=== PATIENT | male | born 1980 | race Caucasian/White ===

== ENCOUNTER 2016-08-18 12:13 | Day surgery (SDC) | payer OTHER, BC ==
[2016-08-16 13:48] VITALS: BMI 45.0
--- NOTE | 2016-08-16 14:27 | PAT Medication Instructions ---
Service Date Aug 16, 2016. Current Home Medication List Calcium Acetate (Phoslo 667 Mg), 1 CAP PO TIDM Calcium Carbonate (Antacid) (Tums E-X 750), 3 TAB PO TID Cinecalcet (Sensipar), 90 MG PO QPM Ergocalciferol (Vitamin D 93130 Unit), 1 TAB PO MONTHLY Sevelamer Carbonate (Renvela), 3,200 MG PO TIDM Sevelamer Carbonate (Renvela), 3 TAB PO SNACKS Vitamin B Cmplx/Vitc/Folic Ac (Nephrocaps), 1 CAP PO QAM [Hectoral], 1 DOSE IV M,W,F PRN for PER DIALYSIS Medication Instructions For Your Scheduled Surgery Hectoral 1 DOSE IV M,W,F PRN for PER DIALYSIS (continue as usual) - Hold the following medications the morning of surgery: Vitamin B Cmplx/Vitc/Folic Ac (Nephrocaps), 1 CAP PO QAM Calcium Acetate (Phoslo 667 Mg), 1 CAP PO TIDM Calcium Carbonate (Antacid) (Tums E-X 750), 3 TAB PO TID Ergocalciferol (Vitamin D 71788 Unit), 1 TAB PO MONTHLY Sevelamer Carbonate (Renvela), 3,200 MG PO TID - Take the following medications as scheduled the night before surgery: Calcium Acetate (Phoslo 667 Mg), 1 CAP PO TIDM Calcium Carbonate (Antacid) (Tums E-X 750), 3 TAB PO TID Cinecalcet (Sensipar), 90 MG PO QPM Sevelamer Carbonate (Renvela), 3,200 MG PO TID If you have any questions please call us at [phone] or [phone] ( [place]) or [phone]
--- NOTE | 2016-08-16 14:55 | DIAGNOSTIC IMAGING REPORT ---
CHEST PREADMISSION(PA/LAT) CLINICAL HISTORY: PAT preoperative evaluation COMPARISON STUDY: 08/21/2012 FINDINGS: The bones soft tissues and hemidiaphragms are normal. The cardiomediastinal silhouette is normal. The lungs are clear. The pulmonary vasculature is normal. IMPRESSION: Negative chest. Electronically signed by: Forest Cabrales M.D. 08/16/2016 2:54 PM Dictated Date/Time: 08/16/2016 2:53 PM
[2016-08-16 15:08] LABS: BASO % 0.4 %; BASO ABS # 0.03 K/uL (0-0.2); COMPLETE YES; EOS % 1.9 %; HEMATOCRIT 41.1 % (42-52); IG% 0.1 %; LYMPH % 29.6 %; LYMPH ABS # 2.38 K/uL (1.2-3.4); MEAN CELL VOLUME 100.2 fL (80-100); MEAN CORPUSCULAR HEMOGLOBIN 33.2 pg (25-34); MEAN CORPUSCULAR HGB CONC 33.1 g/dl (32-36); MEAN PLATELET VOLUME 9.4 fL (7.4-10.4); MONO % 6.5 %; NEUT % 61.5 %; PLATELET COUNT 303 K/uL (130-400); WHITE BLOOD COUNT 8.04 K/uL (4.8-10.8)
[2016-08-16 15:31] LABS: PROTHROMBIN TIME (PATIENT) 10.3 SECONDS (9.0-12.0)
[2016-08-16 15:46] LABS: BUN/CREATININE RATIO 5.7 (10-20); CALCIUM 8.8 mg/dl (8.5-10.1); POTASSIUM 4.8 mmol/L (3.5-5.1)
[2016-08-16 15:48] LABS: CREATININE 8.3 mg/dl (0.60-1.40)
[~2016-08-18] VITALS: Ht 180.3 cm; Wt 146.9 kg
--- NOTE | 2016-08-18 11:12 | History and Physical ---
History & Physical Chief Complaint: Malfunctoning av fistula History of Present Illness The patient is a 34 year old male with a right wrist av fistula. He has a malfunctioning fistula and a blood bleb over a puncture site. He is admitted for revision of his fistula. Allergies Coded Allergies: No Known Allergies (Unverified , 02/10/15) Surgical / Medical History Hx Cardiac Surgery: No Hx Abdominal Surgery: No Hx Cancer Surgery: No Hx Thoracic Surgery: No Hx Orthopedic: Yes (rt lower leg ,left knee surgery,fistula rt arm) Hx Urinary Tract Surgery: No HX Other Surgery: No Past Medical/Surgical History: Kidney Disease Family History Patient reports no known family medical history. Social History Smoking Status: Current Every Day Smoker Hx Tobacco Use In Past Year?: Yes Hx Alcohol Use - Type & Amnt: No Hx Substance Use -Type & Amnt: No Review of Systems Constitutional: No chills, No diaphoresis, No fatigue, No fever, No malaise, No problem reported, No sweats, No weakness, No weight gain, No weight loss Respiratory: No ROMERO, No PND, No cough, No cyanosis, No dyspnea, No hemoptysis, No orthopnea, No problem reported, No short of breath, No sputum production, No stridor, No wheezing Cardiovascular: No chest pain, No chest pressure, No chest tightness, No cyanosis, No diaphoresis, No edema, No intermittent claudication, No lightheadedness, No mumur, No orthopnea, No palpitations, No paroxysmal nocturnal dyspnea, No problem reported, No syncope Gastrointestinal: No abdominal pain, No anorexia, No appetite changes, No belching, No constipation, No diarrhea, No dysphagia, No flatulence, No food intolerance, No heartburn, No hematemesis, No hematochezia, No hemorrhoids, No indigestion, No nausea, No problem reported, No rectal bleeding, No stool changes, No vomiting Musculoskeletal: No back pain, No gout, No joint pain, No joint swelling, No muscle pain, No muscle stiffness, No muscle weakness, No neck pain, No problem reported Neurologic: No LOC, No dizziness, No headache, No lethargy, No memory loss, No numbness, No paresthesia, No pre-existing deficit, No problem reported, No seizures, No tics, No tingling, No tremors, No vertigo, No weakness Psychiatric: No alcohol abuse, No anxiety, No auditory hallucinations, No depression, No drug abuse, No homicidal ideation, No mood changes, No problem reported, No suicidal ideation, No visual hallucinations Physical Exam: Constitutional: General Apperance: heathly-appearing, well-nourished, well-developed Level of Distress: NAD Ambulation: ambulating normally Psychiatric: Mental Status: active & alert, normal mood, normal affect Orientation: oriented except where noted, to time, to place, to person Memory: recent memory normal, remote memory normal Head: normocephalic Lungs: Auscultation: breath sounds normal Cardiovascular: Heart Auscultation: RRR Peripheral Pulses: Pulses: full and equal Abdomen: Inspection & Palpation: soft Musculoskeletal: normal Extremities: Upper Right: no cyanosis, no edema, no varicosities, no palpable cord, no clubbing, no ulcers, no mottling Upper Left: pertinent finding thrill present, small blood bleb present over upper part of fistula Lower Right: no cyanosis, no edema, no varicosities, no palpable cord, no clubbing, no ulcers, no mottling Lower Left: no cyanosis, no edema, no varicosities, no palpable cord, no clubbing, no ulcers, no mottling Neurologic: Cranial Nerves: grossly intact Sensation: grossly intact Imp: Malfunctioning av fistula Plan: Patient will need a right arm fistula revision. I have discussed the risks options and benefits of the procedure with the patient. The patient understands the risks options and benefits and agrees to the procedure.
[~2016-08-18 12:13] MED LIST: B-COCAP2 PO; CEFAZOLIN 3000 MG/65 ML D5W IV SCH; CINA90TA PO; ERGO1CAP41 PO; SODIUM CHLORIDE 0.9% 1000ML 1,000 ML IV SCH
[2016-08-18 12:42] VITALS: BP 87/61; PULSE 112; TEMP 36.8; O2SAT 96; Ht 180.3 cm; Wt 146.9 kg
[2016-08-18 13:23] LABS: BUN/CREATININE RATIO 4.8 (10-20); CALCIUM 9.6 mg/dl (8.5-10.1); CREATININE 8.3 mg/dl (0.60-1.40); POTASSIUM 5.8 mmol/L (3.5-5.1)
[2016-08-18] MEDS ORDERED: FENTANYL CITRATE INJ 50 MCG/1 ML 2 ML VIAL IV PRN (13:45)
[2016-08-18] MEDS ORDERED: ATROPINE SULFATE 0.1 MG/ML 5ML SYR IV PRN (13:45)
[2016-08-18] MEDS ORDERED: ONDANSETRON INJ 2 MG/ML 2 ML VIAL IV PRN (13:45)
[2016-08-18] MEDS ORDERED: EpHEDrine SULFATE INJ 50 MG/ML AMP IV PRN (13:45)
[2016-08-18] MEDS ORDERED: MIDAZOLAM HCL 1 MG/ML 2ML VIAL ONE (13:57)
[2016-08-18] MEDS ORDERED: KETAMINE HCL INJ 50 MG/ML 10 ML VIAL ONE (13:57)
[2016-08-18] MEDS ORDERED: FENTANYL CITRATE INJ 50 MCG/1 ML 2 ML VIAL ONE (13:57)
[2016-08-18] MEDS ORDERED: PROPOFOL IV EMULSION 10 MG/ML 20 ML VIAL IV ONE ×2 (14:59→15:47)
[2016-08-18] MEDS ORDERED: LIDOCAINE HCL 2% 2 ML VIAL (20MG/ML) ONE (14:59)
[2016-08-18] MEDS ORDERED: SURGICEL ABSORB HEMOSTAT 2IN X 14IN TOP ONE (15:27)
[2016-08-18] MEDS ORDERED: HEPARIN SOD (PORCINE) 1000 UNIT/ML 10 ML VIAL ONE (15:47)
--- NOTE | 2016-08-18 15:51 | [facility] Post Operative Brief Note ---
Immediate Operative Summary Operative Date Aug 18, 2016. Pre-Operative Diagnosis Malfunctioning arteriovenous fistula, right forearm Post-Operative Diagnosis Same as preoperative diagnosis Procedure(s) Performed Right Forearm Revision of Arteriovenous Fistula with interposition graft Surgeon Dr. Antwan Jefferson Tool Crib Lead Surgeon(s) Lidya Raya PA-C Estimated Blood Loss 100 mL Findings severe hypoplasia of venous aneurysm Specimens No pathology specimens per surgeon Anesthesia MAC Complication(s) None Disposition Recovery Room / PACU
[2016-08-18] MEDS ORDERED: SODIUM CHLORIDE 0.9% INJ 10 ML VIAL ONE (15:52)
[2016-08-18] MEDS ORDERED: HEPARIN SOD (PORCINE) 1000 UNIT/ML 10 ML VIAL FLUSH ONE (15:53)
[2016-08-18] MEDS ORDERED: MIX: 0.5% BUPIVACAINE W/EPI 1:200,000+1%LIDO 50:50 INJ ONE (15:53)
[2016-08-18] MEDS ORDERED: OXYC-57 PO (15:55)
--- NOTE | 2016-08-18 15:56 | Discharge Instructions ---
Discharge Instructions Visit Reason for Visit: End Stage Renal Disease Discharge Discharge Diagnosis / Problem: Malfunctioning right arm fistula Discharge Goals Goal(s): Therapeutic intervention Activity Recommendations Activity Limitations: per Instructions/Follow-up section Anesthesia . Post Anesthesia Instructions: If you have had General Anesthesia or IV Sedation: * Do not drive today. * Resume driving when surgeon permits. * Do not make important decisions or sign legal documents today. * Call surgeon for: 1. Temperature elevations greater than 101 degrees F. 2. Uncontrollable pain. 3. Excessive bleeding. 4. Persistent nausea and vomiting. 5. Medication intolerance (nausea, vomiting or rash). * For nausea and vomiting use only clear liquids such as: tea, soda, bouillon until nausea subsides, then gradually increase diet as tolerated. * If you have any concerns or questions, call your surgeon's office. If physician is unavailable and it is an emergency, call 911 or go to the nearest emergency room. . Instructions / Follow-Up Instructions / Follow-Up Call [phone] to schedule a follow up appointment if one not already scheduled. ACTIVITY RECOMMENDATIONS: See Above SPECIAL CARE INSTRUCTIONS: Call your doctor if: * Temperature above 101 degrees * Pain not relieved by pain medicine ordered * There is increased drainage or redness from any incision * You have any unanswered questions or concerns. Diet Recommendations Recommended Home Diet: resume previous diet Procedures Procedures Performed: Right Forearm Revision of Arteriovenous Fistula with interposition graft Pending Studies Studies pending at discharge: no Medical Emergencies . Who to Call and When: Medical Emergencies: If at any time you feel your situation is an emergency, please call 911 immediately. . Non-Emergent Contact Non-Emergency issues call your: Surgeon . . "Provider Documentation" section prepared by Antwan Jefferson.
--- NOTE | 2016-08-18 16:24 | Anesthesiology Progress Note ---
Anesthesia Post Op Note Date & Time Aug 18, 2016 at 16:24 Vital Signs Pain Intensity: 0 Vital Signs Past 12 Hours Date Time Temp Pulse Resp B/P Pulse Ox O2 Delivery O2 Flow Rate FiO2 08/18/16 16:05 36.2 107 27 81/45 96 Mask 10 08/18/16 12:42 36.8 112 20 87/61 96 Room Air Notes Mental Status: alert / awake / arousable, participated in evaluation Pt Amnestic to Procedure: Yes Nausea / Vomiting: adequately controlled Pain: adequately controlled Airway Patency, RR, SpO2: stable & adequate BP & HR: stable & adequate Hydration State: stable & adequate Anesthetic Complications: no major complications apparent
[2016-08-18 17:00] VITALS: BP 89/52; PULSE 103; TEMP 36.6; O2SAT 97
[2016-08-18 17:30] VITALS: BP 104/59; PULSE 101; O2SAT 97
[2016-08-18 17:40] VITALS: BP 101/60; PULSE 101; TEMP 36.6; O2SAT 100
--- NOTE | 2016-08-18 18:22 | OPERATIVE REPORT ---
DATE OF OPERATION: 08/18/2016 PREOPERATIVE DIAGNOSIS: Malfunctioning right forearm AV fistula. POSTOPERATIVE DIAGNOSIS: Same. PROCEDURE: Revision of right forearm fistula with 10 mm French Settlement-Siva interposition graft. SURGEON: Dr. Jefferson. VENTURE CAPITAL ANALYST: Lidya Raya PA-C. ANESTHETIC: MAC. PROCEDURE INDICATIONS: The patient is a 35-year-old gentleman with a right arm fistula. There was an area which was very superficial and had scabbed over and had blood in the past. This is over a venous aneurysm which has had multiple punctures. Revision was recommended. He understood the risks, options and benefits and agreed to have this procedure. PROCEDURE IN DETAIL: The patient was taken to the operating room and placed in supine position. After the right arm was prepped and draped in a sterile manner, local anesthetic was administered. An elliptical incision was made around the top of the venous aneurysm, in the area where the skin was adherent to the anterior wall of the venous aneurysm. Venous aneurysm was then isolated. There was a short neck between this and another venous aneurysm. Distally, the vein was extremely large. It was decided to try to do venorrhaphy to take it down to near the proximal venous aneurysm. The patient was heparinized. Proximal and distally, the control was obtained. The venous aneurysm was opened. Unfortunately, there was a severe amount of hyperplasia with transverse ridges. A venorrhaphy would not work well in this area. It was decided to replace this short segment with a 10 mm French Settlement-Siva graft. The venous aneurysm was then resected. A 10 mm French Settlement-Siva graft was brought to the operative field. We used approximately 3 cm of the graft. This was sewn in an end-to-end fashion to both the proximal and distal portions of the fistula. Prior to completing the anastomosis, backbleeding and forward bleeding was allowed to occur and the final few sutures were then securely tied. After this was completed, the adequate hemostasis was seen in both proximal and distal suture lines. The wound also showed adequate hemostasis. There was excellent flow going through the fistula at that time. At that point, the wounds were then freed up on both sides to allow the graft to be covered. We did suture the subcutaneous tissue below the graft to make it more superficial. The wound was then closed in the usual fashion with a running 3-0 Vicryl suture for the subcutaneous layer and zak for the skin. Sterile dressings were applied to the wound. The patient left the operating room in satisfactory condition and tolerated the procedure well. Lidya Raya assisted due to lack of resident availability. I attest to the content of the Intraoperative Record and any orders documented therein. Any exceptio ns are noted below.
--- NOTE | 2016-08-19 14:16 | Progress Note ---
Progress Note I assisted Dr Jefferson with Edouard Morrison's Right Forearm Revision of Arteriovenous Fistula with interposition graft on 08/18/16, d/t lack of resident availability.
[2016-09-30] MEDS ORDERED: OXYC-57 PO (10:07)
[2016-12-19] MEDS ORDERED: SEVE800T7 PO ×2 (07:48→19:14)
[2016-12-19] MEDS ORDERED: CALC667C4 PO (13:48)
[2016-12-19] MEDS ORDERED: HECTORAL IV (13:48)
[2016-12-19] MEDS ORDERED: CALC1CHW43 PO (13:48)
[2016-12-29] MEDS ORDERED: ERGO1CAP41 PO (15:47)
[2017-01-03] MEDS ORDERED: OXYC-57 PO (13:48)
== END 2016-08-18 17:40 | disposition home or self-care (01) ==
LOC: C.ACU 12:13
PROVIDERS: ATTEND Surgery Vascular Surgery
DX: T82.898A Other specified complication of vascular prosthetic devices, implants and grafts, initial encounter (principal); N18.6 End stage renal disease; Y84.8 Other medical procedures as the cause of abnormal reaction of the patient, or of later complication, without mention of misadventure at the time of the procedure

== ENCOUNTER → 2016-09-30 | Day surgery (SDC) | payer OTHER, BC ==
[2016-09-27 13:05] VITALS: BMI 45.0
[~2016-09-30] VITALS: Ht 180.3 cm; Wt 146.9 kg
[~2016-09-30] MED LIST changes: +ATROPINE SULFATE 0.1 MG/ML 5ML SYR IV PRN; +B-COCAP28 PO; +BUPIVACAINE/EPINEPHRINE 0.5% MPF 1:200,000 30 ML VIAL ONE; +CALC1CHW43 PO; +CALC667C PO; +CALC667C4 PO; +CINA0.42 PO; +EpHEDrine SULFATE INJ 50 MG/ML AMP IV PRN; +FENTANYL CITRATE INJ 50 MCG/1 ML 2 ML VIAL IV PRN; +FENTANYL CITRATE INJ 50 MCG/1 ML 2 ML VIAL ONE; +GELATIN SPONGE 12-7MM ONE; +HECTORAL IV; +HEPARIN SOD (PORCINE) 1000 UNIT/ML 10 ML VIAL ONE; +LIDOCAINE HCL 1% 20 ML VIAL ONE; +MIDAZOLAM HCL 1 MG/ML 2ML VIAL ONE; +OXYC-57 PO; +PATI1POW3 PO; +PROPOFOL IV EMULSION 10 MG/ML 20 ML VIAL IV ONE; +SEVE800T7 PO; +THROMBIN FOR SOLN 20000 UNIT KIT ONE; +TRAM-10 PO; +[UNRECOGNIZED DRUG - CODE]
--- NOTE | 2016-09-30 08:04 | History and Physical ---
History & Physical Date of Service Sep 30, 2016. History & Physical Chief Complaint: Malfunctoning av fistula History of Present Illness The patient is a 34 year old male with a right wrist av fistula. He has a malfunctioning fistula and a blood bleb over a puncture site. He is admitted for revision of his fistula. Allergies Coded Allergies: No Known Allergies (Unverified , 02/10/15) Surgical / Medical History Hx Cardiac Surgery: No Hx Abdominal Surgery: No Hx Cancer Surgery: No Hx Thoracic Surgery: No Hx Orthopedic: Yes (rt lower leg ,left knee surgery,fistula rt arm) Hx Urinary Tract Surgery: No HX Other Surgery: No Past Medical/Surgical History: Kidney Disease Family History Patient reports no known family medical history. Social History Smoking Status: Current Every Day Smoker Hx Tobacco Use In Past Year?: Yes Hx Alcohol Use - Type & Amnt: No Hx Substance Use -Type & Amnt: No Review of Systems Constitutional: No chills, No diaphoresis, No fatigue, No fever, No malaise, No problem reported, No sweats, No weakness, No weight gain, No weight loss Respiratory: No ROMERO, No PND, No cough, No cyanosis, No dyspnea, No hemoptysis, No orthopnea, No problem reported, No short of breath, No sputum production, No stridor, No wheezing Cardiovascular: No chest pain, No chest pressure, No chest tightness, No cyanosis, No diaphoresis, No edema, No intermittent claudication, No lightheadedness, No mumur, No orthopnea, No palpitations, No paroxysmal nocturnal dyspnea, No problem reported, No syncope Gastrointestinal: No abdominal pain, No anorexia, No appetite changes, No belching, No constipation, No diarrhea, No dysphagia, No flatulence, No food intolerance, No heartburn, No hematemesis, No hematochezia, No hemorrhoids, No indigestion, No nausea, No problem reported, No rectal bleeding, No stool changes, No vomiting Musculoskeletal: No back pain, No gout, No joint pain, No joint swelling, No muscle pain, No muscle stiffness, No muscle weakness, No neck pain, No problem reported Neurologic: No LOC, No dizziness, No headache, No lethargy, No memory loss, No numbness, No paresthesia, No pre-existing deficit, No problem reported, No seizures, No tics, No tingling, No tremors, No vertigo, No weakness Psychiatric: No alcohol abuse, No anxiety, No auditory hallucinations, No depression, No drug abuse, No homicidal ideation, No mood changes, No problem reported, No suicidal ideation, No visual hallucinations Physical Exam: Constitutional: General Apperance: heathly-appearing, well-nourished, well-developed Level of Distress: NAD Ambulation: ambulating normally Psychiatric: Mental Status: active & alert, normal mood, normal affect Orientation: oriented except where noted, to time, to place, to person Memory: recent memory normal, remote memory normal Head: normocephalic Lungs: Auscultation: breath sounds normal Cardiovascular: Heart Auscultation: RRR Peripheral Pulses: Pulses: full and equal Abdomen: Inspection & Palpation: soft Musculoskeletal: normal Extremities: Upper Right: no cyanosis, no edema, no varicosities, no palpable cord, no clubbing, no ulcers, no mottling Upper Left: pertinent finding thrill present, small blood bleb present over upper part of fistula Lower Right: no cyanosis, no edema, no varicosities, no palpable cord, no clubbing, no ulcers, no mottling Lower Left: no cyanosis, no edema, no varicosities, no palpable cord, no clubbing, no ulcers, no mottling Neurologic: Cranial Nerves: grossly intact Sensation: grossly intact Imp: Malfunctioning av fistula Plan: Patient will need a right arm fistula revision. I have discussed the risks options and benefits of the procedure with the patient. The patient understands the risks options and benefits and agrees to the procedure.
[2016-09-30 08:15] VITALS: BP 90/59; PULSE 92; TEMP 36.4; O2SAT 97; Ht 180.3 cm; Wt 146.9 kg
[2016-09-30 08:57] LABS: BUN/CREATININE RATIO 6.9 (10-20); CALCIUM 8.9 mg/dl (8.5-10.1); POTASSIUM 5.8 mmol/L (3.5-5.1)
--- NOTE | 2016-09-30 10:06 | [facility] Post Operative Brief Note ---
Immediate Operative Summary Operative Date Sep 30, 2016. Pre-Operative Diagnosis Malfunctioning arteriovenous fistula Post-Operative Diagnosis Same as preoperative diagnosis Procedure(s) Performed Revision Right Arm Arteriovenous Fistula with Venorrhaphy Surgeon Dr Jefferson Roll Icer Machine Surgeon(s) Lidya Galaviz PA-C Estimated Blood Loss 20ml Findings good thrill post procedure Specimens None per surgeon Anesthesia MAC Complication(s) None Disposition Recovery Room / PACU
--- NOTE | 2016-09-30 10:08 | Discharge Instructions ---
Discharge Instructions Date of Service Sep 30, 2016. Visit Reason for Visit: Venous Aneurysm Right Arm Arteriovenous Fistula Discharge Discharge Diagnosis / Problem: Venous aneurysm right forearm fistula Discharge Goals Goal(s): Therapeutic intervention Activity Recommendations Activity Limitations: per Instructions/Follow-up section Anesthesia . Post Anesthesia Instructions: If you have had General Anesthesia or IV Sedation: * Do not drive today. * Resume driving when surgeon permits. * Do not make important decisions or sign legal documents today. * Call surgeon for: 1. Temperature elevations greater than 101 degrees F. 2. Uncontrollable pain. 3. Excessive bleeding. 4. Persistent nausea and vomiting. 5. Medication intolerance (nausea, vomiting or rash). * For nausea and vomiting use only clear liquids such as: tea, soda, bouillon until nausea subsides, then gradually increase diet as tolerated. * If you have any concerns or questions, call your surgeon's office. If physician is unavailable and it is an emergency, call 911 or go to the nearest emergency room. . Instructions / Follow-Up Instructions / Follow-Up Call [phone] to schedule a follow up appointment if one not already scheduled. ACTIVITY RECOMMENDATIONS: See Above SPECIAL CARE INSTRUCTIONS: Call your doctor if: * Temperature above 101 degrees * Pain not relieved by pain medicine ordered * There is increased drainage or redness from any incision * You have any unanswered questions or concerns. Diet Recommendations Recommended Home Diet: resume previous diet Procedures Procedures Performed: Revision Right Arm Arteriovenous Fistula with Venorrhaphy Pending Studies Studies pending at discharge: no Medical Emergencies . Who to Call and When: Medical Emergencies: If at any time you feel your situation is an emergency, please call 911 immediately. . Non-Emergent Contact Non-Emergency issues call your: Surgeon . . "Provider Documentation" section prepared by Antwan Jefferson.
--- NOTE | 2016-09-30 10:54 | OPERATIVE REPORT ---
DATE OF OPERATION: 09/30/2016 PREOPERATIVE DIAGNOSIS: Venous aneurysm, malfunctioning right forearm fistula. POSTOPERATIVE DIAGNOSIS: Same. PROCEDURE: Revision of right forearm AV fistula with venorrhaphy. SURGEON: Dr. Jefferson. BRANCH ASSOCIATE TELLER: Lidya Raya PA-C. ANESTHETIC: MAC. PROCEDURE INDICATIONS: The patient is a 36-year-old gentleman with a large venous aneurysm of his right forearm. There is decreased flow going through the fistula. The revision was recommended. He understood the risks, options and benefits and agreed to have this procedure. OPERATION AND FINDINGS: The patient was taken to the operating room and placed in supine position. The right arm was prepped and draped in a sterile manner. Elliptical incision was made around the top of the aneurysm back to the border of good skin tissue. This was carried down and the venous aneurysm was encircled. It was approximately 30 cm in size. Proximally and distally there was a neck seen. Distal end was in an old another venorrhaphy which was done prior to this. The fistula was then clamped after adequate heparinization was accomplished. The fistula was then opened. The excess redundant vein was excised and the venotomy was then closed with a running 5-0 Prolene suture. The vein now was approximately 8 mm in size through its entire course of the incision. Adequate hemostasis was then noted once the fistula was clamped. The wound was inspected. Adequate hemostasis was seen. The wound was then closed with running 3-0 Vicryl suture for the subcutaneous layer and zak for the skin. Sterile dressings were applied to the wound. The patient left the operating room in satisfactory condition and tolerated the procedure well. Lidya Raya Pac assisted due to lack of resident availability and was necessary for prepping, draping, retraction, wound closure defects, subQ and skin and was necessary for the case. I attest to the content of the Intraoperative Record and any orders documented therein. Any exceptions are noted below. DAYSID
[2016-09-30 10:55] VITALS: BP 99/52; PULSE 89; TEMP 36.8; O2SAT 95
--- NOTE | 2016-09-30 10:58 | Anesthesiology Progress Note ---
Anesthesia Post Op Note Date & Time Sep 30, 2016 at 10:58 Vital Signs Pain Intensity: 0 Vital Signs Past 12 Hours Date Time Temp Pulse Resp B/P Pulse Ox O2 Delivery O2 Flow Rate FiO2 09/30/16 10:40 36.9 89 21 105/74 94 Room Air 09/30/16 10:30 85 17 109/73 100 Mask 10 09/30/16 10:23 36.7 81 24 119/76 100 Mask 10 09/30/16 08:15 36.4 92 20 90/59 97 Room Air Notes Mental Status: alert / awake / arousable, participated in evaluation Pt Amnestic to Procedure: Yes Nausea / Vomiting: adequately controlled Pain: adequately controlled Airway Patency, RR, SpO2: stable & adequate BP & HR: stable & adequate Hydration State: stable & adequate Anesthetic Complications: no major complications apparent
[2016-09-30 11:27] VITALS: BP 115/53; PULSE 87; TEMP 36.8; O2SAT 94
[2016-09-30 11:55] VITALS: BP 83/52; PULSE 88; TEMP 36.6; O2SAT 93
== END | disposition home or self-care (01) ==
LOC: C.ACU 07:48
PROVIDERS: ATTEND Surgery Vascular Surgery
DX: T82.590A Other mechanical complication of surgically created arteriovenous fistula, initial encounter (principal); I86.8 Varicose veins of other specified sites; Y83.2 Surgical operation with anastomosis, bypass or graft as the cause of abnormal reaction of the patient, or of later complication, without mention of misadventure at the time of the procedure; N28.9 Disorder of kidney and ureter, unspecified; F17.200 Nicotine dependence, unspecified, uncomplicated

== ENCOUNTER 2016-12-19 20:11 | Inpatient (IN) | payer OTHER, BC ==
[~2016-12-19] VITALS: Ht 180.3 cm; Wt 151.6 kg
[~2016-12-19 20:11] MED LIST changes: -ATROPINE SULFATE 0.1 MG/ML 5ML SYR IV PRN; -B-COCAP28 PO; -BUPIVACAINE/EPINEPHRINE 0.5% MPF 1:200,000 30 ML VIAL ONE; -CALC667C PO; -CEFAZOLIN 3000 MG/65 ML D5W IV SCH; -CINA0.42 PO; -ERGO1CAP41 PO; +ERGO500011 PO; -EpHEDrine SULFATE INJ 50 MG/ML AMP IV PRN; -FENTANYL CITRATE INJ 50 MCG/1 ML 2 ML VIAL IV PRN; -FENTANYL CITRATE INJ 50 MCG/1 ML 2 ML VIAL ONE; -GELATIN SPONGE 12-7MM ONE; -HEPARIN SOD (PORCINE) 1000 UNIT/ML 10 ML VIAL ONE; -LIDOCAINE HCL 1% 20 ML VIAL ONE; -MIDAZOLAM HCL 1 MG/ML 2ML VIAL ONE; -PATI1POW3 PO; -PROPOFOL IV EMULSION 10 MG/ML 20 ML VIAL IV ONE; -SODIUM CHLORIDE 0.9% 1000ML 1,000 ML IV SCH; -THROMBIN FOR SOLN 20000 UNIT KIT ONE; -TRAM-10 PO; -[UNRECOGNIZED DRUG - CODE]
[2016-12-19] MEDS ORDERED: CINA0.42 PO (21:27)
[2016-12-19] MEDS ORDERED: CALC667C PO (21:27)
[2016-12-19] MEDS ORDERED: B-COCAP28 PO (21:27)
[2016-12-19 21:57] LABS: BASO % 0.4 %; BASO ABS # 0.04 K/uL (0-0.2); COMPLETE YES; EOS % 2.4 %; HEMATOCRIT 35.2 % (42-52); IG% 0.4 %; LYMPH % 35.6 %; LYMPH ABS # 3.53 K/uL (1.2-3.4); MEAN CORPUSCULAR HEMOGLOBIN 32.7 pg (25-34); MEAN CORPUSCULAR HGB CONC 32.7 g/dl (32-36); MEAN PLATELET VOLUME 9.3 fL (7.4-10.4); MONO % 4.9 %; NEUT % 56.3 %; PLATELET COUNT 303 K/uL (130-400); RED BLOOD COUNT 3.52 M/uL (4.7-6.1); WHITE BLOOD COUNT 9.91 K/uL (4.8-10.8)
[2016-12-19 22:28] LABS: ALKALINE PHOSPHATASE 77 U/L (45-117); ALT/SGPT 18 U/L (12-78); AST/SGOT 13 U/L (15-37); BLOOD UREA NITROGEN 106 mg/dl (7-18); BUN/CREATININE RATIO 7.1 (10-20); CARBON DIOXIDE 20 mmol/L (21-32); CHLORIDE 102 mmol/L (98-107); GLUCOSE 94 mg/dl (70-99); MAGNESIUM 3.2 mg/dl (1.8-2.4); POTASSIUM 5.2 mmol/L (3.5-5.1); SODIUM 140 mmol/L (136-145)
[2016-12-19] MEDS ORDERED: SODIUM BICARB 8.4% INJ 50 MEQ/50 ML SYR IV STA (22:33)
[2016-12-19] MEDS ORDERED: INSULIN HUMAN REGULAR PER UNIT 5 UNITS in SYRINGE 0 ML IV STA (22:34)
[2016-12-19] MEDS ORDERED: NovoLIN-R INSULIN PER UNIT CHARGE IV STA (22:37)
[2016-12-19] MEDS ORDERED: DEXTROSE 50% 50 ML SYR IV STA (22:38)
[2016-12-19] MEDS ORDERED: CALCIUM ACETATE 667MG GELCAP PO PRN (22:45)
[2016-12-19] MEDS ORDERED: TRAMADOL HCL 50 MG TAB PO PRN (22:45)
[2016-12-19] MEDS ORDERED: LORAZEPAM 2 MG/ML 1 ML VIAL IV PRN (22:45)
[2016-12-19] MEDS ORDERED: HYDROmorphone INJ 1 MG/ML SYR IV PRN (22:45)
[2016-12-19] MEDS ORDERED: ONDANSETRON INJ 2 MG/ML 2 ML VIAL IV PRN (22:45)
[2016-12-19] MEDS ORDERED: SEVELAMER HYDROCH 800 MG TAB PO PRN (22:45)
[2016-12-19] MEDS ORDERED: ACETAMINOPHEN 325 MG TAB PO PRN (22:45)
[2016-12-19 23:57] VITALS: BP 114/69; PULSE 95; TEMP 36.9; O2SAT 95; Ht 180.3 cm; Wt 151.6 kg
[2016-12-19 23:59] VITALS: O2SAT 95
[2016-12-20] VITALS (20 sets, daily range): BP systolic 109–144; BP diastolic 62–83; PULSE 59–93; TEMP 36.3–36.5; O2SAT 94–97
[2016-12-20 00:32] LABS: PROTHROMBIN TIME (PATIENT) 10.5 SECONDS (9.0-12.0)
--- NOTE | 2016-12-20 01:08 | EMERGENCY ROOM VISIT NOTE ---
History Report prepared by Ben: Ravinder Lock Under the Supervision of: Dr. aD King M.D. First contact with patient: 20:46 Chief Complaint: REFERRED BY DOCTOR Stated Complaint: ON DIALYSIS,CATHETER IS CRACKED,SENT BY History of Present Illness The patient is a 36 year old male who presents to the Emergency Room with complaints of a broken dialysis catheter beginning today. He is a dialysis patient and receives dialysis three times weekly. He states that he was told that his dialysis catheter had a crack in the venous lumen while at dialysis today. The patient states that he had the catheter placed two weeks ago due to his fistula not working. He was unable to complete dialysis today. He has not had dialysis for two days. The patient notes that he still makes a small amount of urine. Pt denies LOC, headache, fevers, chills, diaphoresis, visual changes, neck pain, chest pain, breathing difficulties, nausea, vomiting, abdominal pain , back pain, melena, hematochezia, urinary symptoms, numbness, weakness, lymphadenopathy, rash, or other complaints. Source of History: patient Onset: Today Quality: other (broken catheter) Associated Symptoms: No fevers, No chest pain, No SOB, No nausea, No vomiting Review of Systems See HPI for pertinent positives and negatives. A total of ten systems were reviewed and were otherwise negative. Past Medical & Surgical Medical Problems: (1) Dialysis catheter clot or failure (2) ESRD (end stage renal disease) on dialysis (3) Hyperkalemia Surgical Problems: (1) History of knee surgery Family History Patient reports no known family medical history. Social History Smoking Status: Current Every Day Smoker Drug Use: none Marital Status: single Occupation Status: employed Current/Historical Medications Scheduled B-Complex W/ C & Folic Acid (Triphrocaps), 1 CAP PO DAILY Calcium Acetate (Phoslo 667 Mg), 667 MG PO WITH SNACKS Calcium Acetate (Phosphate Bin (Phoslo 667 Mg), 2,001 MG PO TIDM Calcium Carbonate (Antacid) (Tums E-X 750), 2,625 MG PO TIDM Cinacalcet Hydrochloride (Sensipar), 30 MG PO QPM Sevelamer Carbonate (Renvela), 3,200 MG PO TIDM Sevelamer Carbonate (Renvela), 2,400 MG PO WITH SNACKS Scheduled PRN [Hectoral], 1 DOSE IV 3XWK PRN for PER DIALYSIS Allergies Coded Allergies: No Known Allergies (Unverified , 09/30/16) Physical Exam Vital Signs Date Time Temp Pulse Resp B/P (MAP) Pulse Ox O2 Delivery O2 Flow Rate FiO2 12/19/16 22:30 99 18 125/46 93 Room Air 12/19/16 21:55 93 12/19/16 20:12 36.7 99 18 117/66 95 Room Air Physical Exam GENERAL: Awake, alert, well-appearing, in no distress HENT: Normocephalic, atraumatic. Oropharynx unremarkable. EYES: Normal conjunctiva. Sclera non-icteric. NECK: Supple. No nuchal rigidity. FROM. No JVD. RESPIRATORY: Clear to auscultation. CARDIAC: Regular rate, normal rhythm. Extremities warm and well perfused. Pulses equal. ABDOMEN: Soft, non-distended. No tenderness to palpation. No rebound or guarding. No masses. RECTAL: Deferred. MUSCULOSKELETAL: Chest examination reveals no tenderness. Cracked venous lumen to the dialysis catheter in the right chest wall. The back is symmetrical on inspection without obvious abnormality. There is no CVA tenderness to palpation. No joint edema. LOWER EXTREMITIES: Calves are equal size bilaterally and non-tender. 1+ edema. Chronic discoloration. NEURO: Normal sensorium. No sensory or motor deficits noted. SKIN: No rash or jaundice noted. Medical Decision & Procedures Laboratory Results 12/19/16 21:43 Red Blood Count 3.52, Mean Corpuscular Volume 100.0, Mean Corpuscular Hemoglobin 32.7, Mean Corpuscular Hemoglobin Concent 32.7, Mean Platelet Volume 9.3, Neutrophils (%) (Auto) 56.3, Lymphocytes (%) (Auto) 35.6, Monocytes (%) ( Auto) 4.9, Eosinophils (%) (Auto) 2.4, Basophils (%) (Auto) 0.4, Neutrophils # ( Auto) 5.57, Lymphocytes # (Auto) 3.53, Monocytes # (Auto) 0.49, Eosinophils # ( Auto) 0.24, Basophils # (Auto) 0.04 12/19/16 21:43 Test 12/19/16 21:43 White Blood Count 9.91 K/uL (4.8-10.8) Red Blood Count 3.52 M/uL (4.7-6.1) Hemoglobin 11.5 g/dL (14.0-18.0) Hematocrit 35.2 % (42-52) Mean Corpuscular Volume 100.0 fL (80-100) Mean Corpuscular Hemoglobin 32.7 pg (25-34) Mean Corpuscular Hemoglobin Concent 32.7 g/dl (32-36) Platelet Count 303 K/uL (130-400) Mean Platelet Volume 9.3 fL (7.4-10.4) Neutrophils (%) (Auto) 56.3 % Lymphocytes (%) (Auto) 35.6 % Monocytes (%) (Auto) 4.9 % Eosinophils (%) (Auto) 2.4 % Basophils (%) (Auto) 0.4 % Neutrophils # (Auto) 5.57 K/uL (1.4-6.5) Lymphocytes # (Auto) 3.53 K/uL (1.2-3.4) Monocytes # (Auto) 0.49 K/uL (0.11-0.59) Eosinophils # (Auto) 0.24 K/uL (0-0.5) Basophils # (Auto) 0.04 K/uL (0-0.2) RDW Standard Deviation 56.9 fL (36.4-46.3) RDW Coefficient of Variation 15.7 % (11.5-14.5) Immature Granulocyte % (Auto) 0.4 % Immature Granulocyte # (Auto) 0.04 K/uL (0.00-0.02) Prothrombin Time 10.5 SECONDS (9.0-12.0) Prothromb Time International Ratio 1.0 (0.9-1.1) Anion Gap 18.0 mmol/L (3-11) Est Creatinine Clear Calc Drug Dose 10.2 ml/min Estimated GFR () 4.2 Estimated GFR (Non- 3.6 BUN/Creatinine Ratio 7.1 (10-20) Calcium Level 8.0 mg/dl (8.5-10.1) Magnesium Level 3.2 mg/dl (1.8-2.4) Total Bilirubin 0.3 mg/dl (0.2-1) Direct Bilirubin < 0.1 mg/dl (0-0.2) Aspartate Amino Transf (AST/SGOT) 13 U/L (15-37) Alanine Aminotransferase (ALT/SGPT) 18 U/L (12-78) Alkaline Phosphatase 77 U/L (45-117) Total Protein 7.4 gm/dl (6.4-8.2) Albumin 3.3 gm/dl (3.4-5.0) Lipase 462 U/L (73-393) Laboratory results reviewed by me ED Course 2105: The patient was evaluated in room B11B. A complete history and physical exam was performed. 2115: Upon reexamination, the patient was resting comfortably. I discussed the test results and treatment plan with him. The patient will be evaluated for further management. Medical Decision Medication Reconciliation: I attest that I have personally reviewed the patient' s current medication list Blood pressure screening: Patient was found to have normal blood pressure on screening and does not require follow-up. Triage Nursing notes reviewed. The patient's presentation and history were concerning for a malfunctioning dialysis catheter. Etiologies such as metabolic, infection, electrolyte abnormalities, fluid overload, as well as others were entertained. The patient was evaluated. The dialysis team noted that he had a cracked venous lumen. There is no active bleeding. There were no clear signs of infection. The patient had blood work obtained. Consultation was made with internal medicine as the patient will need to be brought into the hospital and prepped for vascular intervention. Electrolytes were unremarkable. Creatinine elevated consistent with his renal failure Consults Time Called: 2113 Consulting Physician: Dr. Hoa Bonilla Returned Call: 2115 Discussed the patient's case. The patient will be evaluated for further treatment and disposition. Impression Primary Impression: Complications, dialysis, catheter, mechanical Additional Impression: Vascular dialysis catheter in place Scribe Attestation The scribe's documentation has been prepared under my direction and personally reviewed by me in its entirety. I confirm that the note above accurately reflects all work, treatment, procedures, and medical decision making performed by me. Departure Information Dispostion Being Evaluated By Hospitalist Referrals Patricia Stodadrd MD (PCP) Patient Instructions My [facility] Problem Qualifiers
--- NOTE | 2016-12-20 02:24 | HISTORY & PHYSICAL EXAMINATION ---
DATE OF ADMISSION: 12/19/2016 PATIENT'S PRIMARY CARE DOCTOR: Ignacia Contreras PA-C, from [facility]. CHIEF COMPLAINT: Cracked dialysis catheter. HISTORY OF PRESENT ILLNESS: HX obtained from px and records. Medical history significant for end-stage renal disease on hemodialysis 2 to traumatic kidney injury, chronic anemia (baseline hemoglobin 12), renal hyperparathyroidism sp parathyroid surgery, ongoing tobacco abuse. Recent confinement, last June 2015 for hyperkalemia secondary to missed dialysis, secondary to malfunctioning AV fistula. Patient undergoes hemodialysis at [place] on Monday, Monday, Monday. Last week, the patient noted to have a clotted right radiocephalic fistula (December 13). Declotting was unsuccessful. A tunneled right IJ hemodialysis catheter was placed and subsequently utilized for dialysis. Today, there was a crack noted on the dialysis catheter. Dialysis deferred. Patient sent to [facility]. Patient denies chest pain, shortness of breath, unusual swelling. MEDICAL HISTORY: As above. SURGERIES: Parathyroidectomy, vascular procedures, thymus gland removal. HOME MEDICATIONS: Include calcium acetate, vitamin D, sevelamer, cholecalciferol. ALLERGIES: No known drug allergies. FAMILY HISTORY: Family history of dementia. PERSONAL AND SOCIAL HISTORY: Half pack a day. No chronic intake of alcoholic beverages. 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 REVIEW OF SYSTEMS: As per HPI. all other ROS negative PHYSICAL EXAMINATION: VITAL SIGNS: Blood pressure was noted to be 120/80, pulse 89, RR 18, temperature 36.6, sats 98 on room air. GENERAL: Noted to be comfortable, obese. Looks older for stated age. SKIN: Sallow. HEENT Pale palpebral conjunctivae, dry mucosa. NECK: Short neck. LUNGS: Decreased effort. HEART: Regular rate and rhythm. ABDOMEN: Some distention, nontender. EXTREMITIES: Venous stasis/ hyperpigmentation, healed scars of lower extremities. NEUROLOGIC: No gross focality. LABS: Hemoglobin was noted to be 11.5, white cells 9.9, platelets of 303. Sodium 140, potassium 5.2, chloride 102, CO2 20, anion gap was noted to be 18, BUN 106, creatinine 15. ASSESSMENT: 1. Hyperkalemia 2 to missed dialysis 2 to cracked dialysis catheter. clogged dialysis fistula ESRD 2 to childhood kidney trauma 2. Chronic anemia, secondary to chronic kidney disease, Hemoglobin at baseline. 3. Ongoing tobacco abuse. 4. History of renal hyperparathyroidism sp surgery PLAN: PCU. monitoring baseline EKG. NaBicarb one dose now Vascular surgery consult RE dialysis access (px known to Dr. Jefferson) Nephrology consult, dialysis management nicotine patch DVT prophylaxis, Heparin subQ. Full code. MTDD
[2016-12-20] MEDS: SENSIPAR~ORDER AWAITING ACTION SCH ×3 (02:56→17:37)
[2016-12-20] MEDS: HEPARIN SOD 5000 UNIT/0.5 ML CARP SQ SCH ×2 (06:26→14:00)
[2016-12-20] MEDS: CALCIUM CARBONATE 500 MG CHEWABLE PO SCH ×3 (07:30→14:56)
[2016-12-20] MEDS: SEVELAMER HYDROCH 800 MG TAB PO SCH ×3 (07:30→14:57)
[2016-12-20 08:55] LABS: BASO % 0.3 %; BASO ABS # 0.03 K/uL (0-0.2); COMPLETE YES; EOS % 2.4 %; HEMATOCRIT 36.3 % (42-52); IG% 0.3 %; LYMPH % 29.3 %; LYMPH ABS # 2.86 K/uL (1.2-3.4); MEAN CELL VOLUME 98.9 fL (80-100); MEAN CORPUSCULAR HEMOGLOBIN 31.6 pg (25-34); MEAN PLATELET VOLUME 9.1 fL (7.4-10.4); MONO % 6.2 %; NEUT % 61.5 %; PLATELET COUNT 272 K/uL (130-400); RED BLOOD COUNT 3.67 M/uL (4.7-6.1); WHITE BLOOD COUNT 9.77 K/uL (4.8-10.8)
[2016-12-20] MEDS ORDERED: NEPHROCAPS PO SCH (09:00)
[2016-12-20] MEDS ORDERED: NICOTINE 14 MG/24 HR TDSY TD SCH (09:00)
--- NOTE | 2016-12-20 09:20 | Surgery Consultation ---
Consultation Date of Service Dec 20, 2016. (Lidya Raya, ETIENNE) Chief Complaint cracked venous end of permcath (Lidya Raya PA-C) History of Present Illness The patient is a 36 year old male with hx of DMII and ESRD on HD, known to Dr Jefferson for HD access, seen in consultation today d/t cracked venous end of permcath noted at HD yesterday. Pt had previously been undergoing HD through a R forearm AVF which occluded 10 days prior. He was sent to [facility] for thrombectomy which was unsuccessful, so permcath was placed. Pt states he went 5-6 days without HD last week, then had 2 good HD treatments through permcath before the HD unit noted it was cracked yesterday. Pt denies BREEN, fever, chills , chest pain, SOB, abd pain, N/V, rest pain, claudication, other complaints. (Lidya Raya, ETIENNE) Vitals Vital Signs Past 12 Hours Date Time Temp Pulse Resp B/P (MAP) Pulse Ox O2 Delivery O2 Flow Rate FiO2 12/20/16 08:00 Room Air 12/20/16 07:27 36.4 93 16 126/77 (93) 94 Room Air 12/20/16 04:57 36.4 91 18 111/62 (78) 94 Room Air 12/20/16 04:00 95 Room Air 12/19/16 23:59 95 Room Air 12/19/16 23:57 36.9 95 18 114/69 95 Room Air 12/19/16 23:00 96 24 116/88 94 Room Air 12/19/16 22:30 99 18 125/46 93 Room Air 12/19/16 21:55 93 (Lidya Raya, ETIENNE) Allergies Coded Allergies: No Known Allergies (Unverified , 09/30/16) Home Medications Scheduled B-Complex W/ C & Folic Acid (Triphrocaps), 1 CAP PO DAILY Calcium Acetate (Phoslo 667 Mg), 667 MG PO WITH SNACKS Calcium Acetate (Phosphate Bin (Phoslo 667 Mg), 2,001 MG PO TIDM Calcium Carbonate (Antacid) (Tums E-X 750), 2,625 MG PO TIDM Cinacalcet Hydrochloride (Sensipar), 30 MG PO QPM Sevelamer Carbonate (Renvela), 3,200 MG PO TIDM Sevelamer Carbonate (Renvela), 2,400 MG PO WITH SNACKS Scheduled PRN [Hectoral], 1 DOSE IV 3XWK PRN for PER DIALYSIS Problem List Medical Problems: (1) Dialysis catheter clot or failure (2) ESRD (end stage renal disease) on dialysis (3) Hyperkalemia Surgical Problems: (1) History of knee surgery (Lidya Raya PA-C) Surgical / Medical History Hx Cardiac Surgery: No Hx Abdominal Surgery: No Hx Cancer Surgery: No Hx Thoracic Surgery: No Hx Orthopedic: Yes (Left knee, right lower leg) Hx Urinary Tract Surgery: No HX Other Surgery: No Past Medical/Surgical History: Diabetes, Kidney Disease (Lidya Raya PA-C) Family History Patient reports no known family medical history. (Lidya Raya PA-C) Patient reports no known family medical history. (Antwan Jefferson M.D.) Social History Smoking Status: Current Every Day Smoker Hx Tobacco Use In Past Year?: Yes Hx Alcohol Use - Type & Amnt: No Hx Substance Use -Type & Amnt: No (Lidya Raya PA-C) Review of Systems Constitutional: No chills, No fever, No malaise Skin: No change in color Eyes: No visual changes ENMT: No sore throat Respiratory: No cough, No ROMERO, No short of breath Cardiovascular: No chest pain, No palpitations, No syncope, No edema, No intermittent claudication Gastrointestinal: No abdominal pain, No nausea, No vomiting Neurologic: No dizziness, No headache, No numbness, No tingling (Lidya Raya, MARIA DEL CARMENC) Physical Exam Constitutional: General Apperance: well-nourished, well-developed, obese Level of Distress: NAD Psychiatric: Mental Status: active & alert, normal mood, normal affect Orientation: oriented except where noted, to time, to place, to person Memory: recent memory normal, remote memory normal Head: normocephalic, atraumatic Eyes: EOM: EOMI ENMT: normal ENT inspection, hearing grossly normal Neck: supple, trachea midline Lungs: Respiratory effort: no dyspnea Auscultation: breath sounds normal, no wheezing, no rales/crackles, no rhonchi Cardiovascular: Apical Impulse: not displaced Heart Auscultation: RRR, no murmurs, no rubs, no gallops Peripheral Pulses: Pulses: full and equal, in all extremities except if noted Bruits: none appreciated Carotid Pulse: normal on the left, normal on the right Brachial Pulses: normal on the left, normal on the right Radial Pulse: normal on the left, normal on the right Femoral Pulse: normal on the left, normal on the right Posterior Tibialis Pulse: decreased on the left, decreased on the right Dorsalis Pedis Pulse: decreased on the left, decreased on the right Abdomen: Bowel Sounds: normal Inspection & Palpation: soft, non-distended, no tenderness, guarding & rebound Musculoskeletal: normal strength (5/5 throughout), normal tone Extremities: Upper Right: no cyanosis, no edema, no varicosities, pertinent finding (old R forearm AVF without thrill/bruit) Upper Left: no cyanosis, no edema, no varicosities Lower Right: no cyanosis, no edema, no varicosities Lower Left: no cyanosis, no edema, no varicosities Neurologic: Cranial Nerves: grossly intact Sensation: grossly intact (Lidya Raya, MARIA DEL CARMENC) Assessment and Plan ASSESSMENT and PLAN: ESRD on HD Cracked permcath Pt scheduled for repair of permcath, possible exchange later today. Procedure, risks, benefits, and alternatives discussed with pt, he expresses understanding and agreement. (Lidya Raya, PADiC) Patient was seen, examined, and chart reviewed. Agree with exam and treatment plan of the Vascular PA. I have discussed the risks options and benefits of the procedure with the patient. The patient understands the risks options and benefits and agrees to the procedure. (Antwan Jefferson M.D.)
[2016-12-20 09:28] LABS: CALCIUM 7.7 mg/dl (8.5-10.1)
[2016-12-20 09:33] LABS: BUN/CREATININE RATIO 7.1 (10-20); POTASSIUM 5.9 mmol/L (3.5-5.1)
[2016-12-20] MEDS: CALCIUM ACETATE 667MG GELCAP PO SCH ×3 (09:42→14:56)
[2016-12-20] MEDS ORDERED: HEPARIN SOD (PORCINE) 5000 UNIT/ML 1 ML VIAL ONE (09:47)
[2016-12-20] MEDS ORDERED: CALCIUM GLUCONATE 10% 1,000 MG in SODIUM CHLORIDE 0.9% 50ML 50 ML IV STA (09:57)
[2016-12-20] MEDS ORDERED: EPOETIN ALFA 10,000 UNITS/ML VIAL IV. ONE (10:00)
[2016-12-20] MEDS ORDERED: HEPARIN SOD (PORCINE) 5000 UNIT/ML 1 ML VIAL IV ONE (10:27)
--- NOTE | 2016-12-20 10:31 | [facility] Post Operative Brief Note ---
Immediate Operative Summary Operative Date Dec 20, 2016. Pre-Operative Diagnosis Malfunctioning Perm Catheter Post-Operative Diagnosis Same Procedure(s) Performed Repair of Perm Catheter Surgeon Dr. Jefferson Regional Economist Surgeon(s) Dr. Renee Bruce Estimated Blood Loss 0 Findings CRACKED HUB REPAIRED. FLUSHED EASILY Specimens None Anesthesia NONE Complication(s) None Disposition
--- NOTE | 2016-12-20 12:08 | NEPHROLOGY CONSULTATION ---
DATE OF CONSULTATION: 12/20/2016 REASON FOR CONSULTATION: End-stage renal disease. ATTENDING OF RECORD: Dr. Camara. HISTORY OF PRESENT ILLNESS: This is a 36-year-old male who does dialysis at the [facility] on Mondays, Wednesdays, and Fridays. Last dialysis treatment was Monday. The patient had a recent clotted right radiocephalic fistula on December 13 and was unsuccessfully declotted, underwent a tunneled right IJ catheter and had 2 dialysis treatments through the catheter; however, on Monday, noticed that there was a crack in the dialysis catheter and dialysis was postponed. The patient is for a tunneled dialysis catheter exchange today and relatively asymptomatic. No significant volume overload or shortness of breath issues; however, potassium level is trending up. PAST MEDICAL HISTORY: End-stage renal disease, anemia of end-stage renal disease, secondary hyperparathyroidism, active tobacco abuse, and hypertension. PAST SURGICAL HISTORY: Parathyroidectomy, fistula placement, and tunnel dialysis catheter placement. FAMILY HISTORY: No renal disease in the family. SOCIAL HISTORY: Positive tobacco, half pack a day. No alcohol and no drugs. REVIEW OF SYSTEMS: No fevers or chills. No headaches, no blurry vision, no chest pain, and no shortness of breath. No nausea or vomiting. No diarrhea or constipation. No rash or itching. All other review of systems otherwise negative. CURRENT MEDICATIONS: Nicoderm patch, Nephrocaps daily, PhosLo 3 p.o. t.i.d. with meals, calcium carbonate 2500 mg p.o. t.i.d. with meals, Renvela 3200 mg p.o. t.i.d. with meals, and heparin 5000 units subQ q. 8 hours. PHYSICAL EXAMINATION: VITAL SIGNS: Temperature 36.4, pulse 93, respiratory rate 16, blood pressure 126/77, and satting 94% on room air. GENERAL: Awake, alert, and oriented x3. EYES: No scleral icterus. ENT: Moist mucous membranes. NECK: Supple. PULMONARY: Clear to auscultation. CARDIAC: Regular rate and rhythm. ABDOMEN: Bowel sounds positive. Soft and nontender. EXTREMITIES: No significant clubbing, cyanosis or edema. NEUROLOGICALLY: Nonfocal. DERMATOLOGIC: No rash or ulcers noted. Access has a clotted fistula with no bruit or thrill as well as the tunneled dialysis catheter with a crack in it. LABORATORIES: White count 9.7, H&H 11 and 36, and platelet count is 272. Sodium level is 140, potassium is 5.9, chloride is 103, bicarbonate 16, BUN is 114, creatinine 16, glucose 86, and calcium 7.7. INR is 1. ASSESSMENT AND PLAN: 1. End-stage renal disease- tunneled dialysis catheter exchange and then we will proceed with dialysis afterwards to help lower the potassium and remove volume as well as clearance of toxins. 2. Anemia of renal failure. Hemoglobin levels are in the 11, so we will hold Procrit. 3. Renal osteodystrophy. The patient is on multiple phosphate binders and we will continue them and follow phosphorus levels intermittently while here in the hospital. 4. Vascular access. He does have dialysis catheter and I greatly appreciate Dr. Jefferson's help in exchanging a tunneled line. Question if able to declot his fistula or not-defer to Dr. Jefferson. may need new fistula placed. Appreciate consultation. LAMONTE
[2016-12-20 13:57] LABS: HEPATITIS B AB POS
--- NOTE | 2016-12-20 16:27 | Discharge Instructions ---
Discharge Instructions Date of Service Dec 20, 2016. Admission Reason for Admission: Dialysis Catheter Clot Or Failure, Hyperkalemia Discharge Discharge Diagnosis / Problem: Dialysis Catheter Clot Or Failure, Hyperkalemia Discharge Goals Goal(s): Decrease discomfort Activity Recommendations Activity Limitations: resume your previous activity . Instructions / Follow-Up Instructions / Follow-Up FOLLOWUP WITH FAMILY DOCTOR DR.DAVID SANCHEZ ON December AT 9:45AM FOLLOWUP WITH VASCULAR SURGERY FOR VEIN MAPPING FOLLOWUP WITH NEPHROLOGY SCHEDULED DIALYSIS TOMORROW AND FURTHER DIALYSIS PER NEPHROLOGY Current Hospital Diet Patient's current hospital diet: Renal Diet Discharge Diet Recommended Diet: Renal Diet Procedures Procedures Performed: Repair of Perm Catheter Pending Studies Studies pending at discharge: no Work Instructions Return To Work: 1 day (can go to work december 21 2016.) Lifting Limitations: none Additional Instructions: No restrictions Medical Emergencies . Who to Call and When: Medical Emergencies: If at any time you feel your situation is an emergency, please call 911 immediately. . Non-Emergent Contact Non-Emergency issues call your: Primary Care Provider . . "Provider Documentation" section prepared by Reid Thurman. . VTE Core Measure Inpt VTE Proph given/why not?: Unfractionated heparin SQ
--- NOTE | 2016-12-20 18:58 | Progress Note ---
Internal Med Progress Note Date of Service: Dec 20, 2016. Provider Documentation: SUBJECTIVE: s/p repair of repair of permcath had dialysis want o go home hemodynamics stable OBJECTIVE: Vital Signs-as noted below Exam: General-alert and awake and oriented ENT-normal hearing Neck-no neck masses Lungs-cta b/l no added sounds Heart-s1 and s2 heard regular rate and rhythm no murmurs Abdomen-soft bowel sounds present non tender Extremities-no erythema Neuro-alert and awake moves extremities Lab data as noted below. ASSESSMENT & PLAN: 1. Hyperkalemia 2 to missed dialysis 2 to cracked dialysis catheter. clogged dialysis fistula s/p repair of tunnel cath and had dialysis today plan for outpatient dialyses in am. 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 Chronic anemia, secondary to chronic kidney disease, Hemoglobin at baseline. discharged home Vital Signs: Date Time Temp Pulse Resp B/P (MAP) Pulse Ox O2 Delivery O2 Flow Rate FiO2 12/20/16 17:25 36.5 90 16 97 Room Air 12/20/16 16:00 Room Air 12/20/16 15:24 36.5 90 16 118/78 (91) 97 Room Air 12/20/16 14:30 Room Air 12/20/16 14:08 36.3 76 128/81 (97) 12/20/16 13:45 75 109/68 12/20/16 13:30 80 116/75 12/20/16 13:15 82 118/77 12/20/16 13:00 76 128/80 12/20/16 12:45 80 124/75 12/20/16 12:30 83 118/80 12/20/16 12:15 76 134/75 12/20/16 12:00 81 128/82 12/20/16 11:45 70 134/79 12/20/16 11:30 79 135/80 12/20/16 11:15 81 144/74 12/20/16 11:00 86 128/79 12/20/16 10:45 81 131/83 12/20/16 10:40 36.4 59 134/65 (88) 12/20/16 10:31 74 81 121/79 94 Room Air 12/20/16 08:00 Room Air 12/20/16 07:27 36.4 93 16 126/77 (93) 94 Room Air 12/20/16 04:57 36.4 91 18 111/62 (78) 94 Room Air 12/20/16 04:00 95 Room Air 12/19/16 23:59 95 Room Air 12/19/16 23:57 36.9 95 18 114/69 95 Room Air 12/19/16 23:00 96 24 116/88 94 Room Air 12/19/16 22:30 99 18 125/46 93 Room Air 12/19/16 21:55 93 12/19/16 20:12 36.7 99 18 117/66 95 Room Air Lab Results: Results Past 24 Hours Test 12/19/16 21:43 12/20/16 08:45 12/20/16 10:40 Range/Units White Blood Count 9.91 9.77 4.8-10.8 K/uL Red Blood Count 3.52 3.67 4.7-6.1 M/uL Hemoglobin 11.5 11.6 14.0-18.0 g/dL Hematocrit 35.2 36.3 42-52 % Mean Corpuscular Volume 100.0 98.9 80-100 fL Mean Corpuscular Hemoglobin 32.7 31.6 25-34 pg Mean Corpuscular Hemoglobin Concent 32.7 32.0 32-36 g/dl Platelet Count 303 272 130-400 K/uL Mean Platelet Volume 9.3 9.1 7.4-10.4 fL Neutrophils (%) (Auto) 56.3 61.5 % Lymphocytes (%) (Auto) 35.6 29.3 % Monocytes (%) (Auto) 4.9 6.2 % Eosinophils (%) (Auto) 2.4 2.4 % Basophils (%) (Auto) 0.4 0.3 % Neutrophils # (Auto) 5.57 6.01 1.4-6.5 K/uL Lymphocytes # (Auto) 3.53 2.86 1.2-3.4 K/uL Monocytes # (Auto) 0.49 0.61 0.11-0.59 K/uL Eosinophils # (Auto) 0.24 0.23 0-0.5 K/uL Basophils # (Auto) 0.04 0.03 0-0.2 K/uL RDW Standard Deviation 56.9 55.8 36.4-46.3 fL RDW Coefficient of Variation 15.7 15.5 11.5-14.5 % Immature Granulocyte % (Auto) 0.4 0.3 % Immature Granulocyte # (Auto) 0.04 0.03 0.00-0.02 K/uL Prothrombin Time 10.5 9.0-12.0 SECONDS Prothromb Time International Ratio 1.0 0.9-1.1 Sodium Level 140 140 136-145 mmol/L Potassium Level 5.2 5.9 3.5-5.1 mmol/L Chloride Level 102 103 98-107 mmol/L Carbon Dioxide Level 20 16 21-32 mmol/L Anion Gap 18.0 21.0 3-11 mmol/L Blood Urea Nitrogen 106 114 7-18 mg/dl Creatinine 15.00 16.00 0.60-1.40 mg/dl Est Creatinine Clear Calc Drug Dose 10.2 9.6 ml/min Estimated GFR () 4.2 3.9 Estimated GFR (Non- 3.6 3.4 BUN/Creatinine Ratio 7.1 7.1 10-20 Random Glucose 94 86 70-99 mg/dl Calcium Level 8.0 7.7 8.5-10.1 mg/dl Magnesium Level 3.2 1.8-2.4 mg/dl Total Bilirubin 0.3 0.2-1 mg/dl Direct Bilirubin < 0.1 0-0.2 mg/dl Aspartate Amino Transf (AST/SGOT) 13 15-37 U/L Alanine Aminotransferase (ALT/SGPT) 18 12-78 U/L Alkaline Phosphatase 77 45-117 U/L Total Protein 7.4 6.4-8.2 gm/dl Albumin 3.3 3.4-5.0 gm/dl Lipase 462 73-393 U/L Hepatitis B Surface Antigen NEG NEG Hepatitis B Surface Antibody POS
--- NOTE | 2016-12-20 19:55 | Discharge Summary ---
Discharge Summary Date of Service Dec 20, 2016. Discharge Summary Admission Date: Dec 19, 2016 at 22:32 Discharge Date: Dec 20, 2016 Discharge Disposition: Home Principal Diagnosis: Dialysis Catheter Clot Or Failure, Hyperkalemia Secondary Diagnoses/Problems: end-stage renal disease on hemodialysis 2 to traumatic kidney injury, chronic anemia (baseline hemoglobin 12), renal hyperparathyroidism sp parathyroid surgery, ongoing tobacco abuse. Procedures: S/P PER CATH REPAIR Consultations: VASCULAR SURGERY NEPHROLOGY Medication Reconciliation Continued Medications: B-Complex W/ C & Folic Acid (Triphrocaps) 1 Cap Cap 1 CAP PO DAILY Calcium Acetate (Phoslo 667 Mg) 667 Mg Cap 667 MG PO WITH SNACKS, CAP Calcium Acetate (Phosphate Bin (Phoslo 667 Mg) 667 Mg Cap 2001 MG PO TIDM TAKE 3 CAPS THREE TIMES A DAY WITH MEALS Calcium Carbonate (Antacid) (Tums E-X 750) 750 Mg Chw 2625 MG PO TIDM TAKE 3.5 TABS THREE TIMES A DAY WITH MEALS Cinacalcet Hydrochloride (Sensipar) 30 Mg Tab 30 MG PO QPM TAKE THIS MEDICATION WITH EVENING MEAL Sevelamer Carbonate (Renvela) 800 Mg Tab 3200 MG PO TIDM Sevelamer Carbonate (Renvela) 800 Mg Tab 2400 MG PO WITH SNACKS, TAB [Hectoral] () 1 DOSE IV 3XWK PRN for PER DIALYSIS WHEN NEEDED EVERY MONDAY,MONDAY AND MONDAY Admission Information HPI (per Admitting provider): HX obtained from px and records. Medical history significant for end-stage renal disease on hemodialysis 2 to traumatic kidney injury, chronic anemia (baseline hemoglobin 12), renal hyperparathyroidism sp parathyroid surgery, ongoing tobacco abuse. Recent confinement, last June 2015 for hyperkalemia secondary to missed dialysis, secondary to malfunctioning AV fistula. Patient undergoes hemodialysis at [facility] on Monday, Monday, Monday. Last week, the patient noted to have a clotted right radiocephalic fistula (December 13). Declotting was unsuccessful. A tunneled right IJ hemodialysis catheter was placed and subsequently utilized for dialysis. Today, there was a crack noted on the dialysis catheter. Dialysis deferred. Patient sent to [facility]. Patient denies chest pain, shortness of breath, unusual swelling. Physical Exam (per Admitting): VITAL SIGNS: Blood pressure was noted to be 120/80, pulse 89, RR 18, temperature 36.6, sats 98 on room air. GENERAL: Noted to be comfortable, obese. Looks older for stated age. SKIN: Sallow. HEENT Pale palpebral conjunctivae, dry mucosa. NECK: Short neck. LUNGS: Decreased effort. HEART: Regular rate and rhythm. ABDOMEN: Some distention, nontender. EXTREMITIES: Venous stasis/ hyperpigmentation, healed scars of lower extremities. NEUROLOGIC: No gross focality. Hospital Course 1. Hyperkalemia 2 to missed dialysis 2 to cracked dialysis catheter. clogged dialysis fistula s/p repair of tunnel cath and had dialysis today plan for outpatient dialyses in am. 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 Chronic anemia, secondary to chronic kidney disease, Hemoglobin at baseline. discharged home Total time spent on discharge = 35MINUTES This includes examination of the patient, discharge planning, medication reconciliation, and communication with other providers. Discharge Instructions Please take this sheet to every appointment for the next month Discharge Instructions Date of Service Dec 20, 2016. Admission Reason for Admission: Dialysis Catheter Clot Or Failure, Hyperkalemia Discharge Discharge Diagnosis / Problem: Dialysis Catheter Clot Or Failure, Hyperkalemia Discharge Goals Goal(s): Decrease discomfort Activity Recommendations Activity Limitations: resume your previous activity . Instructions / Follow-Up Instructions / Follow-Up FOLLOWUP WITH FAMILY DOCTOR DR.DAVID SANCHEZ ON December AT 9:45AM FOLLOWUP WITH VASCULAR SURGERY FOR VEIN MAPPING FOLLOWUP WITH NEPHROLOGY SCHEDULED DIALYSIS TOMORROW AND FURTHER DIALYSIS PER NEPHROLOGY Current Hospital Diet Patient's current hospital diet: Renal Diet Discharge Diet Recommended Diet: Renal Diet Procedures Procedures Performed: Repair of Perm Catheter Pending Studies Studies pending at discharge: no Work Instructions Return To Work: 1 day (can go to work december 21 2016.) Lifting Limitations: none Additional Instructions: No restrictions Medical Emergencies . Who to Call and When: Medical Emergencies: If at any time you feel your situation is an emergency, please call 911 immediately. . Non-Emergent Contact Non-Emergency issues call your: Primary Care Provider . . "Provider Documentation" section prepared by Reid Thurman. . VTE Core Measure Inpt VTE Proph given/why not?: Unfractionated heparin SQ
--- NOTE | 2016-12-20 21:45 | DIAGNOSTIC IMAGING REPORT ---
ULTRASOUND BILATERAL UPPER EXTREMITY VENOUS MAPPING CLINICAL HISTORY: End-stage renal disease. COMPARISON STUDY: No priors. TECHNIQUE: Real-time, faustin-scale, and color Doppler sonography of the bilateral cephalic and basilic veins is performed as per a venous mapping study. FINDINGS: The cephalic vein and the basilic vein are patent in the upper extremities. The right cephalic vein measures between 5 and 6 mm in the right upper extremity above the elbow, and between 2 and 3 mm below the elbow. The right basilic vein measures between 5 and 7 mm above the elbow, and measures between 2 and 6 mm below the elbow. The left cephalic vein measures between 5 and 6 mm above the elbow and between 2 and 3 mm below the elbow. The left basilic vein measures between 4 and 6 mm above the elbow and between 2 and 4 mm below the elbow. IMPRESSION: Upper extremity venous mapping as above. Dictated: 12/20/2016 9:15 PM Transcribed: 12/20/2016 9:44 PM [email or web address] Electronically signed by: Edouard Ritchie M.D. 12/20/2016 9:45 PM Dictated Date/Time: 12/20/2016 9:15 PM
[2016-12-29] MEDS ORDERED: ERGO500011 PO (15:47)
[2017-01-03] MEDS ORDERED: OXYC-57 PO (13:48)
--- NOTE | 2017-01-10 11:47 | [facility] Operative Report ---
Operative Report Operative Date Jan 10, 2017. Pre-Operative Diagnosis Malfunctioning Perm Catheter Post-Operative Diagnosis Same Procedure(s) Performed Repair of permcath Surgeon Dr. Jefferson Technical Solution Architect Surgeon(s) Dr. Renee Bruce Estimated Blood Loss 0 Findings cracked hub of permcath Specimens None Anesthesia NONE Complication(s) None Disposition Indications Cracked permcath hub Description of Procedure Patient was taken to the angio suite for repair of a cracked hub. the catheter was prepped and draped in the usual sterile manner. the blue port was clamped and the distal end transected. the new extension was placed into the old permcath catheter tubing and the locking mechanism tightened to fasten the remaining catheter onto the extension with the new hub. the catheter flushed easily. patient then left the angio suite in good condition and tolerated the procedure well. I attest to the content of the Intraoperative Record and any orders documented therein. Any exceptions are noted below.
[2017-02-17] MEDS ORDERED: TRAM-10 PO (15:26)
[2017-05-16] MEDS ORDERED: PATI1POW PO (11:01)
[2017-06-07] MEDS ORDERED: CINA60TA PO (08:09)
[2017-06-07] MEDS ORDERED: [UNRECOGNIZED DRUG - CODE] PO (08:09)
[2017-06-07] MEDS ORDERED: ACET-749 PO (12:10)
== END 2016-12-20 20:00 | disposition home or self-care (01) | DRG 314 ==
LOC: C.EDB 20:12 → C.2T 22:32 → ENRESERV 22:48
PROVIDERS: ADMIT Internal Medicine; ATTEND Internal Medicine
PROC: 0JWTXXZ Revision of Tunneled Vascular Access Device in Trunk Subcutaneous Tissue and Fascia, External Approach (ICD-10-PCS; principal; 2016-12-20 13:15)
DX: T82.49XA Other complication of vascular dialysis catheter, initial encounter (principal); N18.6 End stage renal disease; S37.009A Unspecified injury of unspecified kidney, initial encounter; D63.1 Anemia in chronic kidney disease; E11.22 Type 2 diabetes mellitus with diabetic chronic kidney disease; E21.3 Hyperparathyroidism, unspecified; N25.0 Renal osteodystrophy; X58.XXXA Exposure to other specified factors, initial encounter; Z99.2 Dependence on renal dialysis; Z79.899 Other long term (current) drug therapy; F17.200 Nicotine dependence, unspecified, uncomplicated; Y84.1 Kidney dialysis as the cause of abnormal reaction of the patient, or of later complication, without mention of misadventure at the time of the procedure

== ENCOUNTER → 2017-01-03 | Day surgery (SDC) | payer OTHER, BC ==
[2016-12-29 15:56] VITALS: BMI 45.0
[~2017-01-03] VITALS: Ht 180.3 cm; Wt 146.8 kg
[~2017-01-03] MED LIST changes: +ACET-749 PO; +ATROPINE SULFATE 0.1 MG/ML 5ML SYR IV PRN; -B-COCAP2 PO; +B-COCAP28 PO; +BUPIVACAINE/EPINEPHRINE 0.5% MPF 1:200,000 30 ML VIAL ONE; +CALC667C PO; +CEFAZOLIN 3000 MG/65 ML D5W IV SCH; +CINA0.42 PO; +CINA60TA PO; -CINA90TA PO; +EpHEDrine SULFATE INJ 50 MG/ML AMP IV PRN; +FENTANYL CITRATE INJ 50 MCG/1 ML 2 ML VIAL IV PRN; +FENTANYL CITRATE INJ 50 MCG/1 ML 2 ML VIAL ONE; +GELATIN SPONGE 12-7MM ONE; +HEPARIN SOD (PORCINE) 1000 UNIT/ML 10 ML VIAL ONE; +KETAMINE HCL INJ 50 MG/ML 10 ML VIAL ONE; +LIDOCAINE HCL 1% 20 ML VIAL ONE; +LIDOCAINE HCL 2% 2 ML VIAL (20MG/ML) ONE; +MIDAZOLAM HCL 1 MG/ML 2ML VIAL ONE; +ONDANSETRON INJ 2 MG/ML 2 ML VIAL IV PRN; +PATI1POW PO; +PATI1POW3 PO; +PROPOFOL IV EMULSION 10 MG/ML 20 ML VIAL IV ONE; +SODIUM CHLORIDE 0.9% 1000ML 1,000 ML IV SCH; +THROMBIN FOR SOLN 20000 UNIT KIT ONE; +TRAM-10 PO; +[UNRECOGNIZED DRUG - CODE]; +[UNRECOGNIZED DRUG - CODE] PO
--- NOTE | 2017-01-03 06:01 | History and Physical ---
History & Physical Date of Service Jan 03, 2017. History & Physical Chief Complaint End stage renal disease History of Present Illness The patient is a 36 year old male with hx of DMII and ESRD on HD, admitted today for creation of a right antecubital cephalic vein fistula. Pt had previously been undergoing HD through a R forearm AVF which occluded. He was sent to [facility] for thrombectomy which was unsuccessful, so permcath was placed. Pt denies BREEN, fever, chills, chest pain, SOB, abd pain, N/V, rest pain , claudication, other complaints. Allergies Coded Allergies: No Known Allergies (Unverified , 09/30/16) Home Medications Scheduled B-Complex W/ C & Folic Acid (Triphrocaps), 1 CAP PO DAILY Calcium Acetate (Phoslo 667 Mg), 667 MG PO WITH SNACKS Calcium Acetate (Phosphate Bin (Phoslo 667 Mg), 2,001 MG PO TIDM Calcium Carbonate (Antacid) (Tums E-X 750), 2,625 MG PO TIDM Cinacalcet Hydrochloride (Sensipar), 30 MG PO QPM Sevelamer Carbonate (Renvela), 3,200 MG PO TIDM Sevelamer Carbonate (Renvela), 2,400 MG PO WITH SNACKS Scheduled PRN [Hectoral], 1 DOSE IV 3XWK PRN for PER DIALYSIS Problem List Medical Problems: (1) Dialysis catheter clot or failure (2) ESRD (end stage renal disease) on dialysis (3) Hyperkalemia Surgical Problems: (1) History of knee surgery Surgical / Medical History Hx Cardiac Surgery: No Hx Abdominal Surgery: No Hx Cancer Surgery: No Hx Thoracic Surgery: No Hx Orthopedic: Yes (Left knee, right lower leg) Hx Urinary Tract Surgery: No HX Other Surgery: No Past Medical/Surgical History: Diabetes, Kidney Disease Family History Patient reports no known family medical history. Social History Smoking Status: Current Every Day Smoker Hx Tobacco Use In Past Year?: Yes Hx Alcohol Use - Type & Amnt: No Hx Substance Use -Type & Amnt: No Review of Systems Constitutional: No chills, No fever, No malaise Skin: No change in color Eyes: No visual changes ENMT: No sore throat Respiratory: No cough, No ROMERO, No short of breath Cardiovascular: No chest pain, No palpitations, No syncope, No edema, No intermittent claudication Gastrointestinal: No abdominal pain, No nausea, No vomiting Neurologic: No dizziness, No headache, No numbness, No tingling Physical Exam Constitutional: General Apperance: well-nourished, well-developed, obese Level of Distress: NAD Psychiatric: Mental Status: active & alert, normal mood, normal affect Orientation: oriented except where noted, to time, to place, to person Memory: recent memory normal, remote memory normal Head: normocephalic, atraumatic Eyes: EOM: EOMI ENMT: normal ENT inspection, hearing grossly normal Neck: supple, trachea midline Lungs: Respiratory effort: no dyspnea Auscultation: breath sounds normal, no wheezing, no rales/crackles, no rhonchi Cardiovascular: Apical Impulse: not displaced Heart Auscultation: RRR, no murmurs, no rubs, no gallops Peripheral Pulses: Pulses: full and equal, in all extremities except if noted Bruits: none appreciated Carotid Pulse: normal on the left, normal on the right Brachial Pulses: normal on the left, normal on the right Radial Pulse: normal on the left, normal on the right Femoral Pulse: normal on the left, normal on the right Posterior Tibialis Pulse: decreased on the left, decreased on the right Dorsalis Pedis Pulse: decreased on the left, decreased on the right Abdomen: Bowel Sounds: normal Inspection & Palpation: soft, non-distended, no tenderness, guarding & rebound Musculoskeletal: normal strength (5/5 throughout), normal tone Extremities: Upper Right: no cyanosis, no edema, no varicosities, pertinent finding (old R forearm AVF without thrill/bruit) Upper Left: no cyanosis, no edema, no varicosities Lower Right: no cyanosis, no edema, no varicosities Lower Left: no cyanosis, no edema, no varicosities Neurologic: Cranial Nerves: grossly intact Sensation: grossly intact Assessment and Plan Imp: ESRD on HD Plan: Patient admitted for right antecubital cephalic vein fistula creation. I have discussed the risks options and benefits of the procedure with the patient. The patient understands the risks options and benefits and agrees to the procedure.
[2017-01-03 08:55] VITALS: BP 100/54; PULSE 110; TEMP 36.9; O2SAT 95; Ht 180.3 cm; Wt 146.8 kg
[2017-01-03 09:18] LABS: INR 0.9 (0.9-1.1); PROTHROMBIN TIME (PATIENT) 10.1 SECONDS (9.0-12.0)
[2017-01-03 10:02] LABS: BUN/CREATININE RATIO 5.8 (10-20); CALCIUM 8.1 mg/dl (8.5-10.1); CREATININE 8.8 mg/dl (0.60-1.40)
[2017-01-03 10:16] LABS: POTASSIUM 4.8 mmol/L (3.5-5.1)
--- NOTE | 2017-01-03 10:28 | History & Physical Bridge Note ---
H&P Re-Evaluation Bridge Note: I have examined the patient, reviewed the History & Physical and in the interval since the performance of the History & Physical I have noted the following changes of clinical significance: No changes noted
[2017-01-03] MEDS: BUPIVACAINE/EPINEPHRINE 0.5% MPF 1:200,000 30 ML VIAL INJ ONE ×2 (13:30→13:57)
--- NOTE | 2017-01-03 13:47 | [facility] Post Operative Brief Note ---
Immediate Operative Summary Operative Date Jan 03, 2017. Pre-Operative Diagnosis End-Stage Renal Disease on Dialysis Post-Operative Diagnosis Same as preoperative Procedure(s) Performed Right Upper Arm Prosthetic Arteriovenous Fistula Creation Surgeon Dr. Antwan Jefferson Scrap Drop Operator Surgeon(s) Toshia Bruce, Fellow Estimated Blood Loss 25ml Findings good thrill, cephalic vein not useable Specimens None per surgeon Anesthesia MAC Complication(s) None Disposition
--- NOTE | 2017-01-03 13:49 | Discharge Instructions ---
Discharge Instructions Date of Service Jan 03, 2017. Visit Reason for Visit: End Stage Renal Disease -On Hemodialysis Discharge Discharge Diagnosis / Problem: End stage renal disease Discharge Goals Goal(s): Therapeutic intervention Activity Recommendations Activity Limitations: per Instructions/Follow-up section Anesthesia . Post Anesthesia Instructions: If you have had General Anesthesia or IV Sedation: * Do not drive today. * Resume driving when surgeon permits. * Do not make important decisions or sign legal documents today. * Call surgeon for: 1. Temperature elevations greater than 101 degrees F. 2. Uncontrollable pain. 3. Excessive bleeding. 4. Persistent nausea and vomiting. 5. Medication intolerance (nausea, vomiting or rash). * For nausea and vomiting use only clear liquids such as: tea, soda, bouillon until nausea subsides, then gradually increase diet as tolerated. * If you have any concerns or questions, call your surgeon's office. If physician is unavailable and it is an emergency, call 911 or go to the nearest emergency room. . Instructions / Follow-Up Instructions / Follow-Up Call [phone] to schedule a follow up appointment if one not already scheduled. ACTIVITY RECOMMENDATIONS: See Above SPECIAL CARE INSTRUCTIONS: Call your doctor if: * Temperature above 101 degrees * Pain not relieved by pain medicine ordered * There is increased drainage or redness from any incision * You have any unanswered questions or concerns. Diet Recommendations Recommended Home Diet: resume previous diet Procedures Procedures Performed: Right Upper Arm Prosthetic Arteriovenous Fistula Creation Pending Studies Studies pending at discharge: no Medical Emergencies . Who to Call and When: Medical Emergencies: If at any time you feel your situation is an emergency, please call 911 immediately. . Non-Emergent Contact Non-Emergency issues call your: Surgeon . . "Provider Documentation" section prepared by Antwan Jefferson. .
--- NOTE | 2017-01-03 14:39 | Anesthesiology Progress Note ---
Anesthesia Post Op Note Date & Time Jan 03, 2017 at 14:39 Vital Signs Pain Intensity: 0 Vital Signs Past 12 Hours Date Time Temp Pulse Resp B/P (MAP) Pulse Ox O2 Delivery O2 Flow Rate FiO2 01/03/17 14:30 92 16 90/48 92 Nasal Cannula 3 01/03/17 14:20 101 14 96/45 92 Nasal Cannula 3 01/03/17 14:11 36.3 104 14 85/44 95 Nasal Cannula 3 01/03/17 08:55 36.9 110 20 100/54 (69) 95 Room Air Notes Mental Status: alert / awake / arousable, participated in evaluation Pt Amnestic to Procedure: Yes Nausea / Vomiting: adequately controlled Pain: adequately controlled Airway Patency, RR, SpO2: stable & adequate BP & HR: stable & adequate Hydration State: stable & adequate Anesthetic Complications: no major complications apparent
[2017-01-03 14:46] VITALS: BP 101/29; PULSE 94; TEMP 36.9; O2SAT 98
[2017-01-03 15:15] VITALS: BP 90/45; PULSE 96; TEMP 36.9; O2SAT 99
--- NOTE | 2017-01-03 15:53 | OPERATIVE REPORT ---
DATE OF OPERATION: 01/03/2017 PREOPERATIVE DIAGNOSIS: End-stage renal disease, on hemodialysis. POSTOPERATIVE DIAGNOSIS: End-stage renal disease, on hemodialysis. PROCEDURE: Right arm brachial to axillary vein AV graft. SURGEON: Dr. Antwan Jefferson. MINIATURE SET BUILDER: Dr. Renee Bruce. ANESTHESIA: Monitored anesthesia care plus local. ESTIMATED BLOOD LOSS: 25 mL. CONDITION: Stable. COMPLICATIONS: None. INDICATIONS: Mr. Morrison is a 36-year-old gentleman with history of type 2 diabetes and end-stage renal disease, on hemodialysis. He previously underwent creation of a right forearm AV fistula which has since occluded. He had an unsuccessful attempt at thrombectomy. For this reason, he was recommended to undergo creation of new hemodialysis access. The risks, benefits and alternatives were discussed with the patient and he consented to the procedure. DESCRIPTION OF PROCEDURE: The patient was taken to the operating room and placed in the supine position. His right arm was prepped and draped in the usual sterile fashion. Sedation was administered by our anesthesia colleagues. Local anesthesia was used to anesthetize the skin overlying the right arm just proximal to the crease of the elbow. Horizontal incision was made over the right arm just above the crease of the elbow. Dissection was extended through subcutaneous tissues using Bovie electrocautery. The median antecubital vein was identified and appeared to be small in caliber. We extended our dissection more distally down the arm and the vein appeared to be thrombosed approximately 2 cm more distally. We then turned our attention to the brachial artery. This was dissected free from surrounding tissue. We transected the antecubital vein and confirmed that there was thrombus within it. We attempted to remove the thrombus; however, the vein appeared to be occluded. For this reason, we decided to go forward with placing an upper arm graft. Both ends of the occluded vein were tied with 2-0 silk. We then turned our attention to the right axilla. A longitudinal incision was made over the axillary vein after injecting local anesthesia. Subcutaneous tissues were divided with electrocautery. The biceps was identified and retracted laterally. After extensive dissection, we were able to identify the axillary vein. This was dissected free circumferentially. We then injected local anesthetic in the skin overlying the upper arm which would be the tract of our tunnel. A Tunneler was used to connect the axillary and brachial incisions. A PTFE graft was tunneled subcutaneously. We then began our venous anastomosis. Luly Hany vascular clamps were used to clamp the axillary vein proximally and distally. An 11 blade was used to create a venotomy and this was extended with Mccoy scissors. The graft was bevelled. We completed our anastomosis with [place]-Siva CV6 suture in a running continuous fashion. Following completion of the venous anastomosis, the anastomosis appeared hemostatic. We then turned our attention to our arterial anastomosis. Angled DeBakey vascular clamps were used to control the brachial artery. The graft was cut to size. CV6 suture was again used to complete the arterial anastomosis in a running continuous fashion. Prior to completion of the anastomosis, the arteries were back bled and the graft was flushed. Upon completion of the arterial anastomosis, the anastomosis appeared to be hemostatic. Both wounds were irrigated with normal saline. Subcutaneous tissues were reapproximated with 3-0 Vicryl in a running fashion. Skin was reapproximated with 4-0 Vicryl in a running subcuticular fashion. Dermabond skin glue was applied to both skin incisions. The patient had a Dopplerable signal over the graft, radial artery, and palmar arch at the close of the case. He was awakened from anesthesia and transferred to the PACU in stable condition. There were no immediate complications. Dr. Antwan Jefferson was present and scrubbed for the entire procedure. I, Dr. Jefferson was present and scrubed for the entire procedure. I attest to the content of the Intraoperative Record and any orders documented therein. Any exceptions are noted below. [facility]
== END | disposition home or self-care (01) ==
LOC: C.ACU 08:32
PROVIDERS: ATTEND Surgery Vascular Surgery
DX: E11.22 Type 2 diabetes mellitus with diabetic chronic kidney disease (principal); N18.6 End stage renal disease; Z99.2 Dependence on renal dialysis; Z79.899 Other long term (current) drug therapy

== ENCOUNTER 2017-01-23 19:18 | Emergency (ER) | payer OTHER, BC ==
[~2017-01-23] VITALS: Ht 180.3 cm; Wt 150.5 kg
[~2017-01-23 19:18] MED LIST changes: -ACET-749 PO; -ATROPINE SULFATE 0.1 MG/ML 5ML SYR IV PRN; -BUPIVACAINE/EPINEPHRINE 0.5% MPF 1:200,000 30 ML VIAL ONE; -CEFAZOLIN 3000 MG/65 ML D5W IV SCH; -CINA60TA PO; +ERGO1CAP41 PO; -ERGO500011 PO; -EpHEDrine SULFATE INJ 50 MG/ML AMP IV PRN; -FENTANYL CITRATE INJ 50 MCG/1 ML 2 ML VIAL IV PRN; -FENTANYL CITRATE INJ 50 MCG/1 ML 2 ML VIAL ONE; -GELATIN SPONGE 12-7MM ONE; -HEPARIN SOD (PORCINE) 1000 UNIT/ML 10 ML VIAL ONE; -KETAMINE HCL INJ 50 MG/ML 10 ML VIAL ONE; -LIDOCAINE HCL 1% 20 ML VIAL ONE; -LIDOCAINE HCL 2% 2 ML VIAL (20MG/ML) ONE; -MIDAZOLAM HCL 1 MG/ML 2ML VIAL ONE; -ONDANSETRON INJ 2 MG/ML 2 ML VIAL IV PRN; -PATI1POW PO; -PATI1POW3 PO; -PROPOFOL IV EMULSION 10 MG/ML 20 ML VIAL IV ONE; -SODIUM CHLORIDE 0.9% 1000ML 1,000 ML IV SCH; -THROMBIN FOR SOLN 20000 UNIT KIT ONE; -TRAM-10 PO; -[UNRECOGNIZED DRUG - CODE]; -[UNRECOGNIZED DRUG - CODE] PO
[2017-01-23 19:22] VITALS: TEMP 37.4; Ht 180.3 cm; Wt 150.5 kg
--- NOTE | 2017-01-23 19:53 | EMERGENCY ROOM VISIT NOTE ---
History Report prepared by Ben: Emilee Madison Under the Supervision of: Elliot ChaudharyO. First contact with patient: 19:24 Chief Complaint: OTHER COMPLAINT Stated Complaint: GRAFT IN R ARM WILL NOT WORK History of Present Illness The patient is a 36 year old male who presents to the Emergency Room with complaints of constant fistula failure in the right upper arm beginning today. The patient states that he has end stage renal disease and has been on dialysis for 5 years. He notes that he has a right upper arm fistula after his right lower arm fistula failed. He reports that he used a tunnel catheter in between the time that his fistula failed. The patient states that he gets dialysis 3 days a week and last had dialysis 3 days ago. He notes that they were abele to access the fistula 3 days ago but today when he went for dialysis they were not able to. He complains of upper arm swelling, upper arm bruising, and weight gain. The patient denies any chest pain, fever, chills, lethargy, weakness, heart palpitations, nausea, and vomiting. He reports that he lost 1 kidney in a sledding accident and the second to his blood pressure medication. Source of History: patient Onset: today Position: arm (right) Quality: other (swelling) Timing: constant Associated Symptoms: No fevers, No chills, No chest pain, No nausea, No vomiting, No weakness Note: He complains of upper arm swelling, upper arm bruising, and weight gain. The patient denies any lethargy and heart palpitations. Review of Systems See HPI for pertinent positives & negatives. A total of 10 systems reviewed and were otherwise negative. Past Medical & Surgical Medical Problems: (1) Dialysis catheter clot or failure (2) ESRD (end stage renal disease) on dialysis (3) Hyperkalemia Surgical Problems: (1) History of knee surgery Family History Patient reports no known family medical history. Social History Smoking Status: Current Every Day Smoker Alcohol Use: none Drug Use: none Marital Status: single Occupation Status: employed Current/Historical Medications Scheduled B-Complex W/ C & Folic Acid (Triphrocaps), 1 CAP PO DAILY Calcium Acetate (Phoslo 667 Mg), 667 MG PO WITH SNACKS Calcium Acetate (Phosphate Bin (Phoslo 667 Mg), 2,001 MG PO TIDM Calcium Carbonate (Antacid) (Tums E-X 750), 2,625 MG PO TIDM Cinacalcet Hydrochloride (Sensipar), 60 MG PO QPM Ergocalciferol (Vitamin D 99608 Unit), 1 TAB PO MONTHLY Sevelamer Carbonate (Renvela), 3,200 MG PO TIDM Sevelamer Carbonate (Renvela), 2,400 MG PO WITH SNACKS Scheduled PRN [Hectoral], 1 DOSE IV 3XWK PRN for PER DIALYSIS Allergies Coded Allergies: No Known Allergies (Unverified , 01/03/17) Physical Exam Vital Signs Date Time Temp Pulse Resp B/P (MAP) Pulse Ox O2 Delivery O2 Flow Rate FiO2 01/23/17 21:25 98 16 99/70 95 01/23/17 20:58 98 16 99/70 95 Room Air 01/23/17 20:22 104 01/23/17 19:22 37.4 98 20 153/82 96 Room Air Physical Exam GENERAL: Patient is awake, alert, and in no acute distress. Patient is resting comfortably and showing no signs of anxiety EYES: The conjunctivae are clear. The pupils are round and reactive. EARS, NOSE, MOUTH AND THROAT: The nose is without any evidence of any deformity. Mucous membranes are moist tongue is midline NECK: The neck is nontender and supple. RESPIRATORY: Lung sounds are diminished throughout, no tachypnea or conversational dyspnea. CARDIOVASCULAR: Regular rate and rhythm noted there no murmurs rubs or gallops normal S1 normal S2 GASTROINTESTINAL: The abdomen is soft. Bowel sounds are present in all quadrants. Abdomen is nontender MUSCULOSKELETAL/EXTREMITIES: There is no evidence of gross deformity full range of motion is noted in the hips and shoulders SKIN: There is no obvious evidence of any rash. There are no petechiae, pallor or cyanosis noted. Pedal edema bilaterally, ecchymosis in RUE, there was a fistula noted in the right arm but no palpable thrill or bruit was noted to auscultation. NEUROLOGIC: Patient is awake alert and oriented x3 Medical Decision & Procedures ER Provider Diagnostic Interpretation: X-ray results as stated below per interpretation by me and the radiologist. CHEST ONE VIEW PORTABLE FINDINGS: The heart is normal in size. There is no overt failure. There is no focal pulmonary consolidation. There is a linear subsegmental atelectasis the left lung base. There are no pleural effusions.[ There is no free intraperitoneal air. IMPRESSION: No active disease in the chest. Electronically signed by: Aakash Chiu M.D. 01/23/2017 8:06 PM Dictated Date/Time: 01/23/2017 8:05 PM Laboratory Results 01/23/17 19:51 Red Blood Count 3.13, Mean Corpuscular Volume 98.4, Mean Corpuscular Hemoglobin 32.6, Mean Corpuscular Hemoglobin Concent 33.1, Mean Platelet Volume 9.0, Neutrophils (%) (Auto) 65.8, Lymphocytes (%) (Auto) 27.0, Monocytes (%) (Auto) 4.8, Eosinophils (%) (Auto) 1.9, Basophils (%) (Auto) 0.2, Neutrophils # (Auto) 7.89, Lymphocytes # (Auto) 3.25, Monocytes # (Auto) 0.58, Eosinophils # (Auto) 0.23, Basophils # (Auto) 0.03 01/23/17 19:51 Test 01/23/17 19:51 White Blood Count 12.02 K/uL (4.8-10.8) Red Blood Count 3.13 M/uL (4.7-6.1) Hemoglobin 10.2 g/dL (14.0-18.0) Hematocrit 30.8 % (42-52) Mean Corpuscular Volume 98.4 fL (80-100) Mean Corpuscular Hemoglobin 32.6 pg (25-34) Mean Corpuscular Hemoglobin Concent 33.1 g/dl (32-36) Platelet Count 228 K/uL (130-400) Mean Platelet Volume 9.0 fL (7.4-10.4) Neutrophils (%) (Auto) 65.8 % Lymphocytes (%) (Auto) 27.0 % Monocytes (%) (Auto) 4.8 % Eosinophils (%) (Auto) 1.9 % Basophils (%) (Auto) 0.2 % Neutrophils # (Auto) 7.89 K/uL (1.4-6.5) Lymphocytes # (Auto) 3.25 K/uL (1.2-3.4) Monocytes # (Auto) 0.58 K/uL (0.11-0.59) Eosinophils # (Auto) 0.23 K/uL (0-0.5) Basophils # (Auto) 0.03 K/uL (0-0.2) RDW Standard Deviation 56.5 fL (36.4-46.3) RDW Coefficient of Variation 16.0 % (11.5-14.5) Immature Granulocyte % (Auto) 0.3 % Immature Granulocyte # (Auto) 0.04 K/uL (0.00-0.02) Prothrombin Time 10.6 SECONDS (9.0-12.0) Prothromb Time International Ratio 1.0 (0.9-1.1) Activated Partial Thromboplast Time 25.8 SECONDS (21.0-31.0) Partial Thromboplastin Ratio 1.0 Anion Gap 18.0 mmol/L (3-11) Est Creatinine Clear Calc Drug Dose 10.9 ml/min Estimated GFR () 4.6 Estimated GFR (Non- 4.0 BUN/Creatinine Ratio 6.0 (10-20) Calcium Level 8.3 mg/dl (8.5-10.1) Phosphorus Level 8.7 mg/dl (2.5-4.9) Magnesium Level 2.6 mg/dl (1.8-2.4) Total Bilirubin 0.4 mg/dl (0.2-1) Direct Bilirubin 0.1 mg/dl (0-0.2) Aspartate Amino Transf (AST/SGOT) 15 U/L (15-37) Alanine Aminotransferase (ALT/SGPT) 25 U/L (12-78) Alkaline Phosphatase 71 U/L (45-117) Troponin I < 0.015 ng/ml (0-0.045) Pro-B-Type Natriuretic Peptide 574 pg/ml (0-450) Total Protein 7.1 gm/dl (6.4-8.2) Albumin 3.3 gm/dl (3.4-5.0) Lipase 370 U/L (73-393) Laboratory results per my review. ECG Rate (beats per minute): 97 Rhythm: normal sinus Findings: no ectopy, other (No acute ST segment abnormalities) Comparison ECG Date: 09/09/16 Change: no significant change ED Course 1946: The patient was evaluated in room A9. A complete history and physical examination were performed. 2039: I spoke to Dr. Jefferson about the patient's case. He can see him in the afternoon tomorrow. 2112: I spoke to Dr. Barcenas about the patient's case. He agrees with the plan for the patient to return if he has worsening symptoms. 2124: Upon reevaluation, the patient is doing well. I discussed the results and treatment plan with the patient. He verbalized agreement of the treatment plan. The patient was discharged home. Medical Decision Differential diagnosis: Etiologies such as metabolic, infection, hypo/hyperglycemia, electrolyte abnormalities, cardiac sources, intracerebral event, toxicologic, neurologic, as well as others were entertained. Medication Reconciliation: I attest that I have personally reviewed the patient' s current medications list. Patient was found to have a slightly elevated blood pressure likely due to lack of dialysis. I do not believe that the patient requires hypertension monitoring. The patient is a 36-year-old male who has a history of dialysis and end-stage renal disease. The patient was at dialysis today but only had 20 minutes of dialysis because his dialysis graft in his right upper extremity stop working. It appears to be nonfunctional at this time and his tunneled catheter has fallen out recently. The patient call his primary tractor mechanic helper and was sent to our emergency department for workup. I was called by his primary tractor mechanic helper was very concerned because the patient has not had dialysis since last week. The patient did not appear to be in pulmonary edema and laboratory studies did not reveal significant hyperkalemia. I discussed his laboratory findings with his primary tractor mechanic helper. I also discussed his case with his vascular surgeon and he is agreed to see the patient in the office tomorrow to fix his vascular access. The patient was encouraged to avoid any strenuous activity and presented to the vascular surgeon in the morning. He was also encouraged to be nothing by mouth after midnight and return to the emergency department immediately if symptoms change worsen or the need arises. Consults Time Called: 2034 Consulting Physician: Dr. Jefferson Returned Call: [address] Jefferson about the patient's case. He can see him in the afternoon tomorrow. Additional Consults: Time Called: 2109 Consulted Physician: Dr. Barcenas Returned Call: [phone] Additional Comments: I spoke to Dr. Barcenas about the patient's case. He agrees with the plan for the patient to return if he has worsening symptoms. Impression Primary Impression: End stage renal failure on dialysis Additional Impression: Clotted renal dialysis AV graft Scribe Attestation The scribe's documentation has been prepared under my direction and personally reviewed by me in its entirety. I confirm that the note above accurately reflects all work, treatment, procedures, and medical decision making performed by me. Departure Information Dispostion Home / Self-Care Forms HOME CARE DOCUMENTATION FORM, IMPORTANT VISIT INFORMATION, WORK / SCHOOL INSTRUCTIONS Patient Instructions Hemodialysis, My [facility] Additional Instructions Call Dr. Jefferson in the morning. You need to schedule an appointment for the afternoon to have your dialysis access reopened. Rest and avoid any strenuous activity. Limit your fluids. Have nothing to eat or drink after midnight tonight. Return to the emergency apartment immediately if symptoms change worsen or the need arises. Problem Qualifiers Additional Impression: Clotted renal dialysis AV graft Encounter type: initial encounter Qualified Codes: T82.868A - Thrombosis due to vascular prosthetic devices, implants and grafts, initial encounter
--- NOTE | 2017-01-23 20:07 | DIAGNOSTIC IMAGING REPORT ---
CHEST ONE VIEW PORTABLE CLINICAL HISTORY: ABDOMINAL PAIN/GI COMPARISON STUDY: 08/16/2016 FINDINGS: The heart is normal in size. There is no overt failure. There is no focal pulmonary consolidation. There is a linear subsegmental atelectasis the left lung base. There are no pleural effusions.[ There is no free intraperitoneal air. IMPRESSION: No active disease in the chest. Electronically signed by: Aakash Chiu M.D. 01/23/2017 8:06 PM Dictated Date/Time: 01/23/2017 8:05 PM
[2017-01-23 20:11] LABS: BASO % 0.2 %; BASO ABS # 0.03 K/uL (0-0.2); COMPLETE YES; EOS % 1.9 %; HEMATOCRIT 30.8 % (42-52); IG% 0.3 %; LYMPH ABS # 3.25 K/uL (1.2-3.4); MEAN CELL VOLUME 98.4 fL (80-100); MEAN CORPUSCULAR HEMOGLOBIN 32.6 pg (25-34); MEAN CORPUSCULAR HGB CONC 33.1 g/dl (32-36); MONO % 4.8 %; NEUT % 65.8 %; PLATELET COUNT 228 K/uL (130-400); RED BLOOD COUNT 3.13 M/uL (4.7-6.1); WHITE BLOOD COUNT 12.02 K/uL (4.8-10.8)
[2017-01-23 20:25] LABS: PROTHROMBIN TIME (PATIENT) 10.6 SECONDS (9.0-12.0)
[2017-01-23 20:46] LABS: ALKALINE PHOSPHATASE 71 U/L (45-117); ALT/SGPT 25 U/L (12-78); AST/SGOT 15 U/L (15-37); BLOOD UREA NITROGEN 85 mg/dl (7-18); CALCIUM 8.3 mg/dl (8.5-10.1); CARBON DIOXIDE 24 mmol/L (21-32); CHLORIDE 94 mmol/L (98-107); GLUCOSE 121 mg/dl (70-99); MAGNESIUM 2.6 mg/dl (1.8-2.4); PHOSPHORUS 8.7 mg/dl (2.5-4.9); POTASSIUM 3.9 mmol/L (3.5-5.1); SODIUM 136 mmol/L (136-145)
[2017-01-23 21:25] VITALS: BP 99/70; PULSE 98; O2SAT 95
[2017-02-17] MEDS ORDERED: TRAM-10 PO (15:26)
== END 2017-01-23 21:30 | disposition home or self-care (01) ==
LOC: C.EDB 19:19 → C.EDA 21:30
DX: T82.868A Thrombosis due to vascular prosthetic devices, implants and grafts, initial encounter (principal); Y83.2 Surgical operation with anastomosis, bypass or graft as the cause of abnormal reaction of the patient, or of later complication, without mention of misadventure at the time of the procedure; N18.6 End stage renal disease; Z99.2 Dependence on renal dialysis; F17.210 Nicotine dependence, cigarettes, uncomplicated; Z79.899 Other long term (current) drug therapy

== ENCOUNTER 2017-01-24 11:04 | Day surgery (SDC) | payer OTHER, BC ==
[2017-01-24] VITALS (7 sets, daily range): BP systolic 101–119; BP diastolic 51–68; PULSE 91–98; TEMP 36.6–37; O2SAT 93–98; Ht 180.3 cm; Wt 150.0 kg
[~2017-01-24] VITALS: Ht 180.3 cm; Wt 150.0 kg
[~2017-01-24 11:04] MED LIST changes: -OXYC-57 PO
--- NOTE | 2017-01-24 11:44 | History and Physical ---
History & Physical Date of Service Jan 24, 2017. History & Physical History & Physical Chief Complaint End stage renal disease History of Present Illness The patient is a 36 year old male with hx of DMII and ESRD on HD, admitted today for insertion of permcath Pt recently had RUE AV graft insertion and began use of graft , although infiltrated at HD and has large hematoma. Previous permcath fell out a few days ago. Pt denies BREEN, fever, chills, chest pain, SOB, abd pain, N/V, rest pain, claudication, other complaints. Allergies Coded Allergies: No Known Allergies (Unverified , 09/30/16) Home Medications Scheduled B-Complex W/ C & Folic Acid (Triphrocaps), 1 CAP PO DAILY Calcium Acetate (Phoslo 667 Mg), 667 MG PO WITH SNACKS Calcium Acetate (Phosphate Bin (Phoslo 667 Mg), 2,001 MG PO TIDM Calcium Carbonate (Antacid) (Tums E-X 750), 2,625 MG PO TIDM Cinacalcet Hydrochloride (Sensipar), 30 MG PO QPM Sevelamer Carbonate (Renvela), 3,200 MG PO TIDM Sevelamer Carbonate (Renvela), 2,400 MG PO WITH SNACKS Scheduled PRN [Hectoral], 1 DOSE IV 3XWK PRN for PER DIALYSIS Problem List Medical Problems: (1) Dialysis catheter clot or failure (2) ESRD (end stage renal disease) on dialysis (3) Hyperkalemia Surgical Problems: (1) History of knee surgery Surgical / Medical History Hx Cardiac Surgery: No Hx Abdominal Surgery: No Hx Cancer Surgery: No Hx Thoracic Surgery: No Hx Orthopedic: Yes (Left knee, right lower leg) Hx Urinary Tract Surgery: No HX Other Surgery: No Past Medical/Surgical History: Diabetes, Kidney Disease Family History Patient reports no known family medical history. Social History Smoking Status: Current Every Day Smoker Hx Tobacco Use In Past Year?: Yes Hx Alcohol Use - Type & Amnt: No Hx Substance Use -Type & Amnt: No Review of Systems Constitutional: No chills, No fever, No malaise Skin: No change in color Eyes: No visual changes ENMT: No sore throat Respiratory: No cough, No ROMERO, No short of breath Cardiovascular: No chest pain, No palpitations, No syncope, No edema, No intermittent claudication Gastrointestinal: No abdominal pain, No nausea, No vomiting Neurologic: No dizziness, No headache, No numbness, No tingling Physical Exam Constitutional: General Apperance: well-nourished, well-developed, obese Level of Distress: NAD Psychiatric: Mental Status: active & alert, normal mood, normal affect Orientation: oriented except where noted, to time, to place, to person Memory: recent memory normal, remote memory normal Head: normocephalic, atraumatic Eyes: EOM: EOMI ENMT: normal ENT inspection, hearing grossly normal Neck: supple, trachea midline Lungs: Respiratory effort: no dyspnea Auscultation: breath sounds normal, no wheezing, no rales/crackles, no rhonchi Cardiovascular: Apical Impulse: not displaced Heart Auscultation: RRR, no murmurs, no rubs, no gallops Peripheral Pulses: Pulses: full and equal, in all extremities except if noted Bruits: none appreciated Carotid Pulse: normal on the left, normal on the right Brachial Pulses: normal on the left, normal on the right Radial Pulse: normal on the left, normal on the right Femoral Pulse: normal on the left, normal on the right Posterior Tibialis Pulse: decreased on the left, decreased on the right Dorsalis Pedis Pulse: decreased on the left, decreased on the right Abdomen: Bowel Sounds: normal Inspection & Palpation: soft, non-distended, no tenderness, guarding & rebound Musculoskeletal: normal strength (5/5 throughout), normal tone Extremities: Upper Right: no cyanosis, no edema, no varicosities, RUE large hematoma/ ecchymosis. + bruit/doppler over RUE AV graft Upper Left: no cyanosis, no edema, no varicosities Lower Right: no cyanosis, no edema, no varicosities Lower Left: no cyanosis, no edema, no varicosities Neurologic: Cranial Nerves: grossly intact Sensation: grossly intact Assessment and Plan Imp: ESRD on HD Plan: Pt admitted for permcath insertion today for HD, so that AV graft can rest d/ t large hematoma. I have discussed the risks options and benefits of the procedure with the patient. The patient understands the risks options and benefits and agrees to the procedure. Patient was seen, examined, and chart reviewed. Agree with exam and treatment plan of the Vascular PA. Patient for a permcath insertion to rest his fistula. I have discussed the risks options and benefits of the procedure with the patient. The patient understands the risks options and benefits and agrees to the procedure.
[2017-01-24] MEDS ORDERED: D5W AND 1/4NSS 1,000 ML IV SCH (11:45)
[2017-01-24] MEDS ORDERED: CEFAZOLIN IV 2,000 MG in DEXTROSE 5% 50ML 50 ML IV ONE (11:45)
--- NOTE | 2017-01-24 12:20 | Procedure Note ---
Pre-Mod Sedation Assessment General Date of Moderate Sedation: Jan 24, 2017. Vital Signs: Vital Signs Past 12 Hours Date Time Temp Pulse Resp B/P (MAP) Pulse Ox O2 Delivery O2 Flow Rate FiO2 01/24/17 11:52 36.8 91 18 101/51 (68) 98 Room Air Pre-Sedation Airway Assessment Oral Cavity: WNL Short Thick Neck: Yes Hx of Sleep Apnea: No Smoking Status: Current Every Day Smoker Mallampati Classification: Class I ASA Classification: Class III Notes The planned sedation has been discussed with the patient and consent obtained. I have identified the patient, determined the appropriateness of sedation and have assessed the patient immediately prior to the procedure. All medicine(s) and interventions are by my order.
[2017-01-24] MEDS ORDERED: CALCIUM GLUCONATE 10% 2,000 MG in SODIUM CHLORIDE 0.9% 50ML 50 ML IV ONE (12:45)
[2017-01-24] MEDS ORDERED: CEFAZOLIN 3000 MG/65 ML D5W IV SCH (13:00)
[2017-01-24] MEDS ORDERED: MIDAZOLAM HCL 1 MG/ML 2ML VIAL ONE (15:16)
[2017-01-24] MEDS ORDERED: FENTANYL CITRATE INJ 50 MCG/1 ML 2 ML VIAL ONE (15:16)
[2017-01-24] MEDS ORDERED: HEPARIN SOD (PORCINE) 5000 UNIT/ML 1 ML VIAL ONE (15:17)
[2017-01-24] MEDS ORDERED: LIDOCAINE HCL 1% 20 ML VIAL INJ ONE ×2 (15:40→15:48)
[2017-01-24] MEDS ORDERED: FENTANYL CITRATE INJ 50 MCG/1 ML 2 ML VIAL IV ONE (15:41)
[2017-01-24] MEDS ORDERED: MIDAZOLAM HCL 1 MG/ML 2ML VIAL IV ONE (15:41)
[2017-01-24] MEDS ORDERED: HEPARIN SOD (PORCINE) 5000 UNIT/ML 1 ML VIAL IV ONE (15:54)
--- NOTE | 2017-01-24 15:55 | Procedure Note ---
Post-Moderate Sedation Plan General Date of Moderate Sedation Jan 24, 2017. Vital Signs: Vital Signs Past 12 Hours Date Time Temp Pulse Resp B/P (MAP) Pulse Ox O2 Delivery O2 Flow Rate FiO2 01/24/17 14:33 36.8 91 18 101/51 98 Room Air 01/24/17 14:30 36.8 91 18 101/51 98 Room Air 01/24/17 11:52 36.8 91 18 101/51 (68) 98 Room Air Review - Discharge Plan Post Moderate Sedation Plan: On clinical assessment, the patient appears to have tolerated the conscious sedation without complications. Patient is recovering as anticipated. Patient will continue to be monitored by nursing and may be discharged when conscious sedation discharge criteria are met.
--- NOTE | 2017-01-24 15:57 | [facility] Operative Report ---
Operative Report Operative Date Jan 24, 2017. Pre-Operative Diagnosis end stage renal disease Post-Operative Diagnosis same Procedure(s) Performed Insertion Of Perm Catheter, Right Internal Jugular Approach, Ultrasound Localization Of Right Internal Jugular Vein, Fluoroscoy For Positioning, Moderate Concious Sedation [address] Jefferson Pick Pulling Machine Tender Surgeon(s) none Estimated Blood Loss 15 ml Findings tip in distal SVC Specimens none Anesthesia Local with sedation Complication(s) None Disposition Indications This patient's a 36-year-old white male with a right arm fistula which is infiltrated. It's not able to be used at this point due to the edema. We recommended insertion of a PermCath to rest the fistula. He understood the risks options benefits of this procedure and agrees to the procedure. Description of Procedure Patient was takent to the angio suite and placed in the supine position. The right side of the neck and chest wall were prepped and draped in a sterile manner. Local anesthesia was then administered to the appropriate areas of the neck and chest wall. Ultrasound was then used to locate the right internal jugular vein. The vein compressed easily, had no filing defects, and was patent. The vein was then punctured under direct ultrasound imaging. A guidewire was then passed centrally under fluoroscopic imaging. A stab wound was then made in the anterior chest wall and a 19 cm permcath was passed from the stab wound on the chest wall to the puncture site on the neck. The puncture site was then dilated till the 14Fr peel away sheath was inserted. The permcath was then inserted through the sheath to a central position in the distal superior vena cava. The peel away sheath was then removed. The catheter was then sutured in place using nylon sutures. The puncture was then closed using a 4-0 Vicryl subcuticular suture. Dermabond was used for a dressing on the puncture site. Both ports aspirated and flushed easily and were then packed with heparin. A sterile dressing was applied to the catheter. The patient left the angio suite in good condition and tolerated the procedure well. I attest to the content of the Intraoperative Record and any orders documented therein. Any exceptions are noted below.
--- NOTE | 2017-01-24 15:59 | Discharge Instructions ---
Discharge Instructions Date of Service Jan 24, 2017. Visit Reason for Visit: End Stage Renal Disease, Malfunctioning Fistula Discharge Discharge Diagnosis / Problem: End stage renal disease Discharge Goals Goal(s): Therapeutic intervention Activity Recommendations Activity Limitations: resume your previous activity Lifting Limitations: none Exercise/Sports Limitations: none Driving or Machine Use: no limitations None Anesthesia . Post Anesthesia Instructions: If you have had General Anesthesia or IV Sedation: * Do not drive today. * Resume driving when surgeon permits. * Do not make important decisions or sign legal documents today. * Call surgeon for: 1. Temperature elevations greater than 101 degrees F. 2. Uncontrollable pain. 3. Excessive bleeding. 4. Persistent nausea and vomiting. 5. Medication intolerance (nausea, vomiting or rash). * For nausea and vomiting use only clear liquids such as: tea, soda, bouillon until nausea subsides, then gradually increase diet as tolerated. * If you have any concerns or questions, call your surgeon's office. If physician is unavailable and it is an emergency, call 911 or go to the nearest emergency room. . Instructions / Follow-Up Instructions / Follow-Up Call [phone] to schedule a follow up appointment if one not already scheduled. Take this form to diaysis and give it to the staff. MAY USE PERMCATH FOR DIALYSIS SPECIAL CARE INSTRUCTIONS: Medications: * Continue to take your medications as directed. If you have been given a prescription for Plavix, please fill it immediately and take as directed. Incision Care: * Your puncture site may have some bruising and minor swelling for about one week. * You will have a small dressing covering your puncture site. You may remove the dressing after 24 hours and shower. You may let the warm soapy water run over it, but be sure to dry the puncture site well and keep it dry. * DO NOT IMMERSE THE INCISION IN A TUB/POOL/etc. UNTIL HEALED. * Puncture sites should be kept covered with a band-aid until it begins to heal. Restrictions: * Depending on whether you leg or arm was punctured to access the arteries, you will be required to lay flat, hold your arm still, or both, for about 4 hours after the procedure to prevent bleeding. * Limit your activity for the first 48 hours. You may walk and go up and down steps. Avoid excessive bending or movement at the puncture site. Possible Complications: * Excessive Swelling - after blood flow is improved you may notice increased swelling in the lower legs. This is a normal response. This usually depends on the amount of blockages in the leg, how long they have been there prior to your procedure and how much blood flow was restored. Elevating your legs will help to improve this. Please notify our office ([phone] ) if the swelling does not go away after lying in bed overnight. * Infection/Drainage/Bleeding - Drainage or bleeding from the puncture site should be minimal. If you have excessive bleeding or drainage, call our office ([phone]) right away. * Pain - You may experience some mild pain or soreness at your puncture site. If your pain does not improve, please contact our office ([phone]). Call your doctor and seek emergent treatment if you develop: * Temperature above 101 degrees * Any fever or chills * Any redness or purulent drainage from the puncture site * Any new dusky/blue colored toes or feet with coolness or sharp or aching pain. SKIN IRRITATION: * You may experience some redness and/or swelling in the area where radiation was administered. If any skin irritation occurs, please contact your family physician. FOLLOW UP VISIT: Keep any scheduled doctor appointments. Diet Recommendations Recommended Home Diet: resume previous diet Procedures Procedures Performed: Insertion Of Perm Catheter, Right Internal Jugular Approach, Ultrasound Localization Of Right Internal Jugular Vein, Fluoroscoy For Positioning, Moderate Concious Sedation 1541 to Pending Studies Studies pending at discharge: no Work Instructions Lifting Limitations: none Additional Instructions: may return to work without restrictions Medical Emergencies . Who to Call and When: Medical Emergencies: If at any time you feel your situation is an emergency, please call 911 immediately. . Non-Emergent Contact Non-Emergency issues call your: Surgeon . . "Provider Documentation" section prepared by Antwan Jefferson. .
== END 2017-01-24 17:05 | disposition home or self-care (01) ==
LOC: C.ACU 11:04
PROVIDERS: ATTEND Surgery Vascular Surgery
DX: N18.6 End stage renal disease (principal); E11.22 Type 2 diabetes mellitus with diabetic chronic kidney disease; F17.200 Nicotine dependence, unspecified, uncomplicated; Z99.2 Dependence on renal dialysis; Z79.899 Other long term (current) drug therapy

== ENCOUNTER 2017-02-03 08:02 | Day surgery (SDC) | payer OTHER, BC ==
[~2017-02-03] VITALS: Ht 180.3 cm; Wt 147.5 kg
--- NOTE | 2017-02-03 06:21 | History and Physical ---
History & Physical Date of Service Feb 03, 2017. History & Physical Chief Complaint End stage renal disease, malfunctioning permcath History of Present Illness The patient is a 36 year old male with hx of DMII and ESRD on HD, who had a recent insertion of permcath Pt recently had RUE AV graft insertion and began use of graft , although infiltrated at HD and has large hematoma. The permcath is not running well. Pt denies BREEN, fever, chills, chest pain, SOB, abd pain, N/ V, rest pain, claudication, other complaints. Allergies Coded Allergies: No Known Allergies (Unverified , 09/30/16) Home Medications Scheduled B-Complex W/ C & Folic Acid (Triphrocaps), 1 CAP PO DAILY Calcium Acetate (Phoslo 667 Mg), 667 MG PO WITH SNACKS Calcium Acetate (Phosphate Bin (Phoslo 667 Mg), 2,001 MG PO TIDM Calcium Carbonate (Antacid) (Tums E-X 750), 2,625 MG PO TIDM Cinacalcet Hydrochloride (Sensipar), 30 MG PO QPM Sevelamer Carbonate (Renvela), 3,200 MG PO TIDM Sevelamer Carbonate (Renvela), 2,400 MG PO WITH SNACKS Scheduled PRN [Hectoral], 1 DOSE IV 3XWK PRN for PER DIALYSIS Problem List Medical Problems: (1) Dialysis catheter clot or failure (2) ESRD (end stage renal disease) on dialysis (3) Hyperkalemia Surgical Problems: (1) History of knee surgery Surgical / Medical History Hx Cardiac Surgery: No Hx Abdominal Surgery: No Hx Cancer Surgery: No Hx Thoracic Surgery: No Hx Orthopedic: Yes (Left knee, right lower leg) Hx Urinary Tract Surgery: No HX Other Surgery: No Past Medical/Surgical History: Diabetes, Kidney Disease Family History Patient reports no known family medical history. Social History Smoking Status: Current Every Day Smoker Hx Tobacco Use In Past Year?: Yes Hx Alcohol Use - Type & Amnt: No Hx Substance Use -Type & Amnt: No Review of Systems Constitutional: No chills, No fever, No malaise Skin: No change in color Eyes: No visual changes ENMT: No sore throat Respiratory: No cough, No ROMERO, No short of breath Cardiovascular: No chest pain, No palpitations, No syncope, No edema, No intermittent claudication Gastrointestinal: No abdominal pain, No nausea, No vomiting Neurologic: No dizziness, No headache, No numbness, No tingling Physical Exam Constitutional: General Apperance: well-nourished, well-developed, obese Level of Distress: NAD Psychiatric: Mental Status: active & alert, normal mood, normal affect Orientation: oriented except where noted, to time, to place, to person Memory: recent memory normal, remote memory normal Head: normocephalic, atraumatic Eyes: EOM: EOMI ENMT: normal ENT inspection, hearing grossly normal Neck: supple, trachea midline Lungs: Respiratory effort: no dyspnea Auscultation: breath sounds normal, no wheezing, no rales/crackles, no rhonchi Cardiovascular: Apical Impulse: not displaced Heart Auscultation: RRR, no murmurs, no rubs, no gallops Peripheral Pulses: Pulses: full and equal, in all extremities except if noted Bruits: none appreciated Carotid Pulse: normal on the left, normal on the right Brachial Pulses: normal on the left, normal on the right Radial Pulse: normal on the left, normal on the right Femoral Pulse: normal on the left, normal on the right Posterior Tibialis Pulse: decreased on the left, decreased on the right Dorsalis Pedis Pulse: decreased on the left, decreased on the right Abdomen: Bowel Sounds: normal Inspection & Palpation: soft, non-distended, no tenderness, guarding & rebound Musculoskeletal: normal strength (5/5 throughout), normal tone Extremities: Upper Right: no cyanosis, no edema, no varicosities, RUE large hematoma/ ecchymosis. + bruit/doppler over RUE AV graft Upper Left: no cyanosis, no edema, no varicosities Lower Right: no cyanosis, no edema, no varicosities Lower Left: no cyanosis, no edema, no varicosities Neurologic: Cranial Nerves: grossly intact Sensation: grossly intact Assessment and Plan Imp: ESRD on HD Malfunctioning permcath Plan: Pt admitted for permcath exchange today. I have discussed the risks options and benefits of the procedure with the patient. The patient understands the risks options and benefits and agrees to the procedure. Patient was seen, examined, and chart reviewed. Agree with exam and treatment plan of the Vascular PA. Patient for a permcath insertion to rest his fistula. I have discussed the risks options and benefits of the procedure with the patient. The patient understands the risks options and benefits and agrees to the procedure.
[~2017-02-03 08:02] MED LIST changes: +CEFAZOLIN 1000MG/55 ML D5W IV SCH; +CEFAZOLIN 3000 MG/65 ML D5W 65 ML IV SCH; +D5W AND 1/4NSS 1000 ML IV SCH
[2017-02-03 08:20] VITALS: BP 114/64; PULSE 94; TEMP 36.6; O2SAT 98; Ht 180.3 cm; Wt 147.5 kg
[2017-02-03] MEDS ORDERED: MIDAZOLAM HCL 1 MG/ML 2ML VIAL ONE (11:00)
[2017-02-03] MEDS ORDERED: FENTANYL CITRATE INJ 50 MCG/1 ML 2 ML VIAL ONE (11:00)
[2017-02-03] MEDS ORDERED: HEPARIN SOD (PORCINE) 5000 UNIT/ML 1 ML VIAL ONE (11:00)
[2017-02-03] MEDS ORDERED: HEPARIN SOD (PORCINE) 5000 UNIT/ML 1 ML VIAL IV ONE (12:19)
[2017-02-03] MEDS ORDERED: LIDOCAINE HCL 1% 20 ML VIAL SQ ONE (12:19)
--- NOTE | 2017-02-03 12:24 | [facility] Operative Report ---
Operative Report Operative Date Feb 03, 2017. Pre-Operative Diagnosis Malfunctioning Perm Catheter Post-Operative Diagnosis Same Procedure(s) Performed Exchange of Perm Catheter Surgeon Dr. Jefferson Reverse Unit Operator Surgeon(s) None Estimated Blood Loss 0 Findings tip in distal SVC Specimens Explant Perm Catheter Anesthesia Local Complication(s) None This is a 36-year-old male with a right internal jugular vein PermCath in place which is malfunctioning. Exchange of the PermCath was recommended He understood the risks options and benefits and agreed with this procedure. Disposition Description of Procedure Patient was takent to the angio suite and placed in the supine position. The right side of the neck, catheter and chest wall were prepped and draped in a sterile manner. Local anesthesia was then administered to the appropriate areas. A guidewire was then passed centrally under fluoroscopic imaging through the old permcath. The old permcath was removed after freeing up the dacron cuff of the permcath using blunt and sharp dissection. A new 19cm permcath was inserted without difficulty. The catheter was sutured in placed. Both ports aspirated and flushed easily and were then packed with heparin. A sterile dressing was applied to the catheter. The patient left the angio suite in good condition and tolerated the procedure well. I attest to the content of the Intraoperative Record and any orders documented therein. Any exceptions are noted below.
--- NOTE | 2017-02-03 12:28 | Discharge Instructions ---
Discharge Instructions Date of Service Feb 03, 2017. Visit Reason for Visit: End Stage Renal Disease, Malfunctioning Fistula Discharge Discharge Diagnosis / Problem: Malfunctioning permcath Discharge Goals Goal(s): Therapeutic intervention Activity Recommendations Activity Limitations: resume your previous activity Anesthesia . Post Anesthesia Instructions: If you have had General Anesthesia or IV Sedation: * Do not drive today. * Resume driving when surgeon permits. * Do not make important decisions or sign legal documents today. * Call surgeon for: 1. Temperature elevations greater than 101 degrees F. 2. Uncontrollable pain. 3. Excessive bleeding. 4. Persistent nausea and vomiting. 5. Medication intolerance (nausea, vomiting or rash). * For nausea and vomiting use only clear liquids such as: tea, soda, bouillon until nausea subsides, then gradually increase diet as tolerated. * If you have any concerns or questions, call your surgeon's office. If physician is unavailable and it is an emergency, call 911 or go to the nearest emergency room. . Instructions / Follow-Up Instructions / Follow-Up Take this to dialysis with you and give to nurses. May use permcath for dialysis SPECIAL CARE INSTRUCTIONS: Medications: * Continue to take your medications as directed. If you have been given a prescription for Plavix, please fill it immediately and take as directed. Incision Care: * Your puncture site may have some bruising and minor swelling for about one week. * You will have a small dressing covering your puncture site. You may remove the dressing after 24 hours and shower. You may let the warm soapy water run over it, but be sure to dry the puncture site well and keep it dry. * DO NOT IMMERSE THE INCISION IN A TUB/POOL/etc. UNTIL HEALED. * Puncture sites should be kept covered with a band-aid until it begins to heal. Restrictions: * Depending on whether you leg or arm was punctured to access the arteries, you will be required to lay flat, hold your arm still, or both, for about 4 hours after the procedure to prevent bleeding. * Limit your activity for the first 48 hours. You may walk and go up and down steps. Avoid excessive bending or movement at the puncture site. Possible Complications: * Excessive Swelling - after blood flow is improved you may notice increased swelling in the lower legs. This is a normal response. This usually depends on the amount of blockages in the leg, how long they have been there prior to your procedure and how much blood flow was restored. Elevating your legs will help to improve this. Please notify our office ([phone] ) if the swelling does not go away after lying in bed overnight. * Infection/Drainage/Bleeding - Drainage or bleeding from the puncture site should be minimal. If you have excessive bleeding or drainage, call our office ([phone]) right away. * Pain - You may experience some mild pain or soreness at your puncture site. If your pain does not improve, please contact our office ([phone]). Call your doctor and seek emergent treatment if you develop: * Temperature above 101 degrees * Any fever or chills * Any redness or purulent drainage from the puncture site * Any new dusky/blue colored toes or feet with coolness or sharp or aching pain. SKIN IRRITATION: * You may experience some redness and/or swelling in the area where radiation was administered. If any skin irritation occurs, please contact your family physician. FOLLOW UP VISIT: Keep any scheduled doctor appointments. Diet Recommendations Recommended Home Diet: resume previous diet Procedures Procedures Performed: Exchange of Perm Catheter Pending Studies Studies pending at discharge: no Work Instructions Lifting Limitations: none Additional Instructions: May return to work today without restrictions. Medical Emergencies . Who to Call and When: Medical Emergencies: If at any time you feel your situation is an emergency, please call 911 immediately. . Non-Emergent Contact Non-Emergency issues call your: Surgeon . . "Provider Documentation" section prepared by Antwan Jefferson. .
[2017-02-03 12:30] VITALS: BP 103/75; PULSE 76; TEMP 36.8; O2SAT 98
[2017-02-03 13:00] VITALS: BP 110/52; PULSE 70; O2SAT 96
[2017-02-03 13:30] VITALS: BP 113/54; PULSE 93; TEMP 36.6; O2SAT 95
== END 2017-02-03 13:35 | disposition home or self-care (01) ==
LOC: C.ACU 08:02
PROVIDERS: ATTEND Surgery Vascular Surgery
DX: T82.898A Other specified complication of vascular prosthetic devices, implants and grafts, initial encounter (principal); N18.6 End stage renal disease; E11.9 Type 2 diabetes mellitus without complications; Z99.2 Dependence on renal dialysis; Z87.891 Personal history of nicotine dependence; Y82.8 Other medical devices associated with adverse incidents

== ENCOUNTER 2017-02-17 11:00 | Day surgery (SDC) | payer OTHER, BC ==
[~2017-02-17] VITALS: Ht 180.3 cm; Wt 146.0 kg
--- NOTE | 2017-02-17 07:10 | History and Physical ---
History & Physical Date of Service Feb 17, 2017. History & Physical Chief Complaint End stage renal disease, thrombosed fistula right arm History of Present Illness The patient is a 36 year old male with hx of DMII and ESRD on HD, who had a recent insertion of permcath Pt recently had RUE AV graft insertion and began use of graft , although infiltrated at HD and has large hematoma. The graft has subsequently thrombosed. Pt denies BREEN, fever, chills, chest pain, SOB, abd pain, N/V, rest pain, claudication, other complaints. Allergies Coded Allergies: No Known Allergies (Unverified , 09/30/16) Home Medications Scheduled B-Complex W/ C & Folic Acid (Triphrocaps), 1 CAP PO DAILY Calcium Acetate (Phoslo 667 Mg), 667 MG PO WITH SNACKS Calcium Acetate (Phosphate Bin (Phoslo 667 Mg), 2,001 MG PO TIDM Calcium Carbonate (Antacid) (Tums E-X 750), 2,625 MG PO TIDM Cinacalcet Hydrochloride (Sensipar), 30 MG PO QPM Sevelamer Carbonate (Renvela), 3,200 MG PO TIDM Sevelamer Carbonate (Renvela), 2,400 MG PO WITH SNACKS Scheduled PRN [Hectoral], 1 DOSE IV 3XWK PRN for PER DIALYSIS Problem List Medical Problems: (1) Dialysis catheter clot or failure (2) ESRD (end stage renal disease) on dialysis (3) Hyperkalemia Surgical Problems: (1) History of knee surgery Surgical / Medical History Hx Cardiac Surgery: No Hx Abdominal Surgery: No Hx Cancer Surgery: No Hx Thoracic Surgery: No Hx Orthopedic: Yes (Left knee, right lower leg) Hx Urinary Tract Surgery: No HX Other Surgery: No Past Medical/Surgical History: Diabetes, Kidney Disease Family History Patient reports no known family medical history. Social History Smoking Status: Current Every Day Smoker Hx Tobacco Use In Past Year?: Yes Hx Alcohol Use - Type & Amnt: No Hx Substance Use -Type & Amnt: No Review of Systems Constitutional: No chills, No fever, No malaise Skin: No change in color Eyes: No visual changes ENMT: No sore throat Respiratory: No cough, No ROMERO, No short of breath Cardiovascular: No chest pain, No palpitations, No syncope, No edema, No intermittent claudication Gastrointestinal: No abdominal pain, No nausea, No vomiting Neurologic: No dizziness, No headache, No numbness, No tingling Physical Exam Constitutional: General Apperance: well-nourished, well-developed, obese Level of Distress: NAD Psychiatric: Mental Status: active & alert, normal mood, normal affect Orientation: oriented except where noted, to time, to place, to person Memory: recent memory normal, remote memory normal Head: normocephalic, atraumatic Eyes: EOM: EOMI ENMT: normal ENT inspection, hearing grossly normal Neck: supple, trachea midline Lungs: Respiratory effort: no dyspnea Auscultation: breath sounds normal, no wheezing, no rales/crackles, no rhonchi Cardiovascular: Apical Impulse: not displaced Heart Auscultation: RRR, no murmurs, no rubs, no gallops Peripheral Pulses: Pulses: full and equal, in all extremities except if noted Bruits: none appreciated Carotid Pulse: normal on the left, normal on the right Brachial Pulses: normal on the left, normal on the right Radial Pulse: normal on the left, normal on the right Femoral Pulse: normal on the left, normal on the right Posterior Tibialis Pulse: decreased on the left, decreased on the right Dorsalis Pedis Pulse: decreased on the left, decreased on the right Abdomen: Bowel Sounds: normal Inspection & Palpation: soft, non-distended, no tenderness, guarding & rebound Musculoskeletal: normal strength (5/5 throughout), normal tone Extremities: Upper Right: no cyanosis, no edema, no varicosities, RUE with no thrill or bruit Upper Left: no cyanosis, no edema, no varicosities Lower Right: no cyanosis, no edema, no varicosities Lower Left: no cyanosis, no edema, no varicosities Neurologic: Cranial Nerves: grossly intact Sensation: grossly intact Assessment and Plan Imp: ESRD on HD Thrombosed right arm fistula Plan: Pt admitted for thrombectomy of his fistula with possible revision, fistulogram, and/or intervention. I have discussed the risks options and benefits of the procedure with the patient. The patient understands the risks options and benefits and agrees to the procedure.
[~2017-02-17 11:00] MED LIST changes: -CEFAZOLIN 3000 MG/65 ML D5W 65 ML IV SCH; -CINA0.42 PO; -D5W AND 1/4NSS 1000 ML IV SCH; +SODIUM CHLORIDE 0.9% 1000ML 1,000 ML IV SCH
[2017-02-17 12:00] VITALS: BP 72/53; PULSE 105; TEMP 36.3; O2SAT 96; Ht 180.3 cm; Wt 146.0 kg
[2017-02-17] MEDS ORDERED: NURSING VERBAL MED ORDER ONE (12:45)
[2017-02-17 12:52] LABS: BUN/CREATININE RATIO 4.8 (10-20); CALCIUM 10.4 mg/dl (8.5-10.1); CREATININE 5.3 mg/dl (0.60-1.40); POTASSIUM 4.6 mmol/L (3.5-5.1)
[2017-02-17] MEDS ORDERED: SODIUM CHLORIDE 0.9% 500ML 500 ML IV ONE (13:00)
[2017-02-17] MEDS ORDERED: GELATIN SPONGE 12-7MM ONE ×2 (13:48→13:50)
[2017-02-17] MEDS ORDERED: THROMBIN FOR SOLN 20000 UNIT KIT ONE (13:48)
[2017-02-17] MEDS ORDERED: LIDOCAINE HCL 1% 20 ML VIAL ONE ×2 (13:49→14:09)
[2017-02-17] MEDS ORDERED: HEPARIN SOD (PORCINE) 1000 UNIT/ML 10 ML VIAL ONE ×2 (13:49→15:09)
[2017-02-17] MEDS ORDERED: BUPIVACAINE/EPINEPHRINE 0.5% MPF 1:200,000 10 ML VIAL ONE ×2 (13:49→14:08)
[2017-02-17] MEDS ORDERED: KETAMINE HCL INJ 50 MG/ML 10 ML VIAL ONE (13:52)
[2017-02-17] MEDS ORDERED: FENTANYL CITRATE INJ 50 MCG/1 ML 2 ML VIAL ONE (13:52)
[2017-02-17] MEDS ORDERED: MIDAZOLAM HCL 1 MG/ML 2ML VIAL ONE (13:52)
[2017-02-17] MEDS ORDERED: EpHEDrine SULFATE INJ 50 MG/ML AMP IV PRN (14:15)
[2017-02-17] MEDS ORDERED: ATROPINE SULFATE 0.1 MG/ML 5ML SYR IV PRN (14:15)
[2017-02-17] MEDS ORDERED: FENTANYL CITRATE INJ 50 MCG/1 ML 2 ML VIAL IV PRN (14:15)
[2017-02-17] MEDS ORDERED: ONDANSETRON INJ 2 MG/ML 2 ML VIAL IV PRN (14:15)
[2017-02-17] MEDS ORDERED: LIDOCAINE HCL 2% 2 ML VIAL (20MG/ML) ONE (15:23)
[2017-02-17] MEDS ORDERED: PROPOFOL IV EMULSION 10 MG/ML 20 ML VIAL IV ONE (15:23)
[2017-02-17] MEDS ORDERED: SODIUM CHLORIDE 0.9% INJ 10 ML VIAL ONE (15:24)
[2017-02-17] MEDS ORDERED: TRAM-10 PO (15:26)
--- NOTE | 2017-02-17 15:26 | [facility] Post Operative Brief Note ---
Immediate Operative Summary Operative Date Feb 17, 2017. 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
--- NOTE | 2017-02-17 15:30 | Discharge Instructions ---
Discharge Instructions Date of Service Feb 17, 2017. Visit Reason for Visit: Thrombosed Dialysis Access Right Arm Discharge Discharge Diagnosis / Problem: Thrombosed right upper arm fistula Discharge Goals Goal(s): Therapeutic intervention Activity Recommendations Activity Limitations: per Instructions/Follow-up section Anesthesia . Post Anesthesia Instructions: If you have had General Anesthesia or IV Sedation: * Do not drive today. * Resume driving when surgeon permits. * Do not make important decisions or sign legal documents today. * Call surgeon for: 1. Temperature elevations greater than 101 degrees F. 2. Uncontrollable pain. 3. Excessive bleeding. 4. Persistent nausea and vomiting. 5. Medication intolerance (nausea, vomiting or rash). * For nausea and vomiting use only clear liquids such as: tea, soda, bouillon until nausea subsides, then gradually increase diet as tolerated. * If you have any concerns or questions, call your surgeon's office. If physician is unavailable and it is an emergency, call 911 or go to the nearest emergency room. . Instructions / Follow-Up Instructions / Follow-Up Call [phone] to schedule a follow up appointment if one not already scheduled. ACTIVITY RECOMMENDATIONS: See Above SPECIAL CARE INSTRUCTIONS: Call your doctor if: * Temperature above 101 degrees * Pain not relieved by pain medicine ordered * There is increased drainage or redness from any incision * You have any unanswered questions or concerns. Diet Recommendations Recommended Home Diet: resume previous diet Procedures Procedures Performed: Open thrombectomy right upper arm fistula Fistulogram TRANSIT OPERATIONS SUPERVISOR peripheral venous TRANSIT OPERATIONS SUPERVISOR brachial artery Pending Studies Studies pending at discharge: no Work Instructions Lifting Limitations: none Additional Instructions: May return to work on monday, Feb 20, 2017 without restrictions Medical Emergencies . Who to Call and When: Medical Emergencies: If at any time you feel your situation is an emergency, please call 911 immediately. . Non-Emergent Contact Non-Emergency issues call your: Surgeon . . "Provider Documentation" section prepared by Antwan Jefferson. .
[2017-02-17 16:15] VITALS: BP 98/57; PULSE 94; TEMP 36.9; O2SAT 95
--- NOTE | 2017-02-17 16:21 | Anesthesiology Progress Note ---
Anesthesia Post Op Note Date & Time Feb 17, 2017 at 16:21 Vital Signs Pain Intensity: 0 Vital Signs Past 12 Hours Date Time Temp Pulse Resp B/P (MAP) Pulse Ox O2 Delivery O2 Flow Rate FiO2 02/17/17 16:02 97 19 02/17/17 16:02 99 19 93 02/17/17 16:00 99/77 02/17/17 16:00 36.3 99 18 99/77 94 Room Air 02/17/17 15:57 96 10 94 02/17/17 15:57 95 10 02/17/17 15:56 89/63 02/17/17 15:53 99 24 02/17/17 15:53 98 24 95 02/17/17 15:51 98/61 02/17/17 15:48 102 24 94 02/17/17 15:48 101 24 02/17/17 15:46 89/61 02/17/17 15:43 97 24 95 02/17/17 15:43 98 24 02/17/17 15:41 94/55 02/17/17 15:38 98 23 02/17/17 15:38 96 23 95 02/17/17 15:35 89/61 02/17/17 15:33 95 12 02/17/17 15:33 95 12 94/70 99 02/17/17 15:33 36.3 97 19 94/70 97 Room Air 02/17/17 13:56 98 18 95/59 (71) 100 Room Air 02/17/17 13:30 88 98/60 (73) 97 Room Air 02/17/17 13:27 92 18 101/62 (75) 97 Room Air 02/17/17 13:19 92 78/50 (59) 96 Room Air 02/17/17 13:11 89 110/53 (72) 97 Room Air 02/17/17 13:05 89 99/64 (76) 97 Room Air 02/17/17 13:00 90 98/72 (81) 96 Room Air 02/17/17 12:54 94 82/52 (62) 97 Room Air 02/17/17 12:35 97 79/54 (62) 02/17/17 12:21 107 77/49 (58) 02/17/17 12:00 36.3 105 20 72/53 (59) 96 Room Air Notes Mental Status: alert / awake / arousable, participated in evaluation Pt Amnestic to Procedure: Yes Nausea / Vomiting: adequately controlled Pain: adequately controlled Airway Patency, RR, SpO2: stable & adequate BP & HR: stable & adequate Hydration State: stable & adequate Anesthetic Complications: no major complications apparent
[2017-02-17 16:45] VITALS: BP 100/54; PULSE 98; TEMP 37.1; O2SAT 96
[2017-02-17 17:20] VITALS: BP 103/61; PULSE 98; TEMP 36.9; O2SAT 97
--- NOTE | 2017-03-21 11:04 | DIAGNOSTIC IMAGING REPORT ---
DATE OF PROCEDURE: 02/17/2017 PREOPERATIVE DIAGNOSIS: Thrombosed right upper arm fistula. POSTOPERATIVE DIAGNOSIS: Same. PROCEDURE: 1. Open thrombectomy, right upper arm fistula. 2. Fistulogram. 3. CLINICAL TEAM MANAGER of venous. 4. CLINICAL TEAM MANAGER brachial artery. SURGEON: Dr. Jefferson. ANESTHETIC: MAC. PROCEDURE INDICATIONS: The patient is a 36-year-old male with a right upper arm access which is thrombosed. Open thrombectomy and fistulogram with possible intervention is recommended. He understood the risks, options and benefits and agreed to have this procedure. PROCEDURE: The patient was taken to the operating room and placed in supine position. After right arm was prepped and draped in a sterile manner, local anesthetic was administered. A transverse incision was made in the mid portion of the fistula. A transverse graftotomy was performed. Using #4 Conner catheter both the venous and arterial segments were thrombectomized. Once this was done, we did a fistulogram of both the arterial and the venous side. On the venous side there was a severe stenosis of the outflow vein. This was greater than 90%. There was also a 70% narrowing of brachial artery inflow prior to the anastomotic site. We decided to balloon both these areas. Wire was then passed through the sheath through the venous stenosis. Using a 6 mm balloon this area was angioplastied without difficulty. Good flow was seen. No residual stenosis was noted. Fistulogram did show that the clot was removed from both sides with the Conner catheter and no residual clot was noted. We then reversed the catheter. We did pass the wire up through the anastomosis into the proximal brachial artery. Using a 5 mm balloon the brachial artery was dilated. This was done without difficulty. There was less than 10% residual stenosis. We did do a completion fistulogram which showed both the arterial inflow and the venous outflow now to be widely patent. After that was completed, the graftotomy was closed using interrupted CV6 Worthington-Siva suture. The clamps were then removed, adequate hemostasis was noted. The wound was then closed with a running 3-0 Vicryl suture for subcutaneous layer and zak for the skin. Sterile dressings were applied and patient left the operating room in good condition and tolerated the procedure well.
== END 2017-02-17 17:30 | disposition home or self-care (01) ==
LOC: C.OR 11:00
PROVIDERS: ATTEND Surgery Vascular Surgery
DX: T82.49XA Other complication of vascular dialysis catheter, initial encounter (principal); N18.6 End stage renal disease; E11.9 Type 2 diabetes mellitus without complications; F17.200 Nicotine dependence, unspecified, uncomplicated; Y82.8 Other medical devices associated with adverse incidents; I12.0 Hypertensive chronic kidney disease with stage 5 chronic kidney disease or end stage renal disease; M19.90 Unspecified osteoarthritis, unspecified site; E66.01 Morbid (severe) obesity due to excess calories; E20.9 Hypoparathyroidism, unspecified

== ENCOUNTER 2017-03-28 10:46 | Day surgery (SDC) | payer OTHER, BC ==
[~2017-03-28] VITALS: Ht 180.3 cm; Wt 150.0 kg
--- NOTE | 2017-03-28 09:28 | History and Physical ---
History & Physical Date of Service Mar 28, 2017. History & Physical Chief Complaint End stage renal disease, malfunctioning permcath History of Present Illness The patient is a 36 year old male with hx of DMII and ESRD on HD, who had a recent insertion of permcath Pt recently had RUE AV graft insertion and began use of graft , although infiltrated at HD and has large hematoma. The permcath is not running well. Pt denies BREEN, fever, chills, chest pain, SOB, abd pain, N/ V, rest pain, claudication, other complaints. Allergies Coded Allergies: No Known Allergies (Unverified , 09/30/16) Home Medications Scheduled B-Complex W/ C & Folic Acid (Triphrocaps), 1 CAP PO DAILY Calcium Acetate (Phoslo 667 Mg), 667 MG PO WITH SNACKS Calcium Acetate (Phosphate Bin (Phoslo 667 Mg), 2,001 MG PO TIDM Calcium Carbonate (Antacid) (Tums E-X 750), 2,625 MG PO TIDM Cinacalcet Hydrochloride (Sensipar), 30 MG PO QPM Sevelamer Carbonate (Renvela), 3,200 MG PO TIDM Sevelamer Carbonate (Renvela), 2,400 MG PO WITH SNACKS Scheduled PRN [Hectoral], 1 DOSE IV 3XWK PRN for PER DIALYSIS Problem List Medical Problems: (1) Dialysis catheter clot or failure (2) ESRD (end stage renal disease) on dialysis (3) Hyperkalemia Surgical Problems: (1) History of knee surgery Surgical / Medical History Hx Cardiac Surgery: No Hx Abdominal Surgery: No Hx Cancer Surgery: No Hx Thoracic Surgery: No Hx Orthopedic: Yes (Left knee, right lower leg) Hx Urinary Tract Surgery: No HX Other Surgery: No Past Medical/Surgical History: Diabetes, Kidney Disease Family History Patient reports no known family medical history. Social History Smoking Status: Current Every Day Smoker Hx Tobacco Use In Past Year?: Yes Hx Alcohol Use - Type & Amnt: No Hx Substance Use -Type & Amnt: No Review of Systems Constitutional: No chills, No fever, No malaise Skin: No change in color Eyes: No visual changes ENMT: No sore throat Respiratory: No cough, No ROMERO, No short of breath Cardiovascular: No chest pain, No palpitations, No syncope, No edema, No intermittent claudication Gastrointestinal: No abdominal pain, No nausea, No vomiting Neurologic: No dizziness, No headache, No numbness, No tingling Physical Exam Constitutional: General Apperance: well-nourished, well-developed, obese Level of Distress: NAD Psychiatric: Mental Status: active & alert, normal mood, normal affect Orientation: oriented except where noted, to time, to place, to person Memory: recent memory normal, remote memory normal Head: normocephalic, atraumatic Eyes: EOM: EOMI ENMT: normal ENT inspection, hearing grossly normal Neck: supple, trachea midline Lungs: Respiratory effort: no dyspnea Auscultation: breath sounds normal, no wheezing, no rales/crackles, no rhonchi Cardiovascular: Apical Impulse: not displaced Heart Auscultation: RRR, no murmurs, no rubs, no gallops Peripheral Pulses: Pulses: full and equal, in all extremities except if noted Bruits: none appreciated Carotid Pulse: normal on the left, normal on the right Brachial Pulses: normal on the left, normal on the right Radial Pulse: normal on the left, normal on the right Femoral Pulse: normal on the left, normal on the right Posterior Tibialis Pulse: decreased on the left, decreased on the right Dorsalis Pedis Pulse: decreased on the left, decreased on the right Abdomen: Bowel Sounds: normal Inspection & Palpation: soft, non-distended, no tenderness, guarding & rebound Musculoskeletal: normal strength (5/5 throughout), normal tone Extremities: Upper Right: no cyanosis, no edema, no varicosities, RUE large hematoma/ ecchymosis. + bruit/doppler over RUE AV graft Upper Left: no cyanosis, no edema, no varicosities Lower Right: no cyanosis, no edema, no varicosities Lower Left: no cyanosis, no edema, no varicosities Neurologic: Cranial Nerves: grossly intact Sensation: grossly intact Assessment and Plan Imp: ESRD on HD Malfunctioning permcath Plan: Pt admitted for permcath exchange today. I have discussed the risks options and benefits of the procedure with the patient. The patient understands the risks options and benefits and agrees to the procedure.
--- NOTE | 2017-03-28 09:29 | Procedure Note ---
Pre-Mod Sedation Assessment General Date of Moderate Sedation: Mar 28, 2017. Pre-Sedation Airway Assessment Smoking Status: Current Every Day Smoker Mallampati Classification: Class I ASA Classification: Class III Notes The planned sedation has been discussed with the patient and consent obtained. I have identified the patient, determined the appropriateness of sedation and have assessed the patient immediately prior to the procedure. All medicine(s) and interventions are by my order.
[~2017-03-28 10:46] MED LIST changes: -CEFAZOLIN 1000MG/55 ML D5W IV SCH; +CEFAZOLIN 3000 MG/65 ML D5W IV SCH; +CEFAZOLIN IV 1,000 MG in DEXTROSE 5% 50ML 50 ML IV ONE; +D5W AND 1/4NSS 1,000 ML IV SCH; -SODIUM CHLORIDE 0.9% 1000ML 1,000 ML IV SCH; +TRAM-10 PO
[2017-03-28 11:10] VITALS: BP 114/49; PULSE 94; TEMP 36.9; O2SAT 96; Ht 180.3 cm; Wt 150.0 kg
[2017-03-28 14:45] VITALS: BP 114/49; PULSE 94; TEMP 36.9; O2SAT 96
[2017-03-28] MEDS ORDERED: FENTANYL CITRATE INJ 50 MCG/1 ML 2 ML VIAL ONE (15:13)
[2017-03-28] MEDS ORDERED: MIDAZOLAM HCL 1 MG/ML 2ML VIAL ONE (15:13)
[2017-03-28] MEDS ORDERED: HEPARIN SOD (PORCINE) 5000 UNIT/ML 1 ML VIAL ONE (15:13)
[2017-03-28] MEDS ORDERED: HEPARIN SOD (PORCINE) 5000 UNIT/ML 1 ML VIAL IV ONE (15:49)
[2017-03-28] MEDS ORDERED: LIDOCAINE HCL 1% 20 ML VIAL INFIL ONE (15:49)
--- NOTE | 2017-03-28 15:56 | Discharge Instructions ---
Discharge Instructions Date of Service Mar 28, 2017. Visit Reason for Visit: End Stage Renal Disease -Malfunctioning Perm Cath Discharge Discharge Diagnosis / Problem: Malfunctioning permcath Discharge Goals Goal(s): Therapeutic intervention Activity Recommendations Activity Limitations: resume your previous activity Anesthesia . Post Anesthesia Instructions: If you have had General Anesthesia or IV Sedation: * Do not drive today. * Resume driving when surgeon permits. * Do not make important decisions or sign legal documents today. * Call surgeon for: 1. Temperature elevations greater than 101 degrees F. 2. Uncontrollable pain. 3. Excessive bleeding. 4. Persistent nausea and vomiting. 5. Medication intolerance (nausea, vomiting or rash). * For nausea and vomiting use only clear liquids such as: tea, soda, bouillon until nausea subsides, then gradually increase diet as tolerated. * If you have any concerns or questions, call your surgeon's office. If physician is unavailable and it is an emergency, call 911 or go to the nearest emergency room. . Instructions / Follow-Up Instructions / Follow-Up Call [phone] with any questions or concerns. May use permcath for dialysis. Bring this with you to dialysis and give to the nurses SPECIAL CARE INSTRUCTIONS: Medications: * Continue to take your medications as directed. If you have been given a prescription for Plavix, please fill it immediately and take as directed. Incision Care: * Your puncture site may have some bruising and minor swelling for about one week. * You will have a small dressing covering your puncture site. You may remove the dressing after 24 hours and shower. You may let the warm soapy water run over it, but be sure to dry the puncture site well and keep it dry. * DO NOT IMMERSE THE INCISION IN A TUB/POOL/etc. UNTIL HEALED. * Puncture sites should be kept covered with a band-aid until it begins to heal. Restrictions: * Depending on whether you leg or arm was punctured to access the arteries, you will be required to lay flat, hold your arm still, or both, for about 4 hours after the procedure to prevent bleeding. * Limit your activity for the first 48 hours. You may walk and go up and down steps. Avoid excessive bending or movement at the puncture site. Possible Complications: * Excessive Swelling - after blood flow is improved you may notice increased swelling in the lower legs. This is a normal response. This usually depends on the amount of blockages in the leg, how long they have been there prior to your procedure and how much blood flow was restored. Elevating your legs will help to improve this. Please notify our office ([phone] ) if the swelling does not go away after lying in bed overnight. * Infection/Drainage/Bleeding - Drainage or bleeding from the puncture site should be minimal. If you have excessive bleeding or drainage, call our office ([phone]) right away. * Pain - You may experience some mild pain or soreness at your puncture site. If your pain does not improve, please contact our office ([phone]). Call your doctor and seek emergent treatment if you develop: * Temperature above 101 degrees * Any fever or chills * Any redness or purulent drainage from the puncture site * Any new dusky/blue colored toes or feet with coolness or sharp or aching pain. SKIN IRRITATION: * You may experience some redness and/or swelling in the area where radiation was administered. If any skin irritation occurs, please contact your family physician. FOLLOW UP VISIT: Keep any scheduled doctor appointments. Diet Recommendations Recommended Home Diet: no limitations Procedures Procedures Performed: Perm Cath Exchange Pending Studies Studies pending at discharge: no Work Instructions Lifting Limitations: none Additional Instructions: May return to work with no restrictions starting 03/28/17 Medical Emergencies . Who to Call and When: Medical Emergencies: If at any time you feel your situation is an emergency, please call 911 immediately. . Non-Emergent Contact Non-Emergency issues call your: Surgeon . . "Provider Documentation" section prepared by Antwan Jefferson. .
--- NOTE | 2017-03-28 16:01 | [facility] Operative Report ---
Operative Report Operative Date Mar 28, 2017. Pre-Operative Diagnosis Malfunctioning Perm Cath Post-Operative Diagnosis Same Procedure(s) Performed Perm Cath Exchange Surgeon Ronny Resource Conservationist Surgeon(s) None Estimated Blood Loss 0 Findings Tip in distal SVC. Aspirates and flushes easily Specimens a; Perm Cath Anesthesia Local Complication(s) None Disposition Indications This is a 36-year-old male with a right internal jugular vein PermCath. It is malfunctioning. Exchange was recommended. The patient understood the risks options and benefits and agreed to go ahead with this procedure. Description of Procedure Patient was takent to the angio suite and placed in the supine position. The right side of the neck, catheter and chest wall were prepped and draped in a sterile manner. Local anesthesia was then administered to the appropriate areas. A guidewire was then passed centrally under fluoroscopic imaging through the old permcath. The old permcath was removed after freeing up the dacron cuff of the permcath using blunt dissection. A new 19cm permcath was inserted without difficulty. The catheter was sutured in placed. Both ports aspirated and flushed easily and were then packed with heparin. A sterile dressing was applied to the catheter. The patient left the angio suite in good condition and tolerated the procedure well. I attest to the content of the Intraoperative Record and any orders documented therein. Any exceptions are noted below.
[2017-03-28 16:06] VITALS: BP 134/74; PULSE 100; TEMP 36.9; O2SAT 95
== END 2017-03-28 16:45 | disposition home or self-care (01) ==
LOC: C.ACU 10:46
PROVIDERS: ATTEND Surgery Vascular Surgery
DX: T82.898A Other specified complication of vascular prosthetic devices, implants and grafts, initial encounter (principal); N18.6 End stage renal disease; E11.22 Type 2 diabetes mellitus with diabetic chronic kidney disease; Z99.2 Dependence on renal dialysis; F17.200 Nicotine dependence, unspecified, uncomplicated; Y82.8 Other medical devices associated with adverse incidents

== ENCOUNTER 2017-04-04 11:24 | Inpatient (IN) | payer OTHER, BC ==
[2017-03-28 16:24] VITALS: BMI 46.0
[~2017-04-04] VITALS: Ht 180.3 cm; Wt 145.8 kg
[2017-04-04] VITALS (17 sets, daily range): BP systolic 108–129; BP diastolic 58–78; PULSE 86–108; TEMP 36.6–36.9; O2SAT 94–95; Ht 180.3 cm; Wt 145.8 kg
--- NOTE | 2017-04-04 05:57 | History and Physical ---
History & Physical Date of Service Apr 04, 2017. History & Physical Chief Complaint End stage renal disease History of Present Illness The patient is a 36 year old male with hx of DMII and ESRD on HD, who had a recent insertion of permcath Pt recently had RUE AV graft insertion and began use of graft , although infiltrated at HD and has large hematoma. The patient now has a non functioning fistula and is admitted for creation of a new right upper extremity basilic vein fistula.. Pt denies BREEN, fever, chills, chest pain , SOB, abd pain, N/V, rest pain, claudication, other complaints. Allergies Coded Allergies: No Known Allergies (Unverified , 09/30/16) Home Medications Scheduled B-Complex W/ C & Folic Acid (Triphrocaps), 1 CAP PO DAILY Calcium Acetate (Phoslo 667 Mg), 667 MG PO WITH SNACKS Calcium Acetate (Phosphate Bin (Phoslo 667 Mg), 2,001 MG PO TIDM Calcium Carbonate (Antacid) (Tums E-X 750), 2,625 MG PO TIDM Cinacalcet Hydrochloride (Sensipar), 30 MG PO QPM Sevelamer Carbonate (Renvela), 3,200 MG PO TIDM Sevelamer Carbonate (Renvela), 2,400 MG PO WITH SNACKS Scheduled PRN [Hectoral], 1 DOSE IV 3XWK PRN for PER DIALYSIS Problem List Medical Problems: (1) Dialysis catheter clot or failure (2) ESRD (end stage renal disease) on dialysis (3) Hyperkalemia Surgical Problems: (1) History of knee surgery Surgical / Medical History Hx Cardiac Surgery: No Hx Abdominal Surgery: No Hx Cancer Surgery: No Hx Thoracic Surgery: No Hx Orthopedic: Yes (Left knee, right lower leg) Hx Urinary Tract Surgery: No HX Other Surgery: No Past Medical/Surgical History: Diabetes, Kidney Disease Family History Patient reports no known family medical history. Social History Smoking Status: Current Every Day Smoker Hx Tobacco Use In Past Year?: Yes Hx Alcohol Use - Type & Amnt: No Hx Substance Use -Type & Amnt: No Review of Systems Constitutional: No chills, No fever, No malaise Skin: No change in color Eyes: No visual changes ENMT: No sore throat Respiratory: No cough, No ROMERO, No short of breath Cardiovascular: No chest pain, No palpitations, No syncope, No edema, No intermittent claudication Gastrointestinal: No abdominal pain, No nausea, No vomiting Neurologic: No dizziness, No headache, No numbness, No tingling Physical Exam Constitutional: General Apperance: well-nourished, well-developed, obese Level of Distress: NAD Psychiatric: Mental Status: active & alert, normal mood, normal affect Orientation: oriented except where noted, to time, to place, to person Memory: recent memory normal, remote memory normal Head: normocephalic, atraumatic Eyes: EOM: EOMI ENMT: normal ENT inspection, hearing grossly normal Neck: supple, trachea midline Lungs: Respiratory effort: no dyspnea Auscultation: breath sounds normal, no wheezing, no rales/crackles, no rhonchi Cardiovascular: Apical Impulse: not displaced Heart Auscultation: RRR, no murmurs, no rubs, no gallops Peripheral Pulses: Pulses: full and equal, in all extremities except if noted Bruits: none appreciated Carotid Pulse: normal on the left, normal on the right Brachial Pulses: normal on the left, normal on the right Radial Pulse: normal on the left, normal on the right Femoral Pulse: normal on the left, normal on the right Posterior Tibialis Pulse: decreased on the left, decreased on the right Dorsalis Pedis Pulse: decreased on the left, decreased on the right Abdomen: Bowel Sounds: normal Inspection & Palpation: soft, non-distended, no tenderness, guarding & rebound Musculoskeletal: normal strength (5/5 throughout), normal tone Extremities: Upper Right: no cyanosis, no edema, no varicosities, no bruit/doppler over RUE AV graft Upper Left: no cyanosis, no edema, no varicosities Lower Right: no cyanosis, no edema, no varicosities Lower Left: no cyanosis, no edema, no varicosities Neurologic: Cranial Nerves: grossly intact Sensation: grossly intact Assessment and Plan Imp: ESRD on HD Plan: Pt admitted for creation of a right upper extremity basilic vein fistula. I have discussed the risks options and benefits of the procedure with the patient. The patient understands the risks options and benefits and agrees to the procedure.
[~2017-04-04 11:24] MED LIST changes: +ATROPINE SULFATE 0.1 MG/ML 5ML SYR IV PRN; +CEFAZOLIN 3000 MG/65 ML D5W 65 ML IV SCH; -CEFAZOLIN 3000 MG/65 ML D5W IV SCH; -CEFAZOLIN IV 1,000 MG in DEXTROSE 5% 50ML 50 ML IV ONE; -D5W AND 1/4NSS 1,000 ML IV SCH; +EpHEDrine SULFATE INJ 50 MG/ML AMP IV PRN; +FENTANYL CITRATE INJ 50 MCG/1 ML 2 ML VIAL IV PRN; +FENTANYL CITRATE INJ 50 MCG/1 ML 2 ML VIAL ONE; +MIDAZOLAM HCL 1 MG/ML 2ML VIAL ONE; +ONDANSETRON INJ 2 MG/ML 2 ML VIAL IV PRN; +PATIENT'S ALLERGY INFO NEEDS ENTERED SCH; +SODIUM CHLORIDE 0.9% 1000ML 1,000 ML IV SCH; -TRAM-10 PO
[2017-04-04 12:26] LABS: PARTIAL THROMBOPLASTIN RATIO 1.1; PROTHROMBIN TIME (PATIENT) 10.3 SECONDS (9.0-12.0)
[2017-04-04 12:49] LABS: CALCIUM 9.7 mg/dl (8.5-10.1); CREATININE 8.1 mg/dl (0.60-1.40)
[2017-04-04 12:51] LABS: BUN/CREATININE RATIO 5.6 (10-20)
[2017-04-04] MEDS ORDERED: HEPARIN SOD (PORCINE) 1000 UNIT/ML 10 ML VIAL ONE (13:14)
[2017-04-04] MEDS ORDERED: LIDOCAINE HCL 1% 20 ML VIAL ONE (13:14)
[2017-04-04] MEDS ORDERED: BUPIVACAINE/EPINEPHRINE 0.5% MPF 1:200,000 30 ML VIAL ONE (13:14)
[2017-04-04] MEDS ORDERED: THROMBIN FOR SOLN 20000 UNIT KIT ONE (13:15)
[2017-04-04] MEDS ORDERED: GELATIN SPONGE 12-7MM ONE (13:15)
--- NOTE | 2017-04-04 13:54 | Progress Note ---
Progress Note Date of Service Apr 04, 2017. Progress Note Pt with hyperkalemia, procedure cx for today. Can potentially reschedule for or monday if K improves. Discussed with pt's hog cooler, Dr Patricia Alex, recommends admission for hemodialysis, as his outpt unit is unable to accommodate today. She will discuss with Dr Moses Barcenas, in-house hog cooler. Will consult hospitalist for admission.
[2017-04-04] MEDS ORDERED: ACETAMINOPHEN 325 MG TAB PO PRN (14:15)
[2017-04-04] MEDS ORDERED: ONDANSETRON INJ 2 MG/ML 2 ML VIAL IV PRN (14:15)
[2017-04-04] MEDS ORDERED: INSULIN HUMAN REGULAR PER UNIT 10 UNITS in SYRINGE 0 ML IV STA (15:03)
[2017-04-04] MEDS ORDERED: SODIUM POLYST. SULF SUSP 15G/60ML PO STA (15:03)
[2017-04-04] MEDS ORDERED: DEXTROSE 50% 50 ML SYR IV ONE (15:15)
[2017-04-04] MEDS ORDERED: [UNRECOGNIZED DRUG - CODE] (15:29)
[2017-04-04] MEDS ORDERED: CALCIUM ACETATE 667MG GELCAP PO PRN (15:30)
[2017-04-04] MEDS ORDERED: INSULIN HUMAN REGULAR PER UNIT 10 UNITS in SYRINGE 9.9 ML IV SCH (16:30)
[2017-04-04] MEDS ORDERED: CALCIUM GLUCONATE 10% 1,000 MG in SODIUM CHLORIDE 0.9% 50ML 50 ML IV ONE (16:30)
[2017-04-04] MEDS ORDERED: SEVELAMER HYDROCH 800 MG TAB PO PRN (16:30)
[2017-04-04] MEDS ORDERED: DEXTROSE 50% 50 ML SYR IV SCH (16:30)
--- NOTE | 2017-04-04 17:18 | History and Physical ---
History & Physical Date & Time of Service: Apr 04, 2017 ~ 14:45 Chief Complaint: Nonfunctioning Dialysis Catheter Primary Care Physician: Ignacia ContrerasP.A. History of Present Illness 36 year old male who presented to the outpatient surgery center today for creation of a new right upper extremity basilic vein fistula. Unfortunately preoperative labs demonstrated a K+ of 6.0. Nephrology suggests admission for dialysis and management of hyperkalemia. Patient recently had RUE AV graft insertion and began use of graft however it had infiltrated at HD and has large hematoma. The patient now has a non functioning fistula. He did under go right chest PermCath placement last week that has been being used for his HD treatments. Last treatment was yesterday. Per Dr. Barcenas, PermCath has not been functioning well either. Patient reports he has been feeling well. No chest pain , palpitations, or shortness of breath. He denies lightheadedness, dizziness, diaphoresis, or syncopal events. No abdominal pain, nausea, vomiting, or diarrhea. He continues to make a small amount of urine. He denies any urinary symptoms. No fever or chills. At the time of my exam, patient is sitting on the edge of the bed in no acute distress. Past Medical/Surgical History Medical Problems: (1) ESRD (end stage renal disease) on dialysis Permanent Comment: s/p traumatic injury to kidneys as a child Status: Chronic Surgical Problems: (1) H/O parathyroidectomy Status: Chronic (2) History of knee surgery Permanent Comment: L knee Status: Chronic Family History FH: Alzheimers disease GRANDMOTHER Social History Smoking Status: Current Every Day Smoker Alcohol Use: none Occupational Status: employed Immunizations History of Influenza Vaccine: Yes Influenza Vaccine Date: Mar 28, 2016 History of Tetanus Vaccine?: Yes Tetanus Immunization Date: Mar 08, 2012 History of Pneumococcal: Yes Pneumococcal Date: Mar 02, 2012 Allergies Coded Allergies: Oxycodone (Verified Adverse Reaction, Intermediate, GI SYMPTOMS, 04/04/17) Home Medications Scheduled B-Complex W/ C & Folic Acid (Triphrocaps), 1 CAP PO DAILY Calcium Acetate (Phoslo 667 Mg), 2 TABS PO WITH SNACKS Calcium Acetate (Phosphate Bin (Phoslo 667 Mg), 3 TABS PO TIDM Calcium Carbonate (Antacid) (Tums E-X 750), 3.5 TABS PO QID Doxercalciferol (Hectorol), 1 ML 3XWK Ergocalciferol (Vitamin D 29949 Unit), 1 TAB PO WK Patiromer Sorbitex Calcium (Veltassa), 16.8 GM PO DAILY Sevelamer Carbonate (Renvela), 4 TABS PO TIDM Sevelamer Carbonate (Renvela), 3 TABS PO WITH SNACKS Review of Systems ROS per HPI, all other systems reviewed and negative Physical Exam Vital Signs Date Time Temp Pulse Resp B/P (MAP) Pulse Ox O2 Delivery O2 Flow Rate FiO2 04/04/17 11:57 36.9 99 18 118/72 (87) 95 Room Air General Appearance: no apparent distress Head: normocephalic Eyes: normal inspection, sclerae normal ENT: hearing grossly normal Neck: supple, no JVD Respiratory/Chest: lungs clear, normal breath sounds, no respiratory distress, + pertinent finding (PermCath in place to right chest wall, no drainage or surrounding erythema ) Cardiovascular: regular rate, rhythm, no edema, normal peripheral pulses Abdomen/GI: normal bowel sounds, non tender, soft Extremities/Musculoskelatal: + pertinent finding (fistulas in place to right forearm and right upper arm, no thrill present ) Neurologic/Psych: no motor/sensory deficits, alert, normal mood/affect, oriented x 3 Skin: normal color, warm/dry Diagnostics Laboratory Results Results Past 24 Hours Test 04/04/17 12:07 04/04/17 15:03 Range/Units Prothrombin Time 10.3 9.0-12.0 SECONDS Prothromb Time International Ratio 1.0 0.9-1.1 Activated Partial Thromboplast Time 27.9 21.0-31.0 SECONDS Partial Thromboplastin Ratio 1.1 Sodium Level 136 136-145 mmol/L Potassium Level 6.0 3.5-5.1 mmol/L Chloride Level 102 98-107 mmol/L Carbon Dioxide Level 28 21-32 mmol/L Anion Gap 6.0 3-11 mmol/L Blood Urea Nitrogen 45 7-18 mg/dl Creatinine 8.10 0.60-1.40 mg/dl Est Creatinine Clear Calc Drug Dose 18.8 ml/min Estimated GFR () 8.9 Estimated GFR (Non- 7.7 BUN/Creatinine Ratio 5.6 10-20 Random Glucose 85 70-99 mg/dl Calcium Level 9.7 8.5-10.1 mg/dl Impression Assessment and Plan HYPERKALEMIA, ESRD ON HD NONFUNCTIONING DIALYSIS CATHETER - admit to tele - patient presented to outpatient surgery center today for placement of a new RUE fistula however preop labs showed K+ 6.0 ; currently has PermCath in place however has not been functioning well per [facility] - EKG without acute ST changes - will give insulin, D50, and calcium gluconate; if patient is unable to have dialysis due to nonfunctioning PermCath, will give Kayexalate - Veltassa dose also increased by nephro - Dr. Jefferson consulted for HD access management - continue routine renal meds TOBACCO ABUSE - patient counseled regarding tobacco cessation Obesity DVT PROPHYLAXIS - SQ Heparin DISPO - In my clinical judgment this beneficiary meets acute admission criteria, established by [facility], that includes being hospitalized through two midnights. ADDENDUM: I have seen and examined the patient and agree with the assessment and plan as stated. Scheduled to receive HD tonight in his room. Should be able to go home in am and return as outpatient for procedure, however, Dr. Jefferson may elect to perform this as inpatient. Last HD was yesterday per patient who denies eating any high potassium foods including OJ, grape juice, bananas since that time. Cal, DO Level of Care Telemetry Resuscitation Status FULL RESUSCITATION VTE Prophylaxis VTE Risk Assessment Done? Y/N: Yes Risk Level: Moderate Given or contraindicated: Unfractionated heparin SQ
[2017-04-04] MEDS ORDERED: PATI1POW3 PO (17:39)
[2017-04-04] MEDS ORDERED: PATIROMER SORBITEX CALCIUM PO ONE (18:00)
[2017-04-04] MEDS: CALCIUM ACETATE 667MG GELCAP PO SCH (18:10)
[2017-04-04] MEDS: SEVELAMER HYDROCH 800 MG TAB PO SCH (18:10)
[2017-04-04] MEDS: CALCIUM CARBONATE 500 MG CHEWABLE PO SCH ×2 (18:11→22:05)
[2017-04-04] MEDS ORDERED: HEPARIN SOD (PORCINE) 1000 UNIT/ML 10 ML VIAL IV SCH (19:15)
[2017-04-04] MEDS: HEPARIN SOD (PORCINE) 1000 UNIT/ML 10 ML VIAL IV SCH ×2 (19:33→20:15)
[2017-04-04 19:48] LABS: HEPATITIS B AB POS
[2017-04-04] MEDS: HEPARIN SOD 5000 UNIT/0.5 ML CARP SQ SCH (22:00)
[2017-04-05] VITALS (8 sets, daily range): BP systolic 96–123; BP diastolic 63–81; PULSE 84–98; TEMP 36.4–37.1; O2SAT 90–97
[2017-04-05 05:37] LABS: HEMATOCRIT 39.4 % (42-52); MEAN CELL VOLUME 99.7 fL (80-100); MEAN CORPUSCULAR HEMOGLOBIN 31.4 pg (25-34); MEAN CORPUSCULAR HGB CONC 31.5 g/dl (32-36); MEAN PLATELET VOLUME 9.4 fL (7.4-10.4); PLATELET COUNT 273 K/uL (130-400); RED BLOOD COUNT 3.95 M/uL (4.7-6.1); WHITE BLOOD COUNT 7.08 K/uL (4.8-10.8)
[2017-04-05] MEDS: HEPARIN SOD 5000 UNIT/0.5 ML CARP SQ SCH ×4 (06:00→23:33)
[2017-04-05 06:17] LABS: BUN/CREATININE RATIO 5.7 (10-20); CALCIUM 10.3 mg/dl (8.5-10.1); CREATININE 7.3 mg/dl (0.60-1.40); MAGNESIUM 2.4 mg/dl (1.8-2.4); PHOSPHORUS 6.3 mg/dl (2.5-4.9); POTASSIUM 5.2 mmol/L (3.5-5.1)
[2017-04-05] MEDS: SEVELAMER HYDROCH 800 MG TAB PO SCH ×3 (07:52→16:45)
[2017-04-05] MEDS: CALCIUM CARBONATE 500 MG CHEWABLE PO SCH ×4 (07:52→20:54)
[2017-04-05] MEDS: NEPHROCAPS PO SCH (07:53)
[2017-04-05] MEDS: CALCIUM ACETATE 667MG GELCAP PO SCH ×3 (07:53→16:44)
--- NOTE | 2017-04-05 08:29 | NEPHROLOGY CONSULTATION ---
DATE OF CONSULTATION: 04/05/2017 ATTENDING OF RECORD: Dr. Barreto. REASON FOR CONSULTATION: End-stage renal disease. HISTORY OF PRESENT ILLNESS: This is a 36-year-old male who dialyzes in the [facility] and suffers from chronically low calcium levels as well as high potassium levels, has had multiple dialysis accesses in the past. The patient was going to get a right upper extremity basilic vein fistula; however, the patient's potassium levels were elevated, so it was decided to bring him into the hospital for dialysis. The patient did have a right upper extremity AV graft insertion, which infiltrated and has a large hematoma and did get a PermCath exchange last week; however, the catheter is still quite positional and at times unable to aspirate from either port. The patient still urinates minimally. The patient lost one of his kidneys secondary to trauma as a child and does actively smoke. The patient ended up having dialysis last night and the catheter did work well last night fortunately. The patient is resting comfortably this morning with no complaints and feels good. PAST MEDICAL HISTORY: End-stage renal disease secondary to traumatic injury to kidney as a child. PAST SURGICAL HISTORY: Partial parathyroidectomy, left knee surgery, tunneled dialysis catheter placement several times, right upper extremity AV graft. FAMILY HISTORY: Significant for no diabetes, no renal disease. SOCIAL HISTORY: Active smoker, no alcohol, no drugs. HOME MEDICATIONS: Significant for PhosLo and Renvela. INPATIENT MEDICATIONS: Reviewed REVIEW OF SYSTEMS: No fevers, no chills. No headaches, no blurry vision, no dysphagia, no chest pain, no shortness of breath. No nausea or vomiting. No diarrhea or constipation. Still urinates minimally. No neuropathy. All other review of systems otherwise negative. The patient currently feeling well. PHYSICAL EXAMINATION: VITAL SIGNS: Temperature 36.7, pulse 88, respiratory rate is 21, blood pressure 120/79, satting 96% on room air. GENERAL: Awake, alert, oriented x3, obese. EYES: No scleral icterus. ENT: Moist mucous membranes. NECK: Supple. PULMONARY: Clear to auscultation. CARDIAC: Regular rate and rhythm. ABDOMEN: Bowel sounds positive. Soft, nontender, nondistended. EXTREMITIES: No clubbing, cyanosis or edema. NEUROLOGICALLY: Nonfocal. DERM: No rash or ulcers noted. LABORATORY DATA: White count 7, H&H 12 and 39, platelet count is 273. Labs from this morning are pending. Ionized calcium was 1.11 yesterday. INR of 1. IMPRESSION AND PLAN: 1. End-stage renal disease using catheter, although poorly functioning. Luckily, last night the catheter was working well and was able to get a 3-hour treatment last night. We will look at the labs today. Depending on potassium levels, may need another dialysis treatment today. 2. Anemia of renal failure. Hemoglobin levels are in the 12s. No role for Procrit at this time. 3. Renal osteodystrophy. The patient is on PhosLo 3 with meals as well as Renvela 3200 mg t.i.d. with meals. We will follow the patient's phosphorus levels intermittently and adjust the phosphate binders accordingly. 4. Hypocalcemia. The patient is on Tums 2500 mg 4 times a day. History of parathyroid surgery in the past and suffers from chronically low ionized calcium. We will intermittently give IV calcium gluconate while here in the hospital. Would consider adding calcitriol as well. Does get Hectorol on dialysis as an outpatient as well. 5. Hyperkalemia. The patient is on Veltassa daily to try to help control the potassium levels and we will continue the Veltassa while here in the hospital. Hopefully, with the catheter working better last night, potassium levels should be better today; however, we will look up the labs and decide whether to do dialysis based on the labs. Volume status seems appropriate and the patient is relatively comfortable at this time. Appreciate consultation. LAMONTE
[2017-04-05] MEDS ORDERED: ERGOCALCIFEROL 50,000 INTER.UNIT CAP PO SCH (09:00)
[2017-04-05] MEDS: PATIROMER SORBITEX CALCIUM PO SCH (11:02)
--- NOTE | 2017-04-05 14:15 | Progress Note ---
Progress Note Date of Service Apr 05, 2017. Progress Note Patient for a fistula creation of his right arm tomorrow I have discussed the risks options and benefits of the procedure with the patient. The patient understands the risks options and benefits and agrees to the procedure.
--- NOTE | 2017-04-05 18:24 | Progress Note ---
Internal Med Progress Note Date of Service: Apr 05, 2017. Provider Documentation: SUBJECTIVE: patient in no acute distress. denies chest pain or shortness of breath. OBJECTIVE: General Appearance: no apparent distress Head: normocephalic Eyes: normal inspection, sclerae normal ENT: hearing grossly normal Neck: supple, no JVD Respiratory/Chest: lungs clear, normal breath sounds, no respiratory distress, PermCath in place to right chest wall, no drainage or surrounding erythema Cardiovascular: regular rate, rhythm, no edema, normal peripheral pulses Abdomen/GI: normal bowel sounds, non tender, soft Extremities: fistulas in place to right forearm and right upper arm, no thrill present Neurologic/Psych: no motor/sensory deficits, alert, normal mood/affect, oriented x 3 Skin: normal color, warm/dry ASSESSMENT & PLAN: 36 year old M on dialysis M/W/F in [place] last dialysis in hospital on day of admission Monday04/04/17 via right permacath who is here for AV fistula creation and monitoring/treatment for hyperkalemia. Hyperkalemia has resolved. Vascular surgery planning for AV fistula creation on 04/05/17. Patient NPO after midnight for the procedure. Nephrology consult also involved in patient's care for phosphate binders, hypocalcemia, and hyperkalemia issues DVT PROPHYLAXIS heparin subc DISPOSITION discharge home when medically cleared Vital Signs: Date Time Temp Pulse Resp B/P (MAP) Pulse Ox O2 Delivery O2 Flow Rate FiO2 04/05/17 16:10 Room Air 04/05/17 15:42 36.8 90 18 119/78 (92) 97 Room Air 04/05/17 12:00 Room Air 04/05/17 11:29 36.6 84 21 119/81 (94) 96 04/05/17 11:10 95 Room Air 04/05/17 08:00 Room Air 04/05/17 07:37 36.5 90 21 123/78 (93) 96 Room Air 04/05/17 04:00 Room Air 04/05/17 03:55 36.7 88 21 120/79 (93) 96 Room Air 04/05/17 00:23 37.1 98 21 115/65 (82) 90 Room Air 04/05/17 00:01 Room Air 04/04/17 22:11 36.8 92 119/69 (86) 04/04/17 21:30 108 129/59 04/04/17 21:15 93 124/71 04/04/17 21:00 102 123/65 04/04/17 20:45 94 122/69 04/04/17 20:30 93 129/78 04/04/17 20:15 93 127/77 04/04/17 20:00 Room Air 04/04/17 20:00 99 108/71 04/04/17 19:45 93 122/66 04/04/17 19:30 86 115/58 04/04/17 19:15 95 114/67 04/04/17 19:00 93 125/61 04/04/17 18:45 90 118/60 04/04/17 18:37 90 108/60 Lab Results: Results Past 24 Hours Test 04/05/17 05:03 Range/Units White Blood Count 7.08 4.8-10.8 K/uL Red Blood Count 3.95 4.7-6.1 M/uL Hemoglobin 12.4 14.0-18.0 g/dL Hematocrit 39.4 42-52 % Mean Corpuscular Volume 99.7 80-100 fL Mean Corpuscular Hemoglobin 31.4 25-34 pg Mean Corpuscular Hemoglobin Concent 31.5 32-36 g/dl RDW Standard Deviation 54.4 36.4-46.3 fL RDW Coefficient of Variation 14.9 11.5-14.5 % Platelet Count 273 130-400 K/uL Mean Platelet Volume 9.4 7.4-10.4 fL Sodium Level 137 136-145 mmol/L Potassium Level 5.2 3.5-5.1 mmol/L Chloride Level 100 98-107 mmol/L Carbon Dioxide Level 26 21-32 mmol/L Anion Gap 11.0 3-11 mmol/L Blood Urea Nitrogen 42 7-18 mg/dl Creatinine 7.30 0.60-1.40 mg/dl Est Creatinine Clear Calc Drug Dose 20.8 ml/min Estimated GFR () 10.1 Estimated GFR (Non- 8.7 BUN/Creatinine Ratio 5.7 10-20 Random Glucose 89 70-99 mg/dl Calcium Level 10.3 8.5-10.1 mg/dl Ionized Calcium 1.18 1.12-1.32 mmol/l Phosphorus Level 6.3 2.5-4.9 mg/dl Magnesium Level 2.4 1.8-2.4 mg/dl
[2017-04-06] VITALS (20 sets, daily range): BP systolic 96–148; BP diastolic 57–90; PULSE 55–108; TEMP 36.4–37.1; O2SAT 93–98
[2017-04-06] MEDS ORDERED: CEFAZOLIN 3000 MG/65 ML D5W 65 ML IV SCH (06:00)
[2017-04-06 06:31] LABS: BASO % 0.4 %; BASO ABS # 0.03 K/uL (0-0.2); COMPLETE YES; EOS % 4.2 %; HEMATOCRIT 38.3 % (42-52); IG% 0.3 %; LYMPH % 31.7 %; LYMPH ABS # 2.39 K/uL (1.2-3.4); MEAN CELL VOLUME 99.7 fL (80-100); MEAN CORPUSCULAR HEMOGLOBIN 30.7 pg (25-34); MEAN CORPUSCULAR HGB CONC 30.8 g/dl (32-36); MEAN PLATELET VOLUME 9.5 fL (7.4-10.4); MONO % 6.9 %; NEUT % 56.5 %; PLATELET COUNT 294 K/uL (130-400); RED BLOOD COUNT 3.84 M/uL (4.7-6.1); WHITE BLOOD COUNT 7.53 K/uL (4.8-10.8)
--- NOTE | 2017-04-06 06:38 | Nephrology Progress Note ---
Nephrology Progress Note Date of Service: Apr 06, 2017. Subjective 36 yo male with catheter which at times does not work well. had dialysis madhavi in house and labs yesterday were acceptable. pt currently npo for procedure today. usually dialyzes m-w-f as an outpt. Objective Date Time Temp Pulse Resp B/P (MAP) Pulse Ox O2 Delivery O2 Flow Rate FiO2 04/06/17 04:00 36.5 91 19 125/80 (95) 93 Room Air 04/06/17 04:00 Room Air 04/06/17 02:53 36.4 90 16 96/63 95 Room Air 04/06/17 00:00 Room Air 04/05/17 23:29 36.4 90 16 96/63 (74) 95 Room Air 04/05/17 20:00 Room Air 04/05/17 18:42 36.8 97 17 123/78 (93) 93 Room Air 04/05/17 16:10 Room Air 04/05/17 15:42 36.8 90 18 119/78 (92) 97 Room Air 04/05/17 12:00 Room Air 04/05/17 11:29 36.6 84 21 119/81 (94) 96 04/05/17 11:10 95 Room Air 04/05/17 08:00 Room Air 04/05/17 07:37 36.5 90 21 123/78 (93) 96 Room Air Physical Exam: General-aaox3 Eyes-no scleral icterus ENT-mmm Neck-supple Lungs-cta Heart-rrr Abdomen-bs+ s/nt/nd Extremities-mild edema Neuro-nonfocal Current Inpatient Medications Medications (Trade) Dose Ordered Sig/Otilia Route Start Time Stop Time Status Last Admin Dose Admin Acetaminophen (Tylenol Tab) 650 mg Q4H PRN PO 04/04/17 14:15 05/04/17 14:14 04/05/17 15:37 650 MG Ondansetron HCl (Zofran Inj) 4 mg Q6H PRN IV 04/04/17 14:15 05/04/17 14:14 Heparin Sodium (Porcine) (Heparin Sq 5000 Unit/0.5ml) 5,000 unit Q8 SQ 04/04/17 22:00 05/04/17 21:59 04/05/17 20:58 5,000 UNIT Vitamin B Complex/ Vit C/Folic Acid (Nephrocaps) 1 cap DAILY PO 04/05/17 09:00 05/05/17 08:59 04/05/17 07:53 1 CAP Calcium Acetate (Phoslo Cap) 1,334 mg UD PRN PO 04/04/17 15:30 05/04/17 15:29 Calcium Acetate (Phoslo Cap) 2,001 mg TIDM PO 04/04/17 17:15 05/04/17 17:14 04/05/17 16:44 2,001 MG Ergocalciferol (Vitamin D Cap) 50 interunit We@0900 PO 04/05/17 09:00 05/05/17 08:59 04/05/17 07:53 50 INTERUNIT Calcium Carbonate (Tums Chew Tab) 2,500 mg QID PO 04/04/17 17:15 05/04/17 17:14 04/05/17 20:54 2,500 MG Sevelamer HCl (Renagel Tab) 2,400 mg UD PRN PO 04/04/17 16:30 05/04/17 16:29 Sevelamer HCl (Renagel Tab) 3,200 mg TIDM PO 04/04/17 17:15 05/04/17 17:14 04/05/17 16:45 3,200 MG Patiromer (Veltassa) 25.2 gm DAILY@1200 PO 04/05/17 12:00 05/05/17 11:59 Cefazolin Sodium 65 ml @ 100 mls/hr PREOP IV 04/06/17 06:00 04/06/17 18:00 Last 24 Hours Test 04/06/17 06:13 White Blood Count 7.53 K/uL Red Blood Count 3.84 M/uL Hemoglobin 11.8 g/dL Hematocrit 38.3 % Mean Corpuscular Volume 99.7 fL Mean Corpuscular Hemoglobin 30.7 pg Mean Corpuscular Hemoglobin Concent 30.8 g/dl Platelet Count 294 K/uL Mean Platelet Volume 9.5 fL Neutrophils (%) (Auto) 56.5 % Lymphocytes (%) (Auto) 31.7 % Monocytes (%) (Auto) 6.9 % Eosinophils (%) (Auto) 4.2 % Basophils (%) (Auto) 0.4 % Neutrophils # (Auto) 4.25 K/uL Lymphocytes # (Auto) 2.39 K/uL Monocytes # (Auto) 0.52 K/uL Eosinophils # (Auto) 0.32 K/uL Basophils # (Auto) 0.03 K/uL RDW Standard Deviation 53.3 fL RDW Coefficient of Variation 14.7 % Immature Granulocyte % (Auto) 0.3 % Immature Granulocyte # (Auto) 0.02 K/uL Assessment & Plan ESRD-for vascular access procedure today and would like to dialyze him again today while in house. Anemia-hg levels are good. no role for procrit. hypocalcemia-calcium levels were good yesterday. today's labs are pending. hyperkalemia-on veltassa as an outpt to help control potassium levels. tentatively for dialysis after procedure on a 2k bath and try to remove 3 liters as tolerated on a f-180.
[2017-04-06 06:48] LABS: PROTHROMBIN TIME (PATIENT) 10.3 SECONDS (9.0-12.0)
[2017-04-06] MEDS: CALCIUM ACETATE 667MG GELCAP PO SCH ×3 (07:30→16:53)
[2017-04-06] MEDS: SEVELAMER HYDROCH 800 MG TAB PO SCH ×3 (07:30→16:54)
[2017-04-06 07:34] LABS: ALB/GLOB RATIO 0.8 (0.9-2); BUN/CREATININE RATIO 7.5 (10-20); POTASSIUM 5.3 mmol/L (3.5-5.1)
[2017-04-06] MEDS: CALCIUM CARBONATE 500 MG CHEWABLE PO SCH ×4 (07:50→20:12)
[2017-04-06] MEDS: NEPHROCAPS PO SCH (07:51)
[2017-04-06] MEDS: PATIROMER SORBITEX CALCIUM PO SCH (12:00)
[2017-04-06] MEDS ORDERED: MIDAZOLAM HCL 1 MG/ML 2ML VIAL ONE (12:56)
[2017-04-06] MEDS ORDERED: FENTANYL CITRATE INJ 50 MCG/1 ML 2 ML VIAL ONE ×3 (12:56→15:11)
--- NOTE | 2017-04-06 13:07 | Progress Note ---
Progress Note Date of Service Apr 06, 2017. Progress Note Right upper extremity av fistula creation. I have discussed the risks options and benefits of the procedure with the patient. The patient understands the risks options and benefits and agrees to the procedure. I have examined the patient, reviewed the History & Physical and in the interval since the performance of the History & Physical I have noted the following changes of clinical significance: No changes noted
[2017-04-06] MEDS ORDERED: THROMBIN FOR SOLN 20000 UNIT KIT ONE (13:10)
[2017-04-06] MEDS ORDERED: GELATIN SPONGE 12-7MM ONE (13:10)
[2017-04-06] MEDS ORDERED: BUPIVACAINE/EPINEPHRINE 0.5% MPF 1:200,000 30 ML VIAL ONE ×2 (13:10→13:59)
[2017-04-06] MEDS ORDERED: LIDOCAINE HCL 1% 20 ML VIAL ONE ×2 (13:10→13:59)
[2017-04-06] MEDS ORDERED: HEPARIN SOD (PORCINE) 1000 UNIT/ML 10 ML VIAL ONE (13:11)
[2017-04-06] MEDS ORDERED: PROPOFOL IV EMULSION 10 MG/ML 20 ML VIAL IV ONE ×3 (14:27→15:16)
[2017-04-06] MEDS ORDERED: ONDANSETRON INJ 2 MG/ML 2 ML VIAL IV PRN (15:15)
[2017-04-06] MEDS ORDERED: MEPERIDINE HCL 25 MG/ML CARP IV PRN (15:15)
[2017-04-06] MEDS ORDERED: HYDROmorphone INJ 1 MG/ML SYR IV PRN (15:15)
[2017-04-06] MEDS ORDERED: FENTANYL CITRATE INJ 50 MCG/1 ML 2 ML VIAL IV PRN (15:15)
[2017-04-06] MEDS ORDERED: ATROPINE SULFATE 0.1 MG/ML 5ML SYR IV PRN (15:15)
[2017-04-06] MEDS ORDERED: LABETALOL HCL IV 5 MG/ML 20ML IV PRN (15:15)
[2017-04-06] MEDS ORDERED: EpHEDrine SULFATE INJ 50 MG/ML AMP IV PRN (15:15)
--- NOTE | 2017-04-06 15:28 | [facility] Post Operative Brief Note ---
Immediate Operative Summary Operative Date Apr 06, 2017. Pre-Operative Diagnosis End stage renal disease on hemodialysis Post-Operative Diagnosis End stage renal disease on hemodialysis Procedure(s) Performed Right Upper Extremity Basilic Vein Arteriovenous Fistula Creation with interposition prosthetic graft Surgeon Dr. Jefferson [employer] Tester Surgeon(s) Dr. Stevens Estimated Blood Loss 40ml Findings good thrill Specimens NONE per surgeons Anesthesia MAC Complication(s) None Disposition Recovery Room / PACU
[2017-04-06] MEDS ORDERED: TRAMADOL HCL 50 MG TAB PO PRN (15:30)
[2017-04-06] MEDS ORDERED: PHENYLEPHRINE 100MCG/ML 5ML SYR ONE (15:37)
--- NOTE | 2017-04-06 16:15 | Anesthesiology Progress Note ---
Anesthesia Post Op Note Date & Time Apr 06, 2017 at 16:15 Vital Signs Pain Intensity: 2 Vital Signs Past 12 Hours Date Time Temp Pulse Resp B/P (MAP) Pulse Ox O2 Delivery O2 Flow Rate FiO2 04/06/17 16:01 36.3 85 18 99/52 94 Room Air 04/06/17 15:40 36.7 91 18 101/57 94 Room Air 04/06/17 12:57 37.1 92 107/66 (80) 04/06/17 12:45 95 113/66 04/06/17 12:30 89 109/67 04/06/17 12:15 91 110/62 04/06/17 12:00 93 108/76 04/06/17 11:45 89 104/73 04/06/17 11:30 91 110/90 04/06/17 11:15 55 120/69 04/06/17 11:00 80 148/57 04/06/17 10:45 84 138/89 04/06/17 10:30 84 111/65 04/06/17 10:23 83 113/72 04/06/17 10:10 36.7 85 114/77 (89) 04/06/17 08:00 Room Air Notes Mental Status: alert / awake / arousable, participated in evaluation Pt Amnestic to Procedure: Yes Nausea / Vomiting: adequately controlled Pain: adequately controlled Airway Patency, RR, SpO2: stable & adequate BP & HR: stable & adequate Hydration State: stable & adequate Anesthetic Complications: no major complications apparent
[2017-04-06] MEDS: HEPARIN SOD 5000 UNIT/0.5 ML CARP SQ SCH ×2 (18:54→20:13)
--- NOTE | 2017-04-06 19:27 | Progress Note ---
Internal Med Progress Note Date of Service: Apr 06, 2017. Provider Documentation: SUBJECTIVE: patient seen after procedure of right upper extremity AV fistula creation OBJECTIVE: General Appearance: no apparent distress Head: normocephalic Eyes: normal inspection, sclerae normal ENT: hearing grossly normal Neck: supple, no JVD Respiratory/Chest: lungs clear, normal breath sounds, no respiratory distress, PermCath in place to right chest wall, no drainage or surrounding erythema Cardiovascular: regular rate, rhythm, no edema, normal peripheral pulses Abdomen/GI: normal bowel sounds, non tender, soft Extremities: right upper extremity with site of new AV fistula without bleeding Neurologic/Psych: no motor/sensory deficits, alert, normal mood/affect, oriented x 3 Skin: normal color, warm/dry ASSESSMENT & PLAN: 36 year old M on dialysis M/W/F in [place] last dialysis in hospital on day of admission Monday04/04/17 via right permacath who is here for AV fistula creation and monitoring/treatment for hyperkalemia. Hyperkalemia has resolved. consult also involved in patient's care for phosphate binders, hypocalcemia, and hyperkalemia issues. S/P vascular surgery planning for AV fistula creation of right upper extremity on 04/06/17. Nephrology with plans to dialyze patient 1 more time after the vascular procedure completed DVT PROPHYLAXIS SCDs DISPOSITION likely to be discharged home tomorrow if no acute issues post-op Vital Signs: Date Time Temp Pulse Resp B/P (MAP) Pulse Ox O2 Delivery O2 Flow Rate FiO2 04/06/17 18:00 99 120/76 (91) 04/06/17 17:19 108 133/71 (91) 04/06/17 16:21 36.6 88 20 111/66 (81) 98 Nasal Cannula 2.0 04/06/17 16:01 36.3 85 18 99/52 94 Room Air 04/06/17 16:00 98 Nasal Cannula 2.0 04/06/17 15:40 36.7 91 18 101/57 94 Room Air 04/06/17 12:57 37.1 92 107/66 (80) 04/06/17 12:45 95 113/66 04/06/17 12:30 89 109/67 04/06/17 12:15 91 110/62 04/06/17 12:00 93 108/76 04/06/17 11:45 89 104/73 04/06/17 11:30 91 110/90 04/06/17 11:15 55 120/69 04/06/17 11:00 80 148/57 04/06/17 10:45 84 138/89 04/06/17 10:30 84 111/65 04/06/17 10:23 83 113/72 04/06/17 10:10 36.7 85 114/77 (89) 04/06/17 08:00 Room Air 04/06/17 04:00 36.5 91 19 125/80 (95) 93 Room Air 04/06/17 04:00 Room Air 04/06/17 02:53 36.4 90 16 96/63 95 Room Air 04/06/17 00:00 Room Air 04/05/17 23:29 36.4 90 16 96/63 (74) 95 Room Air 04/05/17 20:00 Room Air Lab Results: Results Past 24 Hours Test 04/06/17 06:13 Range/Units White Blood Count 7.53 4.8-10.8 K/uL Red Blood Count 3.84 4.7-6.1 M/uL Hemoglobin 11.8 14.0-18.0 g/dL Hematocrit 38.3 42-52 % Mean Corpuscular Volume 99.7 80-100 fL Mean Corpuscular Hemoglobin 30.7 25-34 pg Mean Corpuscular Hemoglobin Concent 30.8 32-36 g/dl Platelet Count 294 130-400 K/uL Mean Platelet Volume 9.5 7.4-10.4 fL Neutrophils (%) (Auto) 56.5 % Lymphocytes (%) (Auto) 31.7 % Monocytes (%) (Auto) 6.9 % Eosinophils (%) (Auto) 4.2 % Basophils (%) (Auto) 0.4 % Neutrophils # (Auto) 4.25 1.4-6.5 K/uL Lymphocytes # (Auto) 2.39 1.2-3.4 K/uL Monocytes # (Auto) 0.52 0.11-0.59 K/uL Eosinophils # (Auto) 0.32 0-0.5 K/uL Basophils # (Auto) 0.03 0-0.2 K/uL RDW Standard Deviation 53.3 36.4-46.3 fL RDW Coefficient of Variation 14.7 11.5-14.5 % Immature Granulocyte % (Auto) 0.3 % Immature Granulocyte # (Auto) 0.02 0.00-0.02 K/uL Prothrombin Time 10.3 9.0-12.0 SECONDS Prothromb Time International Ratio 1.0 0.9-1.1 Sodium Level 139 136-145 mmol/L Potassium Level 5.3 3.5-5.1 mmol/L Chloride Level 103 98-107 mmol/L Carbon Dioxide Level 21 21-32 mmol/L Anion Gap 15.0 3-11 mmol/L Blood Urea Nitrogen 75 7-18 mg/dl Creatinine 11.00 0.60-1.40 mg/dl Est Creatinine Clear Calc Drug Dose 13.7 ml/min Estimated GFR () 6.2 Estimated GFR (Non- 5.3 BUN/Creatinine Ratio 7.5 10-20 Random Glucose 87 70-99 mg/dl Calcium Level 10.0 8.5-10.1 mg/dl Total Bilirubin 0.3 0.2-1 mg/dl Aspartate Amino Transf (AST/SGOT) 24 15-37 U/L Alanine Aminotransferase (ALT/SGPT) 32 12-78 U/L Alkaline Phosphatase 70 45-117 U/L Total Protein 7.5 6.4-8.2 gm/dl Albumin 3.3 3.4-5.0 gm/dl Globulin 4.2 2.5-4.0 gm/dl Albumin/Globulin Ratio 0.8 0.9-2
[2017-04-07 00:03] VITALS: BP 124/82; PULSE 94; TEMP 36.8; O2SAT 97
--- NOTE | 2017-04-07 00:47 | OPERATIVE REPORT ---
DATE OF OPERATION: 04/06/2017 PREOPERATIVE DIAGNOSIS: End-stage renal disease, on hemodialysis. POSTOPERATIVE DIAGNOSIS: Same. PROCEDURE: Right brachial artery to basilic vein interposition graft with 6 mm PTFE. SURGEON: Dr. Antwan Jefferson. ACETYLENE BURNER: Dr. Zuleyka Stevens. ANESTHESIA: Local plus conscious sedation. ESTIMATED BLOOD LOSS: 40 mL FLUIDS: 300 mL URINE OUTPUT: Not recorded. COMPLICATIONS: None apparent. CONDITION: Stable to PACU. INDICATIONS: Mr. 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 He now undergoes hemodialysis via a right tunneled line. He presents today for first-stage brachiobasilic fistula placement. He was briefed on the risks and benefits of the procedure and agreed to undergo the procedure. PROCEDURE IN DETAIL: The patient was brought into the operative suite. He was prepped and draped in the usual fashion. Timeout occurred. An incision was made above the antecubital fossa transversely over the brachial artery and basilic vein. The basilic vein was identified under ultrasound and was dissected out. This was found to be small with multiple branches. A 3-0 Conner catheter was passed up through the basilic vein, that would get hung up approximately 25 cm in. There was brisk back bleeding. At this time, the vein itself was not suitable for primary brachiobasilic fistula and it was thought we will use an interposition graft and evaluate the basilic vein for maturation. This will require a second surgery which the patient was advised preoperatively. The brachial artery was then identified and dissected out. This was soft without significant calcifications. A 6 mm thin-walled [place] PTFE graft was then sewn end-to-side onto the basilic vein with a CV6. Once this was sewn in, it was inspected for hemostasis. The graft was then flushed with hep saline and clamped near the anastomosis. Attention was turned to the brachial artery. The graft was cut to size. Small-angled DeBakey clamps were used to gain proximal and distal control. An arteriotomy was made with an 11 blade. This was extended using Mccoy scissors. 7-0 Prolene suture was used as tacking sutures to open up the arteriotomy and the graft was sewn in an end-to-side fashion using CV6. Upon completion, the graft was inspected for hemostasis. A repair stitch was placed. There was a good thrill in the graft after completion of the anastomosis. Hemostasis in the wound was obtained and the wound was closed using 3-0 and 4-0 Vicryl sutures and Dermabond. The patient tolerated the procedure well. He had a warm pinky and with brisk cap refill postoperatively. He was then transported to the PACU in stable condition. Dr. Antwan Jefferson was present and scrubbed for the entirety of this case. I attest to the content of the Intraoperative Record and any orders documented therein. Any exceptions are noted below. I, Dr. Jefferson was present and scrubbed for the entire procedure. LAMONTE
[2017-04-07 03:49] VITALS: BP 136/85; PULSE 104; TEMP 36.5; O2SAT 93
[2017-04-07] MEDS: HEPARIN SOD 5000 UNIT/0.5 ML CARP SQ SCH (06:13)
[2017-04-07 07:31] VITALS: BP 103/66; PULSE 102; TEMP 36.6; O2SAT 95
[2017-04-07] MEDS: NEPHROCAPS PO SCH (07:32)
[2017-04-07] MEDS: CALCIUM CARBONATE 500 MG CHEWABLE PO SCH (07:32)
[2017-04-07] MEDS: CALCIUM ACETATE 667MG GELCAP PO SCH ×2 (07:33→11:40)
[2017-04-07] MEDS: SEVELAMER HYDROCH 800 MG TAB PO SCH ×2 (07:33→11:40)
--- NOTE | 2017-04-07 07:37 | Nephrology Progress Note ---
Nephrology Progress Note Date of Service: Apr 07, 2017. Subjective 36 yo male with catheter which fortunately has been working well while an inpatient. pt underwent vascular access surgery. continue to use tunneled line. pt feels very good and interested in going home today. Objective Date Time Temp Pulse Resp B/P (MAP) Pulse Ox O2 Delivery O2 Flow Rate FiO2 04/07/17 07:31 36.6 102 16 103/66 (78) 95 Room Air 04/07/17 04:03 Room Air 04/07/17 03:49 36.5 104 19 136/85 (102) 93 Room Air 04/07/17 00:03 36.8 94 20 124/82 (96) 97 Room Air 04/07/17 00:01 Room Air 04/06/17 20:26 36.4 101 18 118/73 (88) 93 Room Air 04/06/17 20:00 Nasal Cannula 04/06/17 18:00 99 120/76 (91) 04/06/17 17:19 108 133/71 (91) 04/06/17 16:21 36.6 88 20 111/66 (81) 98 Nasal Cannula 2.0 04/06/17 16:01 36.3 85 18 99/52 94 Room Air 04/06/17 16:00 98 Nasal Cannula 2.0 04/06/17 15:40 36.7 91 18 101/57 94 Room Air 04/06/17 12:57 37.1 92 107/66 (80) 04/06/17 12:45 95 113/66 04/06/17 12:30 89 109/67 04/06/17 12:15 91 110/62 04/06/17 12:00 93 108/76 04/06/17 11:45 89 104/73 04/06/17 11:30 91 110/90 04/06/17 11:15 55 120/69 04/06/17 11:00 80 148/57 04/06/17 10:45 84 138/89 04/06/17 10:30 84 111/65 04/06/17 10:23 83 113/72 04/06/17 10:10 36.7 85 114/77 (89) 04/06/17 08:00 Room Air Physical Exam: General-aaox3 Eyes-no scleral icterus ENT-mmm Neck-supple Lungs-clear Heart-tachy Abdomen-bs+ s/nt/nd Extremities-no edema Neuro-nonfocal Access-good bruit and thrill in right arm Current Inpatient Medications Medications (Trade) Dose Ordered Sig/Otilia Route Start Time Stop Time Status Last Admin Dose Admin Acetaminophen (Tylenol Tab) 650 mg Q4H PRN PO 04/04/17 14:15 05/04/17 14:14 04/05/17 15:37 650 MG Ondansetron HCl (Zofran Inj) 4 mg Q6H PRN IV 04/04/17 14:15 05/04/17 14:14 Heparin Sodium (Porcine) (Heparin Sq 5000 Unit/0.5ml) 5,000 unit Q8 SQ 04/04/17 22:00 05/04/17 21:59 04/07/17 06:13 5,000 UNIT Vitamin B Complex/ Vit C/Folic Acid (Nephrocaps) 1 cap DAILY PO 04/05/17 09:00 05/05/17 08:59 04/05/17 07:53 1 CAP Calcium Acetate (Phoslo Cap) 1,334 mg UD PRN PO 04/04/17 15:30 05/04/17 15:29 Calcium Acetate (Phoslo Cap) 2,001 mg TIDM PO 04/04/17 17:15 05/04/17 17:14 04/06/17 16:53 2,001 MG Ergocalciferol (Vitamin D Cap) 50 interunit We@0900 PO 04/05/17 09:00 05/05/17 08:59 04/05/17 07:53 50 INTERUNIT Calcium Carbonate (Tums Chew Tab) 2,500 mg QID PO 04/04/17 17:15 05/04/17 17:14 04/06/17 20:12 2,500 MG Sevelamer HCl (Renagel Tab) 2,400 mg UD PRN PO 04/04/17 16:30 05/04/17 16:29 Sevelamer HCl (Renagel Tab) 3,200 mg TIDM PO 04/04/17 17:15 05/04/17 17:14 04/06/17 16:54 3,200 MG Patiromer (Veltassa) 25.2 gm DAILY@1200 PO 04/05/17 12:00 05/05/17 11:59 Tramadol HCl (Ultram Tab) 50 mg Q4H PRN PO 04/06/17 15:30 05/06/17 15:29 Assessment & Plan ESRD-had dialysis monday and . normally dialyzes m-w-f as an outpt. ok from renal perspective to be discharged today and to use tunneled line at outpt dialysis. has a 4:15 start time at [place]. if ok with hospitalist, would discharge patient and have him do his regular dialysis treatment as an outpt.
--- NOTE | 2017-04-07 08:23 | Anesthesiology Progress Note ---
Anesthesia Post Op Note Date & Time Apr 07, 2017 at 08:23 Vital Signs Pain Intensity: 0.0 Vital Signs Past 12 Hours Date Time Temp Pulse Resp B/P (MAP) Pulse Ox O2 Delivery O2 Flow Rate FiO2 04/07/17 07:31 36.6 102 16 103/66 (78) 95 Room Air 04/07/17 04:03 Room Air 04/07/17 03:49 36.5 104 19 136/85 (102) 93 Room Air 04/07/17 00:03 36.8 94 20 124/82 (96) 97 Room Air 04/07/17 00:01 Room Air 04/06/17 20:26 36.4 101 18 118/73 (88) 93 Room Air Notes Mental Status: alert / awake / arousable, participated in evaluation Pt Amnestic to Procedure: Yes Nausea / Vomiting: adequately controlled Pain: adequately controlled Airway Patency, RR, SpO2: stable & adequate BP & HR: stable & adequate Hydration State: stable & adequate Anesthetic Complications: no major complications apparent
[2017-04-07 11:33] VITALS: BP 122/72; PULSE 104; TEMP 37; O2SAT 95
--- NOTE | 2017-04-07 11:37 | Progress Note ---
Internal Med Progress Note Date of Service: Apr 07, 2017. Provider Documentation: SUBJECTIVE: POD day 1 after procedure of right upper extremity AV fistula creation. patient awaiting to leave the hospital to go to his dialysis center in [place]. No complaints of pain or or bleeding from surgical site. No shortness of breath OBJECTIVE: General Appearance: no apparent distress Head: normocephalic Eyes: normal inspection, sclerae normal ENT: hearing grossly normal Neck: supple, no JVD Respiratory/Chest: lungs clear, normal breath sounds, no respiratory distress, PermCath in place to right chest wall, no drainage or surrounding erythema Cardiovascular: regular rate, rhythm, no edema, normal peripheral pulses Abdomen/GI: normal bowel sounds, non tender, soft Extremities: right upper extremity with site of new AV fistula without bleeding Neurologic/Psych: no motor/sensory deficits, alert, normal mood/affect, oriented x 3 Skin: normal color, warm/dry ASSESSMENT & PLAN: 36 year old M 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 Initially this procedure was for outpatient but concern of hyperkalemia based on outpatient labs. Hyperkalemia has resolved. consult also involved in patient' s care for phosphate binders, hypocalcemia, and hyperkalemia issues. Nephrology had plan to dialyze patient 1 more time after the vascular procedure completed. However patient informed me today that his dialysis center in [place] will be available in the afternoon to give him dialysis and his transportation is due to pick him up from the hospital. DVT PROPHYLAXIS SCDs in the hospital DISPOSITION: discharge to home with self care. patient to get dialysis on discharge day at [place]. patient to follow up with his instrument technician helper Dr. Patricia Stoddard. PROCEDURE IN DETAIL: The patient was brought into the operative suite. He was prepped and draped in the usual fashion. Timeout occurred. An incision was made above the antecubital fossa transversely over the brachial artery and basilic vein. The basilic vein was identified under ultrasound and was dissected out. This was found to be small with multiple branches. A 3-0 Conner catheter was passed up through the basilic vein, that would get hung up approximately 25 cm in. There was brisk back bleeding. At this time, the vein itself was not suitable for primary brachiobasilic fistula and it was thought we will use an interposition graft and evaluate the basilic vein for maturation. This will require a second surgery which the patient was advised preoperatively. The brachial artery was then identified and dissected out. This was soft without significant calcifications. A 6 mm thin-walled [place] PTFE graft was then sewn end-to-side onto the basilic vein with a CV6. Once this was sewn in, it was inspected for hemostasis. The graft was then flushed with hep saline and clamped near the anastomosis. Attention was turned to the brachial artery. The graft was cut to size. Small-angled DeBakey clamps were used to gain proximal and distal control. An arteriotomy was made with an 11 blade. This was extended using Mccoy scissors. 7-0 Prolene suture was used as tacking sutures to open up the arteriotomy and the graft was sewn in an end-to-side fashion using CV6. Upon completion, the graft was inspected for hemostasis. A repair stitch was placed. There was a good thrill in the graft after completion of the anastomosis. Hemostasis in the wound was obtained and the wound was closed using 3-0 and 4-0 Vicryl sutures and Dermabond. Vital Signs: Date Time Temp Pulse Resp B/P (MAP) Pulse Ox O2 Delivery O2 Flow Rate FiO2 04/07/17 07:31 36.6 102 16 103/66 (78) 95 Room Air 04/07/17 07:30 Room Air 04/07/17 04:03 Room Air 04/07/17 03:49 36.5 104 19 136/85 (102) 93 Room Air 04/07/17 00:03 36.8 94 20 124/82 (96) 97 Room Air 04/07/17 00:01 Room Air 04/06/17 20:26 36.4 101 18 118/73 (88) 93 Room Air 04/06/17 20:00 Nasal Cannula 04/06/17 18:00 99 120/76 (91) 04/06/17 17:19 108 133/71 (91) 04/06/17 16:21 36.6 88 20 111/66 (81) 98 Nasal Cannula 2.0 04/06/17 16:01 36.3 85 18 99/52 94 Room Air 04/06/17 16:00 98 Nasal Cannula 2.0 04/06/17 15:40 36.7 91 18 101/57 94 Room Air 04/06/17 12:57 37.1 92 107/66 (80) 04/06/17 12:45 95 113/66 04/06/17 12:30 89 109/67 04/06/17 12:15 91 110/62 04/06/17 12:00 93 108/76 04/06/17 11:45 89 104/73 04/06/17 11:30 91 110/90
--- NOTE | 2017-04-07 11:43 | Discharge Instructions ---
Discharge Instructions Date of Service Apr 07, 2017. Admission Reason for Admission: Hyperkalemia Discharge Discharge Diagnosis / Problem: Right Upper Extremity Basilic Vein Arteriovenous Fistula Creation, dialysis Discharge Goals Goal(s): Improve function Activity Recommendations Activity Limitations: per Instructions/Follow-up section Lifting Limitations: until after follow-up appointment Exercise/Sports Limitations: until after follow-up appointment Shower/Bathe: no limitations . Instructions / Follow-Up Instructions / Follow-Up DISPOSITION: discharge to home with self care. patient to get dialysis on discharge day at [place]. patient to follow up with his research biostatistician Dr. Patricia Stoddard.Sr. Stoddard's office to call the patient for scheduling. Primary care f/u appointment on 04/11/17 at 2:[address] Marianela Contreras at [place] office please seek medical attention if bleeding from surgical site on right arm, arm pain, lightheadedness, shortness of breath or chest pain Current Hospital Diet Patient's current hospital diet: Renal Diet Discharge Diet Recommended Diet: Renal Diet Procedures Procedures Performed: Right Upper Extremity Basilic Vein Arteriovenous Fistula Creation with interposition prosthetic graft Pending Studies Studies pending at discharge: no Medical Emergencies . Who to Call and When: Medical Emergencies: If at any time you feel your situation is an emergency, please call 911 immediately. . Non-Emergent Contact Non-Emergency issues call your: Primary Care Provider, [facility] . . "Provider Documentation" section prepared by Mark Barreto. . VTE Core Measure Inpt VTE Proph given/why not?: Unfractionated heparin SQ, SCD's
--- NOTE | 2017-04-07 11:46 | Discharge Summary ---
Discharge Summary Date of Service Apr 07, 2017. Discharge Summary Admission Date: Apr 04, 2017 at 14:11 Discharge Date: Apr 07, 2017 Discharge Disposition: Home Principal Diagnosis: right upper extremity AV fistula creation, esrd, dialysis, hyperkalemia treated Procedures: right upper extremity AV fistula creation Consultations: nephrology, vascular surgery Medication Reconciliation Continued Medications: B-Complex W/ C & Folic Acid (Triphrocaps) 1 Cap Cap 1 CAP PO DAILY Calcium Acetate (Phoslo 667 Mg) 667 Mg Cap 2 TABS PO WITH SNACKS, CAP Calcium Acetate (Phosphate Bin (Phoslo 667 Mg) 667 Mg Cap 3 TABS PO TIDM Calcium Carbonate (Antacid) (Tums E-X 750) 750 Mg Chw 3.5 TABS PO QID Doxercalciferol (Hectorol) 4 Mcg/2 Ml Inj 1 ML 3XWK MWF, at dialysis Ergocalciferol (Vitamin D 08542 Unit) 50,000 Unit Cap 1 TAB PO WK, CAP Patiromer Sorbitex Calcium (Veltassa) 16.8 Gm Pow 16.8 GM PO DAILY Sevelamer Carbonate (Renvela) 800 Mg Tab 4 TABS PO TIDM Sevelamer Carbonate (Renvela) 800 Mg Tab 3 TABS PO WITH SNACKS, TAB Admission Information HPI (per Admitting provider): 36 year old male who presented to the outpatient surgery center today for creation of a new right upper extremity basilic vein fistula. Unfortunately preoperative labs demonstrated a K+ of 6.0. Nephrology suggests admission for dialysis and management of hyperkalemia. Patient recently had RUE AV graft insertion and began use of graft however it had infiltrated at HD and has large hematoma. The patient now has a non functioning fistula. He did under go right chest PermCath placement last week that has been being used for his HD treatments. Last treatment was yesterday. Per Dr. Barcenas, PermCath has not been functioning well either. Patient reports he has been feeling well. No chest pain , palpitations, or shortness of breath. He denies lightheadedness, dizziness, diaphoresis, or syncopal events. No abdominal pain, nausea, vomiting, or diarrhea. He continues to make a small amount of urine. He denies any urinary symptoms. No fever or chills. At the time of my exam, patient is sitting on the edge of the bed in no acute distress. Physical Exam (per Admitting): General Appearance: no apparent distress Head: normocephalic Eyes: normal inspection, sclerae normal ENT: hearing grossly normal Neck: supple, no JVD Respiratory/Chest: lungs clear, normal breath sounds, no respiratory distress, + pertinent finding (PermCath in place to right chest wall, no drainage or surrounding erythema ) Cardiovascular: regular rate, rhythm, no edema, normal peripheral pulses Abdomen/GI: normal bowel sounds, non tender, soft Extremities/Musculoskelatal: + pertinent finding (fistulas in place to right forearm and right upper arm, no thrill present ) Neurologic/Psych: no motor/sensory deficits, alert, normal mood/affect, oriented x 3 Skin: normal color, warm/dry Hospital Course 36 year old M 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 Initially this procedure was for outpatient but concern of hyperkalemia based on outpatient labs. Hyperkalemia has resolved. consult also involved in patient' s care for phosphate binders, hypocalcemia, and hyperkalemia issues. Nephrology had plan to dialyze patient 1 more time after the vascular procedure completed. However patient informed me today that his dialysis center in [place] will be available in the afternoon to give him dialysis and his transportation is due to pick him up from the hospital. DVT PROPHYLAXIS SCDs in the hospital DISPOSITION: discharge to home with self care. patient to get dialysis on discharge day at [place]. patient to follow up with his yield loss inspector Dr. Patricia Stoddard.Sr. Stoddard's office to call the patient for scheduling. Primary care f/u appointment on 04/11/17 at 2:[address] Marianela Contreras at [place] office PROCEDURE IN DETAIL: The patient was brought into the operative suite. He was prepped and draped in the usual fashion. Timeout occurred. An incision was made above the antecubital fossa transversely over the brachial artery and basilic vein. The basilic vein was identified under ultrasound and was dissected out. This was found to be small with multiple branches. A 3-0 Conner catheter was passed up through the basilic vein, that would get hung up approximately 25 cm in. There was brisk back bleeding. At this time, the vein itself was not suitable for primary brachiobasilic fistula and it was thought we will use an interposition graft and evaluate the basilic vein for maturation. This will require a second surgery which the patient was advised preoperatively. The brachial artery was then identified and dissected out. This was soft without significant calcifications. A 6 mm thin-walled [place] PTFE graft was then sewn end-to-side onto the basilic vein with a CV6. Once this was sewn in, it was inspected for hemostasis. The graft was then flushed with hep saline and clamped near the anastomosis. Attention was turned to the brachial artery. The graft was cut to size. Small-angled DeBakey clamps were used to gain proximal and distal control. An arteriotomy was made with an 11 blade. This was extended using Mccoy scissors. 7-0 Prolene suture was used as tacking sutures to open up the arteriotomy and the graft was sewn in an end-to-side fashion using CV6. Upon completion, the graft was inspected for hemostasis. A repair stitch was placed. There was a good thrill in the graft after completion of the anastomosis. Hemostasis in the wound was obtained and the wound was closed using 3-0 and 4-0 Vicryl sutures and Dermabond. Total time spent on discharge = This includes examination of the patient, discharge planning, medication reconciliation, and communication with other providers. Discharge Instructions DISPOSITION: discharge to home with self care. patient to get dialysis on discharge day at [place]. patient to follow up with his yield loss inspector Dr. Patricia Stoddard.Sr. Stoddard's office to call the patient for scheduling. Primary care f/u appointment on 04/11/17 at 2:[address] Marianela Contreras at [place] office please seek medical attention if bleeding from surgical site on right arm, arm pain, lightheadedness, shortness of breath or chest pain
[2017-04-07 12:42] VITALS: BP 122/72; PULSE 104; TEMP 37; O2SAT 95
== END 2017-04-07 13:00 | disposition home or self-care (01) | DRG 252 ==
LOC: C.ACU 11:24 → C.2T 14:11 → ENRESERV 15:24
PROVIDERS: ADMIT Hospitalist; ATTEND Hospitalist
PROC: 03U70JZ Supplement Right Brachial Artery with Synthetic Substitute, Open Approach (ICD-10-PCS; principal; 2017-04-06 13:30)
PROC: 03170JD Bypass Right Brachial Artery to Upper Arm Vein with Synthetic Substitute, Open Approach (ICD-10-PCS; principal; 2017-04-06 13:30)
PROC: 05U Upper Veins, Supplement (ICD-10-PCS; principal; 2017-04-06 13:30)
DX: T82.9XXA Unspecified complication of cardiac and vascular prosthetic device, implant and graft, initial encounter (principal); N18.6 End stage renal disease; E11.22 Type 2 diabetes mellitus with diabetic chronic kidney disease; E87.5 Hyperkalemia; E66.9 Obesity, unspecified; F17.200 Nicotine dependence, unspecified, uncomplicated; Z79.899 Other long term (current) drug therapy; Z99.2 Dependence on renal dialysis; Z87.828 Personal history of other (healed) physical injury and trauma; Y71.2 Prosthetic and other implants, materials and accessory cardiovascular devices associated with adverse incidents

== ENCOUNTER → 2017-06-07 | Day surgery (SDC) | payer OTHER, BC ==
--- NOTE | 2017-05-16 06:03 | History and Physical ---
History & Physical Date of Service May 16, 2017. History & Physical Chief Complaint End stage renal disease, malfunctioning permcath History of Present Illness The patient is a 36 year old male with hx of DMII and ESRD on HD, who has a permcath in place. The cuff of the permcath is now exposed. Pt denies BREEN, fever, chills, chest pain, SOB, abd pain, N/V, rest pain, claudication, other complaints. Allergies Coded Allergies: No Known Allergies (Unverified , 09/30/16) Home Medications Scheduled B-Complex W/ C & Folic Acid (Triphrocaps), 1 CAP PO DAILY Calcium Acetate (Phoslo 667 Mg), 667 MG PO WITH SNACKS Calcium Acetate (Phosphate Bin (Phoslo 667 Mg), 2,001 MG PO TIDM Calcium Carbonate (Antacid) (Tums E-X 750), 2,625 MG PO TIDM Cinacalcet Hydrochloride (Sensipar), 30 MG PO QPM Sevelamer Carbonate (Renvela), 3,200 MG PO TIDM Sevelamer Carbonate (Renvela), 2,400 MG PO WITH SNACKS Scheduled PRN [Hectoral], 1 DOSE IV 3XWK PRN for PER DIALYSIS Problem List Medical Problems: (1) Dialysis catheter clot or failure (2) ESRD (end stage renal disease) on dialysis (3) Hyperkalemia Surgical Problems: (1) History of knee surgery Surgical / Medical History Hx Cardiac Surgery: No Hx Abdominal Surgery: No Hx Cancer Surgery: No Hx Thoracic Surgery: No Hx Orthopedic: Yes (Left knee, right lower leg) Hx Urinary Tract Surgery: No HX Other Surgery: No Past Medical/Surgical History: Diabetes, Kidney Disease Family History Patient reports no known family medical history. Social History Smoking Status: Current Every Day Smoker Hx Tobacco Use In Past Year?: Yes Hx Alcohol Use - Type & Amnt: No Hx Substance Use -Type & Amnt: No Review of Systems Constitutional: No chills, No fever, No malaise Skin: No change in color Eyes: No visual changes ENMT: No sore throat Respiratory: No cough, No ROMERO, No short of breath Cardiovascular: No chest pain, No palpitations, No syncope, No edema, No intermittent claudication Gastrointestinal: No abdominal pain, No nausea, No vomiting Neurologic: No dizziness, No headache, No numbness, No tingling Physical Exam Constitutional: General Apperance: well-nourished, well-developed, obese Level of Distress: NAD Psychiatric: Mental Status: active & alert, normal mood, normal affect Orientation: oriented except where noted, to time, to place, to person Memory: recent memory normal, remote memory normal Head: normocephalic, atraumatic Eyes: EOM: EOMI ENMT: normal ENT inspection, hearing grossly normal Neck: supple, trachea midline Lungs: Respiratory effort: no dyspnea Auscultation: breath sounds normal, no wheezing, no rales/crackles, no rhonchi Cardiovascular: Apical Impulse: not displaced Heart Auscultation: RRR, no murmurs, no rubs, no gallops Peripheral Pulses: Pulses: full and equal, in all extremities except if noted Bruits: none appreciated Carotid Pulse: normal on the left, normal on the right Brachial Pulses: normal on the left, normal on the right Radial Pulse: normal on the left, normal on the right Femoral Pulse: normal on the left, normal on the right Posterior Tibialis Pulse: decreased on the left, decreased on the right Dorsalis Pedis Pulse: decreased on the left, decreased on the right Abdomen: Bowel Sounds: normal Inspection & Palpation: soft, non-distended, no tenderness, guarding & rebound Musculoskeletal: normal strength (5/5 throughout), normal tone Extremities: Upper Right: no cyanosis, no edema, no varicosities, RUE large hematoma/ ecchymosis. + bruit/doppler over RUE AV graft Upper Left: no cyanosis, no edema, no varicosities Lower Right: no cyanosis, no edema, no varicosities Lower Left: no cyanosis, no edema, no varicosities Neurologic: Cranial Nerves: grossly intact Sensation: grossly intact Assessment and Plan Imp: ESRD on HD Malfunctioning permcath Plan: Pt admitted for permcath exchange today. I have discussed the risks options and benefits of the procedure with the patient. The patient understands the risks options and benefits and agrees to the procedure.
[2017-05-23 14:45] VITALS: BMI 47.0
--- NOTE | 2017-05-23 15:26 | PAT Medication Instructions ---
Service Date May 23, 2017. Current Home Medication List B-Complex W/ C & Folic Acid (Triphrocaps), 1 CAP PO QAM Calcium Acetate (Phoslo 667 Mg), 2 TABS PO WITH SNACKS Calcium Acetate (Phosphate Bin (Phoslo 667 Mg), 3 TABS PO TIDM Calcium Carbonate (Antacid) (Tums E-X 750), 3.5 TABS PO QID Doxercalciferol (Hectorol), 1 ML 3XWK Ergocalciferol (Vitamin D 17763 Unit), 1 TAB PO WK Patiromer Sorbitex Calcium (Veltassa), 1 DOSE PO QPM Sevelamer Carbonate (Renvela), 4 TABS PO TIDM Sevelamer Carbonate (Renvela), 3 TABS PO WITH SNACKS Medication Instructions For Your Scheduled Surgery - Hold the following medications the morning of surgery: B-Complex W/ C & Folic Acid (Triphrocaps), 1 CAP PO QAM Calcium Acetate (Phoslo 667 Mg), 2 TABS PO WITH SNACKS Calcium Acetate (Phosphate Bin (Phoslo 667 Mg), 3 TABS PO TIDM Calcium Carbonate (Antacid) (Tums E-X 750), 3.5 TABS PO QID Sevelamer Carbonate (Renvela), 4 TABS PO TIDM Sevelamer Carbonate (Renvela), 3 TABS PO WITH SNACKS Doxercalciferol (Hectorol), 1 ML 3XWK Ergocalciferol (Vitamin D 50906 Unit), 1 TAB PO WK - Take the following medications the morning of surgery with a sip of water: NONE - Take the following medications as scheduled the night before surgery: Patiromer Sorbitex Calcium (Veltassa), 1 DOSE PO QPM Calcium Acetate (Phoslo 667 Mg), 2 TABS PO WITH SNACKS Calcium Acetate (Phosphate Bin (Phoslo 667 Mg), 3 TABS PO TIDM Calcium Carbonate (Antacid) (Tums E-X 750), 3.5 TABS PO QID Sevelamer Carbonate (Renvela), 4 TABS PO TIDM Sevelamer Carbonate (Renvela), 3 TABS PO WITH SNACKS If you have any questions please call us at [phone] or [phone] or [phone]
[2017-05-23 15:57] LABS: BASO % 0.3 %; BASO ABS # 0.03 K/uL (0-0.2); COMPLETE YES; EOS % 1.9 %; HEMATOCRIT 40.3 % (42-52); IG% 0.6 %; LYMPH % 28.7 %; LYMPH ABS # 2.54 K/uL (1.2-3.4); MEAN CELL VOLUME 99.8 fL (80-100); MEAN CORPUSCULAR HEMOGLOBIN 30.9 pg (25-34); MEAN PLATELET VOLUME 9.1 fL (7.4-10.4); MONO % 7.1 %; NEUT % 61.4 %; PLATELET COUNT 363 K/uL (130-400); RED BLOOD COUNT 4.04 M/uL (4.7-6.1); WHITE BLOOD COUNT 8.84 K/uL (4.8-10.8)
[2017-05-23 16:13] LABS: PROTHROMBIN TIME (PATIENT) 10.3 SECONDS (9.0-12.0)
[2017-05-23 17:02] LABS: BUN/CREATININE RATIO 5.6 (10-20); CALCIUM 11.1 mg/dl (8.5-10.1); CREATININE 7.88 mg/dl (0.60-1.40)
[~2017-06-07] VITALS: Ht 177.8 cm; Wt 147.4 kg
[~2017-06-07] MED LIST changes: +ACET-749 PO; +BUPIVACAINE/EPINEPHRINE 0.5% MPF 1:200,000 30 ML VIAL ONE; -CEFAZOLIN 3000 MG/65 ML D5W 65 ML IV SCH; +CEFAZOLIN 3000MG IV PUSH 15 ML IV SCH; +CINA60TA PO; -ERGO1CAP41 PO; +ERGO500011 PO; +GELATIN SPONGE 12-7MM ONE; -HECTORAL IV; +HEPARIN SOD (PORCINE) 1000 UNIT/ML 10 ML VIAL ONE; +KETAMINE HCL INJ 50 MG/ML 10 ML VIAL ONE; +LIDOCAINE HCL 1% 20 ML VIAL ONE; +LIDOCAINE HCL 2% 2 ML VIAL (20MG/ML) ONE; +PATI1POW PO; -PATIENT'S ALLERGY INFO NEEDS ENTERED SCH; +PROPOFOL IV EMULSION 10 MG/ML 20 ML VIAL IV ONE; -SODIUM CHLORIDE 0.9% 1000ML 1,000 ML IV SCH; +SODIUM CHLORIDE 0.9% 1000ML IV SCH; +THROMBIN FOR SOLN 20000 UNIT KIT ONE; +[UNRECOGNIZED DRUG - CODE]; +[UNRECOGNIZED DRUG - CODE] PO
--- NOTE | 2017-06-07 06:18 | History and Physical ---
History & Physical Date of Service Jun 07, 2017. History & Physical Chief Complaint End stage renal disease, thrombosed fistula right arm History of Present Illness The patient is a 36 year old male with hx of DMII and ESRD on HD, who had an insertion of a permcath Pt recently had RUE AV graft insertion and began use of the graft. The graft has subsequently thrombosed. It was declotted and again thrombosed and could not be salvaged. Pt denies BREEN, fever, chills, chest pain, SOB, abd pain, N/V, rest pain, claudication, other complaints. Allergies Coded Allergies: No Known Allergies (Unverified , 09/30/16) Home Medications Scheduled B-Complex W/ C & Folic Acid (Triphrocaps), 1 CAP PO DAILY Calcium Acetate (Phoslo 667 Mg), 667 MG PO WITH SNACKS Calcium Acetate (Phosphate Bin (Phoslo 667 Mg), 2,001 MG PO TIDM Calcium Carbonate (Antacid) (Tums E-X 750), 2,625 MG PO TIDM Cinacalcet Hydrochloride (Sensipar), 30 MG PO QPM Sevelamer Carbonate (Renvela), 3,200 MG PO TIDM Sevelamer Carbonate (Renvela), 2,400 MG PO WITH SNACKS Scheduled PRN [Hectoral], 1 DOSE IV 3XWK PRN for PER DIALYSIS Problem List Medical Problems: (1) Dialysis catheter clot or failure (2) ESRD (end stage renal disease) on dialysis (3) Hyperkalemia Surgical Problems: (1) History of knee surgery Surgical / Medical History Hx Cardiac Surgery: No Hx Abdominal Surgery: No Hx Cancer Surgery: No Hx Thoracic Surgery: No Hx Orthopedic: Yes (Left knee, right lower leg) Hx Urinary Tract Surgery: No HX Other Surgery: No Past Medical/Surgical History: Diabetes, Kidney Disease Family History Patient reports no known family medical history. Social History Smoking Status: Current Every Day Smoker Hx Tobacco Use In Past Year?: Yes Hx Alcohol Use - Type & Amnt: No Hx Substance Use -Type & Amnt: No Review of Systems Constitutional: No chills, No fever, No malaise Skin: No change in color Eyes: No visual changes ENMT: No sore throat Respiratory: No cough, No ROMERO, No short of breath Cardiovascular: No chest pain, No palpitations, No syncope, No edema, No intermittent claudication Gastrointestinal: No abdominal pain, No nausea, No vomiting Neurologic: No dizziness, No headache, No numbness, No tingling Physical Exam Constitutional: General Apperance: well-nourished, well-developed, obese Level of Distress: NAD Psychiatric: Mental Status: active & alert, normal mood, normal affect Orientation: oriented except where noted, to time, to place, to person Memory: recent memory normal, remote memory normal Head: normocephalic, atraumatic Eyes: EOM: EOMI ENMT: normal ENT inspection, hearing grossly normal Neck: supple, trachea midline Lungs: Respiratory effort: no dyspnea Auscultation: breath sounds normal, no wheezing, no rales/crackles, no rhonchi Cardiovascular: Apical Impulse: not displaced Heart Auscultation: RRR, no murmurs, no rubs, no gallops Peripheral Pulses: Pulses: full and equal, in all extremities except if noted Bruits: none appreciated Carotid Pulse: normal on the left, normal on the right Brachial Pulses: normal on the left, normal on the right Radial Pulse: normal on the left, normal on the right Femoral Pulse: normal on the left, normal on the right Posterior Tibialis Pulse: decreased on the left, decreased on the right Dorsalis Pedis Pulse: decreased on the left, decreased on the right Abdomen: Bowel Sounds: normal Inspection & Palpation: soft, non-distended, no tenderness, guarding & rebound Musculoskeletal: normal strength (5/5 throughout), normal tone Extremities: Upper Right: no cyanosis, no edema, no varicosities, RUE with no thrill or bruit Upper Left: no cyanosis, no edema, no varicosities Lower Right: no cyanosis, no edema, no varicosities Lower Left: no cyanosis, no edema, no varicosities Neurologic: Cranial Nerves: grossly intact Sensation: grossly intact Assessment and Plan Imp: ESRD on HD Thrombosed right arm fistula Plan: Pt admitted for insertion of a bovine fistula. I have discussed the risks options and benefits of the procedure with the patient. The patient understands the risks options and benefits and agrees to the procedure.
[2017-06-07 08:14] VITALS: BP 117/64; PULSE 104; TEMP 36.4; O2SAT 96; Ht 177.8 cm; Wt 147.4 kg
[2017-06-07 08:57] LABS: CALCIUM 10.6 mg/dl (8.5-10.1); CREATININE 5.54 mg/dl (0.60-1.40); POTASSIUM 3.7 mmol/L (3.5-5.1)
--- NOTE | 2017-06-07 12:12 | Discharge Instructions ---
Discharge Instructions Date of Service Jun 07, 2017. Visit Reason for Visit: End Stage Renal Disease Discharge Discharge Diagnosis / Problem: End stage renal disease Discharge Goals Goal(s): Therapeutic intervention Activity Recommendations Activity Limitations: per Instructions/Follow-up section Anesthesia . Post Anesthesia Instructions: If you have had General Anesthesia or IV Sedation: * Do not drive today. * Resume driving when surgeon permits. * Do not make important decisions or sign legal documents today. * Call surgeon for: 1. Temperature elevations greater than 101 degrees F. 2. Uncontrollable pain. 3. Excessive bleeding. 4. Persistent nausea and vomiting. 5. Medication intolerance (nausea, vomiting or rash). * For nausea and vomiting use only clear liquids such as: tea, soda, bouillon until nausea subsides, then gradually increase diet as tolerated. * If you have any concerns or questions, call your surgeon's office. If physician is unavailable and it is an emergency, call 911 or go to the nearest emergency room. . Instructions / Follow-Up Instructions / Follow-Up Call [phone] to schedule a follow up appointment if one not already scheduled. ACTIVITY RECOMMENDATIONS: See Above SPECIAL CARE INSTRUCTIONS: Call your doctor if: * Temperature above 101 degrees * Pain not relieved by pain medicine ordered * There is increased drainage or redness from any incision * You have any unanswered questions or concerns. Diet Recommendations Recommended Home Diet: resume previous diet Procedures Procedures Performed: Right Arm Arteriovenous Fistula Creation Using Bovine Graft Pending Studies Studies pending at discharge: no Work Instructions Return To Work: 1 week Additional Instructions: May return to work June 14 with no restrictions Medical Emergencies . Who to Call and When: Medical Emergencies: If at any time you feel your situation is an emergency, please call 911 immediately. . Non-Emergent Contact Non-Emergency issues call your: Surgeon . . "Provider Documentation" section prepared by Antwan Jefferson. .
--- NOTE | 2017-06-07 12:21 | [facility] Operative Report ---
Operative Report Operative Date Jun 07, 2017. Pre-Operative Diagnosis End Stage Renal Disease On Hemodialysis Post-Operative Diagnosis End Stage Renal Disease On Hemodialysis Procedure(s) Performed Right Arm Arteriovenous Fistula Creation Using Bovine Graft Surgeon Dr Jefferson Vocational Training Instructor Surgeon(s) Lidya Raya PA-C Estimated Blood Loss 50ml Findings A good thrill was felt at the end the procedure. Specimens None per surgeon Anesthesia MAC Complication(s) None Disposition Recovery Room / PACU Indications This is a 36-year-old male with multiple failed accesses of the upper extremity. He is in need of a new access creation. We recommended a bovine graft insertion. I have discussed the risks options and benefits of the procedure with the patient. The patient understands the risks options and benefits and agrees to the procedure. Description of Procedure The patient was taken to the operating room placed in the supine position. The right arm was then prepped and draped in a sterile manner. Local anesthetic was administered. Two longitudinal incisions were made. One was over the distal brachial artery just above the antecubital crease. The other was in the upper medial arm just distal to the anterior axillary line. The artery was identified it was of good caliber. It was soft and usable. We then looked for the vein in the upper incision. We found the basilic vein at its junction with the axillary vein to be of good caliber and patent. Counterincisions were then made and a 7 mm bovine graft was passed from the lower incision up to the upper incision using a tunneling device. The brachial artery was then clamped proximal distally. The bovine graft was trimmed the appropriate length and an end to side anastomosis was accomplished using a 6-0 Prolene suture in usual vascular fashion. Next a clamp was placed on the bovine graft. The boveine graft was irrigated free of blood. The basilic vein and axillary vein were then clamped proximally and distally. A longitudinal venotomy was performed of the distal basilic vein. The graft was then beveled and trimmed the appropriate length and an end-to-side anastomosis was accomplished using a 6-0 Prolene suture in the usual vascular fashion. Prior to completing the closure back bleeding and fore bleeding was allowed to occur. The final few sutures were then placed and securely tied. Clamps were removed. Excellent flow was seen through the bovine graft. There was a good palpable thrill present. Both incisions and the counterincision for passing the graft had adequate hemostasis at that time. The wounds were then closed in the usual fashion using a running 3-0 Vicryl suture for the subcutaneous layer and zak for the skin. Sterile dressings were applied to the wound. The patient left the operating room in satisfactory condition and tolerated the procedure well. All needle and sponge counts were correct at the end of the procedure Lidya Raya Pac assisted due to lack of resident availability and was necessary for prepping, draping, retraction, wound closure defects, subcutaneous tissue, and skin closure and was necessary for the case. I attest to the content of the Intraoperative Record and any orders documented therein. Any exceptions are noted below.
[2017-06-07 12:55] VITALS: BP 114/54; PULSE 99; TEMP 36.9; O2SAT 98
--- NOTE | 2017-06-07 13:10 | Anesthesiology Progress Note ---
Anesthesia Post Op Note Date & Time Jun 07, 2017 at 13:10 Vital Signs Pain Intensity: 0 Vital Signs Past 12 Hours Date Time Temp Pulse Resp B/P (MAP) Pulse Ox O2 Delivery O2 Flow Rate FiO2 06/07/17 12:50 36.3 96 16 96/44 95 Room Air 06/07/17 12:45 93 16 97/41 95 Room Air 06/07/17 12:35 94 16 112/64 92 Room Air 06/07/17 12:29 36.4 98 16 91/46 90 Room Air 06/07/17 08:14 36.4 104 20 117/64 (81) 96 Room Air Notes Mental Status: alert / awake / arousable, participated in evaluation Pt Amnestic to Procedure: Yes Nausea / Vomiting: adequately controlled Pain: adequately controlled Airway Patency, RR, SpO2: stable & adequate BP & HR: stable & adequate Hydration State: stable & adequate Anesthetic Complications: no major complications apparent
[2017-06-07 13:25] VITALS: BP 134/64; PULSE 97; TEMP 36.7; O2SAT 98
--- NOTE | 2017-06-07 13:36 | Progress Note ---
Progress Note Date of Service Jun 07, 2017. Progress Note I assisted Dr Jefferson with Edouard Morrison's Right Arm Arteriovenous Fistula Creation Using Bovine Graft on 06/07/17, d/t lack of resident availability.
[2017-06-07 13:55] VITALS: BP 110/53; PULSE 98; TEMP 37.3; O2SAT 100
== END | disposition home or self-care (01) ==
LOC: C.ACU 07:39
PROVIDERS: ATTEND Surgery Vascular Surgery
DX: N18.6 End stage renal disease (principal); Z99.2 Dependence on renal dialysis; E66.01 Morbid (severe) obesity due to excess calories; Z88.5 Allergy status to narcotic agent; E11.9 Type 2 diabetes mellitus without complications; Z98.890 Other specified postprocedural states

== ENCOUNTER → 2017-07-21 | Day surgery (SDC) | payer OTHER, BC ==
[2017-07-12 16:01] VITALS: BMI 47.0
[~2017-07-21] VITALS: Ht 177.8 cm; Wt 148.0 kg
[~2017-07-21] MED LIST changes: -ACET-749 PO; -ATROPINE SULFATE 0.1 MG/ML 5ML SYR IV PRN; -BUPIVACAINE/EPINEPHRINE 0.5% MPF 1:200,000 30 ML VIAL ONE; -CEFAZOLIN 3000MG IV PUSH 15 ML IV SCH; -EpHEDrine SULFATE INJ 50 MG/ML AMP IV PRN; -FENTANYL CITRATE INJ 50 MCG/1 ML 2 ML VIAL IV PRN; -FENTANYL CITRATE INJ 50 MCG/1 ML 2 ML VIAL ONE; -GELATIN SPONGE 12-7MM ONE; -HEPARIN SOD (PORCINE) 1000 UNIT/ML 10 ML VIAL ONE; -KETAMINE HCL INJ 50 MG/ML 10 ML VIAL ONE; +LACTATED RINGER'S 1000ML 1,000 ML IV SCH; -LIDOCAINE HCL 1% 20 ML VIAL ONE; -LIDOCAINE HCL 2% 2 ML VIAL (20MG/ML) ONE; -MIDAZOLAM HCL 1 MG/ML 2ML VIAL ONE; -ONDANSETRON INJ 2 MG/ML 2 ML VIAL IV PRN; -PROPOFOL IV EMULSION 10 MG/ML 20 ML VIAL IV ONE; -SODIUM CHLORIDE 0.9% 1000ML IV SCH; -THROMBIN FOR SOLN 20000 UNIT KIT ONE; +WARF5TAB90 PO
--- NOTE | 2017-07-21 05:52 | History and Physical ---
History & Physical Date of Service Jul 21, 2017. History & Physical Chief Complaint End stage renal disease, functioning fistula History of Present Illness The patient is a 36 year old male with hx of DMII and ESRD on HD, who had an insertion of a permcath Pt recently had RUE AV graft insertion and began use of the graft. The graft has subsequently thrombosed. It was declotted and again thrombosed and could not be salvaged. He had a new fistula placed which is working well. He is here for removal of his permcath. Pt denies BREEN, fever, chills, chest pain, SOB, abd pain, N/V, rest pain, claudication, other complaints. Allergies Coded Allergies: No Known Allergies (Unverified , 09/30/16) Home Medications Scheduled B-Complex W/ C & Folic Acid (Triphrocaps), 1 CAP PO DAILY Calcium Acetate (Phoslo 667 Mg), 667 MG PO WITH SNACKS Calcium Acetate (Phosphate Bin (Phoslo 667 Mg), 2,001 MG PO TIDM Calcium Carbonate (Antacid) (Tums E-X 750), 2,625 MG PO TIDM Cinacalcet Hydrochloride (Sensipar), 30 MG PO QPM Sevelamer Carbonate (Renvela), 3,200 MG PO TIDM Sevelamer Carbonate (Renvela), 2,400 MG PO WITH SNACKS Scheduled PRN [Hectoral], 1 DOSE IV 3XWK PRN for PER DIALYSIS Problem List Medical Problems: (1) Dialysis catheter clot or failure (2) ESRD (end stage renal disease) on dialysis (3) Hyperkalemia Surgical Problems: (1) History of knee surgery Surgical / Medical History Hx Cardiac Surgery: No Hx Abdominal Surgery: No Hx Cancer Surgery: No Hx Thoracic Surgery: No Hx Orthopedic: Yes (Left knee, right lower leg) Hx Urinary Tract Surgery: No HX Other Surgery: No Past Medical/Surgical History: Diabetes, Kidney Disease Family History Patient reports no known family medical history. Social History Smoking Status: Current Every Day Smoker Hx Tobacco Use In Past Year?: Yes Hx Alcohol Use - Type & Amnt: No Hx Substance Use -Type & Amnt: No Review of Systems Constitutional: No chills, No fever, No malaise Skin: No change in color Eyes: No visual changes ENMT: No sore throat Respiratory: No cough, No ROMERO, No short of breath Cardiovascular: No chest pain, No palpitations, No syncope, No edema, No intermittent claudication Gastrointestinal: No abdominal pain, No nausea, No vomiting Neurologic: No dizziness, No headache, No numbness, No tingling Physical Exam Constitutional: General Apperance: well-nourished, well-developed, obese Level of Distress: NAD Psychiatric: Mental Status: active & alert, normal mood, normal affect Orientation: oriented except where noted, to time, to place, to person Memory: recent memory normal, remote memory normal Head: normocephalic, atraumatic Eyes: EOM: EOMI ENMT: normal ENT inspection, hearing grossly normal Neck: supple, trachea midline Lungs: Respiratory effort: no dyspnea Auscultation: breath sounds normal, no wheezing, no rales/crackles, no rhonchi Cardiovascular: Apical Impulse: not displaced Heart Auscultation: RRR, no murmurs, no rubs, no gallops Peripheral Pulses: Pulses: full and equal, in all extremities except if noted Bruits: none appreciated Carotid Pulse: normal on the left, normal on the right Brachial Pulses: normal on the left, normal on the right Radial Pulse: normal on the left, normal on the right Femoral Pulse: normal on the left, normal on the right Posterior Tibialis Pulse: decreased on the left, decreased on the right Dorsalis Pedis Pulse: decreased on the left, decreased on the right Abdomen: Bowel Sounds: normal Inspection & Palpation: soft, non-distended, no tenderness, guarding & rebound Musculoskeletal: normal strength (5/5 throughout), normal tone Extremities: Upper Right: no cyanosis, no edema, no varicosities, good thrill in fistula Upper Left: no cyanosis, no edema, no varicosities Lower Right: no cyanosis, no edema, no varicosities Lower Left: no cyanosis, no edema, no varicosities Neurologic: Cranial Nerves: grossly intact Sensation: grossly intact Assessment and Plan Imp: ESRD on HD Functioning right arm fistula Plan: Pt admitted for removal of his permcath. I have discussed the risks options and benefits of the procedure with the patient. The patient understands the risks options and benefits and agrees to the procedure.
[2017-07-21 06:22] VITALS: BMI 47.0
[2017-07-21 06:29] VITALS: BP 139/76; PULSE 104; TEMP 36.7; O2SAT 96; Ht 177.8 cm; Wt 148.0 kg
[2017-07-21 07:37] LABS: INR 3.9 (0.9-1.1)
[2017-07-21 07:43] LABS: PTT PATIENT 52.4 SECONDS (21.0-31.0)
[2017-07-21 07:46] LABS: CALCIUM 8.3 mg/dl (8.5-10.1); CREATININE 11.3 mg/dl (0.60-1.40); POTASSIUM 4.8 mmol/L (3.5-5.1)
--- NOTE | 2017-07-21 07:56 | Progress Note ---
Progress Note Date of Service Jul 21, 2017. Progress Note INR 3.9 Will have to reschedule permcath removal
== END | disposition home or self-care (01) ==
LOC: C.ACU 06:09
PROVIDERS: ATTEND Surgery Vascular Surgery
DX: N18.6 End stage renal disease (principal); Z53.9 Procedure and treatment not carried out, unspecified reason

== ENCOUNTER 2017-07-28 06:07 | Day surgery (SDC) | payer OTHER, BC ==
[2017-07-27 10:16] VITALS: Ht 177.8 cm; Wt 148.0 kg
[~2017-07-28] VITALS: Ht 177.8 cm; Wt 148.0 kg
--- NOTE | 2017-07-28 05:51 | History and Physical ---
History & Physical Date of Service Jul 28, 2017. History & Physical Chief Complaint End stage renal disease, functioning fistula History of Present Illness The patient is a 36 year old male with hx of DMII and ESRD on HD, who had an insertion of a permcath Pt recently had RUE AV graft insertion and began use of the graft. The graft has subsequently thrombosed. It was declotted and again thrombosed and could not be salvaged. He had a new fistula placed which is working well. He is here for removal of his permcath. Pt denies BREEN, fever, chills, chest pain, SOB, abd pain, N/V, rest pain, claudication, other complaints. Allergies Coded Allergies: No Known Allergies (Unverified , 09/30/16) Home Medications Scheduled B-Complex W/ C & Folic Acid (Triphrocaps), 1 CAP PO DAILY Calcium Acetate (Phoslo 667 Mg), 667 MG PO WITH SNACKS Calcium Acetate (Phosphate Bin (Phoslo 667 Mg), 2,001 MG PO TIDM Calcium Carbonate (Antacid) (Tums E-X 750), 2,625 MG PO TIDM Cinacalcet Hydrochloride (Sensipar), 30 MG PO QPM Sevelamer Carbonate (Renvela), 3,200 MG PO TIDM Sevelamer Carbonate (Renvela), 2,400 MG PO WITH SNACKS Scheduled PRN [Hectoral], 1 DOSE IV 3XWK PRN for PER DIALYSIS Problem List Medical Problems: (1) Dialysis catheter clot or failure (2) ESRD (end stage renal disease) on dialysis (3) Hyperkalemia Surgical Problems: (1) History of knee surgery Surgical / Medical History Hx Cardiac Surgery: No Hx Abdominal Surgery: No Hx Cancer Surgery: No Hx Thoracic Surgery: No Hx Orthopedic: Yes (Left knee, right lower leg) Hx Urinary Tract Surgery: No HX Other Surgery: No Past Medical/Surgical History: Diabetes, Kidney Disease Family History Patient reports no known family medical history. Social History Smoking Status: Current Every Day Smoker Hx Tobacco Use In Past Year?: Yes Hx Alcohol Use - Type & Amnt: No Hx Substance Use -Type & Amnt: No Review of Systems Constitutional: No chills, No fever, No malaise Skin: No change in color Eyes: No visual changes ENMT: No sore throat Respiratory: No cough, No ROMERO, No short of breath Cardiovascular: No chest pain, No palpitations, No syncope, No edema, No intermittent claudication Gastrointestinal: No abdominal pain, No nausea, No vomiting Neurologic: No dizziness, No headache, No numbness, No tingling Physical Exam Constitutional: General Apperance: well-nourished, well-developed, obese Level of Distress: NAD Psychiatric: Mental Status: active & alert, normal mood, normal affect Orientation: oriented except where noted, to time, to place, to person Memory: recent memory normal, remote memory normal Head: normocephalic, atraumatic Eyes: EOM: EOMI ENMT: normal ENT inspection, hearing grossly normal Neck: supple, trachea midline Lungs: Respiratory effort: no dyspnea Auscultation: breath sounds normal, no wheezing, no rales/crackles, no rhonchi Cardiovascular: Apical Impulse: not displaced Heart Auscultation: RRR, no murmurs, no rubs, no gallops Peripheral Pulses: Pulses: full and equal, in all extremities except if noted Bruits: none appreciated Carotid Pulse: normal on the left, normal on the right Brachial Pulses: normal on the left, normal on the right Radial Pulse: normal on the left, normal on the right Femoral Pulse: normal on the left, normal on the right Posterior Tibialis Pulse: decreased on the left, decreased on the right Dorsalis Pedis Pulse: decreased on the left, decreased on the right Abdomen: Bowel Sounds: normal Inspection & Palpation: soft, non-distended, no tenderness, guarding & rebound Musculoskeletal: normal strength (5/5 throughout), normal tone Extremities: Upper Right: no cyanosis, no edema, no varicosities, good thrill in fistula Upper Left: no cyanosis, no edema, no varicosities Lower Right: no cyanosis, no edema, no varicosities Lower Left: no cyanosis, no edema, no varicosities Neurologic: Cranial Nerves: grossly intact Sensation: grossly intact Assessment and Plan Imp: ESRD on HD Functioning right arm fistula Plan: Pt admitted for removal of his permcath. I have discussed the risks options and benefits of the procedure with the patient. The patient understands the risks options and benefits and agrees to the procedure.
[~2017-07-28 06:07] MED LIST changes: -LACTATED RINGER'S 1000ML 1,000 ML IV SCH; +SODIUM CHLORIDE 0.9% 1000ML 1,000 ML IV SCH
[2017-07-28 06:50] VITALS: BP 82/53; PULSE 102; TEMP 36.8; O2SAT 97
[2017-07-28 07:03] LABS: INR 1.6 (0.9-1.1); PTT PATIENT 35.5 SECONDS (21.0-31.0)
[2017-07-28 07:24] LABS: CALCIUM 9.1 mg/dl (8.5-10.1); CREATININE 9.3 mg/dl (0.60-1.40); POTASSIUM 4.7 mmol/L (3.5-5.1)
[2017-07-28] MEDS ORDERED: LIDOCAINE HCL 1% 20 ML VIAL ONE (08:19)
[2017-07-28] MEDS ORDERED: LIDOCAINE HCL 1% 20 ML VIAL SQ ONE (08:30)
--- NOTE | 2017-07-28 08:34 | [facility] Operative Report ---
Operative Report Operative Date Jul 28, 2017. Pre-Operative Diagnosis Functioning Fistula Post-Operative Diagnosis Same Procedure(s) Performed Removal of Perm Catheter Surgeon Dr. Jefferson Pediatric Nurse Surgeon(s) None Estimated Blood Loss 0 Findings cuff and catheter removed Specimens A: Explant Perm Catheter Anesthesia Local Complication(s) None Disposition Indications Patient with functioning fistula. Here for permcath removal. I have discussed the risks options and benefits of the procedure with the patient. The patient understands the risks options and benefits and agrees to the procedure. Description of Procedure The patient was taken to the angio suite and placed in the supine position. The right side of the neck, chest wall and catheter were prepped and draped in a sterile manner. Local anesthesia was then accomplished. Using sharp and blunt dissection, the cuff of the permcath was freed up from the surrounding fibrous tissue. The permcath and cuff were completely removed. Pressure was then applied and adequate hemostasis was obtained. A sterile dressing was then applied. The patient left the angio suite in good condition and tolerated the procedure well. I attest to the content of the Intraoperative Record and any orders documented therein. Any exceptions are noted below.
--- NOTE | 2017-07-28 08:38 | Discharge Instructions ---
Discharge Instructions Date of Service Jul 28, 2017. Visit Reason for Visit: End Stage Renal Disease -Hemodialysis Functioning Discharge Discharge Diagnosis / Problem: Functioning fistula Discharge Goals Goal(s): Therapeutic intervention Activity Recommendations Activity Limitations: per Instructions/Follow-up section Anesthesia . Post Anesthesia Instructions: If you have had General Anesthesia or IV Sedation: * Do not drive today. * Resume driving when surgeon permits. * Do not make important decisions or sign legal documents today. * Call surgeon for: 1. Temperature elevations greater than 101 degrees F. 2. Uncontrollable pain. 3. Excessive bleeding. 4. Persistent nausea and vomiting. 5. Medication intolerance (nausea, vomiting or rash). * For nausea and vomiting use only clear liquids such as: tea, soda, bouillon until nausea subsides, then gradually increase diet as tolerated. * If you have any concerns or questions, call your surgeon's office. If physician is unavailable and it is an emergency, call 911 or go to the nearest emergency room. . Instructions / Follow-Up Instructions / Follow-Up Call [phone] to schedule a follow up appointment if one not already scheduled. SPECIAL CARE INSTRUCTIONS: Medications: * Continue to take your medications as directed. If you have been given a prescription for Plavix, please fill it immediately and take as directed. Incision Care: * Your puncture site may have some bruising and minor swelling for about one week. * You will have a small dressing covering your puncture site. You may remove the dressing after 24 hours and shower. You may let the warm soapy water run over it, but be sure to dry the puncture site well and keep it dry. * DO NOT IMMERSE THE INCISION IN A TUB/POOL/etc. UNTIL HEALED. * Puncture sites should be kept covered with a band-aid until it begins to heal. Restrictions: * Depending on whether you leg or arm was punctured to access the arteries, you will be required to lay flat, hold your arm still, or both, for about 4 hours after the procedure to prevent bleeding. * Limit your activity for the first 48 hours. You may walk and go up and down steps. Avoid excessive bending or movement at the puncture site. Possible Complications: * Excessive Swelling - after blood flow is improved you may notice increased swelling in the lower legs. This is a normal response. This usually depends on the amount of blockages in the leg, how long they have been there prior to your procedure and how much blood flow was restored. Elevating your legs will help to improve this. Please notify our office ([phone] ) if the swelling does not go away after lying in bed overnight. * Infection/Drainage/Bleeding - Drainage or bleeding from the puncture site should be minimal. If you have excessive bleeding or drainage, call our office ([phone]) right away. * Pain - You may experience some mild pain or soreness at your puncture site. If your pain does not improve, please contact our office ([phone]). Call your doctor and seek emergent treatment if you develop: * Temperature above 101 degrees * Any fever or chills * Any redness or purulent drainage from the puncture site * Any new dusky/blue colored toes or feet with coolness or sharp or aching pain. SKIN IRRITATION: * You may experience some redness and/or swelling in the area where radiation was administered. If any skin irritation occurs, please contact your family physician. FOLLOW UP VISIT: Keep any scheduled doctor appointments. Diet Recommendations Recommended Home Diet: resume previous diet Procedures Procedures Performed: Removal of Perm Catheter Pending Studies Studies pending at discharge: no Medical Emergencies . Who to Call and When: Medical Emergencies: If at any time you feel your situation is an emergency, please call 911 immediately. . Non-Emergent Contact Non-Emergency issues call your: Surgeon . . "Provider Documentation" section prepared by Antwan Jefferson. .
[2017-07-28 08:40] VITALS: BP 112/50; PULSE 95; TEMP 36.7; O2SAT 98
[2017-07-28 09:10] VITALS: BP 141/51; PULSE 95; TEMP 36.7; O2SAT 98
== END 2017-07-28 09:35 | disposition home or self-care (01) ==
LOC: C.ACU 06:07
PROVIDERS: ATTEND Surgery Vascular Surgery
DX: Z45.2 Encounter for adjustment and management of vascular access device (principal); N18.6 End stage renal disease; E11.22 Type 2 diabetes mellitus with diabetic chronic kidney disease; Z99.2 Dependence on renal dialysis; Z98.890 Other specified postprocedural states; F17.200 Nicotine dependence, unspecified, uncomplicated

== ENCOUNTER 2017-09-04 09:18 | Inpatient (IN) | payer OTHER, BC ==
[~2017-09-04] VITALS: Ht 177.8 cm; Wt 143.9 kg
[~2017-09-04 09:18] MED LIST changes: -B-COCAP28 PO; -CALC1CHW43 PO; -CALC667C PO; -CALC667C4 PO; -ERGO500011 PO; -PATI1POW PO; -SODIUM CHLORIDE 0.9% 1000ML 1,000 ML IV SCH; -[UNRECOGNIZED DRUG - CODE]
[2017-09-04] MEDS ORDERED: WARF5TAB7 PO (09:40)
[2017-09-04] MEDS ORDERED: HYDROmorphone INJ 1 MG/ML SYR IV STA (10:19)
[2017-09-04] MEDS ORDERED: ONDANSETRON INJ 2 MG/ML 2 ML VIAL IV STA (10:19)
[2017-09-04] MEDS ORDERED: CEFTRIAXONE SOD INJ 1 GM ADDVIAL IV STA (10:23)
[2017-09-04] MEDS ORDERED: VANCOMYCIN INJ 2,750 MG in SODIUM CHLORIDE 0.9% 500ML 500 ML IV STA (10:44)
[2017-09-04] MEDS ORDERED: VANCOMYCIN CONSULT ACTIVE PRN ×2 (10:45→14:45)
[2017-09-04 10:47] LABS: BASO % 0.2 %; BASO ABS # 0.03 K/uL (0-0.2); EOS ABS # 0.15 K/uL (0-0.5); HEMATOCRIT 36.1 % (42-52); HEMOGLOBIN 11.6 g/dL (14.0-18.0); IG# 0.05 K/uL (0.00-0.02); LYMPH % 13.8 %; LYMPH ABS # 2.12 K/uL (1.2-3.4); MEAN CELL VOLUME 96.5 fL (80-100); MEAN CORPUSCULAR HGB CONC 32.1 g/dl (32-36); MEAN PLATELET VOLUME 9.7 fL (7.4-10.4); MONO % 7.9 %; MONO ABS # 1.21 K/uL (0.11-0.59); NEUT % 76.8 %; NEUT ABS # 11.85 K/uL (1.4-6.5); PLATELET COUNT 268 K/uL (130-400); RED CELL DISTRIBUTION WIDTH CV 17.2 % (11.5-14.5); RED CELL DISTRIBUTION WIDTH SD 60.9 fL (36.4-46.3); WHITE BLOOD COUNT 15.41 K/uL (4.8-10.8)
[2017-09-04 10:55] LABS: INR 1.3 (0.9-1.1); PTT PATIENT 41.3 SECONDS (21.0-31.0)
[2017-09-04] MEDS ORDERED: PATI1POW PO (11:01)
[2017-09-04 11:14] LABS: CALCIUM 9.1 mg/dl (8.5-10.1); CREATININE 11.8 mg/dl (0.60-1.40); POTASSIUM 4.7 mmol/L (3.5-5.1); TOTAL PROTEIN 8.5 gm/dl (6.4-8.2)
--- NOTE | 2017-09-04 12:24 | DIAGNOSTIC IMAGING REPORT ---
HEMODIALYSIS ACCESS RIGHT UPPER EXTREMITY DUPLEX ULTRASOUND CLINICAL HISTORY: EVAL RUE PAIN/REDNESS/SWELLING COMPARISON STUDY: No previous studies for comparison. FINDINGS: There is an old occluded dialysis graft extending from the antecubital fossa to the proximal upper arm. Surrounding this occluded graft is fluid collection. The fluid collection measures 11.5 cm in craniocaudad distance and measures approximately 4.5 cm cross-sectionally. Adjacent to the occluded graft is a patent dialysis graft. The brachial and basilic veins appear patent. IMPRESSION: 1. Complex fluid collection surrounding an occluded right upper arm dialysis graft. The fluid collection extends over craniocaudad distance of 11.5 cm. 2. Lateral to the occluded graft is a second hemodialysis graft, which is patent. Electronically signed by: Aakash Chiu M.D. 09/04/2017 12:23 PM Dictated Date/Time: 09/04/2017 12:19 PM
[2017-09-04 13:13] VITALS: O2SAT 96; BMI 46.5
--- NOTE | 2017-09-04 13:15 | EMERGENCY ROOM VISIT NOTE ---
ED Visit Note First contact with patient: 09:31 Staff note: I have reviewed the Patients chart and have discussed this case with my PA. I generally agree with the ED note and findings.
[2017-09-04] MEDS ORDERED: CALC667C4 PO (13:48)
[2017-09-04] MEDS ORDERED: CALC1CHW43 PO (13:48)
--- NOTE | 2017-09-04 14:51 | History and Physical ---
History & Physical Date & Time of Service: Sep 04, 2017 at 14:50 Chief Complaint: Right Arm Pain Swollen Primary Care Physician: Ignacia ContrerasPHanhAHanh History of Present Illness Source: patient, family, clinic records, hospital records 37-year-old white male with past medical history significant for end-stage renal disease on hemodialysis on MWF, clot in the renal dialysis AV graft back in June on coumadin after he had parathyroidectomy surgery performed in [place], present to the ED with his father for pain and erythema of right upper arm. Pt said that on Monday night, he developed pain in the Right upper arm. He said that the next day the pain got worst associated with swelling. She said that she took tylenol and tramadol and applied a heating pad on the area yesterday. He said that today the pain and swelling got worst associated with erythema. He said that he went to work this morning and he was sent home because he was not able to work due to the pain. He went to his HD center and they contacted dr. Jefferson and was advised to go to the ER for eval. Pt did not have any dialysis today. Denies any chest pain, palpitation, dizziness, chills, fever, nausea and SOB. Past Medical/Surgical History Medical Problems: (1) Clotted renal dialysis AV graft Status: Resolved (2) Complications, dialysis, catheter, mechanical Status: Resolved (3) Diabetes Status: Chronic (4) End stage renal failure on dialysis Status: Resolved (5) ESRD (end stage renal disease) on dialysis Permanent Comment: s/p traumatic injury to kidneys as a child Status: Chronic (6) Hyperparathyroidism, Unspecified Status: Chronic (7) Hypertension Nos Status: Chronic (8) Malfunction of arteriovenous dialysis fistula Status: Resolved (9) Morbid Obesity Status: Chronic (10) Vascular dialysis catheter in place Status: Resolved Surgical Problems: (1) H/O parathyroidectomy Status: Resolved (2) History of knee surgery Permanent Comment: L knee Status: Resolved Family History FH: Alzheimers disease GRANDMOTHER Social History Smoking Status: Current Every Day Smoker Occupational Status: employed Immunizations History of Influenza Vaccine: Yes Influenza Vaccine Date: Mar 28, 2016 History of Tetanus Vaccine?: Yes Tetanus Immunization Date: Mar 08, 2012 History of Pneumococcal: Yes Pneumococcal Date: Mar 02, 2012 Allergies Coded Allergies: Oxycodone (Verified Adverse Reaction, Intermediate, GI SYMPTOMS, 2/19/18) Home Medications Scheduled B-Complex W/ C & Folic Acid (Triphrocaps), 1 CAP PO QAM Calcium Acetate (Phosphate Bin (Phoslo 667 Mg), 2 TABS PO TIDM Calcium Carbonate (Antacid) (Tums E-X 750), 3.5 TABS PO QID Doxercalciferol (Hectorol), 1 ML 3XWK Ergocalciferol (Vitamin D 09190 Unit), 1 TAB PO MONTHLY Patiromer Sorbitex Calcium (Veltassa), 1 DOSE PO QPM Sevelamer Carbonate (Renvela), 5 TABS PO TIDM Sevelamer Carbonate (Renvela), 3 TABS PO WITH SNACKS Sodium Polystyrene Sulfonate (Kayexalate Susp), 30 ML PO DAILY Warfarin Sod (Jantoven), 2.5 MG PO 4XWK Warfarin Sodium (Coumadin), 5 MG PO 3XWK Review of Systems Constitutional: No fever, No chills, No weakness Eyes: No worsening of vision, No eye pain ENT: No hearing loss, No nasal symptoms, No sore throat Respiratory: No cough, No sputum, No wheezing, No shortness of breath Cardiovascular: No chest pain, No orthopnea, No claudication, No palpitations Abdomen: No pain, No nausea, No vomiting Musculoskeletal: No calf pain Genitourinary - Male: No hematuria Neurologic: No memory loss, No numbness/tingling Psychiatric: No depression symptoms, No substance abuse Endocrine: No fatigue Hematologic / Lymphatic: No clotting problems, No night sweats Integumentary: No rash, No itch Physical Exam Vital Signs Date Time Temp Pulse Resp B/P (MAP) Pulse Ox O2 Delivery O2 Flow Rate FiO2 09/04/17 13:49 89 20 125/73 94 Room Air 09/04/17 13:13 96 Room Air 09/04/17 12:50 102 18 159/92 93 Room Air 09/04/17 11:55 107 83/53 96 Room Air 09/04/17 11:00 103 18 135/76 96 Room Air 09/04/17 09:29 36.8 101 18 125/81 96 Room Air General Appearance: WD/WN, no apparent distress Head: normocephalic, atraumatic Eyes: normal inspection, PERRL, EOMI ENT: normal ENT inspection, hearing grossly normal Neck: supple, no JVD Respiratory/Chest: lungs clear, normal breath sounds, no accessory muscle use Cardiovascular: regular rate, rhythm, no JVD Abdomen/GI: normal bowel sounds, non tender Back: normal inspection, no CVA tenderness Extremities/Musculoskelatal: no calf tenderness, + pertinent finding (RUE redness/tenderness/ warm and swelling) Neurologic/Psych: no motor/sensory deficits, alert, normal mood/affect, oriented x 3 Skin: normal color, warm/dry Diagnostics Laboratory Results Results Past 24 Hours Test 09/04/17 10:30 Range/Units White Blood Count 15.41 4.8-10.8 K/uL Red Blood Count 3.74 4.7-6.1 M/uL Hemoglobin 11.6 14.0-18.0 g/dL Hematocrit 36.1 42-52 % Mean Corpuscular Volume 96.5 80-100 fL Mean Corpuscular Hemoglobin 31.0 25-34 pg Mean Corpuscular Hemoglobin Concent 32.1 32-36 g/dl Platelet Count 268 130-400 K/uL Mean Platelet Volume 9.7 7.4-10.4 fL Neutrophils (%) (Auto) 76.8 % Lymphocytes (%) (Auto) 13.8 % Monocytes (%) (Auto) 7.9 % Eosinophils (%) (Auto) 1.0 % Basophils (%) (Auto) 0.2 % Neutrophils # (Auto) 11.85 1.4-6.5 K/uL Lymphocytes # (Auto) 2.12 1.2-3.4 K/uL Monocytes # (Auto) 1.21 0.11-0.59 K/uL Eosinophils # (Auto) 0.15 0-0.5 K/uL Basophils # (Auto) 0.03 0-0.2 K/uL RDW Standard Deviation 60.9 36.4-46.3 fL RDW Coefficient of Variation 17.2 11.5-14.5 % Immature Granulocyte % (Auto) 0.3 % Immature Granulocyte # (Auto) 0.05 0.00-0.02 K/uL Prothrombin Time 13.4 9.0-12.0 SECONDS Prothromb Time International Ratio 1.3 0.9-1.1 Activated Partial Thromboplast Time 41.3 21.0-31.0 SECONDS Partial Thromboplastin Ratio 1.6 Sodium Level 135 136-145 mmol/L Potassium Level 4.7 3.5-5.1 mmol/L Chloride Level 95 98-107 mmol/L Carbon Dioxide Level 21 21-32 mmol/L Anion Gap 19.0 3-11 mmol/L Blood Urea Nitrogen 86 7-18 mg/dl Creatinine 11.80 0.60-1.40 mg/dl Est Creatinine Clear Calc Drug Dose 12.4 ml/min Estimated GFR () 5.6 Estimated GFR (Non- 4.8 BUN/Creatinine Ratio 7.3 10-20 Random Glucose 70 70-99 mg/dl Calcium Level 9.1 8.5-10.1 mg/dl Total Bilirubin 0.3 0.2-1 mg/dl Aspartate Amino Transf (AST/SGOT) 19 15-37 U/L Alanine Aminotransferase (ALT/SGPT) 38 12-78 U/L Alkaline Phosphatase 82 45-117 U/L Total Protein 8.5 6.4-8.2 gm/dl Albumin 3.0 3.4-5.0 gm/dl Globulin 5.5 2.5-4.0 gm/dl Albumin/Globulin Ratio 0.5 0.9-2 Microbiology Results 09/04/17 Blood Culture, Received Pending 09/04/17 Blood Culture, Received Pending Diagnostic Radiology HEMODIALYSIS ACCESS RIGHT UPPER EXTREMITY DUPLEX ULTRASOUND CLINICAL HISTORY: EVAL RUE PAIN/REDNESS/SWELLING COMPARISON STUDY: No previous studies for comparison. FINDINGS: There is an old occluded dialysis graft extending from the antecubital fossa to the proximal upper arm. Surrounding this occluded graft is fluid collection. The fluid collection measures 11.5 cm in craniocaudad distance and measures approximately 4.5 cm cross-sectionally. Adjacent to the occluded graft is a patent dialysis graft. The brachial and basilic veins appear patent. IMPRESSION: 1. Complex fluid collection surrounding an occluded right upper arm dialysis graft. The fluid collection extends over craniocaudad distance of 11.5 cm. 2. Lateral to the occluded graft is a second hemodialysis graft, which is patent. Impression Assessment and Plan Right UE Cellulitis at the area of AV graft Present with Right upper arm erythema/tenderness/swelling Meet SIRS criteria with elevated WBC and Tachycardia Afebrile U/S showed complex fluid collection surrounding an occluded right upper arm dialysis graft. The fluid collection extends over craniocaudad distance of 11.5 cm.Lateral to the occluded graft is a second hemodialysis graft, which is patent. Received Rocephin and Vanco in the ER Will continue empirical abx Blood cx collected in the ER pending' Vascular consulted Case discussed with that will see pt in consult Will make NPO in am, in case if pt need any procedure Continue Monitor ESRD ON HD ON MWF No HD done today No signs of fluid overload Nephro on board Case discussed with Nephro Dr. Stoddard Will plan to dialyse after vascular eval in am Continue monitor Recent clot in the renal dialysis AV graft Occurs in Dec after undergoing parathyroidectomy surgery INR is 1.3 Since INR is not therapeutic, will dose for Coumadin today If plan for vascular surgery, will hold coumadin if INR therapeutic Tobacco abuse Counseling smoking cessation declined nicotine patch HTN BP stable DVT px on coumadin but INR subtherapeutic Will add heparin sub for now. CODE STATUS FULL CODE Level of Care Med/Surg Advanced Directives Existing Living Will: No Existing Power of Patent Examiner: No Resuscitation Status FULL RESUSCITATION VTE Prophylaxis VTE Risk Assessment Done? Y/N: Yes Risk Level: Moderate Given or contraindicated: Unfractionated heparin SQ, Warfarin (Coumadin)
[2017-09-04] MEDS ORDERED: SEVELAMER HYDROCH 800 MG TAB PO PRN (15:00)
[2017-09-04] MEDS ORDERED: ACETAMINOPHEN 500 MG TAB PO STA (15:05)
--- NOTE | 2017-09-04 15:09 | Pharmacy Progress Note ---
Pharmacy Abx Initial Consult Date of Service Sep 04, 2017. Pharmacy Dosing Scope Date of Consult: 09/04/17 Consultation requested by: Dr. Damon Pharmacy is consulted to initiate vancomycin IV dosing therapy, order appropriate labs and adjust drug dose/frequency. Subjective The patient is a 37 year old male admitted on 09/04/17. Objective Height (Feet): 5 Height (Inches): 10.00 Weight (Kilograms): 146.900 Vital Signs (Past 12Hrs) Vital Signs Past 12 Hours Date Time Temp Pulse Resp B/P (MAP) Pulse Ox O2 Delivery O2 Flow Rate FiO2 09/04/17 13:49 89 20 125/73 94 Room Air 09/04/17 13:13 96 Room Air 09/04/17 12:50 102 18 159/92 93 Room Air 09/04/17 11:55 107 83/53 96 Room Air 09/04/17 11:00 103 18 135/76 96 Room Air 09/04/17 09:29 36.8 101 18 125/81 96 Room Air Lab Results (24Hrs) Laboratory Tests (24 Hours) Test 09/04/17 10:30 White Blood Count 15.41 K/uL (4.8-10.8) H Red Blood Count 3.74 M/uL (4.7-6.1) L Hemoglobin 11.6 g/dL (14.0-18.0) L Hematocrit 36.1 % (42-52) L Mean Corpuscular Volume 96.5 fL (80-100) Mean Corpuscular Hemoglobin 31.0 pg (25-34) Mean Corpuscular Hemoglobin Concent 32.1 g/dl (32-36) Platelet Count 268 K/uL (130-400) Mean Platelet Volume 9.7 fL (7.4-10.4) Neutrophils (%) (Auto) 76.8 % Lymphocytes (%) (Auto) 13.8 % Monocytes (%) (Auto) 7.9 % Eosinophils (%) (Auto) 1.0 % Basophils (%) (Auto) 0.2 % Neutrophils # (Auto) 11.85 K/uL (1.4-6.5) H Lymphocytes # (Auto) 2.12 K/uL (1.2-3.4) Monocytes # (Auto) 1.21 K/uL (0.11-0.59) H Eosinophils # (Auto) 0.15 K/uL (0-0.5) Basophils # (Auto) 0.03 K/uL (0-0.2) Micro Results Date/Time Source Procedure Growth Status 09/04/17 10:30 Blood Blood Culture Pending Received 09/04/17 10:30 Blood Blood Culture Pending Received Risk Factors for Resistance * Chronic dialysis within the past 30 days Assessment & Plan Assessment 37 year old male with a PMH of dialysis on MWF (no dialysis today yet), DM, and recent upper extremity clot who presents with a possible AV fistula infection. No history of MRSA. Plan vancomycin for treatment of port infection Vancomycin IV * Loading dose: 2750 mg (18.7 mg/kg) * If dialysis is given, give additional vancomycin 1 gm IV x 1 tonight. if NO DIALYSIS then no additional doses necessary * Goal trough level for fistula infection : 15 to 20 mcg/mL * Random level ordered for 09/05/17 * A less than traditional dose and extended dosing interval have been selected due to likelihood of drug accumulation in obese patient and patient with h/o CKD. Pharmacy will continue to follow and will adjust dose/frequency as necessary. Thank you.
[2017-09-04] MEDS: ACETAMINOPHEN 325 MG TAB PO PRN (15:10)
[2017-09-04] MEDS ORDERED: [UNRECOGNIZED DRUG - CODE] (15:29)
[2017-09-04] MEDS ORDERED: ERGO500011 PO (15:47)
[2017-09-04] MEDS ORDERED: WARFARIN SOD 5 MG TAB PO SCH (16:00)
--- NOTE | 2017-09-04 16:54 | EMERGENCY ROOM VISIT NOTE ---
History First contact with patient: 09:31 Chief Complaint: ARM PAIN Stated Complaint: RIGHT ARM PAIN SWOLLEN History of Present Illness Patient is a left-hand dominant 37-year-old white male with past medical history significant for end-stage renal disease on hemodialysis every Monday and Monday, who presents to the emergency department accompanied by his father for evaluation of pain, redness and swelling in his right upper arm. The patient has an AV fistula with a bovine graft in the right biceps region. He has had multiple graft procedures on the right upper extremity, most recent to create the present fistula was 06/12/2017. Patient reports that he has been using the fistula for dialysis since, without any problems. His fistula was accessed for dialysis on Monday, 09/01, without any problems or complications. He states that Monday, 09/02, in the evening, he noted the sudden onset of right upper arm achiness. It was located in the biceps region, primarily anteriorly. He states that he had pain in the arm when he moves his elbow and shoulder. He noticed progressively worsening redness and swelling yesterday. He tried taking Tylenol, an unknown narcotic medication, and applying a heating pad to the area, all without relief. He states that the pain made it difficult for him to sleep. He notes stiffness in the arm. He reports that he went to work this morning, but was sent home because he was unable to work with his arm pain. He stopped at his dialysis site, and the evaluated the arm. They stated that they could still feel the thrill in the fistula, but contacted his vascular surgeon, Dr. Jefferson, who advised that he come to the emergency department for evaluation. The patient denies any fever or chills, no nausea, vomiting, fatigue or malaise. He denies any prior history of skin infections or abscesses, and denies a known history of MRSA. He does have a prior history of a DVT in the right upper extremity, this was apparently surrounding a recent parathyroidectomy performed in [place]. He has been on Coumadin since the end of June 2017. His last INR was 1.7 about 10 days ago. Review of Systems Review of systems as per HPI. All other systems reviewed were negative. 10 systems reviewed. Past Medical/Surgical History Medical Problems: (1) Cellulitis of right upper extremity (2) Clotted renal dialysis AV graft (3) Complications, dialysis, catheter, mechanical (4) Diabetes (5) End stage renal failure on dialysis (6) ESRD (end stage renal disease) on dialysis (7) Hyperparathyroidism, Unspecified (8) Hypertension Nos (9) Malfunction of arteriovenous dialysis fistula (10) Morbid Obesity (11) Vascular dialysis catheter in place Surgical Problems: (1) H/O parathyroidectomy (2) History of knee surgery Electronic medical records are reviewed and summarized as above/below. See Problem List. Family History FH: Alzheimers disease GRANDMOTHER Social History Smoking Status: Current Every Day Smoker Alcohol Use: none Occupation Status: employed Current/Historical Medications Scheduled B-Complex W/ C & Folic Acid (Triphrocaps), 1 CAP PO QAM Calcium Acetate (Phosphate Bin (Phoslo 667 Mg), 2 TABS PO TIDM Calcium Carbonate (Antacid) (Tums E-X 750), 3.5 TABS PO QID Doxercalciferol (Hectorol), 1 ML 3XWK Ergocalciferol (Vitamin D 03349 Unit), 1 TAB PO MONTHLY Patiromer Sorbitex Calcium (Veltassa), 1 DOSE PO QPM Sevelamer Carbonate (Renvela), 5 TABS PO TIDM Sevelamer Carbonate (Renvela), 3 TABS PO WITH SNACKS Sodium Polystyrene Sulfonate (Kayexalate Susp), 30 ML PO DAILY Warfarin Sod (Jantoven), 2.5 MG PO 4XWK Warfarin Sodium (Coumadin), 5 MG PO 3XWK Physical Exam Vital Signs Date Time Temp Pulse Resp B/P (MAP) Pulse Ox O2 Delivery O2 Flow Rate FiO2 09/04/17 16:46 71 16 111/40 94 Room Air 09/04/17 15:00 115 18 105/52 93 Room Air 09/04/17 13:49 89 20 125/73 94 Room Air 09/04/17 13:13 96 Room Air 09/04/17 12:50 102 18 159/92 93 Room Air 09/04/17 11:55 107 83/53 96 Room Air 09/04/17 11:00 103 18 135/76 96 Room Air 09/04/17 09:29 36.8 101 18 125/81 96 Room Air Physical Exam CONSTITUTIONAL: Patient is a morbidly obese 37-year-old white male who is awake and alert and in no acute distress. Vital signs are stable. HEENT: Normocephalic, atraumatic. Pupils equal, round, reactive to light and accommodation. EOMs intact without nystagmus. Sclera are anicteric. Tympanic membranes intact, with normal landmarks. External canals are clear. Oral and nasopharynx are clear. Mucous membranes are moist. CARDIOVASCULAR: Regular rate and rhythm. RESPIRATORY: Breath sounds equal and clear to auscultation without wheezes, rales, or rhonchi heard. Full and equal chest expansion without accessory muscle use or retractions. EXTREMITIES: Examination of the right arm show multiple well-healed surgical scars. In the biceps region, the patient has 2 scabbed over areas overriding the palpable thrill of his fistula consistent with dialysis access. The entire right upper arm, primarily anteriorly over the biceps is erythematous, indurated , and moderately tender to palpation, consistent with cellulitis. He has a palpable thrill over the fistula. There is no lymphangitic streaking palpable. No axillary lymphadenopathy noted. There is no pointing or fluctuance appreciated. LYMPH: No lymphadenopathy. Medical Decision & Procedures ER Provider Diagnostic Interpretation: HEMODIALYSIS ACCESS RIGHT UPPER EXTREMITY DUPLEX ULTRASOUND CLINICAL HISTORY: EVAL RUE PAIN/REDNESS/SWELLING COMPARISON STUDY: No previous studies for comparison. FINDINGS: There is an old occluded dialysis graft extending from the antecubital fossa to the proximal upper arm. Surrounding this occluded graft is fluid collection. The fluid collection measures 11.5 cm in craniocaudad distance and measures approximately 4.5 cm cross-sectionally. Adjacent to the occluded graft is a patent dialysis graft. The brachial and basilic veins appear patent. IMPRESSION: 1. Complex fluid collection surrounding an occluded right upper arm dialysis graft. The fluid collection extends over craniocaudad distance of 11.5 cm. 2. Lateral to the occluded graft is a second hemodialysis graft, which is patent. Laboratory Results 09/04/17 10:30 Red Blood Count 3.74, Mean Corpuscular Volume 96.5, Mean Corpuscular Hemoglobin 31.0, Mean Corpuscular Hemoglobin Concent 32.1, Mean Platelet Volume 9.7, Neutrophils (%) (Auto) 76.8, Lymphocytes (%) (Auto) 13.8, Monocytes (%) (Auto) 7.9, Eosinophils (%) (Auto) 1.0, Basophils (%) (Auto) 0.2, Neutrophils # (Auto) 11.85, Lymphocytes # (Auto) 2.12, Monocytes # (Auto) 1.21, Eosinophils # (Auto) 0.15, Basophils # (Auto) 0.03 09/04/17 10:30 Test 09/04/17 10:30 White Blood Count 15.41 K/uL (4.8-10.8) Red Blood Count 3.74 M/uL (4.7-6.1) Hemoglobin 11.6 g/dL (14.0-18.0) Hematocrit 36.1 % (42-52) Mean Corpuscular Volume 96.5 fL (80-100) Mean Corpuscular Hemoglobin 31.0 pg (25-34) Mean Corpuscular Hemoglobin Concent 32.1 g/dl (32-36) Platelet Count 268 K/uL (130-400) Mean Platelet Volume 9.7 fL (7.4-10.4) Neutrophils (%) (Auto) 76.8 % Lymphocytes (%) (Auto) 13.8 % Monocytes (%) (Auto) 7.9 % Eosinophils (%) (Auto) 1.0 % Basophils (%) (Auto) 0.2 % Neutrophils # (Auto) 11.85 K/uL (1.4-6.5) Lymphocytes # (Auto) 2.12 K/uL (1.2-3.4) Monocytes # (Auto) 1.21 K/uL (0.11-0.59) Eosinophils # (Auto) 0.15 K/uL (0-0.5) Basophils # (Auto) 0.03 K/uL (0-0.2) RDW Standard Deviation 60.9 fL (36.4-46.3) RDW Coefficient of Variation 17.2 % (11.5-14.5) Immature Granulocyte % (Auto) 0.3 % Immature Granulocyte # (Auto) 0.05 K/uL (0.00-0.02) Prothrombin Time 13.4 SECONDS (9.0-12.0) Prothromb Time International Ratio 1.3 (0.9-1.1) Activated Partial Thromboplast Time 41.3 SECONDS (21.0-31.0) Partial Thromboplastin Ratio 1.6 Anion Gap 19.0 mmol/L (3-11) Est Creatinine Clear Calc Drug Dose 12.4 ml/min Estimated GFR () 5.6 Estimated GFR (Non- 4.8 BUN/Creatinine Ratio 7.3 (10-20) Calcium Level 9.1 mg/dl (8.5-10.1) Total Bilirubin 0.3 mg/dl (0.2-1) Aspartate Amino Transf (AST/SGOT) 19 U/L (15-37) Alanine Aminotransferase (ALT/SGPT) 38 U/L (12-78) Alkaline Phosphatase 82 U/L (45-117) Total Protein 8.5 gm/dl (6.4-8.2) Albumin 3.0 gm/dl (3.4-5.0) Globulin 5.5 gm/dl (2.5-4.0) Albumin/Globulin Ratio 0.5 (0.9-2) Medications Administered Medications (Trade) Dose Ordered Sig/Otilia Route Start Time Stop Time Status Last Admin Dose Admin Hydromorphone HCl (Dilaudid Inj) 1 mg NOW STAT IV 09/04/17 10:19 09/04/17 10:21 DC 09/04/17 11:00 1 MG Ondansetron HCl (Zofran Inj) 4 mg NOW STAT IV 09/04/17 10:19 09/04/17 10:21 DC 09/04/17 10:59 4 MG Ceftriaxone Sodium (Rocephin Inj) 1 gm NOW STAT IV 09/04/17 10:23 09/04/17 10:25 DC 09/04/17 11:00 1 GM Vancomycin HCl 2750 mg/Sodium Chloride 555 ml @ 200 mls/hr ONE STAT IV 09/04/17 10:44 09/04/17 13:30 DC 09/04/17 12:12 200 MLS/HR Acetaminophen (Tylenol Tab) 650 mg Q4H PRN PO 09/04/17 14:30 10/04/17 14:29 09/04/17 15:10 650 MG ED Course The patient was seen and assessed as above. His old records were reviewed. History and presentation were reviewed with attending physician, and ED workup was agreed upon. IV lock was initiated and laboratory studies were collected. CBC with differential, PT/INR, CMP and blood cultures 2 were collected. The patient was medicated with Dilaudid 1 mg and Zofran 4 mg IV for pain. Ultrasound of the right upper extremity was performed to evaluate the fistula and for infection. The patient was given ceftriaxone 1 g IV and vancomycin 2750 mg IV empirically. Laboratory studies noted a leukocytosis of 15,400 with left shift and bandemia. H&H 11.6 and 36.1, platelet count 260,000, INR is subtherapeutic at 1.3. Electrolytes sodium 135, potassium 4.7, chloride 95, carbon dioxide 21, BUN 86 and creatinine 11.8. LFTs are without significant abnormality. Ultrasound of the right upper extremity noted a complex fluid collection surrounding an occluded right upper arm dialysis graft. The fluid collection measures 11.5 cm in length, and roughly 4.5 cm in width. Lateral to the occluded graft is a second patent hemodialysis graft. All laboratory and diagnostic imaging studies were reviewed with attending physician, and with the support services manager. I did discuss the patient's presentation with his vascular surgeon, Dr. Jefferosn. Given the extensive cellulitis of the right upper extremity complicated by the patient's dialysis fistula and other comorbidities, it was felt that admission/observation was warranted. [facility] and [facility] Please refer to admission orders for further information. Differential diagnoses entertained included cellulitis, abscess, upper extremity DVT, thrombosed fistula, among others. Medical Decision See ED Course. Medication Reconcilliation Current Medication List: was personally reviewed by me Blood Pressure Screening Patient's blood pressure: Normal blood pressure Blood pressure disposition: Did not require urgent referral Impression Primary Impression: Cellulitis of right upper extremity Departure Information Referrals No Doctor, Assigned (PCP) Patient Instructions My [facility]
[2017-09-04] MEDS ORDERED: VANCOMYCIN INJ 1,000 MG in SODIUM CHLORIDE 0.9% 250ML 250 ML IV PRN (18:00)
[2017-09-04] MEDS: CALCIUM CARBONATE 500 MG CHEWABLE PO SCH ×2 (18:29→20:56)
[2017-09-04] MEDS: SEVELAMER HYDROCH 800 MG TAB PO SCH (18:31)
[2017-09-04] MEDS: CALCIUM ACETATE 667MG GELCAP PO SCH (18:31)
[2017-09-04] MEDS ORDERED: SEVE800T7 PO (19:14)
[2017-09-04] MEDS: PATIROMER SORBITEX CALCIUM PO SCH (20:56)
[2017-09-04] MEDS ORDERED: B-COCAP28 PO (21:27)
[2017-09-04] MEDS ORDERED: CALC667C PO (21:27)
[2017-09-04 23:25] VITALS: BP 97/62; PULSE 111; TEMP 37.1; O2SAT 95
[2017-09-05] VITALS (23 sets, daily range): BP systolic 73–126; BP diastolic 30–57; PULSE 93–114; TEMP 36.7–37.5; O2SAT 91–99; BMI 46.0
[2017-09-05 05:53] LABS: HEMATOCRIT 32.2 % (42-52); HEMOGLOBIN 10.5 g/dL (14.0-18.0); MEAN CELL VOLUME 95.8 fL (80-100); MEAN CORPUSCULAR HEMOGLOBIN 31.3 pg (25-34); MEAN CORPUSCULAR HGB CONC 32.6 g/dl (32-36); MEAN PLATELET VOLUME 9.4 fL (7.4-10.4); PLATELET COUNT 261 K/uL (130-400); RED CELL DISTRIBUTION WIDTH CV 17.1 % (11.5-14.5); RED CELL DISTRIBUTION WIDTH SD 59.8 fL (36.4-46.3); WHITE BLOOD COUNT 13.07 K/uL (4.8-10.8)
[2017-09-05 06:20] LABS: INR 1.4 (0.9-1.1)
[2017-09-05 06:29] LABS: CALCIUM 8.8 mg/dl (8.5-10.1); CREATININE 13.8 mg/dl (0.60-1.40); PHOSPHORUS 7.8 mg/dl (2.5-4.9); POTASSIUM 5.7 mmol/L (3.5-5.1)
[2017-09-05] MEDS ORDERED: HEPARIN SOD 5000 UNIT/0.5 ML CARP SQ SCH (09:00)
[2017-09-05] MEDS ORDERED: CEFTRIAXONE SOD INJ 1 GM ADDVIAL IV SCH (09:00)
[2017-09-05] MEDS ORDERED: SODIUM POLYST. SULF SUSP 15G/60ML PO SCH (09:00)
[2017-09-05] MEDS ORDERED: NEPHROCAPS PO SCH (09:00)
[2017-09-05] MEDS: CALCIUM CARBONATE 500 MG CHEWABLE PO SCH ×4 (09:47→21:06)
[2017-09-05] MEDS: CALCIUM ACETATE 667MG GELCAP PO SCH ×3 (09:52→19:10)
[2017-09-05] MEDS: SEVELAMER HYDROCH 800 MG TAB PO SCH ×3 (09:53→19:10)
[2017-09-05] MEDS ORDERED: CEFTRIAXONE SOD INJ 1000 MG in DEXTROSE 5% 50ML IV SCH (10:00)
--- NOTE | 2017-09-05 10:00 | Nephrology Consultation ---
Nephrology Consultation Date of Consultation: Sep 05, 2017. Attending Physician: Dr Damon Requesting Physician: Dr Damon Reason for Consultation: pain, redness in vascular access arm History of Present Illness 37 year old male w/ ESRD on MWF HD via AVG admitted w/ AVG infection. PMH includes ESRD under my care at [facility], severe hyperparathyroidism s/p multiple parathyroidectomies and on aggressive medications, chronic and recurrent vascular access issues requiring multiple interventions, obesity, chronic hypotension. He began having R upper arm pain on 09/02, then on 09/03 in evening he noted redness and more pain w/ stiff / increasingly swollen fingers. he has has had no fever. B/c of his size and his chronic vascular issues, he is on maximal daily doses of patiromer and daily kayexalate. he is generally adherent w/ his meds and HD txs. he is on zosyn and vancomycin. Feels ok; not sob, no F, no n/v but pain at arm and 3BM today since starting iv abtx. vascular is following; imaging shows complex fluid collection in occluded graft adjacent to patent AVG. Past Medical/Surgical History Medical Problems: (1) Diabetes Status: Chronic (2) ESRD (end stage renal disease) on dialysis Permanent Comment: s/p traumatic injury to kidneys as a child Status: Chronic (3) Hyperparathyroidism, Unspecified Status: Chronic (4) Hypertension Nos Status: Chronic (5) Morbid Obesity Status: Chronic Family History FH: Alzheimers disease GRANDMOTHER Social History Smoking Status: Current Every Day Smoker Alcohol Use: none Occupation Status: employed Allergies Coded Allergies: Oxycodone (Verified Adverse Reaction, Intermediate, GI SYMPTOMS, 09/04/17) Medications Current Inpatient Medications Medications (Trade) Dose Ordered Sig/Otilia Route Start Time Stop Time Status Last Admin Dose Admin Acetaminophen (Tylenol Tab) 650 mg Q4H PRN PO 09/04/17 14:30 10/04/17 14:29 09/04/17 15:10 650 MG Miscellaneous Information (Consult) 1 ea UD PRN N/A 09/04/17 14:45 10/04/17 14:44 Vitamin B Complex/ Vit C/Folic Acid (Nephrocaps) 1 cap QAM PO 09/05/17 09:00 10/05/17 08:59 Calcium Acetate (Phoslo Cap) 1,334 mg TIDM PO 09/04/17 17:45 10/04/17 17:59 09/04/17 18:31 1,334 MG Calcium Carbonate (Tums Chew Tab) 2,625 mg QID PO 09/04/17 17:00 10/04/17 16:59 09/04/17 20:56 2,625 MG Patiromer (Veltassa) 25.2 gm QPM PO 09/04/17 21:00 10/04/17 20:59 09/04/17 20:56 25.2 GM Sevelamer HCl (Renagel Tab) 2,400 mg BID PRN PO 09/04/17 15:00 10/04/17 14:59 Sevelamer HCl (Renagel Tab) 4,000 mg TIDM PO 09/04/17 17:45 10/04/17 17:59 09/04/17 18:31 4,000 MG Warfarin Sodium (Coumadin Tab) 5 mg DAILY@16 PO 09/04/17 16:00 10/04/17 15:59 Future hold Ceftriaxone Sodium 1 gm/ Dextrose 50 ml @ 100 mls/hr DAILY@1000 IV 09/05/17 10:00 09/14/17 09:59 Heparin Sodium (Porcine) (Heparin Sq 5000 Unit/0.5ml) 5,000 unit Q8 SQ 09/05/17 09:00 10/05/17 08:59 Home Meds and Scripts Medications Dose Route/Sig Max Daily Dose Days Date Category Dose Instructions Jantoven (Warfarin Sodium) 5 Mg Tab 2.5 Mg PO 4XWK 09/04/17 Reported monday and Coumadin (Warfarin Sodium) 5 Mg Tab 5 Mg PO 3XWK 07/21/17 Reported monday Kayexalate Susp (Sodium Polystyrene Sulfonate) 30 Gm/120 Ml Susp 30 Ml PO DAILY 06/07/17 Reported uses on , , mon and sun - uses on non - dialysis days Veltassa (Patiromer Sorbitex Calcium) 25.2 Gm Pow 1 Dose PO QPM 05/16/17 Reported Hectorol (Doxercalciferol) 4 Mcg/2 Ml Inj 1 Ml 3XWK 04/04/17 Reported MWF, at dialysis Vitamin D 88621 Unit (Ergocalciferol) 50,000 Unit Cap 1 Tab PO MONTHLY 12/29/16 Reported takes in the pm on Monday Phoslo 667 Mg (Calcium Acetate (Phosphate Bin) 667 Mg Cap 2 Tabs PO TIDM 12/19/16 Reported Triphrocaps (B-Complex W/ C & Folic Acid) 1 Cap Cap 1 Cap PO QAM 12/19/16 Reported Tums E-X 750 (Calcium Carbonate (Antacid)) 750 Mg Chw 3.5 Tabs PO QID 08/16/16 Reported Renvela (Sevelamer Carbonate) 800 Mg Tab 3 Tabs PO WITH SNACKS 06/17/15 Reported Renvela (Sevelamer Carbonate) 800 Mg Tab 5 Tabs PO TIDM 12/03/13 Reported Review of Systems Constitutional: No fever, No weakness, No fatigue Eyes: No worsening of vision ENT: No hearing loss, No sore throat Respiratory: No cough, No shortness of breath Cardiac: + edema (RUE), No chest pain, No orthopnea, No palpitations Abdomen: + see HPI, + diarrhea, No pain, No nausea, No vomiting Male : + problem reported (voids most days small amount; no change in chronic voiding habits) Neuro: + numbness/tingling (chronic in RUE 4th/5th digits), No memory loss Psych: No depression symptoms, No anxiety Heme: No abnormal bleeding/bruising Endo: No fatigue Skin: + see HPI, + rash, + new/changing skin lesions Physical Exam Date Time Temp Pulse Resp B/P (MAP) Pulse Ox O2 Delivery O2 Flow Rate FiO2 09/04/17 23:30 Room Air 09/04/17 23:25 37.1 111 20 97/62 (74) 95 Room Air 09/04/17 17:10 Room Air 09/04/17 16:52 71 16 111/40 94 09/04/17 16:46 71 16 111/40 94 Room Air 09/04/17 15:00 115 18 105/52 93 Room Air 09/04/17 13:49 89 20 125/73 94 Room Air 09/04/17 13:13 96 Room Air 09/04/17 12:50 102 18 159/92 93 Room Air 09/04/17 11:55 107 83/53 96 Room Air 09/04/17 11:00 103 18 135/76 96 Room Air 09/04/17 09:29 36.8 101 18 125/81 96 Room Air General Appearance: WD/WN, no apparent distress, + obese, + pertinent finding ( on RA, maneuvers readily for exam) Eyes: EOMI, + pertinent finding (marked periorbital edema) ENT: hearing grossly normal Neck: supple Respiratory/Chest: lungs clear, no respiratory distress Cardiovascular: + tachycardia Abdomen: normal bowel sounds, non tender, soft Extremities: + pertinent finding (BLE 1+ edema which is chronic; RUE red/ swollen full length of arm, very tender in area of AVG w/ + t/b) Neurologic/Psych: alert, normal mood/affect, oriented x 3, + pertinent finding (arce, fluent speech) Skin: no jaundice, warm/dry, no rash, + pertinent finding (red/painful at avg) Diagnostics Last 24 Hours Test 09/04/17 10:30 09/05/17 05:27 White Blood Count 15.41 K/uL 13.07 K/uL Red Blood Count 3.74 M/uL 3.36 M/uL Hemoglobin 11.6 g/dL 10.5 g/dL Hematocrit 36.1 % 32.2 % Mean Corpuscular Volume 96.5 fL 95.8 fL Mean Corpuscular Hemoglobin 31.0 pg 31.3 pg Mean Corpuscular Hemoglobin Concent 32.1 g/dl 32.6 g/dl Platelet Count 268 K/uL 261 K/uL Mean Platelet Volume 9.7 fL 9.4 fL Neutrophils (%) (Auto) 76.8 % Lymphocytes (%) (Auto) 13.8 % Monocytes (%) (Auto) 7.9 % Eosinophils (%) (Auto) 1.0 % Basophils (%) (Auto) 0.2 % Neutrophils # (Auto) 11.85 K/uL Lymphocytes # (Auto) 2.12 K/uL Monocytes # (Auto) 1.21 K/uL Eosinophils # (Auto) 0.15 K/uL Basophils # (Auto) 0.03 K/uL RDW Standard Deviation 60.9 fL 59.8 fL RDW Coefficient of Variation 17.2 % 17.1 % Immature Granulocyte % (Auto) 0.3 % Immature Granulocyte # (Auto) 0.05 K/uL Prothrombin Time 13.4 SECONDS 14.7 SECONDS Prothromb Time International Ratio 1.3 1.4 Activated Partial Thromboplast Time 41.3 SECONDS Partial Thromboplastin Ratio 1.6 Sodium Level 135 mmol/L 134 mmol/L Potassium Level 4.7 mmol/L 5.7 mmol/L Chloride Level 95 mmol/L 99 mmol/L Carbon Dioxide Level 21 mmol/L 19 mmol/L Anion Gap 19.0 mmol/L 16.0 mmol/L Blood Urea Nitrogen 86 mg/dl 109 mg/dl Creatinine 11.80 mg/dl 13.80 mg/dl Est Creatinine Clear Calc Drug Dose 12.4 ml/min 10.6 ml/min Estimated GFR () 5.6 4.6 Estimated GFR (Non- 4.8 4.0 BUN/Creatinine Ratio 7.3 7.9 Random Glucose 70 mg/dl 94 mg/dl Calcium Level 9.1 mg/dl 8.8 mg/dl Total Bilirubin 0.3 mg/dl Aspartate Amino Transf (AST/SGOT) 19 U/L Alanine Aminotransferase (ALT/SGPT) 38 U/L Alkaline Phosphatase 82 U/L Total Protein 8.5 gm/dl Albumin 3.0 gm/dl Globulin 5.5 gm/dl Albumin/Globulin Ratio 0.5 Phosphorus Level 7.8 mg/dl Magnesium Level 3.0 mg/dl Random Vancomycin Level 30.5 mcg/ml Diagnostic Radiology: u/s of AVG >> complex fluid collection around occluded RUE graft; also w/ patent RUE graft adjacent Assessment & Plan 37 y/o M w/ ESRD on HD MWF admitted with abscess at occluded vascular access graft adjacent to patent RUE AV graft in the setting of significant/chronic vascular access and MARLA complications related to ESRD -dialysis once evaluated and cleared by vascular surgery>> after discussion w/ vascular, plan is temporary line today w/ HD today and again first thing in AM -then line holiday and OR tomorrow afternoon for exploration/ excision of infected graft hopefully w/ preservation of current AVG though this may not be possible -continue high dose veltassa and renal diet; ensure nephrovite given hs -continue high dose binders, calcium supplements, sensipar -will hold off on kayexalate for now as he is already having diarrhea Appreciate consult; will follow with you. Care coordinated w/ vascular surgery.
--- NOTE | 2017-09-05 10:31 | Progress Note ---
Medicine Progress Note Date & Time of Visit: Sep 05, 2017 at 10:31. Subjective Seen resting bedside chair comfortable not in distress Right upper extremity about the same as yesterday Denies fever chills, shortness of breath Denies other symptoms Objective Last 8 Hrs Date Time Temp Pulse Resp B/P (MAP) Pulse Ox O2 Delivery O2 Flow Rate FiO2 09/05/17 08:10 36.7 106 18 99/52 (68) 94 Room Air Physical Exam: General-oriented 3 not in distress speaking in sentences no accessory muscle use Head- atraumatic Eyes- PERRL, EOMI, anicteric ENT- oropharynx clear Neck- supple, no JVD, no adenopathy, no thyromegaly; carotids +2/2 Lungs- clear breath sounds bilaterally Heart- regular rhythm; no murmur, normal rate Abdomen- normal bowel sounds, soft, nontender, no masses Extremities- Right upper extremity: Positive erythema mostly on the upper arm, occasionally noted, has erythema beyond the demarcation line Less edema on upper extremity of the right no pretibial edema, no calf tenderness; peripheral pulses intact Neuro- alert, oriented x 3; no gross focal neurologic deficit Skin- warm & dry Laboratory Results: Last 24 Hours Test 09/05/17 05:27 White Blood Count 13.07 K/uL Red Blood Count 3.36 M/uL Hemoglobin 10.5 g/dL Hematocrit 32.2 % Mean Corpuscular Volume 95.8 fL Mean Corpuscular Hemoglobin 31.3 pg Mean Corpuscular Hemoglobin Concent 32.6 g/dl RDW Standard Deviation 59.8 fL RDW Coefficient of Variation 17.1 % Platelet Count 261 K/uL Mean Platelet Volume 9.4 fL Prothrombin Time 14.7 SECONDS Prothromb Time International Ratio 1.4 Sodium Level 134 mmol/L Potassium Level 5.7 mmol/L Chloride Level 99 mmol/L Carbon Dioxide Level 19 mmol/L Anion Gap 16.0 mmol/L Blood Urea Nitrogen 109 mg/dl Creatinine 13.80 mg/dl Est Creatinine Clear Calc Drug Dose 10.6 ml/min Estimated GFR () 4.6 Estimated GFR (Non- 4.0 BUN/Creatinine Ratio 7.9 Random Glucose 94 mg/dl Calcium Level 8.8 mg/dl Phosphorus Level 7.8 mg/dl Magnesium Level 3.0 mg/dl Random Vancomycin Level 30.5 mcg/ml Hepatitis B Surface Antigen NEG Hepatitis B Surface Antibody NEG Assessment & Plan RIGHT UPPER EXTREMITY CELLULITIS AT THE AREA OF THE AV GRAFT Present with Right upper arm erythema/tenderness/swelling Meet SIRS criteria with elevated WBC and Tachycardia U/S showed complex fluid collection surrounding an occluded right upper arm dialysis graft. The fluid collection extends over craniocaudad distance of 11.5 cm.Lateral to the occluded graft is a second hemodialysis graft, which is patent. Blood cultures pending Vascular consulted, Dr. Jefferson, plan for temporary HD cath placement today, and for AV graft revision/I&D tomorrow Change ceftriaxone to Zosyn Vancomycin ID consulted ESRD ON HD ON MWF Case discussed with Nephro Dr. Stoddard For dialysis today after placement of temporary HD cath Plan for another HD tomorrow a.m. RECENT CLOT IN THE AV GRAFT Occurs in Dec after undergoing parathyroidectomy surgery INR is 1.[address] Jefferson, recommend to stop anticoagulation Tobacco abuse Counseling smoking cessation declined nicotine patch HTN BP stable DVT Coumadin stopped for vascular surgery service Heparin stopped for his planned procedure today and tomorrow CODE STATUS FULL CODE DISPOSITION Anticipate return home when medically stable cleared by nephrology and vascular surgery Current Inpatient Medications: Current Inpatient Medications Medications (Trade) Dose Ordered Sig/Otilia Route Start Time Stop Time Status Last Admin Dose Admin Acetaminophen (Tylenol Tab) 650 mg Q4H PRN PO 09/04/17 14:30 10/04/17 14:29 09/04/17 15:10 650 MG Miscellaneous Information (Consult) 1 ea UD PRN N/A 09/04/17 14:45 10/04/17 14:44 Calcium Acetate (Phoslo Cap) 1,334 mg TIDM PO 09/04/17 17:45 10/04/17 17:59 09/04/17 18:31 1,334 MG Calcium Carbonate (Tums Chew Tab) 2,625 mg QID PO 09/04/17 17:00 10/04/17 16:59 09/05/17 09:47 2,625 MG Patiromer (Veltassa) 25.2 gm QPM PO 09/04/17 21:00 10/04/17 20:59 09/04/17 20:56 25.2 GM Sevelamer HCl (Renagel Tab) 2,400 mg BID PRN PO 09/04/17 15:00 10/04/17 14:59 Sevelamer HCl (Renagel Tab) 4,000 mg TIDM PO 09/04/17 17:45 10/04/17 17:59 09/04/17 18:31 4,000 MG Ceftriaxone Sodium 1 gm/ Dextrose 50 ml @ 100 mls/hr DAILY@1000 IV 09/05/17 10:00 09/14/17 09:59 Vitamin B Complex/ Vit C/Folic Acid (Nephrocaps) 1 cap HS PO 09/05/17 21:00 10/05/17 08:59
--- NOTE | 2017-09-05 10:39 | Anesthesiology Progress Note ---
Anesthesia Progress Note Date of Service Sep 05, 2017. Progress Notes Mr. Morrison is slated for procedure with Dr. Jefferson (AVF). Allergies to oxycodone. Patient had right AVF placed 06/07/17 under MAC without complications. Most recently he had neck reexploration for parathyroid nodules, also had AVF thrombectomy at that time (Jun 2017). Presents with likely right clotted renal dialysis AV graft and RUE cellulitis. Other PMH significant for likely TAY ( loud snoring), HTN, OA, DM, Dialysis (traumatic kidney injury at age 6), anemia , morbid obesity (BMI 46.5). Tobacco usage (1/2 PD x 15 years). EKG shows NSR at 92 bpm (normal). Labs notable for anemia, elevated WBC count (13) and potassium of 5.7 and INR of 1.4. Airway exam showed thick neck and MP 3. Patient was consented for MAC with possible GA backup. All questions answered. Will have to recheck potassium day of surgery (perm cath being placed today via Dr. Jefferson and likely dialysis).
[2017-09-05] MEDS ORDERED: EPOETIN ALFA 10,000 UNITS/ML VIAL IV. SCH (11:00)
[2017-09-05] MEDS ORDERED: HEPARIN SOD (PORCINE) 1000 UNIT/ML 10 ML VIAL IV SCH (11:00)
--- NOTE | 2017-09-05 11:19 | Progress Note ---
Progress Note Date of Service Sep 05, 2017. Progress Note Patient for insertion of temporary dialysis catheter today. I have discussed the risks options and benefits of the procedure with the patient. The patient understands the risks options and benefits and agrees to the procedure. Patient was seen, examined, and chart reviewed. Agree with exam and treatment plan of the Vascular PA.
--- NOTE | 2017-09-05 11:35 | Medical Consult ---
Consultation Note Date of Service Sep 05, 2017. Consultation Note Chief Complaint End stage renal disease. RUE cellulitis, infected AV graft History of Present Illness The patient is a 37 year old male with hx of DMII and ESRD on HD, known to Dr Jefferson for HD access, seen in consultation today d/t cellulitis of RUE and infected old AV graft. Pt has undergone multiple procedures to maintain HD access. Current AV graft is bovine, placed in 05/2017, and has been functioning at HD. Imaging demonstrates fluid around an old, unused AV graft. Pt states RUE began becoming edematous and erythematous over the weekend(approx 2-3 days). Admitted last night with cellulitis of RUE. Pt denies BREEN, fever, chills, chest pain, SOB, abd pain, N/V, rest pain, claudication, other complaints. Allergies Coded Allergies: No Known Allergies (Unverified , 09/30/16) Home Medications Scheduled B-Complex W/ C & Folic Acid (Triphrocaps), 1 CAP PO DAILY Calcium Acetate (Phoslo 667 Mg), 667 MG PO WITH SNACKS Calcium Acetate (Phosphate Bin (Phoslo 667 Mg), 2,001 MG PO TIDM Calcium Carbonate (Antacid) (Tums E-X 750), 2,625 MG PO TIDM Cinacalcet Hydrochloride (Sensipar), 30 MG PO QPM Sevelamer Carbonate (Renvela), 3,200 MG PO TIDM Sevelamer Carbonate (Renvela), 2,400 MG PO WITH SNACKS Scheduled PRN [Hectoral], 1 DOSE IV 3XWK PRN for PER DIALYSIS Problem List Medical Problems: (1) Dialysis catheter clot or failure (2) ESRD (end stage renal disease) on dialysis (3) Hyperkalemia Surgical Problems: (1) History of knee surgery Surgical / Medical History Hx Cardiac Surgery: No Hx Abdominal Surgery: No Hx Cancer Surgery: No Hx Thoracic Surgery: No Hx Orthopedic: Yes (Left knee, right lower leg) Hx Urinary Tract Surgery: No HX Other Surgery: No Past Medical/Surgical History: Diabetes, Kidney Disease Family History Patient reports no known family medical history. Social History Smoking Status: Current Every Day Smoker Hx Tobacco Use In Past Year?: Yes Hx Alcohol Use - Type & Amnt: No Hx Substance Use -Type & Amnt: No Review of Systems Constitutional: No chills, No fever, No malaise Skin: No change in color Eyes: No visual changes ENMT: No sore throat Respiratory: No cough, No ROMERO, No short of breath Cardiovascular: No chest pain, No palpitations, No syncope, No edema, No intermittent claudication Gastrointestinal: No abdominal pain, No nausea, No vomiting Neurologic: No dizziness, No headache, No numbness, No tingling Physical Exam Constitutional: General Apperance: well-nourished, well-developed, obese Level of Distress: NAD Psychiatric: Mental Status: active & alert, normal mood, normal affect Orientation: oriented except where noted, to time, to place, to person Memory: recent memory normal, remote memory normal Head: normocephalic, atraumatic Eyes: EOM: EOMI ENMT: normal ENT inspection, hearing grossly normal Neck: supple, trachea midline Lungs: Respiratory effort: no dyspnea Auscultation: breath sounds normal, no wheezing, no rales/crackles, no rhonchi Cardiovascular: Apical Impulse: not displaced Heart Auscultation: RRR, no murmurs, no rubs, no gallops Peripheral Pulses: Pulses: full and equal, in all extremities except if noted Bruits: none appreciated Carotid Pulse: normal on the left, normal on the right Brachial Pulses: normal on the left, normal on the right Radial Pulse: normal on the left, normal on the right Femoral Pulse: normal on the left, normal on the right Posterior Tibialis Pulse: decreased on the left, decreased on the right Dorsalis Pedis Pulse: decreased on the left, decreased on the right Abdomen: Bowel Sounds: normal Inspection & Palpation: soft, non-distended, no tenderness, guarding & rebound Musculoskeletal: normal strength (5/5 throughout), normal tone Extremities: Upper Right: no cyanosis, + edema, erythema, warmth, good thrill in fistula. 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 Hopefully will be able to salvage current AV bovine graft. Planning on removal of old infected graft in OR tomorrow, with possible placement of permcath later this week if current graft unable to be accessed after surgery. Discussed with pt, he is agreeable. Dr Alex also aware.
[2017-09-05] MEDS ORDERED: FENTANYL CITRATE INJ 50 MCG/1 ML 2 ML VIAL ONE (12:34)
[2017-09-05] MEDS ORDERED: MIDAZOLAM HCL 1 MG/ML 2ML VIAL ONE (12:35)
[2017-09-05] MEDS ORDERED: HEPARIN SOD (PORCINE) 5000 UNIT/ML 1 ML VIAL ONE (12:43)
--- NOTE | 2017-09-05 13:11 | Pre Sedation Assessment ---
Pre Sedation Assessment General Date of Sedation: Sep 05, 2017. Vital Signs Past 12 Hours Date Time Temp Pulse Resp B/P (MAP) Pulse Ox O2 Delivery O2 Flow Rate FiO2 09/05/17 08:10 36.7 106 18 99/52 (68) 94 Room Air 09/05/17 07:35 94 Room Air Pre-Sedation Airway Assessment Smoking Status: Current Every Day Smoker Hx of Sleep Apnea: No Hx of difficult intubation: No Short Thick Neck: Yes Thyro-mental Distance: > 3 Finger Breadths Oral Cavity: WNL Mallampati Classification: Class II ASA Classification: Class III NPO Status Date of Last Intake of Fluids: Sep 04, 2017 Time of Last Intake of Fluids: 18:00 Date of Last Intake of Solids: Sep 04, 2017 Time of Last Intake of Solids: 1800 Procedure Planning Contraindications for Sedation: None Current Medications Reviewed: Yes Notes The planned sedation has been discussed with the patient. Informed Consent was obtained. I have identified the patient, determined the appropriateness of sedation and have assessed the patient immediately prior to the procedure. All medicine(s) and interventions are by my order.
--- NOTE | 2017-09-05 13:23 | Progress Note ---
Progress Note Date of Service Sep 05, 2017. Progress Note Will place temp dialysis catheter today and remove infected graft tomorrow. If can not use arm for dialysis post removal will pull temp line on and put new permcath on Monday. Thank you very much for letting me participate in the care of this patient.
[2017-09-05] MEDS ORDERED: LIDOCAINE HCL 1% 20 ML VIAL INJ ONE ×2 (13:35→13:41)
[2017-09-05] MEDS ORDERED: HEPARIN SOD (PORCINE) 5000 UNIT/ML 1 ML VIAL IV ONE (13:40)
--- NOTE | 2017-09-05 13:44 | [facility] Post Operative Brief Note ---
Immediate Operative Summary Operative Date Sep 05, 2017. Pre-Operative Diagnosis Infected right arm fistula Post-Operative Diagnosis Infected right arm fistula Procedure(s) Performed Insertion of right femoral vein temporary dialysis catheter USN localization of femoral vein Surgeon Ronny Concrete Layer Surgeon(s) Renee Bruce MD Estimated Blood Loss 2cc Findings Consistent with Post-Op Diagnosis Specimens none Drains None Anesthesia Type Local Complication(s) none Disposition Accompanied Pt To Recover: no Disposition:
[2017-09-05] MEDS: ALBUMIN HUMAN 25% 12.5 GM/50 ML VIAL IV SCH ×2 (14:29→16:05)
[2017-09-05] MEDS: PATIROMER SORBITEX CALCIUM PO SCH (21:06)
[2017-09-05] MEDS: NEPHROCAPS PO SCH (21:06)
[2017-09-05] MEDS: ACETAMINOPHEN 325 MG TAB PO PRN (21:07)
[2017-09-06] VITALS (37 sets, daily range): BP systolic 79–167; BP diastolic 38–100; PULSE 82–111; TEMP 36.9–37.6; O2SAT 89–98
[2017-09-06] MEDS ORDERED: HEPARIN SOD (PORCINE) 1000 UNIT/ML 10 ML VIAL IV SCH ×2 (07:00)
[2017-09-06] MEDS: ALBUMIN HUMAN 25% 12.5 GM/50 ML VIAL IV SCH ×2 (07:22→09:20)
--- NOTE | 2017-09-06 09:00 | Progress Note ---
Progress Note Date of Service Sep 06, 2017. Progress Note Patient for removal of an infected right upper arm fistula today I have discussed the risks options and benefits of the procedure with the patient. The patient understands the risks options and benefits and agrees to the procedure. I have examined the patient, reviewed the History & Physical and in the interval since the performance of the History & Physical I have noted the following changes of clinical significance: No changes noted
[2017-09-06] MEDS: CALCIUM ACETATE 667MG GELCAP PO SCH ×3 (09:52→20:21)
[2017-09-06] MEDS: SEVELAMER HYDROCH 800 MG TAB PO SCH ×3 (09:53→20:21)
[2017-09-06] MEDS: CALCIUM CARBONATE 500 MG CHEWABLE PO SCH ×4 (09:53→20:35)
[2017-09-06] MEDS ORDERED: TRAMADOL HCL 50 MG TAB PO PRN ×2 (10:00→16:45)
[2017-09-06] MEDS ORDERED: NEOSTIGMINE METHYLSULFATE 5 MG/5 ML SYR ONE (10:33)
[2017-09-06] MEDS ORDERED: MIDAZOLAM HCL 1 MG/ML 2ML VIAL ONE (10:33)
[2017-09-06] MEDS ORDERED: DEXAMETHASONE SOD INJ 4 MG/ML VIAL ONE (10:33)
[2017-09-06] MEDS ORDERED: PROPOFOL IV EMULSION 10 MG/ML 20 ML VIAL IV ONE ×2 (10:33→16:42)
[2017-09-06] MEDS ORDERED: FENTANYL CITRATE INJ 50 MCG/1 ML 2 ML VIAL ONE ×3 (10:33→16:35)
[2017-09-06] MEDS ORDERED: GLYCOPYRROLATE INJ 0.2 MG/ML VIAL ONE (10:33)
[2017-09-06] MEDS ORDERED: LIDOCAINE HCL 2% 2 ML VIAL (20MG/ML) ONE (10:33)
[2017-09-06] MEDS ORDERED: ONDANSETRON INJ 2 MG/ML 2 ML VIAL ONE (10:33)
--- NOTE | 2017-09-06 11:03 | Medical Consult ---
Consultation Date of Consultation: Sep 06, 2017. Attending Physician: Suleiman Lombardi MD Reason for Consultation: Right upper extremity cellulitis, possible infected graft. History of Present Illness 37-year-old male with diabetes mellitus and end-stage renal disease on hemodialysis, with history of clotted graft in June 2017, who was admitted to the hospital on September 04 with several days of progressively worsening redness, pain, and swelling of his right arm. He was found on ultrasound to have evidence of soft tissue infection with fluid collection around old AV graft site, and has been started empirically on vancomycin and Zosyn. New dialysis catheter has been placed, and patient now waiting removal of right arm access graft. Blood cultures so far are negative. Pain in right arm currently 6/10 in intensity. Past Medical/Surgical History Medical Problems: (1) Diabetes Status: Chronic (2) ESRD (end stage renal disease) on dialysis Permanent Comment: s/p traumatic injury to kidneys as a child Status: Chronic (3) Hyperparathyroidism, Unspecified Status: Chronic (4) Hypertension Nos Status: Chronic (5) Morbid Obesity Status: Chronic Medical Problems: (1) Cellulitis of right upper extremity (2) Clotted renal dialysis AV graft (3) Complications, dialysis, catheter, mechanical (4) Diabetes (5) End stage renal failure on dialysis (6) ESRD (end stage renal disease) on dialysis (7) Hyperparathyroidism, Unspecified (8) Hypertension Nos (9) Malfunction of arteriovenous dialysis fistula (10) Morbid Obesity (11) Vascular dialysis catheter in place Surgical Problems: (1) H/O parathyroidectomy (2) History of knee surgery Family History FH: Alzheimers disease GRANDMOTHER Social History Smoking Status: Current Every Day Smoker Occupation Status: employed Allergies Coded Allergies: Oxycodone (Verified Adverse Reaction, Intermediate, GI SYMPTOMS, 09/04/17) Current Inpatient Medications Current Inpatient Medications Medications (Trade) Dose Ordered Sig/Otilia Route Start Time Stop Time Status Last Admin Dose Admin Acetaminophen (Tylenol Tab) 650 mg Q4H PRN PO 09/04/17 14:30 10/04/17 14:29 09/05/17 21:07 650 MG Miscellaneous Information (Consult) 1 ea UD PRN N/A 09/04/17 14:45 10/04/17 14:44 Calcium Acetate (Phoslo Cap) 1,334 mg TIDM PO 09/04/17 17:45 10/04/17 17:59 09/05/17 19:10 1,334 MG Calcium Carbonate (Tums Chew Tab) 2,625 mg QID PO 09/04/17 17:00 10/04/17 16:59 09/05/17 21:06 2,625 MG Patiromer (Veltassa) 25.2 gm QPM PO 09/04/17 21:00 10/04/17 20:59 09/05/17 21:06 25.2 GM Sevelamer HCl (Renagel Tab) 2,400 mg BID PRN PO 09/04/17 15:00 10/04/17 14:59 Sevelamer HCl (Renagel Tab) 4,000 mg TIDM PO 09/04/17 17:45 10/04/17 17:59 09/05/17 19:10 4,000 MG Vitamin B Complex/ Vit C/Folic Acid (Nephrocaps) 1 cap HS PO 09/05/17 21:00 10/05/17 08:59 09/05/17 21:06 1 CAP Albumin Human (Albumin 25%) 12.5 gm 0700,0900 IV 09/06/17 07:00 09/06/17 18:00 09/06/17 09:20 12.5 GM Tramadol HCl (Ultram Tab) 50 mg Q12H PRN PO 09/06/17 10:00 10/06/17 09:59 09/06/17 10:18 50 MG Review of Systems Constitutional: + fever, + chills Eyes: No problem reported ENT: No problem reported Respiratory: No problem reported Cardiovascular: No problem reported Abdomen: No problem reported Musculoskeletal: + swelling Genitourinary - Male: No problem reported Neurologic: No problem reported Psychiatric: No problem reported Endocrine: No problem reported Hematologic / Lymphatic: No problem reported Integumentary: + new/changing skin lesions Allergic / Immunologic: No problem reported Physical Exam Date Time Temp Pulse Resp B/P (MAP) Pulse Ox O2 Delivery O2 Flow Rate FiO2 09/06/17 10:30 102 96/40 09/06/17 10:15 108 96/43 09/06/17 10:00 109 79/39 09/06/17 09:45 101 102/47 09/06/17 09:30 102 94/48 2/21/18 09:15 102 107/49 2//18 09:00 104 104/50 2/21/18 08:45 100 111/45 2/18 08:30 105 103/50 2//18 08:15 98 100/44 221/18 08:00 102 110/58 218 07:45 103 99/53 2/18 07:30 95 104/52 2/18 07:22 102 107/49 218 07:15 37.5 107 104/56 (72) 09/06/17 06:41 37.1 111 18 91/57 (68) 92 Room Air 09/06/17 00:15 Room Air 09/05/17 23:50 37.5 111 20 108/57 (74) 91 Room Air 09/05/17 19:00 99 Room Air Mask 09/05/17 18:47 37.4 110 93/48 (63) 09/05/17 18:15 108 100/47 22018 18:00 107 78/37 220/18 17:45 105 84/36 2/20/18 17:30 114 87/37 2/20/18 17:15 109 92/39 220/18 17:09 106 87/36 2/20/18 17:00 103 73/30 220/18 16:45 104 85/41 2/20/18 16:30 110 102/41 2/20/18 16:15 111 76/37 2/20/18 16:00 108 76/31 2/20/18 15:45 104 90/33 2/20/18 15:30 110 85/37 2/20/18 15:15 107 87/38 2/20/18 15:00 93 126/48 2/20/18 14:45 97 106/46 2/20/18 14:30 102 103/46 2/20/18 14:17 37.1 103 95/48 (64) 18 13:45 16 127/55 99 Mask 4 220/18 13:40 16 Mask 6 220/18 13:35 16 Mask 6 20/18 13:30 16 Mask 6 20/18 13:25 103 16 119/58 93 Mask 6 General Appearance: WD/WN, no apparent distress Head: normocephalic, atraumatic Eyes: normal inspection, EOMI, sclerae normal ENT: normal ENT inspection, hearing grossly normal, pharynx normal Neck: supple, no adenopathy, thyroid normal, trachea midline Respiratory/Chest: chest non-tender, lungs clear, normal breath sounds Cardiovascular: regular rate, rhythm, no gallop, no murmur Abdomen/GI: normal bowel sounds, non tender, soft, no organomegaly Back: normal inspection, no CVA tenderness Extremities/Musculoskelatal: no calf tenderness, normal capillary refill, + inflammation (Right arm), + swelling (Right arm) Neurologic/Psych: alert, oriented x 3 Skin: normal color, no rash, + pertinent finding (Right arm erythema and tenderness over graft site) Lymphatic: no adenopathy Laboratory Results -- RUN DATE: 09/06/17 [facility] LAB PAGE 1 RUN TIME: 07 Specimen Inquiry PATIENT: MAGDY VEGA LOC: YolandeMAREN U # : [id number] AGE/SX: 37/M ROOM: [facility] REG : 09/04/[address]: Suleiman Lombardi MD : 1980 BED: 2 DIS : STATUS: ADM IN TLOC: SPEC #: [id number] AUSTEN: 09/04/17-1030 STATUS: RES REQ #: [id number] RECD: 09/04/17-[address]: Maria L Colby PA SOURCE: BLOOD ENTR: 09/04/17-[address]: Jitendra Woods, DO [facility]: No Doctor, Assigned ORDERED: BLOOD CULTURE Procedure Result Verified Site BLD CULT Preliminary 09/06/17-0716 NO GROWTH TO DATE. Last 24 Hours Test 09/06/17 04:44 HEMODIALYSIS ACCESS RIGHT UPPER EXTREMITY DUPLEX ULTRASOUND CLINICAL HISTORY: EVAL RUE PAIN/REDNESS/SWELLING COMPARISON STUDY: No previous studies for comparison. FINDINGS: There is an old occluded dialysis graft extending from the antecubital fossa to the proximal upper arm. Surrounding this occluded graft is fluid collection. The fluid collection measures 11.5 cm in craniocaudad distance and measures approximately 4.5 cm cross-sectionally. Adjacent to the occluded graft is a patent dialysis graft. The brachial and basilic veins appear patent. IMPRESSION: 1. Complex fluid collection surrounding an occluded right upper arm dialysis graft. The fluid collection extends over craniocaudad distance of 11.5 cm. 2. Lateral to the occluded graft is a second hemodialysis graft, which is patent. Electronically signed by: Aakash Chiu M.D. 09/04/2017 12:23 PM Dictated Date/Time: 09/04/2017 12:19 PM Assessment & Plan Right upper extremity cellulitis in the setting of likely infected vascular graft, awaiting surgical removal. Agree with use of vancomycin and Zosyn pending further culture results. Length of IV antibiotics yet to be determined. Will follow.
[2017-09-06] MEDS ORDERED: THROMBIN FOR SOLN 20000 UNIT KIT ONE (11:09)
[2017-09-06] MEDS ORDERED: GELATIN SPONGE 12-7MM ONE (11:09)
[2017-09-06] MEDS ORDERED: BUPIVACAINE/EPINEPHRINE 0.5% MPF 1:200,000 30 ML VIAL ONE (11:09)
[2017-09-06] MEDS ORDERED: LIDOCAINE HCL 1% 20 ML VIAL ONE (11:10)
[2017-09-06] MEDS ORDERED: HEPARIN SOD (PORCINE) 1000 UNIT/ML 10 ML VIAL ONE ×2 (11:10→14:41)
--- NOTE | 2017-09-06 12:13 | Dialysis Progress Note ---
Nephrology Dialysis Note Date of Service: Sep 06, 2017. Subjective arm very painful, red. for excision of occluded/old AVG this afternoon. Tolerating dialysis > set for 2L fluid off using albumin to support bp Objective Date Time Temp Pulse Resp B/P (MAP) Pulse Ox O2 Delivery O2 Flow Rate FiO2 09/06/17 10:30 102 96/40 09/06/17 10:15 108 96/43 09/06/17 10:00 109 79/39 09/06/17 09:45 101 102/47 09/06/17 09:30 102 94/48 09/06/17 09:15 102 107/49 09/06/17 09:00 104 104/50 09/06/17 08:45 100 111/45 09/06/17 08:30 105 103/50 09/06/17 08:15 98 100/44 09/06/17 08:00 102 110/58 09/06/17 07:45 103 99/53 09/06/17 07:30 95 104/52 09/06/17 07:22 102 107/49 09/06/17 07:15 37.5 107 104/56 (72) 09/06/17 06:41 37.1 111 18 91/57 (68) 92 Room Air 09/06/17 00:15 Room Air 09/05/17 23:50 37.5 111 20 108/57 (74) 91 Room Air 09/05/17 19:00 99 Room Air Mask 09/05/17 18:47 37.4 110 93/48 (63) 09/05/17 18:15 108 100/47 09/05/17 18:00 107 78/37 09/05/17 17:45 105 84/36 18 17:30 114 87/37 18 17:15 109 92/39 18 17:09 106 87/36 09/05/17 17:00 103 73/30 09/05/17 16:45 104 85/41 18 16:30 110 102/41 18 16:15 111 76/37 09/05/17 16:00 108 76/31 18 15:45 104 90/33 09/05/17 15:30 110 85/37 18 15:15 107 87/38 09/05/17 15:00 93 126/48 09/05/17 14:45 97 106/46 09/05/17 14:30 102 103/46 09/05/17 14:17 37.1 103 95/48 (64) 09/05/17 13:45 16 127/55 99 Mask 4 09/05/17 13:40 16 Mask 6 09/05/17 13:35 16 Mask 6 09/05/17 13:30 16 Mask 6 09/05/17 13:25 103 16 119/58 93 Mask 6 Physical Exam: General-lying flat on RA, very mild distress Eyes-eomi, less facial edema ENT-mmm Neck-supple Lungs-diminished but clear Heart-RRR Abdomen-soft NT +BS no rangel Extremities-trace BL edema R groin temp cath; AVG prox RUE red/ tender/ hot Neuro-arce, fluent speech Current Inpatient Medications Medications (Trade) Dose Ordered Sig/Otilia Route Start Time Stop Time Status Last Admin Dose Admin Acetaminophen (Tylenol Tab) 650 mg Q4H PRN PO 09/04/17 14:30 10/04/17 14:29 09/05/17 21:07 650 MG Miscellaneous Information (Consult) 1 ea UD PRN N/A 09/04/17 14:45 10/04/17 14:44 Calcium Acetate (Phoslo Cap) 1,334 mg TIDM PO 09/04/17 17:45 10/04/17 17:59 09/05/17 19:10 1,334 MG Calcium Carbonate (Tums Chew Tab) 2,625 mg QID PO 09/04/17 17:00 10/04/17 16:59 09/05/17 21:06 2,625 MG Patiromer (Veltassa) 25.2 gm QPM PO 09/04/17 21:00 10/04/17 20:59 09/05/17 21:06 25.2 GM Sevelamer HCl (Renagel Tab) 2,400 mg BID PRN PO 09/04/17 15:00 10/04/17 14:59 Sevelamer HCl (Renagel Tab) 4,000 mg TIDM PO 09/04/17 17:45 10/04/17 17:59 09/05/17 19:10 4,000 MG Vitamin B Complex/ Vit C/Folic Acid (Nephrocaps) 1 cap HS PO 09/05/17 21:00 10/05/17 08:59 09/05/17 21:06 1 CAP Albumin Human (Albumin 25%) 12.5 gm 0700,0900 IV 09/06/17 07:00 09/06/17 18:00 09/06/17 09:20 12.5 GM Tramadol HCl (Ultram Tab) 50 mg Q12H PRN PO 09/06/17 10:00 10/06/17 09:59 09/06/17 10:18 50 MG Last 24 Hours Test 09/06/17 04:44 Assessment & Plan 37 y/o M w/ ESRD on HD MWF admitted with abscess at occluded vascular access graft adjacent to patent RUE AV graft in the setting of significant/chronic vascular access and MARLA complications related to ESRD -dialysis today; then for graft excision this PM -will look to dialyze tomorrow w/ temp line first tx then remove it -continue high dose veltassa and renal diet; nephrovite given hs -continue high dose binders, calcium supplements, sensipar -will hold off on kayexalate for now given procedures for today Appreciate consult; will follow with you. Care coordinated w/ vascular surgery.
[2017-09-06] MEDS ORDERED: CEFAZOLIN SOD 3000MG/22.5 ML IV PUSH IV ONE (12:26)
[2017-09-06] MEDS ORDERED: NURSING VERBAL MED ORDER ONE ×2 (12:30→18:15)
[2017-09-06 12:40] LABS: ISTAT CREATININE 5.6 mg/dl (0.6-1.3); ISTAT IONIZED CALCIUM 0.95 mmol/l (1.12-1.32); ISTAT POTASSIUM 3.6 mEq/L (3.3-5.0)
[2017-09-06] MEDS ORDERED: ONDANSETRON INJ 2 MG/ML 2 ML VIAL IV PRN (12:45)
[2017-09-06] MEDS ORDERED: HYDROmorphone INJ 1 MG/ML SYR IV PRN (12:45)
[2017-09-06] MEDS ORDERED: FENTANYL CITRATE INJ 50 MCG/1 ML 2 ML VIAL IV PRN (12:45)
[2017-09-06] MEDS ORDERED: ATROPINE SULFATE 0.1 MG/ML 5ML SYR IV PRN (12:45)
[2017-09-06] MEDS ORDERED: EpHEDrine SULFATE INJ 50 MG/ML AMP IV PRN (12:45)
[2017-09-06] MEDS ORDERED: ALBUMIN HUMAN 5% 12.5 GM/250 ML VIAL IV ONE (13:19)
--- NOTE | 2017-09-06 16:31 | [facility] Post Operative Brief Note ---
Immediate Operative Summary Operative Date Sep 06, 2017. Pre-Operative Diagnosis Infected right arm fistula Post-Operative Diagnosis Infected right arm fistula Procedure(s) Performed Removal of Right Upper Arm Arterio-venous Fistula Graft, brachial artery saphenous vein interposition graft Surgeon Dr. Jefferson Tool Coordinator Surgeon(s) Carmen Sheehan Estimated Blood Loss 400ML Findings Consistent with Post-Op Diagnosis Specimens Culture of right arm infected fistula site sent for routine gram stain, culture and sensitivity, anaerobic/aerobic microbes Drains None Anesthesia Type General Complication(s) none Disposition Accompanied Pt To Recover: no Disposition: Recovery Room / PACU
[2017-09-06] MEDS ORDERED: PHENYLEPHRINE HCL INJ 10 MG/ML VIAL ONE ×3 (16:41→17:55)
[2017-09-06] MEDS ORDERED: ROCURONIUM BROMIDE 10 MG/ML 5 ML VIAL IV ONE (16:42)
[2017-09-06] MEDS ORDERED: MoRPHine SULFATE 2 MG/ML CARP IV PRN ×2 (16:45→17:00)
[2017-09-06] MEDS ORDERED: MoRPHine SULFATE 4 MG/ML 1 ML CARP\\VIAL IV PRN ×2 (17:00)
[2017-09-06 17:44] LABS: BASO % 0.1 %; BASO ABS # 0.02 K/uL (0-0.2); EOS % 0.7 %; EOS ABS # 0.11 K/uL (0-0.5); HEMOGLOBIN 10.8 g/dL (14.0-18.0); IG# 0.14 K/uL (0.00-0.02); LYMPH % 12.5 %; MEAN CELL VOLUME 100.3 fL (80-100); MEAN CORPUSCULAR HEMOGLOBIN 31.9 pg (25-34); MEAN CORPUSCULAR HGB CONC 31.8 g/dl (32-36); MEAN PLATELET VOLUME 9.4 fL (7.4-10.4); MONO % 9.7 %; MONO ABS # 1.64 K/uL (0.11-0.59); NEUT % 76.2 %; NEUT ABS # 12.83 K/uL (1.4-6.5); PLATELET COUNT 351 K/uL (130-400); RED CELL DISTRIBUTION WIDTH CV 17.5 % (11.5-14.5); RED CELL DISTRIBUTION WIDTH SD 64.3 fL (36.4-46.3); WHITE BLOOD COUNT 16.84 K/uL (4.8-10.8)
[2017-09-06] MEDS ORDERED: PIPERACILL/TAZOBAC CONSULT ACTIVE PRN (17:55)
[2017-09-06] MEDS ORDERED: PHENYLEPHRINE 100MCG/ML 5ML SYR ONE (17:56)
[2017-09-06 17:59] LABS: INR 1.2 (0.9-1.1)
[2017-09-06] MEDS ORDERED: PIPERACILL/TAZOBAC IV 4.5 GM in DEXTROSE 5% 100ML IV ONE (18:15)
[2017-09-06] MEDS ORDERED: PHENYLEPHRINE HCL INJ 40 MG in DEXTROSE 5% 500ML 500 ML IV PRN ×2 (18:15→18:59)
[2017-09-06 18:19] LABS: CREATININE 6.34 mg/dl (0.60-1.40)
[2017-09-06 18:21] LABS: POTASSIUM 4.4 mmol/L (3.5-5.1)
--- NOTE | 2017-09-06 19:05 | Anesthesiology Progress Note ---
Anesthesia Post Op Note Date & Time Sep 06, 2017 at 19:04 Vital Signs Pain Intensity: 0 Vital Signs Past 12 Hours Date Time Temp Pulse Resp B/P (MAP) Pulse Ox O2 Delivery O2 Flow Rate FiO2 09/06/17 18:41 37.4 09/06/17 18:32 101 16 91 09/06/17 18:32 101 16 09/06/17 18:31 103/63 09/06/17 18:27 16 09/06/17 18:27 96 16 09/06/17 18:26 89/61 09/06/17 18:22 90 16 09/06/17 18:22 90 16 99/67 93 09/06/17 18:18 124/58 09/06/17 18:17 76 16 09/06/17 18:17 76 16 94 09/06/17 18:12 77 20 84/68 94 09/06/17 18:12 76 20 09/06/17 18:11 63 25 09/06/17 18:11 64 25 94 09/06/17 18:06 91 21 115/57 98 09/06/17 18:06 91 21 09/06/17 18:01 92 29 09/06/17 18:01 92 29 105/54 93 09/06/17 17:56 98 20 09/06/17 17:56 97 20 92/62 92 09/06/17 17:54 104/49 09/06/17 17:52 80/35 09/06/17 17:51 95 20 95 09/06/17 17:51 95 20 09/06/17 17:47 91/54 09/06/17 17:46 96 20 09/06/17 17:46 96 20 95 09/06/17 17:42 107/67 09/06/17 17:41 81 20 92 09/06/17 17:41 82 20 09/06/17 17:36 81 20 117/63 92 09/06/17 17:36 81 21 09/06/17 17:31 104 20 80/54 92 18 17:31 105 20 09/06/17 17:26 100 20 09/06/17 17:26 20 09/06/17 17:26 37.0 99 24 80/54 96 Oxymask 15 09/06/17 11:50 37.6 102 104/50 (68) 09/06/17 11:15 106 92/44 09/06/17 11:00 101 94/50 09/06/17 10:45 100 99/47 09/06/17 10:30 102 96/40 09/06/17 10:15 108 96/43 09/06/17 10:00 109 79/39 09/06/17 09:45 101 102/47 09/06/17 09:30 102 94/48 09/06/17 09:15 102 107/49 09/06/17 09:00 104 104/50 09/06/17 08:45 100 111/45 09/06/17 08:30 105 103/50 09/06/17 08:15 98 100/44 09/06/17 08:00 102 110/58 09/06/17 07:45 103 99/53 09/06/17 07:30 95 104/52 09/06/17 07:22 102 107/49 09/06/17 07:15 37.5 107 104/56 (72) Notes Mental Status: alert / awake / arousable, participated in evaluation Pt Amnestic to Procedure: Yes Nausea / Vomiting: adequately controlled Pain: adequately controlled Airway Patency, RR, SpO2: stable & adequate BP & HR: stable & adequate Hydration State: stable & adequate Anesthetic Complications: no major complications apparent Pt awake, no complaints, still requiring phenylephrine drip for blood pressure support. Dr. Jefferson is aware. He had consulted the hospitalist to help with management. Pt is going to ICU. Blood pressure stable with the jazmine drip.
[2017-09-06] MEDS ORDERED: VANCOMYCIN INJ 750 MG in SODIUM CHLORIDE 0.9% 250ML 250 ML IV ONE (19:30)
--- NOTE | 2017-09-06 19:36 | Critical Care Consultation ---
Critical Care Consultation Date of Consultation: Sep 06, 2017. Attending Physician: Suleiman Lombardi MD Reason for Consultation: 37-year-old male with a history of end-stage renal disease on hemodialysis Monday/Monday/Monday utilizing RIGHT brachial fistula presenting with cellulitis with abscess to the fistula site undergoing surgical intervention today with grafting of the RIGHT saphenous vein to the RIGHT brachial vessel. Postoperatively requiring Meño-Synephrine for blood pressure support. History of Present Illness Patient is a 37-year-old male who was admitted to this facility on Monday for a cellulitis overlying the RIGHT-sided graft with possible surrounding abscess and occluded graft requiring surgical intervention. Patient placed on broad- spectrum antibiotics including vancomycin and Zosyn. The patient underwent graft repair of the RIGHT brachial bovine graft with transposition of the RIGHT saphenous vein. Estimated blood loss 400 mL. Intraoperatively, the patient required Meño-Synephrine for blood pressure control. Concerns for septic shock prompting need for close monitoring for need for further intervention. Upon arrival in the ICU, the patient is resting comfortably. His Meño- Synephrine was initially at 1 mcg/kg/m. Prior to my evaluation, the patient's blood pressure had normalized and he has no friend was titrated down to 0.5 mcg/ kg/m. Patient is resting comfortably. He complains of some mild discomfort to the RIGHT upper extremity. He denies any headaches, distance, lightheadedness, chest pain, palpations, short of breath, nausea, vomiting, or abdominal discomfort. 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 Subsequently, developed end-stage renal disease after long-standing antihypertensive medications. Currently on dialysis as described above. Current smoker. Denies any other illicit drug use. Past Medical/Surgical History Medical Problems: (1) Cellulitis of right upper extremity (2) Clotted renal dialysis AV graft (3) Complications, dialysis, catheter, mechanical (4) (5) End stage renal failure on dialysis (6) ESRD (end stage renal disease) on dialysis (7) Hyperparathyroidism, Unspecified (8) Hypertension Nos (9) Malfunction of arteriovenous dialysis fistula (10) Morbid Obesity (11) Vascular dialysis catheter in place Surgical Problems: (1) H/O parathyroidectomy (2) History of knee surgery Family History FH: Alzheimers disease GRANDMOTHER noncontributory Social History Smoking Status: Current Every Day Smoker Smokeless Tobacco Use: No Alcohol Use: none Drug Use: none Marital Status: single Housing Status: lives with family Occupation Status: employed Allergies Coded Allergies: Oxycodone (Verified Adverse Reaction, Intermediate, GI SYMPTOMS, 09/04/17) Home Medications Scheduled B-Complex W/ C & Folic Acid (Triphrocaps), 1 CAP PO QAM Calcium Acetate (Phosphate Bin (Phoslo 667 Mg), 2 TABS PO TIDM Calcium Carbonate (Antacid) (Tums E-X 750), 3.5 TABS PO QID Doxercalciferol (Hectorol), 1 ML 3XWK Ergocalciferol (Vitamin D 92538 Unit), 1 TAB PO MONTHLY Patiromer Sorbitex Calcium (Veltassa), 1 DOSE PO QPM Sevelamer Carbonate (Renvela), 5 TABS PO TIDM Sevelamer Carbonate (Renvela), 3 TABS PO WITH SNACKS Sodium Polystyrene Sulfonate (Kayexalate Susp), 30 ML PO DAILY Warfarin Sod (Jantoven), 2.5 MG PO 4XWK Warfarin Sodium (Coumadin), 5 MG PO 3XWK Current Inpatient Medications Current Inpatient Medications Medications (Trade) Dose Ordered Sig/Otilia Route Start Time Stop Time Status Last Admin Dose Admin Acetaminophen (Tylenol Tab) 650 mg Q4H PRN PO 09/04/17 14:30 10/04/17 14:29 09/05/17 21:07 650 MG Miscellaneous Information (Consult) 1 ea UD PRN N/A 09/04/17 14:45 10/04/17 14:44 Calcium Acetate (Phoslo Cap) 1,334 mg TIDM PO 09/04/17 17:45 10/04/17 17:59 09/05/17 19:10 1,334 MG Calcium Carbonate (Tums Chew Tab) 2,625 mg QID PO 09/04/17 17:00 10/04/17 16:59 09/05/17 21:06 2,625 MG Patiromer (Veltassa) 25.2 gm QPM PO 09/04/17 21:00 10/04/17 20:59 09/05/17 21:06 25.2 GM Sevelamer HCl (Renagel Tab) 2,400 mg BID PRN PO 09/04/17 15:00 10/04/17 14:59 Sevelamer HCl (Renagel Tab) 4,000 mg TIDM PO 09/04/17 17:45 10/04/17 17:59 09/05/17 19:10 4,000 MG Vitamin B Complex/ Vit C/Folic Acid (Nephrocaps) 1 cap HS PO 09/05/17 21:00 10/05/17 08:59 09/05/17 21:06 1 CAP Tramadol HCl (Ultram Tab) `50-100MG (1-2 TABS) ... Q6H PRN PO 09/06/17 16:45 10/06/17 16:44 Morphine Sulfate (MoRPHine SULFATE INJ) 1 mg Q2H PRN IV 09/06/17 16:45 09/20/17 16:44 Morphine Sulfate (MoRPHine SULFATE INJ) 2 mg Q2H PRN IV 09/06/17 17:00 09/20/17 16:59 Morphine Sulfate (MoRPHine SULFATE INJ) 3 mg Q2H PRN IV 09/06/17 17:00 09/20/17 16:59 Morphine Sulfate (MoRPHine SULFATE INJ) 4 mg Q2H PRN IV 09/06/17 17:00 09/20/17 16:59 Miscellaneous Information (Consult) 1 ea UD PRN N/A 09/06/17 17:55 10/06/17 17:54 Piperacillin Sod/ Tazobactam Sod 4.5 gm/Dextrose 120 ml @ 30 mls/hr Q12H IV 09/07/17 02:00 09/16/17 23:59 Phenylephrine HCl 40 mg/Dextrose 504 ml @ 0 mls/hr Q0M PRN IV 09/06/17 18:15 09/06/17 23:15 Vancomycin HCl 750 mg/Sodium Chloride 265 ml @ 125 mls/hr NOW ONCE IV 09/06/17 19:30 09/06/17 21:37 Phenylephrine HCl 40 mg/Dextrose 504 ml @ 0 mls/hr Q0M PRN IV 09/06/17 18:59 10/06/17 18:58 Review of Systems A complete 10-point Review of Systems was discussed with the patient, with pertinent positives and negatives listed in the History of Present Illness. All remaining Review of Systems questions can be considered negative unless otherwise specified. Physical Exam Date Time Temp Pulse Resp B/P (MAP) Pulse Ox O2 Delivery O2 Flow Rate FiO2 09/06/17 18:41 37.4 09/06/17 18:32 101 16 91 09/06/17 18:32 101 16 18 18:31 103/63 18 18:27 16 09/06/17 18:27 96 16 09/06/17 18:26 89/61 09/06/17 18:22 90 16 09/06/17 18:22 90 16 99/67 93 09/06/17 18:18 124/58 09/06/17 18:17 76 16 09/06/17 18:17 76 16 94 09/06/17 18:12 77 20 84/68 94 09/06/17 18:12 76 20 09/06/17 18:11 63 25 09/06/17 18:11 64 25 94 09/06/17 18:06 91 21 115/57 98 09/06/17 18:06 91 21 09/06/17 18:01 92 29 09/06/17 18:01 92 29 105/54 93 09/06/17 17:56 98 20 09/06/17 17:56 97 20 92/62 92 09/06/17 17:54 104/49 09/06/17 17:52 80/35 09/06/17 17:51 95 20 95 09/06/17 17:51 95 20 09/06/17 17:47 91/54 09/06/17 17:46 96 20 09/06/17 17:46 96 20 95 09/06/17 17:42 107/67 09/06/17 17:41 81 20 92 18 17:41 82 20 18 17:36 81 20 117/63 92 18 17:36 81 21 09/06/17 17:31 104 20 80/54 92 18 17:31 105 20 09/06/17 17:26 100 20 18 17:26 20 09/06/17 17:26 37.0 99 24 80/54 96 Oxymask 15 09/06/17 11:50 37.6 102 104/50 (68) 09/06/17 11:15 106 92/44 09/06/17 11:00 101 94/50 09/06/17 10:45 100 99/47 09/06/17 10:30 102 96/40 09/06/17 10:15 108 96/43 09/06/17 10:00 109 79/39 09/06/17 09:45 101 102/47 09/06/17 09:30 102 94/48 09/06/17 09:15 102 107/49 09/06/17 09:00 104 104/50 09/06/17 08:45 100 111/45 09/06/17 08:30 105 103/50 09/06/17 08:15 98 100/44 09/06/17 08:00 102 110/58 09/06/17 07:45 103 99/53 09/06/17 07:30 95 104/52 09/06/17 07:22 102 107/49 09/06/17 07:15 37.5 107 104/56 (72) 09/06/17 06:41 37.1 111 18 91/57 (68) 92 Room Air 09/06/17 00:15 Room Air 09/05/17 23:50 37.5 111 20 108/57 (74) 91 Room Air VITAL SIGNS - Vital signs and nursing notes were reviewed. GENERAL - 37-year-old male appearing his stated age who is in no acute distress. Communicates well with provider and answers questions appropriately. SKIN - Dressings intact to the RUE and RLE. No bleeding noted. HEAD - NC/AT. EYES - PERRL with EOMI bilaterally. MOUTH/OROPHARYNX - Without perioral cyanosis. Buccal mucosa pink and moist and without leukoplakia. NECK - Neck with FROM. Supple to palpation. LUNGS - Chest wall symmetric without accessory muscle use, intercostals retractions, or central cyanosis. Normal vesicular breath sounds CTA B/L. No wheezes, rales, or rhonchi appreciated. CARDIAC - RRR with S1/S2. No murmur, rubs, or gallops appreciated. ABDOMEN - Abdominal contour obese without pulsations or visible masses. BS normoactive all four quadrants. No tenderness, palpable masses, hepatosplenomegaly, or ascites noted. EXTREMITIES - As above. No clubbing or peripheral cyanosis. No pretibial edema present. +3/5 radial and dorsalis pedis pulses palpated throughout. +5/5 strength noted in UE/LE bilaterally. NEUROLOGIC - Cranial nerves II through XII grossly intact. PSYCH - A&Ox3 and cooperates fully with examiner. Pt is very pleasant and interacts well with examiner. Laboratory Results Last 24 Hours Test 09/06/17 12:18 09/06/17 17:31 09/06/17 17:35 09/06/17 17:36 Bedside Hemoglobin 12.2 g/dl Bedside Hematocrit 36 % Bedside Sodium 136 mEq/L Bedside Potassium 3.6 mEq/L Bedside Chloride 96 mEq/L Bedside Total CO2 24 mEq/l Anion Gap 21.0 mmol/L 13.0 mmol/L Bedside Blood Urea Nitrogen 23 mg/dl Bedside Creatinine 5.6 mg/dl Bedside Glucose (other) 83 mg/dl Bedside Ionized Calcium (Sophie) 0.95 mmol/l Bedside Glucose 92 mg/dl Prothrombin Time 12.9 SECONDS Prothromb Time International Ratio 1.2 Sodium Level 134 mmol/L Potassium Level 4.4 mmol/L Chloride Level 97 mmol/L Carbon Dioxide Level 24 mmol/L Blood Urea Nitrogen 30 mg/dl Creatinine 6.34 mg/dl Est Creatinine Clear Calc Drug Dose 23.1 ml/min Estimated GFR () 11.9 Estimated GFR (Non- 10.3 BUN/Creatinine Ratio 4.8 Random Glucose 94 mg/dl Calcium Level 8.0 mg/dl Random Vancomycin Level 11.6 mcg/ml White Blood Count 16.84 K/uL Red Blood Count 3.39 M/uL Hemoglobin 10.8 g/dL Hematocrit 34.0 % Mean Corpuscular Volume 100.3 fL Mean Corpuscular Hemoglobin 31.9 pg Mean Corpuscular Hemoglobin Concent 31.8 g/dl Platelet Count 351 K/uL Mean Platelet Volume 9.4 fL Neutrophils (%) (Auto) 76.2 % Lymphocytes (%) (Auto) 12.5 % Monocytes (%) (Auto) 9.7 % Eosinophils (%) (Auto) 0.7 % Basophils (%) (Auto) 0.1 % Neutrophils # (Auto) 12.83 K/uL Lymphocytes # (Auto) 2.10 K/uL Monocytes # (Auto) 1.64 K/uL Eosinophils # (Auto) 0.11 K/uL Basophils # (Auto) 0.02 K/uL RDW Standard Deviation 64.3 fL RDW Coefficient of Variation 17.5 % Immature Granulocyte % (Auto) 0.8 % Immature Granulocyte # (Auto) 0.14 K/uL Diagnostic Results Radiological imaging and reports were reviewed by myself. Assessment & Plan (1) ESRD (end stage renal disease) on dialysis (2) Dialysis AV fistula infection (3) Cellulitis of right upper extremity Reason Critically Ill: 37-year-old male with a history of end-stage renal disease on hemodialysis Monday/Monday/Monday utilizing RIGHT brachial fistula presenting with cellulitis with abscess to the fistula site undergoing surgical intervention today with grafting of the RIGHT saphenous vein to the RIGHT brachial vessel. Postoperatively requiring Meño-Synephrine for blood pressure support. Neuro - * CAM ICU: NEGATIVE * Postoperative Pain: * PRN Morphine, Tramadol, Tylenol Cardiac - * Hypotension s/p Surgical Intervention: * Concerns for septic shock in the setting of RUE cellulitis with abscess. * Initially on Meño-Synephrine. Will titrate off as BP tolerates. * Meño-Synephrine off at 2000 w/ SBPs in the 120s and MAPs in the 60s. ? Anesthesia rxn vs. profound systemic sepsis. * Will continue to monitor hemodynamics closely. * No h/y CAD or cardiac disease otherwise. Respiratory - * No h/o pulmonary disease. * Daily smoker s/g General Anesthesia. * NC O2 PRN GI - * Progress diet as tolerated. 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 * Continue HD per Nephro. * Monitor BNPs - * No issues at this time. ENDO - * No h/o DM * Hyperparathyroidism w/ recent parathyroidectomy. * Continue home Rx. HEME - * Stable H&H - will monitor in the setting of recent Sx w/ EBL of 400cc ID - * RUE Cellulitis w/ abscess and infected bovine graft fistula: * Vanc/Zosyn. * Blood Cultures negative x2. * Agree with continuing current antibiotics until sensitivities of wound cultures available. * Initially concerns for septic shock s/p surgical intervention. No fever. Hypotension resolved. Off Meño. Will continue to monitor for changes, but suspect hypotension may be related to anesthesia. * Appreciate IDs continued input. LINES/IV ACCESS - * PIVs intact. * RIGHT Femoral temporary HD cath. DVT PROPHYLAXIS - * Received Heparin this AM. * Will defer further anticoagulation to Vascular in the setting of recent surgical intervention. * Will hold on SCDs 2/2 recent saphenous vein harvest. I have personally spent 35 minutes of critical care time in the direct management of this patient. This is a life/limb threatening event. This includes time spent evaluating patient, direct bedside care, chart review, placing orders, interpretation of diagnostic studies, discussion with consultants, patient, and family members, as well as other required patient management activities. This time is exclusive of all separately billable procedures, and teaching time and separate from and in addition to any other critical care service time. Thank you for this consultation allow us to be part of this patient's care. Please refer to my attending physician's documentation for any further recommendations. Attending addendum: The patient was seen, examined independently, agree with assessment and plan my colleague Jorge A Conner. 37-year-old gentleman with history of chronic kidney disease status post hemodialysis via AV fistula on the right approximately, presented to the hospital with occluded fistula and underwent interrogation by Dr. Jefferson, noted to have purulent secretions that has been removed, cultures are pending, the patient was started empirically on antibiotics and started also on Meño- Synephrine. Patient was admitted to the ICU for further monitoring. The patient denies any pain when he arrived, did not have any shortness of breath, appeared somewhat lethargic postop, not tachycardic, maintaining his airways. His physical exam revealed blood pressure 90/41 on Meño-Synephrine, 1 diane per KG per minute, S1-S2 regular rate and rhythm, abdomen is benign, right approximately surgically graft, femoral catheter for hemodialysis was already in place. Edema in the periphery. Impression: #1 infected right AV fistula. #2 chronic kidney disease on dialysis. #3 hypertension secondary to the above in addition to shunting via the AV fistula. #4 morbid obesity. Plan: #1 agree with your current antibiotics. #2 will target gram-positive cocci. #3 hemodialysis per renal. #4 GI and DVT prophylaxis. #5 medication reviewed. #6 wean Meño-Synephrine as tolerated. #7 oral intake was appropriate. Discussed with the staff and details, critical care time was 45 minutes.
[2017-09-06] MEDS: NEPHROCAPS PO SCH (20:36)
--- NOTE | 2017-09-06 20:41 | OPERATIVE REPORT ---
DATE OF OPERATION: 09/06/2017 PREOPERATIVE DIAGNOSIS: Infected right arm fistula. POSTOPERATIVE DIAGNOSIS: Infected right arm fistula. PROCEDURE: Removal of right arm arteriovenous graft, brachial artery interposition bypass with reverse right greater saphenous vein. SURGEON: Antwan Jefferson MD. PROFESSIONAL NURSING ASSISTANT: Renee Bruce MD and Lidya Raya PA-C. ESTIMATED BLOOD LOSS: 400 mL. SPECIMENS: Culture of right arm infected fistula site sent for routine, Gram stain, culture, and sensitivities, aerobic/anaerobic. DRAINS: None. ANESTHESIA: General endotracheal anesthesia. COMPLICATIONS: None. INDICATIONS: Mr. Edouard Morrison is a 37-year-old gentleman with a history of multiple attempts at dialysis access of the right upper extremity. He had undergone previous forearm loop AV graft with prosthetic, brachial axillary AV graft with PTFE, and brachial axillary graft with bovine. He presented with cellulitis and was found to have fluid surrounding the right arm AV graft. For this reason, he was recommended to undergo graft removal for graft infection. The risks, benefits and alternatives were discussed with the patient and he consented to the procedure. Prior to this, a temporary dialysis catheter was placed in his right femoral vein for use for dialysis. DESCRIPTION OF PROCEDURE: The patient was taken to the operating room and placed in the supine position. General endotracheal anesthesia was induced by anesthesia colleagues. The right arm was prepped and draped in the usual sterile fashion. A safety timeout was performed and the patient, procedure, and sidedness were correctly identified. Given that the bovine Artegraft was still functioning, we felt that it was best to first ligate this graft. An incision was made several centimeters proximal to the crease of the elbow over portion of the bovine graft near the arterial anastomosis. Subcutaneous tissues were divided with Bovie electrocautery. The bovine graft was identified and dissected circumferentially. It was then doubly clamped, ligated, and divided. The proximal aspect near the arterial anastomosis was oversewn with 5-0 Prolene. The remaining portion of the graft was ligated with a 0 silk suture stick tie. We then turned our attention to the portion of the grafting of the venous anastomosis. An incision was made overlying the graft and the graft was identified. It was dissected circumferentially and doubly clamped and divided. The portion near the venous anastomosis was oversewn with 5-0 Prolene. The remaining portion of the graft was suture ligated with 0 silk stick tie. Once the graft had been ligated, we then turned our attention to the tract of the graft of which there were 2 abscesses. A curvilinear incision was made beginning at the medial crease of the elbow extending up the arm. Immediately upon incising the skin, significant amount of purulent drainage was expressed. This was collected with a culture swab and sent for micro. Bovie electrocautery was used to divide subcutaneous tissues. Within the abscess cavity, the PTFE graft was found to be free floating. This was followed proximally and distally to its arterial and venous anastomoses. We first followed it proximally towards the arterial anastomosis and dissecting the artery proximal and distal to the arterial anastomosis we identified a second piece of PTFE that appeared to be the previously placed forearm loop graft. Given the significant size of the artery to graft anastomosis and the fact that there were 2 within a short segment of brachial artery, we felt that it would be best to perform a brachial artery interposition bypass. For this reason, we extended our dissection proximally above the newly discovered second piece of graft. The patient was systemically heparinized with 5000 units of heparin. The right leg was then assessed with ultrasound and a segment of usable saphenous vein was apparent at the level of the distal thigh. The thigh was then prepped and draped in the usual sterile fashion. An incision was made over the greater saphenous vein. Bovie electrocautery was used to divide subcutaneous tissues. The vein was identified and dissected circumferentially. Side branches were doubly ligated and divided with silk ties. A 6 cm portion of the saphenous vein was then freed and removed. The remaining ends of saphenous proximally and distally were ligated with 3-0 silk stick ties. The wound bed was irrigated. Hemostasis was achieved. This was closed with Vicryl in a running fashion. The skin zak were used to reapproximate the skin overlying this area. We then turned our attention back to the arm. The brachial artery was clamped proximally and distally. The artery was transected above and below the sites of previous graft anastomosis. The saphenous vein was then brought onto the field and dilated. It was reversed and anastomosed to the proximal brachial artery with 6-0 Prolene in a running fashion. The graft was flushed and the first anastomosis appeared to be hemostatic. The vein was then cut to length and spatulated. It was then anastomosed to the distal segment of the brachial artery with 6-0 Prolene in a running fashion. The segment of interposition bypass measured approximately 3 cm. All vessels were back bled and the graft was flushed prior to completion of the anastomosis. Once the second anastomosis was completed, bypass had a palpable pulse. Doppler signal was appreciated in the forearm following completion of the bypass. We then turned our attention to the graft vein anastomosis. The graft was dissected close to the axilla and its junction with the axillary vein identified. The vein was oversewn with 5-0 Prolene and the sutures were placed just below the graft. Following placement of the sutures the graft was removed with an 11 blade scalpel. All graft material was excised. All wounds were irrigated with a total of 2 liters of warm normal saline. Subcutaneous tissues overlying the bovine graft ligation sites were closed with 3-0 Vicryl in a running fashion. Skin over these areas were reapproximated with skin zak. Due to concern for exposure of our bypass, the distal most portion of our curvilinear graft incision was closed with 3-0 nylon vertical mattress sutures. Approximately 6 sutures were placed just at the most distal portion of the incision to cover the bypass. The remainder of the wound was packed with saline moistened Kerlix. Xeroform was applied to the closed skin incisions. Sterile 4 x 4's were placed on top of this and on top of the wet to dry. The right arm was wrapped with Kerlix and sterile Ricci. The Doppler radial and ulnar signals were appreciated at the end of the case. The patient was awakened from anesthesia and transferred to the recovery area in stable condition. He tolerated the procedure well and there were no immediate complications. Dr. Antwan Jefferson was present for the entire procedure. I attest to the content of the Intraoperative Record and any orders documented therein. Any exception s are noted below.
[2017-09-06] MEDS ORDERED: ICU PROTOCOL FOR HYPERGLYCEMIA PRN (20:45)
--- NOTE | 2017-09-06 21:30 | Progress Note ---
Medicine Progress Note Date & Time of Visit: Sep 06, 2017 at 21:24. Subjective patient transferred to ICU post op for hypotensive episode being weaned off pressor seen resting in bed, alert, oriented x 3 states he feels fine, just tired denies chest pain, dyspnea, dizziness, nausea pain well controlled denies other symptoms Objective Last 8 Hrs Date Time Temp Pulse Resp B/P (MAP) Pulse Ox O2 Delivery O2 Flow Rate FiO2 09/06/17 21:01 98 17 101/50 (67) 95 Nasal Cannula 3.0 09/06/17 20:46 102 15 103/51 (68) 98 Nasal Cannula 3.0 09/06/17 20:37 109 13 123/43 (69) 93 Nasal Cannula 3.0 09/06/17 20:16 105 18 135/61 (85) 91 Nasal Cannula 3.0 09/06/17 20:01 86 15 167/100 (122) 98 Nasal Cannula 3.0 09/06/17 20:00 Nasal Cannula 3.0 09/06/17 19:46 92 22 148/82 (104) 90 Nasal Cannula 3.0 09/06/17 19:31 96 20 138/73 (94) 90 Nasal Cannula 3.0 09/06/17 19:16 92 20 133/78 (96) 90 Nasal Cannula 3.0 09/06/17 19:12 36.9 87 23 120/69 (86) 91 Nasal Cannula 3.0 09/06/17 18:41 37.4 09/06/17 18:32 101 16 91 09/06/17 18:32 101 16 09/06/17 18:31 103/63 09/06/17 18:27 16 09/06/17 18:27 96 16 09/06/17 18:26 89/61 09/06/17 18:22 90 16 09/06/17 18:22 90 16 99/67 93 09/06/17 18:18 124/58 09/06/17 18:17 76 16 09/06/17 18:17 76 16 94 09/06/17 18:12 77 20 84/68 94 09/06/17 18:12 76 20 09/06/17 18:11 63 25 09/06/17 18:11 64 25 94 09/06/17 18:06 91 21 115/57 98 09/06/17 18:06 91 21 09/06/17 18:01 92 29 09/06/17 18:01 92 29 105/54 93 09/06/17 17:56 98 20 09/06/17 17:56 97 20 92/62 92 09/06/17 17:54 104/49 09/06/17 17:52 80/35 09/06/17 17:51 95 20 95 09/06/17 17:51 95 20 09/06/17 17:47 91/54 09/06/17 17:46 96 20 09/06/17 17:46 96 20 95 09/06/17 17:42 107/67 09/06/17 17:41 81 20 92 09/06/17 17:41 82 20 09/06/17 17:36 81 20 117/63 92 09/06/17 17:36 81 21 09/06/17 17:31 104 20 80/54 92 09/06/17 17:31 105 20 09/06/17 17:26 100 20 09/06/17 17:26 20 09/06/17 17:26 37.0 99 24 80/54 96 Oxymask 15 Physical Exam: General-oriented 3 not in distress speaking in sentences no accessory muscle use Eyes- anicteric Neck- supple, no JVD Lungs- clear breath sounds bilaterally, no rales/wheezes Heart- regular rhythm; no murmur, normal rate Abdomen- normal bowel sounds, soft, nontender, no masses Extremities- Right upper extremity: arm dressed heavily, less edema of fingers no pretibial edema, no calf tenderness; peripheral pulses intact Neuro- alert, oriented x 3; no gross focal neurologic deficit Skin- warm & dry Laboratory Results: Last 24 Hours Test 09/06/17 12:18 09/06/17 17:31 09/06/17 17:35 09/06/17 17:36 Bedside Hemoglobin 12.2 g/dl Bedside Hematocrit 36 % Bedside Sodium 136 mEq/L Bedside Potassium 3.6 mEq/L Bedside Chloride 96 mEq/L Bedside Total CO2 24 mEq/l Anion Gap 21.0 mmol/L 13.0 mmol/L Bedside Blood Urea Nitrogen 23 mg/dl Bedside Creatinine 5.6 mg/dl Bedside Glucose (other) 83 mg/dl Bedside Ionized Calcium (Sophie) 0.95 mmol/l Bedside Glucose 92 mg/dl Prothrombin Time 12.9 SECONDS Prothromb Time International Ratio 1.2 Sodium Level 134 mmol/L Potassium Level 4.4 mmol/L Chloride Level 97 mmol/L Carbon Dioxide Level 24 mmol/L Blood Urea Nitrogen 30 mg/dl Creatinine 6.34 mg/dl Est Creatinine Clear Calc Drug Dose 23.1 ml/min Estimated GFR () 11.9 Estimated GFR (Non- 10.3 BUN/Creatinine Ratio 4.8 Random Glucose 94 mg/dl Calcium Level 8.0 mg/dl Random Vancomycin Level 11.6 mcg/ml White Blood Count 16.84 K/uL Red Blood Count 3.39 M/uL Hemoglobin 10.8 g/dL Hematocrit 34.0 % Mean Corpuscular Volume 100.3 fL Mean Corpuscular Hemoglobin 31.9 pg Mean Corpuscular Hemoglobin Concent 31.8 g/dl Platelet Count 351 K/uL Mean Platelet Volume 9.4 fL Neutrophils (%) (Auto) 76.2 % Lymphocytes (%) (Auto) 12.5 % Monocytes (%) (Auto) 9.7 % Eosinophils (%) (Auto) 0.7 % Basophils (%) (Auto) 0.1 % Neutrophils # (Auto) 12.83 K/uL Lymphocytes # (Auto) 2.10 K/uL Monocytes # (Auto) 1.64 K/uL Eosinophils # (Auto) 0.11 K/uL Basophils # (Auto) 0.02 K/uL RDW Standard Deviation 64.3 fL RDW Coefficient of Variation 17.5 % Immature Granulocyte % (Auto) 0.8 % Immature Granulocyte # (Auto) 0.14 K/uL Test 09/06/17 20:47 Bedside Glucose 127 mg/dl Date/Time Source Procedure Growth Status 09/06/17 19:10 Nasal MRSA DNA Surveillance Screen - Final Specimen Negative for MRSA by DNA Probe Complete 09/06/17 13:45 Drainage-Deep Arm Gram Stain Pending Received 09/06/17 13:45 Drainage-Deep Arm Bacterial Culture Pending Received Assessment & Plan RIGHT UPPER EXTREMITY CELLULITIS AT THE AREA OF THE AV GRAFT Present with Right upper arm erythema/tenderness/swelling Meet SIRS criteria with elevated WBC and Tachycardia U/S showed complex fluid collection surrounding an occluded right upper arm dialysis graft. The fluid collection extends over craniocaudad distance of 11.5 cm.Lateral to the occluded graft is a second hemodialysis graft, which is patent. Blood cultures pending Vascular consulted, Dr. Jefferson 09/05/17: s/p temporary HD cath placement 09/06/17: s/p removal of AV graft Culture of Drainage: pending wean off pressors continue Vanco and Zosyn IV ID consulted ESRD ON HD ON MWF s/p HD today Nephro on board RECENT CLOT IN THE AV GRAFT Occurs in Dec after undergoing parathyroidectomy surgery INR is 1.[address] Jefferson, recommend to stop anticoagulation Tobacco abuse Counseling smoking cessation declined nicotine patch HTN BP low hold Metoprolol for now monitor DVT Coumadin stopped per vascular surgery service Heparin stopped for his planned procedures CODE STATUS FULL CODE DISPOSITION Anticipate return home when medically stable cleared by nephrology and vascular surgery Current Inpatient Medications: Current Inpatient Medications Medications (Trade) Dose Ordered Sig/Otilia Route Start Time Stop Time Status Last Admin Dose Admin Acetaminophen (Tylenol Tab) 650 mg Q4H PRN PO 09/04/17 14:30 10/04/17 14:29 09/05/17 21:07 650 MG Miscellaneous Information (Consult) 1 ea UD PRN N/A 09/04/17 14:45 10/04/17 14:44 Calcium Acetate (Phoslo Cap) 1,334 mg TIDM PO 09/04/17 17:45 10/04/17 17:59 09/06/17 20:21 1,334 MG Calcium Carbonate (Tums Chew Tab) 2,625 mg QID PO 09/04/17 17:00 10/04/17 16:59 09/06/17 20:20 2,625 MG Patiromer (Veltassa) 25.2 gm QPM PO 09/04/17 21:00 10/04/17 20:59 09/05/17 21:06 25.2 GM Sevelamer HCl (Renagel Tab) 2,400 mg BID PRN PO 09/04/17 15:00 10/04/17 14:59 Sevelamer HCl (Renagel Tab) 4,000 mg TIDM PO 09/04/17 17:45 10/04/17 17:59 09/06/17 20:21 4,000 MG Vitamin B Complex/ Vit C/Folic Acid (Nephrocaps) 1 cap HS PO 09/05/17 21:00 10/05/17 08:59 09/06/17 20:36 1 CAP Tramadol HCl (Ultram Tab) `50-100MG (1-2 TABS) ... Q6H PRN PO 09/06/17 16:45 10/06/17 16:44 Morphine Sulfate (MoRPHine SULFATE INJ) 1 mg Q2H PRN IV 09/06/17 16:45 09/20/17 16:44 Morphine Sulfate (MoRPHine SULFATE INJ) 2 mg Q2H PRN IV 09/06/17 17:00 09/20/17 16:59 Morphine Sulfate (MoRPHine SULFATE INJ) 3 mg Q2H PRN IV 09/06/17 17:00 09/20/17 16:59 Morphine Sulfate (MoRPHine SULFATE INJ) 4 mg Q2H PRN IV 09/06/17 17:00 09/20/17 16:59 Miscellaneous Information (Consult) 1 ea UD PRN N/A 09/06/17 17:55 10/06/17 17:54 Piperacillin Sod/ Tazobactam Sod 4.5 gm/Dextrose 120 ml @ 30 mls/hr Q12H IV 09/07/17 02:00 09/16/17 23:59 Phenylephrine HCl 40 mg/Dextrose 504 ml @ 0 mls/hr Q0M PRN IV 09/06/17 18:15 09/06/17 23:15 Vancomycin HCl 750 mg/Sodium Chloride 265 ml @ 125 mls/hr NOW ONCE IV 09/06/17 19:30 09/06/17 21:37 09/06/17 19:57 125 MLS/HR Phenylephrine HCl 40 mg/Dextrose 504 ml @ 0 mls/hr Q0M PRN IV 09/06/17 18:59 10/06/17 18:58 Miscellaneous Information (Icu Protocol For Hyperglycemia) 1 ea PRN PRN N/A 09/06/17 20:45 09/08/17 20:44
[2017-09-06] MEDS: PATIROMER SORBITEX CALCIUM PO SCH (22:59)
[2017-09-07] VITALS (114 sets, daily range): BP systolic 70–140; BP diastolic 32–91; PULSE 82–129; TEMP 36.6–37; O2SAT 62–98
[2017-09-07] MEDS: PIPERACILL/TAZOBAC IV 4.5 GM in DEXTROSE 5% 100ML IV SCH ×2 (02:05→15:41)
[2017-09-07 05:31] LABS: BASO % 0.2 %; BASO ABS # 0.02 K/uL (0-0.2); EOS % 1.9 %; HEMATOCRIT 32.8 % (42-52); IG# 0.05 K/uL (0.00-0.02); LYMPH % 14.1 %; LYMPH ABS # 1.46 K/uL (1.2-3.4); MEAN CELL VOLUME 99.1 fL (80-100); MEAN CORPUSCULAR HEMOGLOBIN 30.2 pg (25-34); MEAN CORPUSCULAR HGB CONC 30.5 g/dl (32-36); MEAN PLATELET VOLUME 9.3 fL (7.4-10.4); MONO ABS # 0.93 K/uL (0.11-0.59); NEUT % 74.3 %; NEUT ABS # 7.69 K/uL (1.4-6.5); PLATELET COUNT 306 K/uL (130-400); RED CELL DISTRIBUTION WIDTH CV 17.3 % (11.5-14.5); WHITE BLOOD COUNT 10.35 K/uL (4.8-10.8)
[2017-09-07 05:43] LABS: INR 1.2 (0.9-1.1)
[2017-09-07 06:13] LABS: CALCIUM 7.9 mg/dl (8.5-10.1); CREATININE 7.76 mg/dl (0.60-1.40); POTASSIUM 4.1 mmol/L (3.5-5.1)
[2017-09-07] MEDS: SEVELAMER HYDROCH 800 MG TAB PO SCH ×3 (07:41→15:44)
[2017-09-07] MEDS: CALCIUM ACETATE 667MG GELCAP PO SCH ×3 (07:41→15:43)
[2017-09-07] MEDS: CALCIUM CARBONATE 500 MG CHEWABLE PO SCH ×4 (07:42→21:46)
[2017-09-07] MEDS: ALBUMIN HUMAN 25% 12.5 GM/50 ML VIAL IV SCH ×2 (09:31→10:53)
--- NOTE | 2017-09-07 10:13 | Dialysis Progress Note ---
Nephrology Dialysis Note Date of Service: Sep 07, 2017. Subjective in ICU after infected AVG excision yesterday; lying flat; on low dose phenylephrine on HD w/ albumin and labile blood pressures; groin line running reversed w/ high arterial pressures Objective Date Time Temp Pulse Resp B/P (MAP) Pulse Ox O2 Delivery O2 Flow Rate FiO2 09/07/17 10:00 98 125/77 09/07/17 09:45 95 134/84 09/07/17 09:30 94 125/71 09/07/17 09:15 95 126/74 09/07/17 09:00 99 111/61 09/07/17 08:46 36.9 99 93/55 (68) 09/07/17 08:00 36.9 99 22 109/38 (61) 96 Nasal Cannula 3.0 09/07/17 08:00 Nasal Cannula 3.0 09/07/17 06:31 101 22 90/58 (69) 98 09/07/17 05:01 113 12 102/52 (69) 98 09/07/17 04:01 103 21 95/58 (70) 94 Nasal Cannula 3.0 09/07/17 04:00 Nasal Cannula 3.0 09/07/17 03:36 36.8 102 22 110/66 (81) 96 Nasal Cannula 3.0 09/07/17 03:02 102 24 97/62 (74) 95 Nasal Cannula 3.0 09/07/17 02:01 102 14 108/65 (79) 97 Nasal Cannula 3.0 09/07/17 01:01 98 27 95/52 (66) 92 Nasal Cannula 3.0 09/07/17 00:31 97 23 128/70 (89) 94 Nasal Cannula 3.0 09/07/17 00:01 90 28 119/91 (100) 94 Nasal Cannula 3.0 09/06/17 23:59 Nasal Cannula 3.0 09/06/17 23:31 36.9 102 37 90/46 (61) 94 Nasal Cannula 3.0 09/06/17 23:01 97 31 91/56 (68) 95 Nasal Cannula 3.0 09/06/17 22:01 82 18 130/78 (95) 98 Nasal Cannula 3.0 09/06/17 21:41 101 24 83/50 (61) 94 Nasal Cannula 3.0 09/06/17 21:39 103 24 89/45 (60) 89 Nasal Cannula 3.0 09/06/17 21:36 108 18 86/44 (58) 96 Nasal Cannula 3.0 09/06/17 21:35 102 24 87/38 (54) 90 Nasal Cannula 3.0 09/06/17 21:01 98 17 101/50 (67) 95 Nasal Cannula 3.0 09/06/17 20:46 102 15 103/51 (68) 98 Nasal Cannula 3.0 09/06/17 20:38 95 Nasal Cannula 3.0 09/06/17 20:37 109 13 123/43 (69) 93 Nasal Cannula 3.0 09/06/17 20:16 105 18 135/61 (85) 91 Nasal Cannula 3.0 09/06/17 20:01 86 15 167/100 (122) 98 Nasal Cannula 3.0 09/06/17 20:00 Nasal Cannula 3.0 09/06/17 19:46 92 22 148/82 (104) 90 Nasal Cannula 3.0 09/06/17 19:31 96 20 138/73 (94) 90 Nasal Cannula 3.0 09/06/17 19:16 92 20 133/78 (96) 90 Nasal Cannula 3.0 09/06/17 19:12 36.9 87 23 120/69 (86) 91 Nasal Cannula 3.0 09/06/17 18:41 37.4 09/06/17 18:32 101 16 91 09/06/17 18:32 101 16 09/06/17 18:31 103/63 09/06/17 18:27 16 09/06/17 18:27 96 16 09/06/17 18:26 89/61 18 18:22 90 16 18 18:22 90 16 99/67 93 09/06/17 18:18 124/58 09/06/17 18:17 76 16 09/06/17 18:17 76 16 94 09/06/17 18:12 77 20 84/68 94 09/06/17 18:12 76 20 09/06/17 18:11 63 25 09/06/17 18:11 64 25 94 09/06/17 18:06 91 21 115/57 98 09/06/17 18:06 91 21 09/06/17 18:01 92 29 09/06/17 18:01 92 29 105/54 93 09/06/17 17:56 98 20 09/06/17 17:56 97 20 92/62 92 09/06/17 17:54 104/49 09/06/17 17:52 80/35 09/06/17 17:51 95 20 95 09/06/17 17:51 95 20 09/06/17 17:47 91/54 09/06/17 17:46 96 20 09/06/17 17:46 96 20 95 09/06/17 17:42 107/67 09/06/17 17:41 81 20 92 09/06/17 17:41 82 20 09/06/17 17:36 81 20 117/63 92 09/06/17 17:36 81 21 09/06/17 17:31 104 20 80/54 92 09/06/17 17:31 105 20 09/06/17 17:26 100 20 09/06/17 17:26 20 09/06/17 17:26 37.0 99 24 80/54 96 Oxymask 15 09/06/17 11:50 37.6 102 104/50 (68) 09/06/17 11:15 106 92/44 09/06/17 11:00 101 94/50 09/06/17 10:45 100 99/47 09/06/17 10:30 102 96/40 09/06/17 10:15 108 96/43 Physical Exam: General-lying flat on 02NC, nad Eyes-eomi, less facial edema ENT-mmm Neck-supple Lungs-diminished but clear Heart-regularly spaced beats in 90s Abdomen-soft NT +BS no rangel Extremities-trace BL edema R groin temp cath; R arm bandaged palm - axilla Neuro-arce, fluent speech Current Inpatient Medications Medications (Trade) Dose Ordered Sig/Otilia Route Start Time Stop Time Status Last Admin Dose Admin Acetaminophen (Tylenol Tab) 650 mg Q4H PRN PO 09/04/17 14:30 10/04/17 14:29 09/05/17 21:07 650 MG Miscellaneous Information (Consult) 1 ea UD PRN N/A 09/04/17 14:45 10/04/17 14:44 Calcium Acetate (Phoslo Cap) 1,334 mg TIDM PO 09/04/17 17:45 10/04/17 17:59 09/07/17 07:41 1,334 MG Calcium Carbonate (Tums Chew Tab) 2,625 mg QID PO 09/04/17 17:00 10/04/17 16:59 09/07/17 07:42 2,625 MG Patiromer (Veltassa) 25.2 gm QPM PO 09/04/17 21:00 10/04/17 20:59 09/06/17 22:59 25.2 GM Sevelamer HCl (Renagel Tab) 2,400 mg BID PRN PO 09/04/17 15:00 10/04/17 14:59 Sevelamer HCl (Renagel Tab) 4,000 mg TIDM PO 09/04/17 17:45 10/04/17 17:59 09/07/17 07:41 4,000 MG Vitamin B Complex/ Vit C/Folic Acid (Nephrocaps) 1 cap HS PO 09/05/17 21:00 10/05/17 08:59 09/06/17 20:36 1 CAP Tramadol HCl (Ultram Tab) `50-100MG (1-2 TABS) ... Q6H PRN PO 09/06/17 16:45 10/06/17 16:44 Morphine Sulfate (MoRPHine SULFATE INJ) 1 mg Q2H PRN IV 09/06/17 16:45 09/20/17 16:44 Morphine Sulfate (MoRPHine SULFATE INJ) 2 mg Q2H PRN IV 09/06/17 17:00 09/20/17 16:59 Morphine Sulfate (MoRPHine SULFATE INJ) 3 mg Q2H PRN IV 09/06/17 17:00 09/20/17 16:59 Morphine Sulfate (MoRPHine SULFATE INJ) 4 mg Q2H PRN IV 09/06/17 17:00 09/20/17 16:59 Miscellaneous Information (Consult) 1 ea UD PRN N/A 09/06/17 17:55 10/06/17 17:54 Piperacillin Sod/ Tazobactam Sod 4.5 gm/Dextrose 120 ml @ 30 mls/hr Q12H IV 09/07/17 02:00 09/16/17 23:59 09/07/17 02:05 30 MLS/HR Phenylephrine HCl 40 mg/Dextrose 504 ml @ 0 mls/hr Q0M PRN IV 09/06/17 18:59 10/06/17 18:58 Miscellaneous Information (Icu Protocol For Hyperglycemia) 1 ea PRN PRN N/A 09/06/17 20:45 09/08/17 20:44 Albumin Human (Albumin 25%) 12.5 gm TODAY@0800,1400 IV 09/07/17 08:00 09/07/17 23:59 09/07/17 09:31 12.5 GM Last 24 Hours Test 09/06/17 12:18 09/06/17 17:31 09/06/17 17:35 09/06/17 17:36 Bedside Hemoglobin 12.2 g/dl Bedside Hematocrit 36 % Bedside Sodium 136 mEq/L Bedside Potassium 3.6 mEq/L Bedside Chloride 96 mEq/L Bedside Total CO2 24 mEq/l Anion Gap 21.0 mmol/L 13.0 mmol/L Bedside Blood Urea Nitrogen 23 mg/dl Bedside Creatinine 5.6 mg/dl Bedside Glucose (other) 83 mg/dl Bedside Ionized Calcium (Sophie) 0.95 mmol/l Bedside Glucose 92 mg/dl Prothrombin Time 12.9 SECONDS Prothromb Time International Ratio 1.2 Sodium Level 134 mmol/L Potassium Level 4.4 mmol/L Chloride Level 97 mmol/L Carbon Dioxide Level 24 mmol/L Blood Urea Nitrogen 30 mg/dl Creatinine 6.34 mg/dl Est Creatinine Clear Calc Drug Dose 23.1 ml/min Estimated GFR () 11.9 Estimated GFR (Non- 10.3 BUN/Creatinine Ratio 4.8 Random Glucose 94 mg/dl Calcium Level 8.0 mg/dl Random Vancomycin Level 11.6 mcg/ml White Blood Count 16.84 K/uL Red Blood Count 3.39 M/uL Hemoglobin 10.8 g/dL Hematocrit 34.0 % Mean Corpuscular Volume 100.3 fL Mean Corpuscular Hemoglobin 31.9 pg Mean Corpuscular Hemoglobin Concent 31.8 g/dl Platelet Count 351 K/uL Mean Platelet Volume 9.4 fL Neutrophils (%) (Auto) 76.2 % Lymphocytes (%) (Auto) 12.5 % Monocytes (%) (Auto) 9.7 % Eosinophils (%) (Auto) 0.7 % Basophils (%) (Auto) 0.1 % Neutrophils # (Auto) 12.83 K/uL Lymphocytes # (Auto) 2.10 K/uL Monocytes # (Auto) 1.64 K/uL Eosinophils # (Auto) 0.11 K/uL Basophils # (Auto) 0.02 K/uL RDW Standard Deviation 64.3 fL RDW Coefficient of Variation 17.5 % Immature Granulocyte % (Auto) 0.8 % Immature Granulocyte # (Auto) 0.14 K/uL Test 09/06/17 20:47 09/07/17 05:15 Bedside Glucose 127 mg/dl White Blood Count 10.35 K/uL Red Blood Count 3.31 M/uL Hemoglobin 10.0 g/dL Hematocrit 32.8 % Mean Corpuscular Volume 99.1 fL Mean Corpuscular Hemoglobin 30.2 pg Mean Corpuscular Hemoglobin Concent 30.5 g/dl Platelet Count 306 K/uL Mean Platelet Volume 9.3 fL Neutrophils (%) (Auto) 74.3 % Lymphocytes (%) (Auto) 14.1 % Monocytes (%) (Auto) 9.0 % Eosinophils (%) (Auto) 1.9 % Basophils (%) (Auto) 0.2 % Neutrophils # (Auto) 7.69 K/uL Lymphocytes # (Auto) 1.46 K/uL Monocytes # (Auto) 0.93 K/uL Eosinophils # (Auto) 0.20 K/uL Basophils # (Auto) 0.02 K/uL RDW Standard Deviation 62.0 fL RDW Coefficient of Variation 17.3 % Immature Granulocyte % (Auto) 0.5 % Immature Granulocyte # (Auto) 0.05 K/uL Prothrombin Time 12.4 SECONDS Prothromb Time International Ratio 1.2 Sodium Level 134 mmol/L Potassium Level 4.1 mmol/L Chloride Level 97 mmol/L Carbon Dioxide Level 26 mmol/L Anion Gap 11.0 mmol/L Blood Urea Nitrogen 37 mg/dl Creatinine 7.76 mg/dl Est Creatinine Clear Calc Drug Dose 18.8 ml/min Estimated GFR () 9.3 Estimated GFR (Non- 8.0 BUN/Creatinine Ratio 4.8 Random Glucose 118 mg/dl Calcium Level 7.9 mg/dl Random Vancomycin Level 23.4 mcg/ml Date/Time Source Procedure Growth Status 09/06/17 19:10 Nasal MRSA DNA Surveillance Screen - Final Specimen Negative for MRSA by DNA Probe Complete 09/06/17 13:45 Drainage-Deep Arm Gram Stain - Final Resulted 09/06/17 13:45 Bacterial Culture - Preliminary Staphylococcus Aureus Resulted Assessment & Plan 37 y/o M w/ ESRD on HD MWF admitted with abscess at occluded vascular access graft adjacent to patent RUE AV graft in the setting of significant/chronic vascular access and MARLA complications related to ESRD. He has chronic hypotension w/ sbp in 90-100s. -dialysis today then vascular to remove temp line later today -will look to dialyze tomorrow/Sat w/ decision about access per vascular; likely to need TDC >>>cx from arm growing Staph <> had dose vanco yesterday; inf dzs consulted; blood cxs ngtd -wean pressor as tolerated; albumin w/ HD -continue high dose veltassa and renal diet; nephrovite given hs -continue high dose binders, calcium supplements, sensipar -will hold off on kayexalate for now Appreciate consult; will follow with you. Care coordinated w/ Dr Lombardi
--- NOTE | 2017-09-07 10:15 | Anesthesiology Progress Note ---
Anesthesia Post Op Note Date & Time Sep 07, 2017 at 10:15 Vital Signs Vital Signs Past 12 Hours Date Time Temp Pulse Resp B/P (MAP) Pulse Ox O2 Delivery O2 Flow Rate FiO2 09/07/17 10:00 98 125/77 09/07/17 09:45 95 134/84 09/07/17 09:30 94 125/71 09/07/17 09:15 95 126/74 09/07/17 09:00 99 111/61 09/07/17 08:46 36.9 99 93/55 (68) 09/07/17 08:00 36.9 99 22 109/38 (61) 96 Nasal Cannula 3.0 09/07/17 08:00 Nasal Cannula 3.0 09/07/17 06:31 101 22 90/58 (69) 98 09/07/17 05:01 113 12 102/52 (69) 98 09/07/17 04:01 103 21 95/58 (70) 94 Nasal Cannula 3.0 09/07/17 04:00 Nasal Cannula 3.0 09/07/17 03:36 36.8 102 22 110/66 (81) 96 Nasal Cannula 3.0 09/07/17 03:02 102 24 97/62 (74) 95 Nasal Cannula 3.0 09/07/17 02:01 102 14 108/65 (79) 97 Nasal Cannula 3.0 09/07/17 01:01 98 27 95/52 (66) 92 Nasal Cannula 3.0 09/07/17 00:31 97 23 128/70 (89) 94 Nasal Cannula 3.0 09/07/17 00:01 90 28 119/91 (100) 94 Nasal Cannula 3.0 09/06/17 23:59 Nasal Cannula 3.0 09/06/17 23:31 36.9 102 37 90/46 (61) 94 Nasal Cannula 3.0 09/06/17 23:01 97 31 91/56 (68) 95 Nasal Cannula 3.0 Notes Mental Status: alert / awake / arousable, participated in evaluation Pt Amnestic to Procedure: Yes Nausea / Vomiting: adequately controlled Pain: adequately controlled Airway Patency, RR, SpO2: stable & adequate BP & HR: stable & adequate Hydration State: stable & adequate Anesthetic Complications: no major complications apparent
--- NOTE | 2017-09-07 11:11 | Pharmacy Progress Note ---
Pharmacy Abx Dose Short Note Date of Service Sep 07, 2017. Assessment & Plan Assessment * 37 year old male receiving VANCOMYCIN + ZOSYN IV for treatment of AVG infection * Day # 4 of vancomycin; Day # 2 Zosyn * s/p AVG excision on 09/06/17 * Currently requiring low-dose phenylephrine for BP support, MAPs > 60 * Afebrile, leukocytosis resolving * Drainage cx from AVG site growing staph aureus, awaiting sensitivities - continue current abx therapy per digital media specialist Plan Vancomycin * Random vancomycin level this AM = 23.4 * Last dose of vancomycin given yesterday @1956 (750mg) * Patient is scheduled to have HD today and tomorrow as well * Will give 500mg IV x 1 today after HD and recheck trough level w/ AM labs * Plan is to redose when random level b/w 15-20 or anticipated to be within this range of HD Zosyn * cont 4.5gm ext-infusion Q 12 hours due to BMI and ESRD Pharmacy will continue to follow and will adjust dose/frequency as necessary. Thank you.
[2017-09-07] MEDS ORDERED: VANCOMYCIN INJ 500 MG in SODIUM CHLORIDE 0.9% 100ML 100 ML IV ONE (14:00)
--- NOTE | 2017-09-07 14:09 | Progress Note ---
Progress Note Date of Service: Sep 07, 2017. Subjective No complaints Problem List Medical Problems: (1) Cellulitis of right upper extremity Status: Acute (2) Diabetes Status: Chronic (3) Dialysis AV fistula infection Status: Acute (4) ESRD (end stage renal disease) on dialysis Permanent Comment: s/p traumatic injury to kidneys as a child Status: Chronic (5) ESRD (end stage renal disease) on dialysis Status: Chronic (6) Hyperparathyroidism, Unspecified Status: Chronic (7) Hypertension Nos Status: Chronic (8) Morbid Obesity Status: Chronic Objective Vital Signs Vital Signs Past 12 Hours Date Time Temp Pulse Resp B/P (MAP) Pulse Ox O2 Delivery O2 Flow Rate FiO2 09/07/17 13:31 112 35 118/63 (81) 95 09/07/17 13:30 37.0 103 22 118/63 (81) 94 Nasal Cannula 4.0 09/07/17 13:30 109 49 93 09/07/17 13:16 105 24 96/51 (66) 97 09/07/17 13:05 36.9 100 124/66 (85) 09/07/17 13:01 106 13 106/69 (81) 98 09/07/17 13:00 101 128/80 09/07/17 13:00 106 18 124/66 (85) 96 09/07/17 12:46 112 22 123/75 (91) 95 09/07/17 12:45 101 123/75 09/07/17 12:31 104 28 116/70 (85) 98 09/07/17 12:30 96 116/70 09/07/17 12:30 98 35 96 09/07/17 12:16 90 35 133/87 (102) 95 09/07/17 12:15 94 133/67 09/07/17 12:01 96 27 123/76 (92) 95 09/07/17 12:00 96 29 96 09/07/17 12:00 88 123/76 09/07/17 11:45 90 128/78 09/07/17 11:30 Nasal Cannula 3.0 09/07/17 11:30 100 128/73 09/07/17 11:30 37.0 95 22 128/73 (91) 96 Nasal Cannula 4.0 09/07/17 11:15 103 140/85 09/07/17 11:01 104 27 132/69 (90) 96 2/22/18 11:00 103 20 98 2/18 11:00 102 132/69 18 10:46 101 26 131/74 (93) 97 18 10:45 99 131/74 18 10:31 103 16 131/80 (97) 95 09/07/17 10:30 98 131/80 09/07/17 10:16 102 25 130/73 (92) 96 18 10:15 97 130/73 18 10:01 98 27 125/77 (93) 96 09/07/17 10:00 37.0 98 22 131/74 (93) 96 Nasal Cannula 3.0 09/07/17 10:00 98 125/77 09/07/17 10:00 99 24 98 09/07/17 09:46 96 31 134/84 (101) 95 09/07/17 09:45 95 134/84 09/07/17 09:31 99 32 125/71 (89) 94 09/07/17 09:30 94 125/71 09/07/17 09:16 100 28 126/74 (91) 96 09/07/17 09:15 95 126/74 09/07/17 09:01 100 33 111/61 (78) 94 09/07/17 09:00 99 111/61 09/07/17 09:00 99 30 97 09/07/17 08:46 36.9 99 93/55 (68) 09/07/17 08:39 110 24 90/55 (67) 97 09/07/17 08:31 107 35 70/34 (46) 94 09/07/17 08:01 102 25 70/34 (46) 97 09/07/17 08:00 36.9 99 22 109/38 (61) 96 Nasal Cannula 3.0 09/07/17 08:00 Nasal Cannula 3.0 09/07/17 08:00 101 25 98 09/07/17 07:31 109 21 103/61 (75) 97 09/07/17 07:01 85 16 109/58 (75) 98 09/07/17 07:00 82 23 97 09/07/17 06:31 101 22 90/58 (69) 98 09/07/17 05:01 113 12 102/52 (69) 98 2/22/18 04:01 103 21 95/58 (70) 94 Nasal Cannula 3.0 09/07/17 04:00 Nasal Cannula 3.0 09/07/17 03:36 36.8 102 22 110/66 (81) 96 Nasal Cannula 3.0 09/07/17 03:02 102 24 97/62 (74) 95 Nasal Cannula 3.0 Exam Awake and alert right arm dressing intact. Intake & Output 8-Hour Column 09/07/17 09/08/17 09/08/17 16:00 00:00 08:00 Intake Total 849 ml Output Total 1900 ml Balance -1051 ml 24-Hour Column 09/08/17 08:00 Intake Total 849 ml Output Total 1900 ml Balance -1051 ml Laboratory and Microbiology Results Past 24 Hours Test 09/06/17 17:31 09/06/17 17:35 09/06/17 17:36 09/06/17 20:47 Range/Units Bedside Glucose 92 127 70-99 mg/dl Prothrombin Time 12.9 9.0-12.0 SECONDS Prothromb Time International Ratio 1.2 0.9-1.1 Sodium Level 134 136-145 mmol/L Potassium Level 4.4 3.5-5.1 mmol/L Chloride Level 97 98-107 mmol/L Carbon Dioxide Level 24 21-32 mmol/L Anion Gap 13.0 3-11 mmol/L Blood Urea Nitrogen 30 7-18 mg/dl Creatinine 6.34 0.60-1.40 mg/dl Est Creatinine Clear Calc Drug Dose 23.1 ml/min Estimated GFR () 11.9 Estimated GFR (Non- 10.3 BUN/Creatinine Ratio 4.8 10-20 Random Glucose 94 70-99 mg/dl Calcium Level 8.0 8.5-10.1 mg/dl Random Vancomycin Level 11.6 mcg/ml White Blood Count 16.84 4.8-10.8 K/uL Red Blood Count 3.39 4.7-6.1 M/uL Hemoglobin 10.8 14.0-18.0 g/dL Hematocrit 34.0 42-52 % Mean Corpuscular Volume 100.3 80-100 fL Mean Corpuscular Hemoglobin 31.9 25-34 pg Mean Corpuscular Hemoglobin Concent 31.8 32-36 g/dl Platelet Count 351 130-400 K/uL Mean Platelet Volume 9.4 7.4-10.4 fL Neutrophils (%) (Auto) 76.2 % Lymphocytes (%) (Auto) 12.5 % Monocytes (%) (Auto) 9.7 % Eosinophils (%) (Auto) 0.7 % Basophils (%) (Auto) 0.1 % Neutrophils # (Auto) 12.83 1.4-6.5 K/uL Lymphocytes # (Auto) 2.10 1.2-3.4 K/uL Monocytes # (Auto) 1.64 0.11-0.59 K/uL Eosinophils # (Auto) 0.11 0-0.5 K/uL Basophils # (Auto) 0.02 0-0.2 K/uL RDW Standard Deviation 64.3 36.4-46.3 fL RDW Coefficient of Variation 17.5 11.5-14.5 % Immature Granulocyte % (Auto) 0.8 % Immature Granulocyte # (Auto) 0.14 0.00-0.02 K/uL Test 09/07/17 05:15 09/07/17 11:01 Range/Units White Blood Count 10.35 4.8-10.8 K/uL Red Blood Count 3.31 4.7-6.1 M/uL Hemoglobin 10.0 14.0-18.0 g/dL Hematocrit 32.8 42-52 % Mean Corpuscular Volume 99.1 80-100 fL Mean Corpuscular Hemoglobin 30.2 25-34 pg Mean Corpuscular Hemoglobin Concent 30.5 32-36 g/dl Platelet Count 306 130-400 K/uL Mean Platelet Volume 9.3 7.4-10.4 fL Neutrophils (%) (Auto) 74.3 % Lymphocytes (%) (Auto) 14.1 % Monocytes (%) (Auto) 9.0 % Eosinophils (%) (Auto) 1.9 % Basophils (%) (Auto) 0.2 % Neutrophils # (Auto) 7.69 1.4-6.5 K/uL Lymphocytes # (Auto) 1.46 1.2-3.4 K/uL Monocytes # (Auto) 0.93 0.11-0.59 K/uL Eosinophils # (Auto) 0.20 0-0.5 K/uL Basophils # (Auto) 0.02 0-0.2 K/uL RDW Standard Deviation 62.0 36.4-46.3 fL RDW Coefficient of Variation 17.3 11.5-14.5 % Immature Granulocyte % (Auto) 0.5 % Immature Granulocyte # (Auto) 0.05 0.00-0.02 K/uL Prothrombin Time 12.4 9.0-12.0 SECONDS Prothromb Time International Ratio 1.2 0.9-1.1 Sodium Level 134 136-145 mmol/L Potassium Level 4.1 3.5-5.1 mmol/L Chloride Level 97 98-107 mmol/L Carbon Dioxide Level 26 21-32 mmol/L Anion Gap 11.0 3-11 mmol/L Blood Urea Nitrogen 37 7-18 mg/dl Creatinine 7.76 0.60-1.40 mg/dl Est Creatinine Clear Calc Drug Dose 18.8 ml/min Estimated GFR () 9.3 Estimated GFR (Non- 8.0 BUN/Creatinine Ratio 4.8 10-20 Random Glucose 118 70-99 mg/dl Calcium Level 7.9 8.5-10.1 mg/dl Random Vancomycin Level 23.4 mcg/ml Bedside Glucose 100 70-99 mg/dl Microbiology Results 09/06/17 MRSA DNA Surveillance Screen - Final, Complete Specimen Negative for MRSA by DNA Probe Imp: Post infected fistula removal Plan: Will plan on dressing change and permcath insertion tomorrow
--- NOTE | 2017-09-07 16:17 | Progress Note ---
Medicine Progress Note Date & Time of Visit: Sep 07, 2017 at 16:13. Subjective patient seen resting in bed, comfortable states he feels improved compared to yesterday less pain on the right arm, can move it more denies dyspnea chest pain, nausea no other symptoms Objective Last 8 Hrs Date Time Temp Pulse Resp B/P (MAP) Pulse Ox O2 Delivery O2 Flow Rate FiO2 09/07/17 13:31 112 35 118/63 (81) 95 09/07/17 13:30 37.0 103 22 118/63 (81) 94 Nasal Cannula 4.0 09/07/17 13:30 109 49 93 09/07/17 13:16 105 24 96/51 (66) 97 09/07/17 13:05 36.9 100 124/66 (85) 09/07/17 13:01 106 13 106/69 (81) 98 09/07/17 13:00 101 128/80 09/07/17 13:00 106 18 124/66 (85) 96 09/07/17 12:46 112 22 123/75 (91) 95 09/07/17 12:45 101 123/75 09/07/17 12:31 104 28 116/70 (85) 98 09/07/17 12:30 96 116/70 09/07/17 12:30 98 35 96 09/07/17 12:16 90 35 133/87 (102) 95 09/07/17 12:15 94 133/67 09/07/17 12:01 96 27 123/76 (92) 95 09/07/17 12:00 96 29 96 09/07/17 12:00 88 123/76 09/07/17 11:45 90 128/78 09/07/17 11:30 Nasal Cannula 3.0 09/07/17 11:30 100 128/73 09/07/17 11:30 37.0 95 22 128/73 (91) 96 Nasal Cannula 4.0 09/07/17 11:15 103 140/85 09/07/17 11:01 104 27 132/69 (90) 96 09/07/17 11:00 103 20 98 09/07/17 11:00 102 132/69 09/07/17 10:46 101 26 131/74 (93) 97 09/07/17 10:45 99 131/74 09/07/17 10:31 103 16 131/80 (97) 95 09/07/17 10:30 98 131/80 09/07/17 10:16 102 25 130/73 (92) 96 09/07/17 10:15 97 130/73 09/07/17 10:01 98 27 125/77 (93) 96 09/07/17 10:00 37.0 98 22 131/74 (93) 96 Nasal Cannula 3.0 09/07/17 10:00 98 125/77 09/07/17 10:00 99 24 98 09/07/17 09:46 96 31 134/84 (101) 95 09/07/17 09:45 95 134/84 09/07/17 09:31 99 32 125/71 (89) 94 09/07/17 09:30 94 125/71 09/07/17 09:16 100 28 126/74 (91) 96 09/07/17 09:15 95 126/74 09/07/17 09:01 100 33 111/61 (78) 94 09/07/17 09:00 99 111/61 09/07/17 09:00 99 30 97 09/07/17 08:46 36.9 99 93/55 (68) 09/07/17 08:39 110 24 90/55 (67) 97 09/07/17 08:31 107 35 70/34 (46) 94 Physical Exam: General-oriented 3 not in distress speaking in sentences no accessory muscle use Eyes- anicteric Neck- no JVD Lungs- clear breath sounds bilaterally, no rales/wheezes Heart- regular rhythm; no murmur, normal rate Abdomen- normal bowel sounds, soft, nontender, no masses Extremities- Right upper extremity: arm dressed heavily, less edema of fingers, full ROM no pretibial edema, no calf tenderness; peripheral pulses intact Neuro- alert, oriented x 3; no gross focal neurologic deficit Skin- warm & dry Laboratory Results: Last 24 Hours Test 09/06/17 17:31 09/06/17 17:35 09/06/17 17:36 09/06/17 20:47 Bedside Glucose 92 mg/dl 127 mg/dl Prothrombin Time 12.9 SECONDS Prothromb Time International Ratio 1.2 Sodium Level 134 mmol/L Potassium Level 4.4 mmol/L Chloride Level 97 mmol/L Carbon Dioxide Level 24 mmol/L Anion Gap 13.0 mmol/L Blood Urea Nitrogen 30 mg/dl Creatinine 6.34 mg/dl Est Creatinine Clear Calc Drug Dose 23.1 ml/min Estimated GFR () 11.9 Estimated GFR (Non- 10.3 BUN/Creatinine Ratio 4.8 Random Glucose 94 mg/dl Calcium Level 8.0 mg/dl Random Vancomycin Level 11.6 mcg/ml White Blood Count 16.84 K/uL Red Blood Count 3.39 M/uL Hemoglobin 10.8 g/dL Hematocrit 34.0 % Mean Corpuscular Volume 100.3 fL Mean Corpuscular Hemoglobin 31.9 pg Mean Corpuscular Hemoglobin Concent 31.8 g/dl Platelet Count 351 K/uL Mean Platelet Volume 9.4 fL Neutrophils (%) (Auto) 76.2 % Lymphocytes (%) (Auto) 12.5 % Monocytes (%) (Auto) 9.7 % Eosinophils (%) (Auto) 0.7 % Basophils (%) (Auto) 0.1 % Neutrophils # (Auto) 12.83 K/uL Lymphocytes # (Auto) 2.10 K/uL Monocytes # (Auto) 1.64 K/uL Eosinophils # (Auto) 0.11 K/uL Basophils # (Auto) 0.02 K/uL RDW Standard Deviation 64.3 fL RDW Coefficient of Variation 17.5 % Immature Granulocyte % (Auto) 0.8 % Immature Granulocyte # (Auto) 0.14 K/uL Test 09/07/17 05:15 09/07/17 11:01 White Blood Count 10.35 K/uL Red Blood Count 3.31 M/uL Hemoglobin 10.0 g/dL Hematocrit 32.8 % Mean Corpuscular Volume 99.1 fL Mean Corpuscular Hemoglobin 30.2 pg Mean Corpuscular Hemoglobin Concent 30.5 g/dl Platelet Count 306 K/uL Mean Platelet Volume 9.3 fL Neutrophils (%) (Auto) 74.3 % Lymphocytes (%) (Auto) 14.1 % Monocytes (%) (Auto) 9.0 % Eosinophils (%) (Auto) 1.9 % Basophils (%) (Auto) 0.2 % Neutrophils # (Auto) 7.69 K/uL Lymphocytes # (Auto) 1.46 K/uL Monocytes # (Auto) 0.93 K/uL Eosinophils # (Auto) 0.20 K/uL Basophils # (Auto) 0.02 K/uL RDW Standard Deviation 62.0 fL RDW Coefficient of Variation 17.3 % Immature Granulocyte % (Auto) 0.5 % Immature Granulocyte # (Auto) 0.05 K/uL Prothrombin Time 12.4 SECONDS Prothromb Time International Ratio 1.2 Sodium Level 134 mmol/L Potassium Level 4.1 mmol/L Chloride Level 97 mmol/L Carbon Dioxide Level 26 mmol/L Anion Gap 11.0 mmol/L Blood Urea Nitrogen 37 mg/dl Creatinine 7.76 mg/dl Est Creatinine Clear Calc Drug Dose 18.8 ml/min Estimated GFR () 9.3 Estimated GFR (Non- 8.0 BUN/Creatinine Ratio 4.8 Random Glucose 118 mg/dl Calcium Level 7.9 mg/dl Random Vancomycin Level 23.4 mcg/ml Bedside Glucose 100 mg/dl Date/Time Source Procedure Growth Status 09/06/17 19:10 Nasal MRSA DNA Surveillance Screen - Final Specimen Negative for MRSA by DNA Probe Complete Assessment & Plan RIGHT UPPER EXTREMITY CELLULITIS AT THE AREA OF THE AV GRAFT Present with Right upper arm erythema/tenderness/swelling Meet SIRS criteria with elevated WBC and Tachycardia U/S showed complex fluid collection surrounding an occluded right upper arm dialysis graft. The fluid collection extends over craniocaudad distance of 11.5 cm.Lateral to the occluded graft is a second hemodialysis graft, which is patent. Blood cultures: Negative Vascular consulted, Dr. Jefferson 09/05/17: s/p temporary HD cath placement 09/06/17: s/p removal of AV graft Culture of Drainage: (+) Staph, sensitivities wean off pressors continue Vanco and Zosyn IV ID consulted ESRD ON HD ON MWF for PermCath placement tomorrow with removal of Fem Line, and Dressing Change Nephro on board RECENT CLOT IN THE AV GRAFT Occurs in Dec after undergoing parathyroidectomy surgery INR is 1.[address] Jefferson, recommend to stop anticoagulation Tobacco abuse Counseling smoking cessation declined nicotine patch HTN BP low hold Metoprolol for now monitor DVT Coumadin stopped per vascular surgery service Heparin stopped for his planned procedures CODE STATUS FULL CODE DISPOSITION Anticipate return home when medically stable cleared by nephrology and vascular surgery Current Inpatient Medications: Current Inpatient Medications Medications (Trade) Dose Ordered Sig/Otilia Route Start Time Stop Time Status Last Admin Dose Admin Acetaminophen (Tylenol Tab) 650 mg Q4H PRN PO 09/04/17 14:30 10/04/17 14:29 09/05/17 21:07 650 MG Miscellaneous Information (Consult) 1 ea UD PRN N/A 09/04/17 14:45 10/04/17 14:44 Calcium Acetate (Phoslo Cap) 1,334 mg TIDM PO 09/04/17 17:45 10/04/17 17:59 09/07/17 15:43 1,334 MG Calcium Carbonate (Tums Chew Tab) 2,625 mg QID PO 09/04/17 17:00 10/04/17 16:59 09/07/17 15:45 2,625 MG Patiromer (Veltassa) 25.2 gm QPM PO 09/04/17 21:00 10/04/17 20:59 09/06/17 22:59 25.2 GM Sevelamer HCl (Renagel Tab) 2,400 mg BID PRN PO 09/04/17 15:00 10/04/17 14:59 Sevelamer HCl (Renagel Tab) 4,000 mg TIDM PO 09/04/17 17:45 10/04/17 17:59 09/07/17 15:44 4,000 MG Vitamin B Complex/ Vit C/Folic Acid (Nephrocaps) 1 cap HS PO 09/05/17 21:00 10/05/17 08:59 09/06/17 20:36 1 CAP Tramadol HCl (Ultram Tab) `50-100MG (1-2 TABS) ... Q6H PRN PO 09/06/17 16:45 10/06/17 16:44 Morphine Sulfate (MoRPHine SULFATE INJ) 1 mg Q2H PRN IV 09/06/17 16:45 09/20/17 16:44 Morphine Sulfate (MoRPHine SULFATE INJ) 2 mg Q2H PRN IV 09/06/17 17:00 09/20/17 16:59 Morphine Sulfate (MoRPHine SULFATE INJ) 3 mg Q2H PRN IV 09/06/17 17:00 09/20/17 16:59 Morphine Sulfate (MoRPHine SULFATE INJ) 4 mg Q2H PRN IV 09/06/17 17:00 09/20/17 16:59 Miscellaneous Information (Consult) 1 ea UD PRN N/A 09/06/17 17:55 10/06/17 17:54 Piperacillin Sod/ Tazobactam Sod 4.5 gm/Dextrose 120 ml @ 30 mls/hr Q12H IV 09/07/17 02:00 09/16/17 23:59 09/07/17 15:41 30 MLS/HR Phenylephrine HCl 40 mg/Dextrose 504 ml @ 0 mls/hr Q0M PRN IV 09/06/17 18:59 10/06/17 18:58 Miscellaneous Information (Icu Protocol For Hyperglycemia) 1 ea PRN PRN N/A 09/06/17 20:45 09/08/17 20:44 Albumin Human (Albumin 25%) 12.5 gm TODAY@0800,1400 IV 09/07/17 08:00 09/07/17 23:59 09/07/17 09:31 12.5 GM
--- NOTE | 2017-09-07 19:01 | Critical Care Progress Note ---
Critical Care Progress Note Date of Service Sep 07, 2017. Attending Dr. Peoples Subjective Improving overnight, no significant fever, leukocytosis has been improving as well. Responding to antibiotics. Vancomycin dosing was provided by pharmacy. The patient blood pressure has been maintained and currently coming off Meño- Synephrine. Objective Physical exam revealed more alert gentleman, does not appear to be any distress , S1-S2 regular rate and rhythm, distant breath sounds bilaterally, abdomen is benign, right upper extremity surgically wrapped, right femoral dialysis catheter, edema in the periphery. Neurologically he's intact. Assessment & Plan #1 infected AV fistula, currently interrogated, on antibiotics. #2 chronic kidney disease on hemodialysis. #3 morbid obesity. Plan: #1 continue with Vanco and Zosyn. #2 Vanco dosing per pharmacy and renal. #3 stop Meño-Synephrine. #4 would favor to use Dilaudid instead of morphine due to end-stage renal disease. #5 GI and DVT prophylaxis #6 appreciate all the consults involved in this case. #7 once the patient is off Meño-Synephrine, he can be disposition to regular floor. Discussed on rounds and details. CCT was 35 minutes. Data Medications: Current Inpatient Medications Medications (Trade) Dose Ordered Sig/Otilia Route Start Time Stop Time Status Last Admin Dose Admin Acetaminophen (Tylenol Tab) 650 mg Q4H PRN PO 09/04/17 14:30 10/04/17 14:29 09/05/17 21:07 650 MG Miscellaneous Information (Consult) 1 ea UD PRN N/A 09/04/17 14:45 10/04/17 14:44 Calcium Acetate (Phoslo Cap) 1,334 mg TIDM PO 09/04/17 17:45 10/04/17 17:59 09/07/17 15:43 1,334 MG Calcium Carbonate (Tums Chew Tab) 2,625 mg QID PO 09/04/17 17:00 10/04/17 16:59 09/07/17 15:45 2,625 MG Patiromer (Veltassa) 25.2 gm QPM PO 09/04/17 21:00 10/04/17 20:59 09/06/17 22:59 25.2 GM Sevelamer HCl (Renagel Tab) 2,400 mg BID PRN PO 09/04/17 15:00 10/04/17 14:59 Sevelamer HCl (Renagel Tab) 4,000 mg TIDM PO 09/04/17 17:45 10/04/17 17:59 09/07/17 15:44 4,000 MG Vitamin B Complex/ Vit C/Folic Acid (Nephrocaps) 1 cap HS PO 09/05/17 21:00 10/05/17 08:59 09/06/17 20:36 1 CAP Tramadol HCl (Ultram Tab) `50-100MG (1-2 TABS) ... Q6H PRN PO 09/06/17 16:45 10/06/17 16:44 Morphine Sulfate (MoRPHine SULFATE INJ) 1 mg Q2H PRN IV 09/06/17 16:45 09/20/17 16:44 Morphine Sulfate (MoRPHine SULFATE INJ) 2 mg Q2H PRN IV 09/06/17 17:00 09/20/17 16:59 Morphine Sulfate (MoRPHine SULFATE INJ) 3 mg Q2H PRN IV 09/06/17 17:00 09/20/17 16:59 Morphine Sulfate (MoRPHine SULFATE INJ) 4 mg Q2H PRN IV 09/06/17 17:00 09/20/17 16:59 Miscellaneous Information (Consult) 1 ea UD PRN N/A 09/06/17 17:55 10/06/17 17:54 Piperacillin Sod/ Tazobactam Sod 4.5 gm/Dextrose 120 ml @ 30 mls/hr Q12H IV 09/07/17 02:00 09/16/17 23:59 09/07/17 15:41 30 MLS/HR Phenylephrine HCl 40 mg/Dextrose 504 ml @ 0 mls/hr Q0M PRN IV 09/06/17 18:59 10/06/17 18:58 Miscellaneous Information (Icu Protocol For Hyperglycemia) 1 ea PRN PRN N/A 09/06/17 20:45 09/08/17 20:44 Albumin Human (Albumin 25%) 12.5 gm TODAY@0800,1400 IV 09/07/17 08:00 09/07/17 23:59 09/07/17 09:31 12.5 GM I & O: 24-Hour Column 09/08/17 07:59 Intake Total 849 ml Output Total 1900 ml Balance -1051 ml Vital Signs: Date Time Temp Pulse Resp B/P (MAP) Pulse Ox O2 Delivery O2 Flow Rate FiO2 09/07/17 16:31 112 21 97/57 (70) 94 09/07/17 16:30 107 37 93 09/07/17 16:16 104 40 129/68 (88) 96 09/07/17 16:15 105 36 95 09/07/17 16:01 109 30 93/54 (67) 95 09/07/17 16:00 111 23 95 09/07/17 15:46 106 24 100/75 (83) 95 09/07/17 15:45 Room Air 09/07/17 15:45 109 19 96 09/07/17 15:31 36.6 114 17 92/61 (71) 96 Room Air 09/07/17 15:30 108 29 96 09/07/17 15:16 103 19 90/52 (65) 92 09/07/17 15:15 100 19 85 09/07/17 15:01 109 27 101/53 (69) 94 09/07/17 15:00 109 23 92 09/07/17 13:31 112 35 118/63 (81) 95 09/07/17 13:30 37.0 103 22 118/63 (81) 94 Nasal Cannula 4.0 09/07/17 13:30 109 49 93 09/07/17 13:16 105 24 96/51 (66) 97 09/07/17 13:05 36.9 100 124/66 (85) 09/07/17 13:01 106 13 106/69 (81) 98 09/07/17 13:00 101 128/80 09/07/17 13:00 106 18 124/66 (85) 96 18 12:46 112 22 123/75 (91) 95 09/07/17 12:45 101 123/75 09/07/17 12:31 104 28 116/70 (85) 98 09/07/17 12:30 96 116/70 09/07/17 12:30 98 35 96 09/07/17 12:16 90 35 133/87 (102) 95 09/07/17 12:15 94 133/67 09/07/17 12:01 96 27 123/76 (92) 95 09/07/17 12:00 96 29 96 2/22/18 12:00 88 123/76 2/22/18 11:45 90 128/78 09/07/17 11:30 Nasal Cannula 3.0 09/07/17 11:30 100 128/73 09/07/17 11:30 37.0 95 22 128/73 (91) 96 Nasal Cannula 4.0 09/07/17 11:15 103 140/85 09/07/17 11:01 104 27 132/69 (90) 96 09/07/17 11:00 103 20 98 09/07/17 11:00 102 132/69 09/07/17 10:46 101 26 131/74 (93) 97 09/07/17 10:45 99 131/74 09/07/17 10:31 103 16 131/80 (97) 95 09/07/17 10:30 98 131/80 09/07/17 10:16 102 25 130/73 (92) 96 09/07/17 10:15 97 130/73 09/07/17 10:01 98 27 125/77 (93) 96 09/07/17 10:00 37.0 98 22 131/74 (93) 96 Nasal Cannula 3.0 09/07/17 10:00 98 125/77 09/07/17 10:00 99 24 98 09/07/17 09:46 96 31 134/84 (101) 95 09/07/17 09:45 95 134/84 09/07/17 09:31 99 32 125/71 (89) 94 09/07/17 09:30 94 125/71 09/07/17 09:16 100 28 126/74 (91) 96 09/07/17 09:15 95 126/74 09/07/17 09:01 100 33 111/61 (78) 94 09/07/17 09:00 99 111/61 09/07/17 09:00 99 30 97 09/07/17 08:46 36.9 99 93/55 (68) 09/07/17 08:39 110 24 90/55 (67) 97 09/07/17 08:31 107 35 70/34 (46) 94 09/07/17 08:01 102 25 70/34 (46) 97 09/07/17 08:00 36.9 99 22 109/38 (61) 96 Nasal Cannula 3.0 09/07/17 08:00 Nasal Cannula 3.0 09/07/17 08:00 101 25 98 09/07/17 07:31 109 21 103/61 (75) 97 09/07/17 07:01 85 16 109/58 (75) 98 09/07/17 07:00 82 23 97 09/07/17 06:31 101 22 90/58 (69) 98 09/07/17 05:01 113 12 102/52 (69) 98 09/07/17 04:01 103 21 95/58 (70) 94 Nasal Cannula 3.0 09/07/17 04:00 Nasal Cannula 3.0 09/07/17 03:36 36.8 102 22 110/66 (81) 96 Nasal Cannula 3.0 09/07/17 03:02 102 24 97/62 (74) 95 Nasal Cannula 3.0 09/07/17 02:01 102 14 108/65 (79) 97 Nasal Cannula 3.0 09/07/17 01:01 98 27 95/52 (66) 92 Nasal Cannula 3.0 09/07/17 00:31 97 23 128/70 (89) 94 Nasal Cannula 3.0 09/07/17 00:01 90 28 119/91 (100) 94 Nasal Cannula 3.0 09/06/17 23:59 Nasal Cannula 3.0 09/06/17 23:31 36.9 102 37 90/46 (61) 94 Nasal Cannula 3.0 09/06/17 23:01 97 31 91/56 (68) 95 Nasal Cannula 3.0 09/06/17 22:01 82 18 130/78 (95) 98 Nasal Cannula 3.0 09/06/17 21:41 101 24 83/50 (61) 94 Nasal Cannula 3.0 09/06/17 21:39 103 24 89/45 (60) 89 Nasal Cannula 3.0 09/06/17 21:36 108 18 86/44 (58) 96 Nasal Cannula 3.0 09/06/17 21:35 102 24 87/38 (54) 90 Nasal Cannula 3.0 09/06/17 21:01 98 17 101/50 (67) 95 Nasal Cannula 3.0 09/06/17 20:46 102 15 103/51 (68) 98 Nasal Cannula 3.0 09/06/17 20:38 95 Nasal Cannula 3.0 2/21/18 20:37 109 13 123/43 (69) 93 Nasal Cannula 3.0 09/06/17 20:16 105 18 135/61 (85) 91 Nasal Cannula 3.0 09/06/17 20:01 86 15 167/100 (122) 98 Nasal Cannula 3.0 09/06/17 20:00 Nasal Cannula 3.0 09/06/17 19:46 92 22 148/82 (104) 90 Nasal Cannula 3.0 09/06/17 19:31 96 20 138/73 (94) 90 Nasal Cannula 3.0 09/06/17 19:16 92 20 133/78 (96) 90 Nasal Cannula 3.0 09/06/17 19:12 36.9 87 23 120/69 (86) 91 Nasal Cannula 3.0 Laboratory Results: Last 24 Hours Test 09/06/17 20:47 09/07/17 05:15 09/07/17 11:01 Bedside Glucose 127 mg/dl 100 mg/dl White Blood Count 10.35 K/uL Red Blood Count 3.31 M/uL Hemoglobin 10.0 g/dL Hematocrit 32.8 % Mean Corpuscular Volume 99.1 fL Mean Corpuscular Hemoglobin 30.2 pg Mean Corpuscular Hemoglobin Concent 30.5 g/dl Platelet Count 306 K/uL Mean Platelet Volume 9.3 fL Neutrophils (%) (Auto) 74.3 % Lymphocytes (%) (Auto) 14.1 % Monocytes (%) (Auto) 9.0 % Eosinophils (%) (Auto) 1.9 % Basophils (%) (Auto) 0.2 % Neutrophils # (Auto) 7.69 K/uL Lymphocytes # (Auto) 1.46 K/uL Monocytes # (Auto) 0.93 K/uL Eosinophils # (Auto) 0.20 K/uL Basophils # (Auto) 0.02 K/uL RDW Standard Deviation 62.0 fL RDW Coefficient of Variation 17.3 % Immature Granulocyte % (Auto) 0.5 % Immature Granulocyte # (Auto) 0.05 K/uL Prothrombin Time 12.4 SECONDS Prothromb Time International Ratio 1.2 Sodium Level 134 mmol/L Potassium Level 4.1 mmol/L Chloride Level 97 mmol/L Carbon Dioxide Level 26 mmol/L Anion Gap 11.0 mmol/L Blood Urea Nitrogen 37 mg/dl Creatinine 7.76 mg/dl Est Creatinine Clear Calc Drug Dose 18.8 ml/min Estimated GFR () 9.3 Estimated GFR (Non- 8.0 BUN/Creatinine Ratio 4.8 Random Glucose 118 mg/dl Calcium Level 7.9 mg/dl Random Vancomycin Level 23.4 mcg/ml
--- NOTE | 2017-09-07 19:42 | Infectious Disease Progress Nt ---
Progress Note Date of Service Sep 07, 2017. Subjective Pt evaluation today including: conversation w/ patient, physical exam, chart review, lab review, review of studies, conversation w/ automotive service consultant, review of inpatient medication list Patient overall appears to be slowly improving. Blood pressure under better control. Cultures growing Staph aureus, sensitivities pending. All Other Systems: Reviewed and Negative Medications Current Inpatient Medications Medications (Trade) Dose Ordered Sig/Otilia Route Start Time Stop Time Status Last Admin Dose Admin Acetaminophen (Tylenol Tab) 650 mg Q4H PRN PO 09/04/17 14:30 10/04/17 14:29 09/05/17 21:07 650 MG Miscellaneous Information (Consult) 1 ea UD PRN N/A 09/04/17 14:45 10/04/17 14:44 Calcium Acetate (Phoslo Cap) 1,334 mg TIDM PO 09/04/17 17:45 10/04/17 17:59 09/07/17 15:43 1,334 MG Calcium Carbonate (Tums Chew Tab) 2,625 mg QID PO 09/04/17 17:00 10/04/17 16:59 09/07/17 15:45 2,625 MG Patiromer (Veltassa) 25.2 gm QPM PO 09/04/17 21:00 10/04/17 20:59 09/06/17 22:59 25.2 GM Sevelamer HCl (Renagel Tab) 2,400 mg BID PRN PO 09/04/17 15:00 10/04/17 14:59 Sevelamer HCl (Renagel Tab) 4,000 mg TIDM PO 09/04/17 17:45 10/04/17 17:59 09/07/17 15:44 4,000 MG Vitamin B Complex/ Vit C/Folic Acid (Nephrocaps) 1 cap HS PO 09/05/17 21:00 10/05/17 08:59 09/06/17 20:36 1 CAP Tramadol HCl (Ultram Tab) `50-100MG (1-2 TABS) ... Q6H PRN PO 09/06/17 16:45 10/06/17 16:44 Morphine Sulfate (MoRPHine SULFATE INJ) 1 mg Q2H PRN IV 09/06/17 16:45 09/20/17 16:44 Morphine Sulfate (MoRPHine SULFATE INJ) 2 mg Q2H PRN IV 09/06/17 17:00 09/20/17 16:59 Morphine Sulfate (MoRPHine SULFATE INJ) 3 mg Q2H PRN IV 09/06/17 17:00 09/20/17 16:59 Morphine Sulfate (MoRPHine SULFATE INJ) 4 mg Q2H PRN IV 09/06/17 17:00 09/20/17 16:59 Miscellaneous Information (Consult) 1 ea UD PRN N/A 09/06/17 17:55 10/06/17 17:54 Piperacillin Sod/ Tazobactam Sod 4.5 gm/Dextrose 120 ml @ 30 mls/hr Q12H IV 09/07/17 02:00 09/16/17 23:59 09/07/17 15:41 30 MLS/HR Phenylephrine HCl 40 mg/Dextrose 504 ml @ 0 mls/hr Q0M PRN IV 09/06/17 18:59 10/06/17 18:58 Miscellaneous Information (Icu Protocol For Hyperglycemia) 1 ea PRN PRN N/A 09/06/17 20:45 09/08/17 20:44 Albumin Human (Albumin 25%) 12.5 gm TODAY@0800,1400 IV 09/07/17 08:00 09/07/17 23:59 09/07/17 09:31 12.5 GM Objective Vital Signs Date Time Temp Pulse Resp B/P (MAP) Pulse Ox O2 Delivery O2 Flow Rate FiO2 09/07/17 19:06 Room Air 09/07/17 16:31 112 21 97/57 (70) 94 09/07/17 16:30 107 37 93 09/07/17 16:16 104 40 129/68 (88) 96 09/07/17 16:15 105 36 95 09/07/17 16:01 109 30 93/54 (67) 95 09/07/17 16:00 111 23 95 09/07/17 15:46 106 24 100/75 (83) 95 09/07/17 15:45 Room Air 09/07/17 15:45 109 19 96 09/07/17 15:31 36.6 114 17 92/61 (71) 96 Room Air 09/07/17 15:30 108 29 96 09/07/17 15:16 103 19 90/52 (65) 92 2/22/18 15:15 100 19 85 218 15:01 109 27 101/53 (69) 94 218 15:00 109 23 92 218 13:31 112 35 118/63 (81) 95 218 13:30 37.0 103 22 118/63 (81) 94 Nasal Cannula 4.0 09/07/17 13:30 109 49 93 18 13:16 105 24 96/51 (66) 97 09/07/17 13:05 36.9 100 124/66 (85) 2/18 13:01 106 13 106/69 (81) 98 218 13:00 101 128/80 09/07/17 13:00 106 18 124/66 (85) 96 18 12:46 112 22 123/75 (91) 95 18 12:45 101 123/75 09/07/17 12:31 104 28 116/70 (85) 98 09/07/17 12:30 96 116/70 09/07/17 12:30 98 35 96 09/07/17 12:16 90 35 133/87 (102) 95 09/07/17 12:15 94 133/67 09/07/17 12:01 96 27 123/76 (92) 95 18 12:00 96 29 96 09/07/17 12:00 88 123/76 18 11:45 90 128/78 09/07/17 11:30 Nasal Cannula 3.0 09/07/17 11:30 100 128/73 09/07/17 11:30 37.0 95 22 128/73 (91) 96 Nasal Cannula 4.0 09/07/17 11:15 103 140/85 09/07/17 11:01 104 27 132/69 (90) 96 18 11:00 103 20 98 18 11:00 102 132/69 18 10:46 101 26 131/74 (93) 97 18 10:45 99 131/74 18 10:31 103 16 131/80 (97) 95 18 10:30 98 131/80 18 10:16 102 25 130/73 (92) 96 2/22/18 10:15 97 130/73 09/07/17 10:01 98 27 125/77 (93) 96 09/07/17 10:00 37.0 98 22 131/74 (93) 96 Nasal Cannula 3.0 09/07/17 10:00 98 125/77 09/07/17 10:00 99 24 98 09/07/17 09:46 96 31 134/84 (101) 95 09/07/17 09:45 95 134/84 09/07/17 09:31 99 32 125/71 (89) 94 09/07/17 09:30 94 125/71 09/07/17 09:16 100 28 126/74 (91) 96 09/07/17 09:15 95 126/74 09/07/17 09:01 100 33 111/61 (78) 94 09/07/17 09:00 99 111/61 09/07/17 09:00 99 30 97 09/07/17 08:46 36.9 99 93/55 (68) 09/07/17 08:39 110 24 90/55 (67) 97 09/07/17 08:31 107 35 70/34 (46) 94 09/07/17 08:01 102 25 70/34 (46) 97 09/07/17 08:00 36.9 99 22 109/38 (61) 96 Nasal Cannula 3.0 09/07/17 08:00 Nasal Cannula 3.0 09/07/17 08:00 101 25 98 09/07/17 07:31 109 21 103/61 (75) 97 09/07/17 07:01 85 16 109/58 (75) 98 09/07/17 07:00 82 23 97 09/07/17 06:31 101 22 90/58 (69) 98 09/07/17 05:01 113 12 102/52 (69) 98 09/07/17 04:01 103 21 95/58 (70) 94 Nasal Cannula 3.0 09/07/17 04:00 Nasal Cannula 3.0 09/07/17 03:36 36.8 102 22 110/66 (81) 96 Nasal Cannula 3.0 09/07/17 03:02 102 24 97/62 (74) 95 Nasal Cannula 3.0 09/07/17 02:01 102 14 108/65 (79) 97 Nasal Cannula 3.0 09/07/17 01:01 98 27 95/52 (66) 92 Nasal Cannula 3.0 09/07/17 00:31 97 23 128/70 (89) 94 Nasal Cannula 3.0 09/07/17 00:01 90 28 119/91 (100) 94 Nasal Cannula 3.0 09/06/17 23:59 Nasal Cannula 3.0 09/06/17 23:31 36.9 102 37 90/46 (61) 94 Nasal Cannula 3.0 09/06/17 23:01 97 31 91/56 (68) 95 Nasal Cannula 3.0 09/06/17 22:01 82 18 130/78 (95) 98 Nasal Cannula 3.0 09/06/17 21:41 101 24 83/50 (61) 94 Nasal Cannula 3.0 09/06/17 21:39 103 24 89/45 (60) 89 Nasal Cannula 3.0 09/06/17 21:36 108 18 86/44 (58) 96 Nasal Cannula 3.0 09/06/17 21:35 102 24 87/38 (54) 90 Nasal Cannula 3.0 09/06/17 21:01 98 17 101/50 (67) 95 Nasal Cannula 3.0 09/06/17 20:46 102 15 103/51 (68) 98 Nasal Cannula 3.0 09/06/17 20:38 95 Nasal Cannula 3.0 09/06/17 20:37 109 13 123/43 (69) 93 Nasal Cannula 3.0 09/06/17 20:16 105 18 135/61 (85) 91 Nasal Cannula 3.0 09/06/17 20:01 86 15 167/100 (122) 98 Nasal Cannula 3.0 09/06/17 20:00 Nasal Cannula 3.0 09/06/17 19:46 92 22 148/82 (104) 90 Nasal Cannula 3.0 Physical Exam General Appearance: WD/WN, no apparent distress Eyes: normal inspection, EOMI, sclerae normal ENT: normal ENT inspection, pharynx normal Neck: supple, no adenopathy, thyroid normal, trachea midline Respiratory/Chest: chest non-tender, lungs clear, normal breath sounds, no respiratory distress Cardiovascular: regular rate, rhythm, no gallop, no murmur Abdomen: normal bowel sounds, non tender, soft, no organomegaly Extremities: no calf tenderness, normal capillary refill, + pertinent finding ( Surgical dressing intact) Neurologic/Psychiatric: alert, oriented x 3 Skin: normal color, no rash, + pertinent finding (Cellulitis improved, surgical dressing intact) Lymphatic: no adenopathy Laboratory Results RUN DATE: 09/07/17 [facility] LAB PAGE 1 RUN TIME: 1420 Specimen Inquiry PATIENT: MAGDY VEGA [facility] # : [id number] AGE/SX: 37/M ROOM: E109 REG : 09/04/[address]: Suleiman Lombardi MD : 1980 BED: 1 DIS : STATUS: ADM IN TLOC: SPEC #: [id number] [place]: 09/06/17 STATUS: RES REQ #: [id number] RECD: 09/06/[address]: Suleiman Lombardi MD SOURCE: DRAIN-DEEP ENTR: 09/06/[address] [facility] DR: Patricia Stoddard MD [facility]: Shemar Peralta M.D. Coppes, John C., M.D. Patterson, Jennifer., D.O. Simoni, Eugene J., M.D. Williams, Kimberly J.,P.A. ORDERED: AER/TERRANCE CULTSMR COMMENTS: RIGHT ARM INFECTED FISTUAL SITE Procedure Result Verified Site GRAM STAIN Final 09/07/17-710 RESULT MANY WBCs SEEN MODERATE GRAM POSITIVE COCCI OR AER/TERRANCE CULT Preliminary 09/07/17-1419 Organism 1 STAPHYLOCOCCUS AUREUS QUANITY MANY SENS SENSITIVITY TO FOLLOW Last 24 Hours Test 09/06/17 20:47 09/07/17 05:15 09/07/17 11:01 Bedside Glucose 127 mg/dl 100 mg/dl White Blood Count 10.35 K/uL Red Blood Count 3.31 M/uL Hemoglobin 10.0 g/dL Hematocrit 32.8 % Mean Corpuscular Volume 99.1 fL Mean Corpuscular Hemoglobin 30.2 pg Mean Corpuscular Hemoglobin Concent 30.5 g/dl Platelet Count 306 K/uL Mean Platelet Volume 9.3 fL Neutrophils (%) (Auto) 74.3 % Lymphocytes (%) (Auto) 14.1 % Monocytes (%) (Auto) 9.0 % Eosinophils (%) (Auto) 1.9 % Basophils (%) (Auto) 0.2 % Neutrophils # (Auto) 7.69 K/uL Lymphocytes # (Auto) 1.46 K/uL Monocytes # (Auto) 0.93 K/uL Eosinophils # (Auto) 0.20 K/uL Basophils # (Auto) 0.02 K/uL RDW Standard Deviation 62.0 fL RDW Coefficient of Variation 17.3 % Immature Granulocyte % (Auto) 0.5 % Immature Granulocyte # (Auto) 0.05 K/uL Prothrombin Time 12.4 SECONDS Prothromb Time International Ratio 1.2 Sodium Level 134 mmol/L Potassium Level 4.1 mmol/L Chloride Level 97 mmol/L Carbon Dioxide Level 26 mmol/L Anion Gap 11.0 mmol/L Blood Urea Nitrogen 37 mg/dl Creatinine 7.76 mg/dl Est Creatinine Clear Calc Drug Dose 18.8 ml/min Estimated GFR () 9.3 Estimated GFR (Non- 8.0 BUN/Creatinine Ratio 4.8 Random Glucose 118 mg/dl Calcium Level 7.9 mg/dl Random Vancomycin Level 23.4 mcg/ml Assessment and Plan (1) ESRD (end stage renal disease) on dialysis Status: Chronic (2) Dialysis AV fistula infection Status: Acute (3) Cellulitis of right upper extremity Status: Acute Right upper extremity cellulitis in the setting of likely infected vascular graft, now status post removal with cultures growing Staph aureus. Pending sensitivities, patient to be continued on IV Vanco with dosing being adjusted by pharmacy. Will follow.
[2017-09-07] MEDS: NEPHROCAPS PO SCH (21:46)
[2017-09-08] VITALS (58 sets, daily range): BP systolic 70–131; BP diastolic 38–99; PULSE 87–129; TEMP 36.3–37.4; O2SAT 87–98; Ht 177.8 cm; Wt 143.9 kg
[2017-09-08] MEDS: PATIROMER SORBITEX CALCIUM PO SCH ×2 (00:18→21:54)
[2017-09-08] MEDS: PIPERACILL/TAZOBAC IV 4.5 GM in DEXTROSE 5% 100ML IV SCH (02:09)
[2017-09-08 06:03] LABS: HEMATOCRIT 30.4 % (42-52); HEMOGLOBIN 9.3 g/dL (14.0-18.0); MEAN CELL VOLUME 99.3 fL (80-100); MEAN CORPUSCULAR HEMOGLOBIN 30.4 pg (25-34); MEAN CORPUSCULAR HGB CONC 30.6 g/dl (32-36); MEAN PLATELET VOLUME 9.7 fL (7.4-10.4); PLATELET COUNT 296 K/uL (130-400); RED CELL DISTRIBUTION WIDTH CV 17.2 % (11.5-14.5); RED CELL DISTRIBUTION WIDTH SD 61.3 fL (36.4-46.3); WHITE BLOOD COUNT 8.03 K/uL (4.8-10.8)
[2017-09-08 06:18] LABS: INR 1.1 (0.9-1.1)
[2017-09-08 06:56] LABS: CALCIUM 8.8 mg/dl (8.5-10.1); CREATININE 7.62 mg/dl (0.60-1.40); POTASSIUM 3.7 mmol/L (3.5-5.1)
--- NOTE | 2017-09-08 06:59 | Progress Note ---
Progress Note Date of Service Sep 08, 2017. Progress Note Patient for insertion of permcath today and change of his arm dressing. I have discussed the risks options and benefits of the procedure with the patient. The patient understands the risks options and benefits and agrees to the procedure. I have examined the patient, reviewed the History & Physical and in the interval since the performance of the History & Physical I have noted the following changes of clinical significance: No changes noted
[2017-09-08] MEDS: SEVELAMER HYDROCH 800 MG TAB PO SCH ×3 (07:15→17:42)
[2017-09-08] MEDS: CALCIUM ACETATE 667MG GELCAP PO SCH ×3 (07:15→17:42)
[2017-09-08] MEDS ORDERED: MIDAZOLAM HCL 1 MG/ML 2ML VIAL ONE ×2 (07:36)
[2017-09-08] MEDS ORDERED: LIDOCAINE HCL 2% 2 ML VIAL (20MG/ML) ONE (07:36)
[2017-09-08] MEDS ORDERED: PROPOFOL IV EMULSION 10 MG/ML 20 ML VIAL IV ONE (07:37)
[2017-09-08] MEDS ORDERED: FENTANYL CITRATE INJ 50 MCG/1 ML 2 ML VIAL ONE (07:37)
[2017-09-08] MEDS ORDERED: HEPARIN SOD (PORCINE) 5000 UNIT/ML 1 ML VIAL ONE (07:45)
[2017-09-08] MEDS ORDERED: EPOETIN ALFA 10,000 UNITS/ML VIAL IV. SCH (08:00)
[2017-09-08] MEDS ORDERED: KETAMINE HCL INJ 50 MG/ML 10 ML VIAL ONE (08:23)
[2017-09-08] MEDS ORDERED: LIDOCAINE HCL 1% 20 ML VIAL INFIL ONE (08:55)
[2017-09-08] MEDS ORDERED: HEPARIN SOD (PORCINE) 5000 UNIT/ML 1 ML VIAL IV ONE (08:55)
--- NOTE | 2017-09-08 08:55 | [facility] Post Operative Brief Note ---
Immediate Operative Summary Operative Date Sep 08, 2017. Pre-Operative Diagnosis End Stage Renal Disease Post-Operative Diagnosis End Stage Renal Disease Procedure(s) Performed Insertion of Perm Catheter, Right Internal Jugular Approach, Ultrasound Localization Of Right Internal Jugular Vein, Fluoroscopy for Positioning. Venacavagram. Removal of Temporary Dialysis Catheter. Right arm dressing change Surgeon Dr. Jefferson Warehouse Worker Surgeon(s) None Estimated Blood Loss 5 Findings Consistent with Post-Op Diagnosis Specimens none Drains None Anesthesia Type MAC Complication(s) none Disposition Accompanied Pt To Recover: no Disposition: Surgical ICU
[2017-09-08] MEDS: CALCIUM CARBONATE 500 MG CHEWABLE PO SCH ×4 (09:00→20:44)
--- NOTE | 2017-09-08 09:23 | [facility] Operative Report ---
Operative Report Operative Date Sep 08, 2017. Pre-Operative Diagnosis End Stage Renal Disease Post-Operative Diagnosis End Stage Renal Disease Procedure(s) Performed Insertion of Perm Catheter, Right Internal Jugular Approach, Ultrasound Localization Of Right Internal Jugular Vein, Fluoroscopy for Positioning. Venacavagram. Removal of Temporary Dialysis Catheter. Right arm dressing change Surgeon Dr. Jefferson Cableway Operator Surgeon(s) None Estimated Blood Loss 5 Findings Catheter tip was in the distal superior vena cava. Specimens none Drains None Anesthesia Type MAC Complication(s) none Disposition no Surgical ICU Indications This is a 37-year-old male who had an infected access in his right arm which was removed. He now needs access for dialysis. A PermCath was recommended. I have discussed the risks options and benefits of the procedure with the patient. The patient understands the risks options and benefits and agrees to the procedure. Description of Procedure Patient was takent to the angio suite and placed in the supine position. The right side of the neck and chest wall were prepped and draped in a sterile manner. Local anesthesia was then administered to the appropriate areas of the neck and chest wall. Ultrasound was then used to locate the right internal jugular vein. The vein compressed easily, had no filing defects, and was patent. The vein was then punctured under direct ultrasound imaging. A guidewire was then passed centrally under fluoroscopic imaging. The wire could not be passed into the innominate vein. It curled on itself into the subclavian vein. We then exchanged the wire to a stiffened Glidewire. This also would not pass. We then inserted a 5 [place] sheath over the wire. A venacavogram which showed a tortuous innominate vein with venous dilatations. Using the venogram as a template we were able to pass the wire into the superior vena cava and down into the inferior vena cava. The 5 [place] sheath was then removed. A stab wound was then made in the anterior chest wall and a 19cm permcath was passed from the stab wound on the chest wall to the puncture site on the neck. The puncture site was then dilated till the 14Fr peel away sheath was inserted. The permcath was then inserted through the sheath to a central position in the distal superior vena cava. The peel away sheath was then removed. The catheter was then sutured in place using nylon sutures. The puncture was then closed using a 4-0 Vicryl subcuticular suture. Dermabond was used for a dressing on the puncture site. Both ports aspirated and flushed easily and were then packed with heparin. A sterile dressing was applied to the catheter. The dressing was then removed from the right groin. Sutures were removed and the temporary dialysis catheter was removed. Pressure was applied. Adequate hemostasis was noted. Once adequate hemostasis was obtained , sterile dressings were applied to this wound. We then addressed the right arm wound. The dressings were removed from the right arm wound. The incisions in the right arm were dry and clean without any redness. The upper arm itself had markedly reduced erythema. The open wound the right upper arm pink with no new necrotic tissue seen. No purulence was noted. Adaptic was then placed in the wound. Motion 4 x 4's and Kerlix was then used to dress the upper arm wound. The patient left the angio suite in good condition and tolerated the procedure well. I attest to the content of the Intraoperative Record and any orders documented therein. Any exceptions are noted below.
[2017-09-08] MEDS: ALBUMIN HUMAN 25% 12.5 GM/50 ML VIAL IV SCH ×2 (09:30→17:38)
[2017-09-08] MEDS ORDERED: FENTANYL CITRATE INJ 50 MCG/1 ML 2 ML VIAL IV PRN (09:45)
[2017-09-08] MEDS ORDERED: ATROPINE SULFATE 0.1 MG/ML 5ML SYR IV PRN (09:45)
[2017-09-08] MEDS ORDERED: EpHEDrine SULFATE INJ 50 MG/ML AMP IV PRN (09:45)
[2017-09-08] MEDS ORDERED: ONDANSETRON INJ 2 MG/ML 2 ML VIAL IV PRN (09:45)
--- NOTE | 2017-09-08 10:12 | Anesthesiology Progress Note ---
Anesthesia Post Op Note Date & Time Sep 08, 2017 at 10:12 Vital Signs Pain Intensity: 0.0 Vital Signs Past 12 Hours Date Time Temp Pulse Resp B/P (MAP) Pulse Ox O2 Delivery O2 Flow Rate FiO2 09/08/17 09:51 105 21 93/61 (72) 97 09/08/17 09:50 100 32 97 09/08/17 09:46 102 22 103/59 (74) 96 09/08/17 09:45 94 23 96 09/08/17 09:41 99 29 97/59 (72) 96 09/08/17 09:40 98 23 94 09/08/17 09:36 100 28 91/50 (64) 98 09/08/17 09:35 101 29 96 09/08/17 09:31 100 16 89/48 (62) 95 09/08/17 09:30 101 34 93 09/08/17 09:26 102 18 95/54 (68) 96 09/08/17 09:25 102 20 93 09/08/17 09:21 104 20 97/54 (68) 93 09/08/17 09:20 102 34 93 09/08/17 09:16 102 26 93/62 (72) 95 09/08/17 09:15 104 23 94 09/08/17 09:10 104 22 93 09/08/17 09:06 107 13 105/60 (75) 94 09/08/17 09:05 105 88 09/08/17 08:00 36.7 93 19 106/99 (101) 95 Room Air 3.0 09/08/17 08:00 95 Room Air 3.0 09/08/17 06:01 107 19 89/38 (55) 95 Room Air 09/08/17 05:01 92 23 112/57 (75) 94 09/08/17 04:25 87 27 115/56 (75) 96 09/08/17 04:16 95 29 74/40 (51) 98 09/08/17 04:02 37.0 98 33 87/44 (58) 96 Room Air 09/08/17 04:00 Room Air 09/08/17 03:31 99 31 128/53 (78) 87 09/08/17 03:16 94 15 88/39 (55) 89 09/08/17 03:01 103 18 90/51 (64) 89 09/08/17 02:46 102 20 83/52 (62) 91 09/08/17 02:31 116 21 120/52 (74) 95 09/08/17 02:16 99 25 121/68 (85) 93 09/08/17 02:01 101 26 127/65 (85) 92 Room Air 09/08/17 01:46 99 28 131/61 (84) 94 09/08/17 01:31 105 13 129/69 (89) 94 09/08/17 01:16 114 28 95/50 (65) 95 09/08/17 01:01 114 17 106/65 (79) 98 09/08/17 00:46 114 30 119/59 (79) 94 09/08/17 00:31 111 24 108/66 (80) 94 09/08/17 00:01 37.0 106 13 94/51 (65) 90 Room Air 09/07/17 23:59 Room Air 09/07/17 23:02 104 23 83/37 (52) 92 Room Air 09/07/17 23:00 105 31 93 09/07/17 22:46 101 28 120/66 (84) 92 09/07/17 22:45 85 34 95 09/07/17 22:31 93 31 100/62 (75) 94 09/07/17 22:30 105 28 95 09/07/17 22:16 104 28 95/61 (72) 92 09/07/17 22:15 104 30 92 Notes Mental Status: alert / awake / arousable, participated in evaluation Pt Amnestic to Procedure: Yes Nausea / Vomiting: adequately controlled Pain: adequately controlled Airway Patency, RR, SpO2: stable & adequate BP & HR: stable & adequate Hydration State: stable & adequate Anesthetic Complications: no major complications apparent
--- NOTE | 2017-09-08 10:27 | Progress Note ---
Medicine Progress Note Date & Time of Visit: Sep 08, 2017 at 10:27. Subjective delayed entry patient seen at time above Objective Last 8 Hrs Date Time Temp Pulse Resp B/P (MAP) Pulse Ox O2 Delivery O2 Flow Rate FiO2 09/08/17 09:51 105 21 93/61 (72) 97 09/08/17 09:50 100 32 97 09/08/17 09:46 102 22 103/59 (74) 96 09/08/17 09:45 94 23 96 09/08/17 09:41 99 29 97/59 (72) 96 09/08/17 09:40 98 23 94 09/08/17 09:36 100 28 91/50 (64) 98 09/08/17 09:35 101 29 96 09/08/17 09:31 100 16 89/48 (62) 95 09/08/17 09:30 101 34 93 09/08/17 09:26 102 18 95/54 (68) 96 09/08/17 09:25 102 20 93 09/08/17 09:21 104 20 97/54 (68) 93 09/08/17 09:20 102 34 93 09/08/17 09:16 102 26 93/62 (72) 95 09/08/17 09:15 36.7 102 96/59 (71) 09/08/17 09:15 104 23 94 09/08/17 09:10 104 22 93 09/08/17 09:06 107 13 105/60 (75) 94 09/08/17 09:05 105 88 09/08/17 09:00 Nasal Cannula 3.0 09/08/17 08:00 36.7 93 19 106/99 (101) 95 Room Air 3.0 09/08/17 08:00 95 Room Air 3.0 09/08/17 06:01 107 19 89/38 (55) 95 Room Air 09/08/17 05:01 92 23 112/57 (75) 94 09/08/17 04:25 87 27 115/56 (75) 96 09/08/17 04:16 95 29 74/40 (51) 98 09/08/17 04:02 37.0 98 33 87/44 (58) 96 Room Air 09/08/17 04:00 Room Air 09/08/17 03:31 99 31 128/53 (78) 87 09/08/17 03:16 94 15 88/39 (55) 89 09/08/17 03:01 103 18 90/51 (64) 89 09/08/17 02:46 102 20 83/52 (62) 91 09/08/17 02:31 116 21 120/52 (74) 95 Physical Exam: General-oriented 3 not in distress speaking in sentences no accessory muscle use Eyes- anicteric Neck- no JVD Lungs- clear BS bilaterally Heart- regular rhythm; no murmur, normal rate Abdomen- normal bowel sounds, soft, nontender, no masses Extremities- Right upper extremity: edema resolving, no erythema/warmth, full ROM no pretibial edema, no calf tenderness; peripheral pulses intact Neuro- alert, oriented x 3; no gross focal neurologic deficit Skin- warm & dry Laboratory Results: Last 24 Hours Test 09/07/17 11:01 09/07/17 18:10 09/08/17 00:16 09/08/17 05:42 Bedside Glucose 100 mg/dl 103 mg/dl 119 mg/dl White Blood Count 8.03 K/uL Red Blood Count 3.06 M/uL Hemoglobin 9.3 g/dL Hematocrit 30.4 % Mean Corpuscular Volume 99.3 fL Mean Corpuscular Hemoglobin 30.4 pg Mean Corpuscular Hemoglobin Concent 30.6 g/dl RDW Standard Deviation 61.3 fL RDW Coefficient of Variation 17.2 % Platelet Count 296 K/uL Mean Platelet Volume 9.7 fL Prothrombin Time 11.6 SECONDS Prothromb Time International Ratio 1.1 Sodium Level 135 mmol/L Potassium Level 3.7 mmol/L Chloride Level 99 mmol/L Carbon Dioxide Level 27 mmol/L Anion Gap 9.0 mmol/L Blood Urea Nitrogen 37 mg/dl Creatinine 7.62 mg/dl Est Creatinine Clear Calc Drug Dose 19.1 ml/min Estimated GFR () 9.5 Estimated GFR (Non- 8.2 BUN/Creatinine Ratio 4.8 Random Glucose 109 mg/dl Calcium Level 8.8 mg/dl Random Vancomycin Level 23.9 mcg/ml Assessment & Plan RIGHT UPPER EXTREMITY CELLULITIS AT THE AREA OF THE AV GRAFT Present with Right upper arm erythema/tenderness/swelling Meet SIRS criteria with elevated WBC and Tachycardia U/S showed complex fluid collection surrounding an occluded right upper arm dialysis graft. The fluid collection extends over craniocaudad distance of 11.5 cm.Lateral to the occluded graft is a second hemodialysis graft, which is patent. Blood cultures: Negative Vascular consulted, Dr. Jefferson 09/05/17: s/p temporary HD cath placement 09/06/17: s/p removal of AV graft Culture of Drainage: (+) Staph, MSSA 09/07/17: s/p placement of Permcath afebrile, right arm edema improving weaned off pressors ID consulted, recommend at least 2 weeks of IV Vanco will request Ariella to follow patient upon discharge ff up with Dr. Jefferson for Vascular and Dr. Espinosa for ID ESRD ON HD ON MWF 09/05/17: s/p temporary HD cath placement 09/06/17: s/p removal of AV graft 09/07/17: s/p placement of Permcath for HD tomorrow, then possible d/c RECENT CLOT IN THE AV GRAFT Occurs in Dec after undergoing parathyroidectomy surgery INR is 1.[address] Jefferson, recommend to stop anticoagulation Tobacco abuse Counseling smoking cessation declined nicotine patch HTN BP low hold Metoprolol for now monitor DVT Coumadin stopped per vascular surgery service Heparin stopped for his planned procedures CODE STATUS FULL CODE DISPOSITION Anticipate return home , possibly tomorrow will need IV Vanco for at least 2 week, [facility]ella referral for this Current Inpatient Medications: Current Inpatient Medications Medications (Trade) Dose Ordered Sig/Otilia Route Start Time Stop Time Status Last Admin Dose Admin Acetaminophen (Tylenol Tab) 650 mg Q4H PRN PO 09/04/17 14:30 10/04/17 14:29 09/05/17 21:07 650 MG Calcium Acetate (Phoslo Cap) 1,334 mg TIDM PO 09/04/17 17:45 10/04/17 17:59 09/07/17 15:43 1,334 MG Calcium Carbonate (Tums Chew Tab) 2,625 mg QID PO 09/04/17 17:00 10/04/17 16:59 09/07/17 21:46 2,625 MG Patiromer (Veltassa) 25.2 gm QPM PO 09/04/17 21:00 10/04/17 20:59 09/08/17 00:18 25.2 GM Sevelamer HCl (Renagel Tab) 2,400 mg BID PRN PO 09/04/17 15:00 10/04/17 14:59 Sevelamer HCl (Renagel Tab) 4,000 mg TIDM PO 09/04/17 17:45 10/04/17 17:59 09/07/17 15:44 4,000 MG Vitamin B Complex/ Vit C/Folic Acid (Nephrocaps) 1 cap HS PO 09/05/17 21:00 10/05/17 08:59 09/07/17 21:46 1 CAP Tramadol HCl (Ultram Tab) `50-100MG (1-2 TABS) ... Q6H PRN PO 09/06/17 16:45 10/06/17 16:44 Morphine Sulfate (MoRPHine SULFATE INJ) 1 mg Q2H PRN IV 09/06/17 16:45 09/20/17 16:44 Morphine Sulfate (MoRPHine SULFATE INJ) 2 mg Q2H PRN IV 09/06/17 17:00 09/20/17 16:59 Morphine Sulfate (MoRPHine SULFATE INJ) 3 mg Q2H PRN IV 09/06/17 17:00 09/20/17 16:59 Morphine Sulfate (MoRPHine SULFATE INJ) 4 mg Q2H PRN IV 09/06/17 17:00 09/20/17 16:59 Miscellaneous Information ([facility] Protocol For Hyperglycemia) 1 ea PRN PRN N/A 09/06/17 20:45 09/08/17 20:44 Epoetin Chet (Procrit Inj) 10,000 units TODAY@0800 IV. 09/08/17 08:00 09/08/17 16:00 09/08/17 10:11 10,000 UNITS Albumin Human (Albumin 25%) 12.5 gm TODAY@0800,1600 IV 09/08/17 08:00 09/08/17 23:00 09/08/17 09:30 12.5 GM Fentanyl Citrate (Fentanyl Inj) 25 mcg Q5M PRN IV 09/08/17 09:45 09/09/17 09:44 UNV Ondansetron HCl (Zofran Inj) 4 mg ONE PRN IV 09/08/17 09:45 UNV Ephedrine Sulfate (EpHEDrine SULFATE INJ) 5 mg Q5M PRN IV 09/08/17 09:45 09/09/17 09:44 UNV Atropine Sulfate (Atropine Sulfate 0.1mg/ml Inj) 0.5 mg Q1M PRN IV 09/08/17 09:45 09/09/17 09:44 UNV Cefazolin Sodium 1000 mg/Syringe 7.5 ml @ 2.5 mls/min Q24H IV 09/08/17 20:00 09/18/17 19:59
--- NOTE | 2017-09-08 14:46 | Infectious Disease Progress Nt ---
Progress Note Date of Service Sep 08, 2017. Subjective Pt evaluation today including: conversation w/ patient, physical exam, chart review, lab review, review of studies, conversation w/ knowledge management consultant, review of inpatient medication list Patient is status post placement of PermCath. Cultures from infected graft growing MSSA. Remains afebrile. All Other Systems: Reviewed and Negative Medications Current Inpatient Medications Medications (Trade) Dose Ordered Sig/Otilia Route Start Time Stop Time Status Last Admin Dose Admin Acetaminophen (Tylenol Tab) 650 mg Q4H PRN PO 09/04/17 14:30 10/04/17 14:29 09/05/17 21:07 650 MG Calcium Acetate (Phoslo Cap) 1,334 mg TIDM PO 09/04/17 17:45 10/04/17 17:59 09/08/17 13:41 1,334 MG Calcium Carbonate (Tums Chew Tab) 2,625 mg QID PO 09/04/17 17:00 10/04/17 16:59 09/08/17 13:43 2,625 MG Patiromer (Veltassa) 25.2 gm QPM PO 09/04/17 21:00 10/04/17 20:59 09/08/17 00:18 25.2 GM Sevelamer HCl (Renagel Tab) 2,400 mg BID PRN PO 09/04/17 15:00 10/04/17 14:59 Sevelamer HCl (Renagel Tab) 4,000 mg TIDM PO 09/04/17 17:45 10/04/17 17:59 09/08/17 13:41 4,000 MG Vitamin B Complex/ Vit C/Folic Acid (Nephrocaps) 1 cap HS PO 09/05/17 21:00 10/05/17 08:59 09/07/17 21:46 1 CAP Tramadol HCl (Ultram Tab) `50-100MG (1-2 TABS) ... Q6H PRN PO 09/06/17 16:45 10/06/17 16:44 Morphine Sulfate (MoRPHine SULFATE INJ) 1 mg Q2H PRN IV 09/06/17 16:45 09/20/17 16:44 Morphine Sulfate (MoRPHine SULFATE INJ) 2 mg Q2H PRN IV 09/06/17 17:00 09/20/17 16:59 Morphine Sulfate (MoRPHine SULFATE INJ) 3 mg Q2H PRN IV 09/06/17 17:00 09/20/17 16:59 Morphine Sulfate (MoRPHine SULFATE INJ) 4 mg Q2H PRN IV 09/06/17 17:00 09/20/17 16:59 Miscellaneous Information (Icu Protocol For Hyperglycemia) 1 ea PRN PRN N/A 09/06/17 20:45 09/08/17 20:44 Epoetin Chet (Procrit Inj) 10,000 units TODAY@0800 IV. 09/08/17 08:00 09/08/17 16:00 09/08/17 10:11 10,000 UNITS Albumin Human (Albumin 25%) 12.5 gm TODAY@0800,1600 IV 09/08/17 08:00 09/08/17 23:00 09/08/17 09:30 12.5 GM Fentanyl Citrate (Fentanyl Inj) 25 mcg Q5M PRN IV 09/08/17 09:45 09/08/17 14:45 Ondansetron HCl (Zofran Inj) 4 mg ONE PRN IV 09/08/17 09:45 09/08/17 14:45 Ephedrine Sulfate (EpHEDrine SULFATE INJ) 5 mg Q5M PRN IV 09/08/17 09:45 09/08/17 14:45 Atropine Sulfate (Atropine Sulfate 0.1mg/ml Inj) 0.5 mg Q1M PRN IV 09/08/17 09:45 09/08/17 14:45 Cefazolin Sodium 1000 mg/Syringe 7.5 ml @ 2.5 mls/min Q24H IV 09/08/17 20:00 09/18/17 19:59 Objective Vital Signs Date Time Temp Pulse Resp B/P (MAP) Pulse Ox O2 Delivery O2 Flow Rate FiO2 09/08/17 14:10 36.6 109 20 108/69 (82) 96 Room Air 09/08/17 13:08 36.3 99 110/69 (83) 09/08/17 13:00 96 95/59 09/08/17 12:33 96 83/59 09/08/17 12:17 94 107/74 09/08/17 12:03 97 105/72 09/08/17 11:47 91 110/71 09/08/17 11:30 92 106/69 2/23/18 11:20 36.9 105 20 98/61 (73) 97 Nasal Cannula 3.0 09/08/17 11:20 Nasal Cannula 3.0 09/08/17 11:15 99 90/57 09/08/17 11:00 99 98/61 18 10:45 100 94/60 09/08/17 10:30 107 89/52 18 10:15 107 95/50 09/08/17 10:00 103 102/51 09/08/17 09:51 105 21 93/61 (72) 97 09/08/17 09:50 100 32 97 09/08/17 09:46 102 22 103/59 (74) 96 09/08/17 09:45 103 93/49 09/08/17 09:45 94 23 96 09/08/17 09:41 99 29 97/59 (72) 96 09/08/17 09:40 98 23 94 09/08/17 09:36 100 28 91/50 (64) 98 09/08/17 09:35 101 29 96 09/08/17 09:31 100 16 89/48 (62) 95 09/08/17 09:30 101 34 93 09/08/17 09:30 98 96/55 09/08/17 09:26 102 18 95/54 (68) 96 09/08/17 09:25 102 20 93 09/08/17 09:21 104 20 97/54 (68) 93 09/08/17 09:20 102 34 93 09/08/17 09:16 102 26 93/62 (72) 95 09/08/17 09:15 36.7 102 96/59 (71) 09/08/17 09:15 104 23 94 09/08/17 09:15 100 104/54 09/08/17 09:10 104 22 93 09/08/17 09:06 107 13 105/60 (75) 94 09/08/17 09:05 105 88 09/08/17 09:00 Nasal Cannula 3.0 09/08/17 08:00 36.7 93 19 106/99 (101) 95 Room Air 3.0 09/08/17 08:00 95 Room Air 3.0 09/08/17 06:01 107 19 89/38 (55) 95 Room Air 09/08/17 05:01 92 23 112/57 (75) 94 09/08/17 04:25 87 27 115/56 (75) 96 09/08/17 04:16 95 29 74/40 (51) 98 09/08/17 04:02 37.0 98 33 87/44 (58) 96 Room Air 09/08/17 04:00 Room Air 09/08/17 03:31 99 31 128/53 (78) 87 09/08/17 03:16 94 15 88/39 (55) 89 09/08/17 03:01 103 18 90/51 (64) 89 09/08/17 02:46 102 20 83/52 (62) 91 09/08/17 02:31 116 21 120/52 (74) 95 09/08/17 02:16 99 25 121/68 (85) 93 09/08/17 02:01 101 26 127/65 (85) 92 Room Air 09/08/17 01:46 99 28 131/61 (84) 94 09/08/17 01:31 105 13 129/69 (89) 94 09/08/17 01:16 114 28 95/50 (65) 95 09/08/17 01:01 114 17 106/65 (79) 98 09/08/17 00:46 114 30 119/59 (79) 94 09/08/17 00:31 111 24 108/66 (80) 94 09/08/17 00:01 37.0 106 13 94/51 (65) 90 Room Air 09/07/17 23:59 Room Air 09/07/17 23:02 104 23 83/37 (52) 92 Room Air 09/07/17 23:00 105 31 93 09/07/17 22:46 101 28 120/66 (84) 92 09/07/17 22:45 85 34 95 09/07/17 22:31 93 31 100/62 (75) 94 09/07/17 22:30 105 28 95 18 22:16 104 28 95/61 (72) 92 09/07/17 22:15 104 30 92 18 22:01 115 24 94/45 (61) 96 18 22:00 110 23 95 09/07/17 21:45 110 20 96 Room Air 09/07/17 21:31 101 24 96/63 (74) 93 2/22/18 21:30 101 22 94 2/22/18 21:16 110 32 101/58 (72) 93 2/22/18 21:15 109 28 93 2/22/18 21:01 103 26 91/46 (61) 94 2//18 21:00 104 19 93 2//18 20:46 106 29 78/49 (59) 94 09/07/18 20:45 105 28 93 09/07/18 20:31 107 23 94/63 (73) 95 09/07/18 20:30 109 26 93 2/22/18 20:16 115 17 70/55 (60) 95 2/18 20:15 112 39 95 2/18 20:01 113 34 88/47 (61) 93 09/07/18 20:00 114 31 95 2/18 19:46 114 33 70/32 (45) 93 09/07/18 19:45 116 37 92 18 19:31 120 21 76/43 (54) 96 18 19:30 118 23 96 18 19:15 114 27 95 Room Air 09/07/17 19:06 Room Air 09/07/17 19:01 36.6 128 27 130/85 (100) 95 09/07/18 19:00 129 26 95 09/07/18 18:46 123 20 119/83 (95) 95 09/07/18 18:45 119 25 96 2/18 18:31 109 25 120/62 (81) 94 09/07/18 18:30 105 27 95 09/07/18 18:16 107 20 120/69 (86) 94 2/18 18:15 104 22 97 2/22/18 18:01 111 23 86/42 (57) 97 2/22/18 18:00 107 17 94 2/18 17:46 112 26 77/47 (57) 94 2//18 17:45 111 22 95 2/18 17:31 106 25 113/57 (75) 94 2/22/18 17:30 104 26 94 2/22/18 17:16 114 24 78/39 (52) 95 09/07/18 17:15 111 29 94 2/18 17:01 111 44 108/64 (79) 2/18 17:00 110 44 62 09/07/17 16:31 112 21 97/57 (70) 94 09/07/17 16:30 107 37 93 09/07/17 16:16 104 40 129/68 (88) 96 09/07/17 16:15 105 36 95 09/07/17 16:01 109 30 93/54 (67) 95 09/07/17 16:00 111 23 95 09/07/17 15:46 106 24 100/75 (83) 95 09/07/17 15:45 Room Air 09/07/17 15:45 109 19 96 09/07/17 15:31 36.6 114 17 92/61 (71) 96 Room Air 09/07/17 15:30 108 29 96 09/07/17 15:16 103 19 90/52 (65) 92 09/07/17 15:15 100 19 85 09/07/17 15:01 109 27 101/53 (69) 94 09/07/17 15:00 109 23 92 Physical Exam General Appearance: WD/WN, no apparent distress Eyes: normal inspection, EOMI, sclerae normal ENT: normal ENT inspection, pharynx normal Neck: supple, no adenopathy, thyroid normal, trachea midline Respiratory/Chest: chest non-tender, lungs clear, normal breath sounds, no respiratory distress Cardiovascular: regular rate, rhythm, no gallop, no murmur Abdomen: normal bowel sounds, non tender, soft, no organomegaly Extremities: non-tender, no calf tenderness Neurologic/Psychiatric: alert, oriented x 3 Skin: normal color, no rash, + pertinent finding (Right upper extremity cellulitis improved, surgical dressing intact) Lymphatic: no adenopathy Laboratory Results RUN DATE: 09/08/17 [facility] PAGE 1 RUN TIME: 822 Specimen Inquiry PATIENT: DHRUV [facility]FEMIA [facility]: [id number] LOC: [facility] U # : [id number] AGE/SX: 37/M ROOM: E109 REG : 09/04/[address]: Suleiman Lombardi MD : 1980 BED: 1 DIS : STATUS: ADM IN TLOC: SPEC #: [id number] AUSTEN: 09/06/17 STATUS: RES REQ #: [id number] RECD: 09/06/[address]: Suleiman Lombardi MD SOURCE: DRAIN-DEEP ENTR: 09/06/[address]: Patricia Stoddard MD SPDESC: ARM Shemar Damon M.D. Coppes, John C., M.D. Patterson, Jennifer., D.O. Simoni, Eugene J., M.D. Williams, Kimberly J.,P.A. ORDERED: AER/TERRANCE CULTSMR COMMENTS: RIGHT ARM INFECTED FISTUAL SITE Procedure Result Verified Site GRAM STAIN Final 09/07/17 RESULT MANY WBCs SEEN MODERATE GRAM POSITIVE COCCI OR AER/TERRANCE CULT Preliminary 09/08/17 Organism 1 STAPHYLOCOCCUS AUREUS QUANITY MANY SENS SENSITIVITY TO FOLLOW 1. STAPHYLOCOCCUS AUREUS Target Route Dose RX AB Cost M.I.C. IQ ------ ----- ------ -- ------ -------- - ------ TRIMET/SULFA S <=0.5/ 9.5 * OXACILLIN S <=0.25 VANCOMYCIN S 2 ERYTHROMYCIN R >4 TETRACYCLINE S <=4 CLINDAMYCIN R <=0.5 DAPTOMYCIN S <=0.5 S = SENSITIVE I = INTERMEDIATE R = RESISTANT Last 24 Hours Test 09/07/17 18:10 09/08/17 00:16 09/08/17 05:42 Bedside Glucose 103 mg/dl 119 mg/dl White Blood Count 8.03 K/uL Red Blood Count 3.06 M/uL Hemoglobin 9.3 g/dL Hematocrit 30.4 % Mean Corpuscular Volume 99.3 fL Mean Corpuscular Hemoglobin 30.4 pg Mean Corpuscular Hemoglobin Concent 30.6 g/dl RDW Standard Deviation 61.3 fL RDW Coefficient of Variation 17.2 % Platelet Count 296 K/uL Mean Platelet Volume 9.7 fL Prothrombin Time 11.6 SECONDS Prothromb Time International Ratio 1.1 Sodium Level 135 mmol/L Potassium Level 3.7 mmol/L Chloride Level 99 mmol/L Carbon Dioxide Level 27 mmol/L Anion Gap 9.0 mmol/L Blood Urea Nitrogen 37 mg/dl Creatinine 7.62 mg/dl Est Creatinine Clear Calc Drug Dose 19.1 ml/min Estimated GFR () 9.5 Estimated GFR (Non- 8.2 BUN/Creatinine Ratio 4.8 Random Glucose 109 mg/dl Calcium Level 8.8 mg/dl Random Vancomycin Level 23.9 mcg/ml Assessment and Plan (1) ESRD (end stage renal disease) on dialysis Status: Chronic (2) Dialysis AV fistula infection Status: Acute (3) Cellulitis of right upper extremity Status: Acute Right upper extremity cellulitis in the setting of likely infected vascular graft, now status post removal with cultures growing Staph aureus, methicillin sensitive. Patient will likely require in the range of 2 weeks of antibiotic therapy, and likely easiest regimen would be vancomycin with dialysis. Will discuss with all involved.
--- NOTE | 2017-09-08 18:09 | Dialysis Progress Note ---
Nephrology Dialysis Note Date of Service: Sep 08, 2017. Subjective seen on dialysis at about 1015 am in ICU; no phenylephrine needed; getting albumin w/ tx; ran w/o heparin as he had just gotten TDC today > set clotted off w/ 30 min left Objective Date Time Temp Pulse Resp B/P (MAP) Pulse Ox O2 Delivery O2 Flow Rate FiO2 09/08/17 16:20 36.8 129 19 117/73 (88) 95 Room Air 100/66 (77) 107/66 (80) 09/08/17 14:10 36.6 109 20 108/69 (82) 96 Room Air 09/08/17 13:08 36.3 99 110/69 (83) 09/08/17 13:00 96 95/59 09/08/17 12:33 96 83/59 09/08/17 12:17 94 107/74 09/08/17 12:03 97 105/72 09/08/17 11:47 91 110/71 09/08/17 11:30 92 106/69 09/08/17 11:20 36.9 105 20 98/61 (73) 97 Nasal Cannula 3.0 09/08/17 11:20 Nasal Cannula 3.0 09/08/17 11:15 99 90/57 09/08/17 11:00 99 98/61 09/08/17 10:45 100 94/60 09/08/17 10:30 107 89/52 09/08/17 10:15 107 95/50 09/08/17 10:00 103 102/51 09/08/17 09:51 105 21 93/61 (72) 97 09/08/17 09:50 100 32 97 09/08/17 09:46 102 22 103/59 (74) 96 09/08/17 09:45 103 93/49 09/08/17 09:45 94 23 96 09/08/17 09:41 99 29 97/59 (72) 96 09/08/17 09:40 98 23 94 09/08/17 09:36 100 28 91/50 (64) 98 09/08/17 09:35 101 29 96 09/08/17 09:31 100 16 89/48 (62) 95 09/08/17 09:30 101 34 93 09/08/17 09:30 98 96/55 09/08/17 09:26 102 18 95/54 (68) 96 09/08/17 09:25 102 20 93 09/08/17 09:21 104 20 97/54 (68) 93 09/08/17 09:20 102 34 93 09/08/17 09:16 102 26 93/62 (72) 95 09/08/17 09:15 36.7 102 96/59 (71) 09/08/17 09:15 104 23 94 09/08/17 09:15 100 104/54 09/08/17 09:10 104 22 93 09/08/17 09:06 107 13 105/60 (75) 94 09/08/17 09:05 105 88 09/08/17 09:00 Nasal Cannula 3.0 09/08/17 08:00 36.7 93 19 106/99 (101) 95 Room Air 3.0 09/08/17 08:00 95 Room Air 3.0 09/08/17 06:01 107 19 89/38 (55) 95 Room Air 09/08/17 05:01 92 23 112/57 (75) 94 09/08/17 04:25 87 27 115/56 (75) 96 09/08/17 04:16 95 29 74/40 (51) 98 09/08/17 04:02 37.0 98 33 87/44 (58) 96 Room Air 09/08/17 04:00 Room Air 09/08/17 03:31 99 31 128/53 (78) 87 09/08/17 03:16 94 15 88/39 (55) 89 09/08/17 03:01 103 18 90/51 (64) 89 09/08/17 02:46 102 20 83/52 (62) 91 09/08/17 02:31 116 21 120/52 (74) 95 09/08/17 02:16 99 25 121/68 (85) 93 09/08/17 02:01 101 26 127/65 (85) 92 Room Air 09/08/17 01:46 99 28 131/61 (84) 94 09/08/17 01:31 105 13 129/69 (89) 94 09/08/17 01:16 114 28 95/50 (65) 95 09/08/17 01:01 114 17 106/65 (79) 98 2/23/18 00:46 114 30 119/59 (79) 94 223/18 00:31 111 24 108/66 (80) 94 2//18 00:01 37.0 106 13 94/51 (65) 90 Room Air 18 23:59 Room Air 09/07/18 23:02 104 23 83/37 (52) 92 Room Air 18 23:00 105 31 93 2//18 22:46 101 28 120/66 (84) 92 09/07/18 22:45 85 34 95 222/18 22:31 93 31 100/62 (75) 94 222/18 22:30 105 28 95 2/22/18 22:16 104 28 95/61 (72) 92 2/22/18 22:15 104 30 92 2/18 22:01 115 24 94/45 (61) 96 09/07/18 22:00 110 23 95 2//18 21:45 110 20 96 Room Air 09/07/17 21:31 101 24 96/63 (74) 93 222/18 21:30 101 22 94 2/22/18 21:16 110 32 101/58 (72) 93 2/22/18 21:15 109 28 93 2/22/18 21:01 103 26 91/46 (61) 94 2//18 21:00 104 19 93 2//18 20:46 106 29 78/49 (59) 94 2//18 20:45 105 28 93 2/18 20:31 107 23 94/63 (73) 95 09/07/18 20:30 109 26 93 2/18 20:16 115 17 70/55 (60) 95 2/22/18 20:15 112 39 95 2/22/18 20:01 113 34 88/47 (61) 93 2/18 20:00 114 31 95 2//18 19:46 114 33 70/32 (45) 93 2/18 19:45 116 37 92 222/18 19:31 120 21 76/43 (54) 96 09/07/18 19:30 118 23 96 2//18 19:15 114 27 95 Room Air 09/07/17 19:06 Room Air 18 19:01 36.6 128 27 130/85 (100) 95 09/07/17 19:00 129 26 95 09/07/17 18:46 123 20 119/83 (95) 95 09/07/17 18:45 119 25 96 09/07/17 18:31 109 25 120/62 (81) 94 09/07/17 18:30 105 27 95 09/07/17 18:16 107 20 120/69 (86) 94 09/07/17 18:15 104 22 97 09/07/17 18:01 111 23 86/42 (57) 97 Physical Exam: General-lying flat on 02NC, nad Eyes-eomi, less facial edema ENT-mmm Neck-supple Lungs-diminished but clear Heart-RRR Abdomen-soft NT +BS no rangel Extremities-trace BL edema R arm bandaged; has R chest TDC Neuro-arce, fluent speech Current Inpatient Medications Medications (Trade) Dose Ordered Sig/Otilia Route Start Time Stop Time Status Last Admin Dose Admin Acetaminophen (Tylenol Tab) 650 mg Q4H PRN PO 09/04/17 14:30 10/04/17 14:29 09/05/17 21:07 650 MG Calcium Acetate (Phoslo Cap) 1,334 mg TIDM PO 09/04/17 17:45 10/04/17 17:59 09/08/17 17:42 1,334 MG Calcium Carbonate (Tums Chew Tab) 2,625 mg QID PO 09/04/17 17:00 10/04/17 16:59 09/08/17 17:42 2,625 MG Patiromer (Veltassa) 25.2 gm QPM PO 09/04/17 21:00 10/04/17 20:59 09/08/17 00:18 25.2 GM Sevelamer HCl (Renagel Tab) 2,400 mg BID PRN PO 09/04/17 15:00 10/04/17 14:59 Sevelamer HCl (Renagel Tab) 4,000 mg TIDM PO 09/04/17 17:45 10/04/17 17:59 09/08/17 17:42 4,000 MG Vitamin B Complex/ Vit C/Folic Acid (Nephrocaps) 1 cap HS PO 09/05/17 21:00 10/05/17 08:59 09/07/17 21:46 1 CAP Tramadol HCl (Ultram Tab) `50-100MG (1-2 TABS) ... Q6H PRN PO 09/06/17 16:45 10/06/17 16:44 Morphine Sulfate (MoRPHine SULFATE INJ) 1 mg Q2H PRN IV 09/06/17 16:45 09/20/17 16:44 Morphine Sulfate (MoRPHine SULFATE INJ) 2 mg Q2H PRN IV 09/06/17 17:00 09/20/17 16:59 Morphine Sulfate (MoRPHine SULFATE INJ) 3 mg Q2H PRN IV 09/06/17 17:00 09/20/17 16:59 Morphine Sulfate (MoRPHine SULFATE INJ) 4 mg Q2H PRN IV 09/06/17 17:00 09/20/17 16:59 Miscellaneous Information (Icu Protocol For Hyperglycemia) 1 ea PRN PRN N/A 09/06/17 20:45 09/08/17 20:44 Albumin Human (Albumin 25%) 12.5 gm TODAY@0800,1600 IV 09/08/17 08:00 09/08/17 23:00 09/08/17 09:30 12.5 GM Cefazolin Sodium 1000 mg/Syringe 7.5 ml @ 2.5 mls/min Q24H IV 09/08/17 20:00 09/18/17 19:59 Last 24 Hours Test 09/07/17 18:10 09/08/17 00:16 09/08/17 05:42 09/08/17 10:58 Bedside Glucose 103 mg/dl 119 mg/dl 134 mg/dl White Blood Count 8.03 K/uL Red Blood Count 3.06 M/uL Hemoglobin 9.3 g/dL Hematocrit 30.4 % Mean Corpuscular Volume 99.3 fL Mean Corpuscular Hemoglobin 30.4 pg Mean Corpuscular Hemoglobin Concent 30.6 g/dl RDW Standard Deviation 61.3 fL RDW Coefficient of Variation 17.2 % Platelet Count 296 K/uL Mean Platelet Volume 9.7 fL Prothrombin Time 11.6 SECONDS Prothromb Time International Ratio 1.1 Sodium Level 135 mmol/L Potassium Level 3.7 mmol/L Chloride Level 99 mmol/L Carbon Dioxide Level 27 mmol/L Anion Gap 9.0 mmol/L Blood Urea Nitrogen 37 mg/dl Creatinine 7.62 mg/dl Est Creatinine Clear Calc Drug Dose 19.1 ml/min Estimated GFR () 9.5 Estimated GFR (Non- 8.2 BUN/Creatinine Ratio 4.8 Random Glucose 109 mg/dl Calcium Level 8.8 mg/dl Random Vancomycin Level 23.9 mcg/ml Assessment & Plan 37 y/o M w/ ESRD on HD MWF admitted with abscess at occluded vascular access graft adjacent to patent RUE AV graft in the setting of significant/chronic vascular access and MARLA complications related to ESRD. He has chronic hypotension w/ sbp in 90-100s. cultures from infected graft grew MRSA > ID recommends 2 wks vanco -will look to dialyze Sat short tx then from renal standpoint ok for d/c >>>vanco after dialysis recommended by inf dzs; we can give that; recommend vitaline to manage doses/troughs as outpt if possible -albumin w/ HD in house -continue high dose veltassa and renal diet; nephrovite given hs -continue high dose binders, calcium supplements, sensipar -will hold off on kayexalate for now Appreciate consult; will follow with you. Care coordinated w/ Dr Lombardi
--- NOTE | 2017-09-08 18:14 | Critical Care Progress Note ---
Critical Care Progress Note Date of Service Sep 08, 2017. Attending Dr. Peoples Subjective The patient has no events overnight, blood pressure has been maintained, denies any pain, the patient went to the OR and underwent tunneled dialysis catheter done by Dr. Jefferson and went wonderful. He is currently undergoing hemodialysis. Right femoral catheter has been removed. The patient grew Staphylococcus Aureus methicillin sensitive. Objective Physical exam revealed more alert gentleman, does not appear to be any distress , S1-S2 regular rate and rhythm, distant breath sounds bilaterally, abdomen is benign, right upper extremity surgically wrapped, right femoral dialysis catheter, edema in the periphery. Neurologically he's intact. Assessment & Plan #1 infected AV fistula, status post surgical debridement, grew MSSA. #2 chronic kidney disease on hemodialysis. #3 morbid obesity. Plan: #1 antibiotics changed to Ancef due to MSSA, I have noticed from Dr. Espinosa notes that Vanco would be a better option for him, EDGAR was around 2 for Vanco. Treatment will continue for at least 2 weeks. #2 Ancef dose was adjusted by pharmacy, if the patient change back to Vanco can be given with dialysis. #3 stop Meño-Synephrine. #4 the patient is pain free at the moment, did not require Dilaudid.. #5 GI and DVT prophylaxis #6 appreciate all the consults involved in this case. #7 transfer the patient to regular floor, discussed with Dr. Zamudio, appreciate his acceptance of this case of regular floor.. Discussed on rounds and details. CCT was 35 minutes. Data Medications: Current Inpatient Medications Medications (Trade) Dose Ordered Sig/Otilia Route Start Time Stop Time Status Last Admin Dose Admin Acetaminophen (Tylenol Tab) 650 mg Q4H PRN PO 09/04/17 14:30 10/04/17 14:29 09/05/17 21:07 650 MG Calcium Acetate (Phoslo Cap) 1,334 mg TIDM PO 09/04/17 17:45 10/04/17 17:59 09/08/17 17:42 1,334 MG Calcium Carbonate (Tums Chew Tab) 2,625 mg QID PO 09/04/17 17:00 10/04/17 16:59 09/08/17 17:42 2,625 MG Patiromer (Veltassa) 25.2 gm QPM PO 09/04/17 21:00 10/04/17 20:59 09/08/17 00:18 25.2 GM Sevelamer HCl (Renagel Tab) 2,400 mg BID PRN PO 09/04/17 15:00 10/04/17 14:59 Sevelamer HCl (Renagel Tab) 4,000 mg TIDM PO 09/04/17 17:45 10/04/17 17:59 09/08/17 17:42 4,000 MG Vitamin B Complex/ Vit C/Folic Acid (Nephrocaps) 1 cap HS PO 09/05/17 21:00 10/05/17 08:59 09/07/17 21:46 1 CAP Tramadol HCl (Ultram Tab) `50-100MG (1-2 TABS) ... Q6H PRN PO 09/06/17 16:45 10/06/17 16:44 Morphine Sulfate (MoRPHine SULFATE INJ) 1 mg Q2H PRN IV 09/06/17 16:45 09/20/17 16:44 Morphine Sulfate (MoRPHine SULFATE INJ) 2 mg Q2H PRN IV 09/06/17 17:00 09/20/17 16:59 Morphine Sulfate (MoRPHine SULFATE INJ) 3 mg Q2H PRN IV 09/06/17 17:00 09/20/17 16:59 Morphine Sulfate (MoRPHine SULFATE INJ) 4 mg Q2H PRN IV 09/06/17 17:00 09/20/17 16:59 Miscellaneous Information (Icu Protocol For Hyperglycemia) 1 ea PRN PRN N/A 09/06/17 20:45 09/08/17 20:44 Albumin Human (Albumin 25%) 12.5 gm TODAY@0800,1600 IV 09/08/17 08:00 09/08/17 23:00 09/08/17 09:30 12.5 GM Cefazolin Sodium 1000 mg/Syringe 7.5 ml @ 2.5 mls/min Q24H IV 09/08/17 20:00 09/18/17 19:59 I & O: 24-Hour Column 09/09/17 08:00 Intake Total 770 ml Output Total 1000 ml Balance -230 ml Vital Signs: Date Time Temp Pulse Resp B/P (MAP) Pulse Ox O2 Delivery O2 Flow Rate FiO2 09/08/17 16:20 36.8 129 19 117/73 (88) 95 Room Air 100/66 (77) 107/66 (80) 18 14:10 36.6 109 20 108/69 (82) 96 Room Air 18 13:08 36.3 99 110/69 (83) 218 13:00 96 95/59 2/18 12:33 96 83/59 2/18 12:17 94 107/74 218 12:03 97 105/72 218 11:47 91 110/71 218 11:30 92 106/69 218 11:20 36.9 105 20 98/61 (73) 97 Nasal Cannula 3.0 09/08/17 11:20 Nasal Cannula 3.0 09/08/17 11:15 99 90/57 2 11:00 99 98/61 218 10:45 100 94/60 2/18 10:30 107 89/52 2 10:15 107 95/50 18 10:00 103 102/51 2/18 09:51 105 21 93/61 (72) 97 2/18 09:50 100 32 97 2//18 09:46 102 22 103/59 (74) 96 2/18 09:45 103 93/49 2/18 09:45 94 23 96 2/18 09:41 99 29 97/59 (72) 96 09/08/18 09:40 98 23 94 2/18 09:36 100 28 91/50 (64) 98 2/18 09:35 101 29 96 2//18 09:31 100 16 89/48 (62) 95 2/18 09:30 101 34 93 223/18 09:30 98 96/55 2//18 09:26 102 18 95/54 (68) 96 2/18 09:25 102 20 93 2/23/18 09:21 104 20 97/54 (68) 93 2//18 09:20 102 34 93 2/23/18 09:16 102 26 93/62 (72) 95 18 09:15 36.7 102 96/59 (71) 218 09:15 104 23 94 2//18 09:15 100 104/54 09/08/17 09:10 104 22 93 09/08/17 09:06 107 13 105/60 (75) 94 09/08/17 09:05 105 88 09/08/17 09:00 Nasal Cannula 3.0 09/08/17 08:00 36.7 93 19 106/99 (101) 95 Room Air 3.0 09/08/17 08:00 95 Room Air 3.0 09/08/17 06:01 107 19 89/38 (55) 95 Room Air 09/08/17 05:01 92 23 112/57 (75) 94 09/08/17 04:25 87 27 115/56 (75) 96 09/08/17 04:16 95 29 74/40 (51) 98 09/08/17 04:02 37.0 98 33 87/44 (58) 96 Room Air 09/08/17 04:00 Room Air 09/08/17 03:31 99 31 128/53 (78) 87 09/08/17 03:16 94 15 88/39 (55) 89 09/08/17 03:01 103 18 90/51 (64) 89 09/08/17 02:46 102 20 83/52 (62) 91 09/08/17 02:31 116 21 120/52 (74) 95 09/08/17 02:16 99 25 121/68 (85) 93 09/08/17 02:01 101 26 127/65 (85) 92 Room Air 09/08/17 01:46 99 28 131/61 (84) 94 09/08/17 01:31 105 13 129/69 (89) 94 09/08/17 01:16 114 28 95/50 (65) 95 09/08/17 01:01 114 17 106/65 (79) 98 09/08/17 00:46 114 30 119/59 (79) 94 09/08/17 00:31 111 24 108/66 (80) 94 09/08/17 00:01 37.0 106 13 94/51 (65) 90 Room Air 09/07/17 23:59 Room Air 09/07/17 23:02 104 23 83/37 (52) 92 Room Air 09/07/17 23:00 105 31 93 09/07/17 22:46 101 28 120/66 (84) 92 2/22/18 22:45 85 34 95 2/22/18 22:31 93 31 100/62 (75) 94 2/22/18 22:30 105 28 95 2/22/18 22:16 104 28 95/61 (72) 92 2/22/18 22:15 104 30 92 2/22/18 22:01 115 24 94/45 (61) 96 222/18 22:00 110 23 95 2/22/18 21:45 110 20 96 Room Air 222/18 21:31 101 24 96/63 (74) 93 2/22/18 21:30 101 22 94 2/22/18 21:16 110 32 101/58 (72) 93 2/22/18 21:15 109 28 93 2/22/18 21:01 103 26 91/46 (61) 94 2/22/18 21:00 104 19 93 2/22/18 20:46 106 29 78/49 (59) 94 09/07/18 20:45 105 28 93 222/18 20:31 107 23 94/63 (73) 95 2/22/18 20:30 109 26 93 2/22/18 20:16 115 17 70/55 (60) 95 09/07/18 20:15 112 39 95 2/18 20:01 113 34 88/47 (61) 93 222/18 20:00 114 31 95 2/22/18 19:46 114 33 70/32 (45) 93 22/18 19:45 116 37 92 09/07/18 19:31 120 21 76/43 (54) 96 2/18 19:30 118 23 96 2/22/18 19:15 114 27 95 Room Air 18 19:06 Room Air 09/07/18 19:01 36.6 128 27 130/85 (100) 95 222/18 19:00 129 26 95 222/18 18:46 123 20 119/83 (95) 95 2/22/18 18:45 119 25 96 2/22/18 18:31 109 25 120/62 (81) 94 2/22/18 18:30 105 27 95 2/22/18 18:16 107 20 120/69 (86) 94 2/22/18 18:15 104 22 97 Laboratory Results: Last 24 Hours Test 09/07/17 18:10 09/08/17 00:16 09/08/17 05:42 09/08/17 10:58 Bedside Glucose 103 mg/dl 119 mg/dl 134 mg/dl White Blood Count 8.03 K/uL Red Blood Count 3.06 M/uL Hemoglobin 9.3 g/dL Hematocrit 30.4 % Mean Corpuscular Volume 99.3 fL Mean Corpuscular Hemoglobin 30.4 pg Mean Corpuscular Hemoglobin Concent 30.6 g/dl RDW Standard Deviation 61.3 fL RDW Coefficient of Variation 17.2 % Platelet Count 296 K/uL Mean Platelet Volume 9.7 fL Prothrombin Time 11.6 SECONDS Prothromb Time International Ratio 1.1 Sodium Level 135 mmol/L Potassium Level 3.7 mmol/L Chloride Level 99 mmol/L Carbon Dioxide Level 27 mmol/L Anion Gap 9.0 mmol/L Blood Urea Nitrogen 37 mg/dl Creatinine 7.62 mg/dl Est Creatinine Clear Calc Drug Dose 19.1 ml/min Estimated GFR () 9.5 Estimated GFR (Non- 8.2 BUN/Creatinine Ratio 4.8 Random Glucose 109 mg/dl Calcium Level 8.8 mg/dl Random Vancomycin Level 23.9 mcg/ml
[2017-09-08] MEDS ORDERED: CONSULT PHARMACY STA (18:42)
[2017-09-08] MEDS ORDERED: CEFAZOLIN IV 1,000 MG in SYRINGE 0 ML IV SCH (20:00)
[2017-09-08] MEDS: CEFTRIAXONE SOD INJ 2000 MG in DEXTROSE 5% 50ML IV SCH (20:43)
[2017-09-08] MEDS: NEPHROCAPS PO SCH (20:43)
[2017-09-09] VITALS (14 sets, daily range): BP systolic 88–112; BP diastolic 42–67; PULSE 104–120; TEMP 36.8–37.3; O2SAT 93–99
[2017-09-09] MEDS ORDERED: HEPARIN SOD (PORCINE) 1000 UNIT/ML 10 ML VIAL IV SCH (08:00)
[2017-09-09] MEDS ORDERED: ALBUMIN HUMAN 25% 12.5 GM/50 ML VIAL IV SCH (08:00)
[2017-09-09 08:02] LABS: HEMATOCRIT 34.1 % (42-52); HEMOGLOBIN 10.6 g/dL (14.0-18.0); MEAN CELL VOLUME 100.3 fL (80-100); MEAN CORPUSCULAR HEMOGLOBIN 31.2 pg (25-34); MEAN CORPUSCULAR HGB CONC 31.1 g/dl (32-36); MEAN PLATELET VOLUME 9.8 fL (7.4-10.4); PLATELET COUNT 350 K/uL (130-400); RED CELL DISTRIBUTION WIDTH CV 17.1 % (11.5-14.5); RED CELL DISTRIBUTION WIDTH SD 62.6 fL (36.4-46.3); WHITE BLOOD COUNT 8.14 K/uL (4.8-10.8)
[2017-09-09 08:08] LABS: INR 1.1 (0.9-1.1)
[2017-09-09] MEDS: CALCIUM ACETATE 667MG GELCAP PO SCH ×3 (08:30→17:35)
[2017-09-09] MEDS: SEVELAMER HYDROCH 800 MG TAB PO SCH ×3 (08:30→17:34)
--- NOTE | 2017-09-09 08:37 | Nephrology Progress Note ---
Nephrology Progress Note Date of Service: Sep 09, 2017. Subjective 37 yo male with esrd with an infected av graft and now with tunneled dialysis catheter. pt comfortable. no complaints. right upper arm bandaged up. Objective Date Time Temp Pulse Resp B/P (MAP) Pulse Ox O2 Delivery O2 Flow Rate FiO2 09/09/17 07:52 36.8 119 16 100/59 (73) 99 Room Air 09/09/17 03:00 37.2 110 16 94/45 (61) 95 Room Air 09/08/17 23:45 Room Air 09/08/17 23:37 127/67 (87) 09/08/17 23:08 84/52 (63) 09/08/17 23:05 37.4 113 16 70/42 (51) 94 Room Air 09/08/17 17:45 Room Air 09/08/17 16:20 36.8 129 19 117/73 (88) 95 Room Air 100/66 (77) 107/66 (80) 09/08/17 14:10 36.6 109 20 108/69 (82) 96 Room Air 09/08/17 13:08 36.3 99 110/69 (83) 09/08/17 13:00 96 95/59 09/08/17 12:33 96 83/59 09/08/17 12:17 94 107/74 09/08/17 12:03 97 105/72 09/08/17 11:47 91 110/71 09/08/17 11:30 92 106/69 09/08/17 11:20 36.9 105 20 98/61 (73) 97 Nasal Cannula 3.0 09/08/17 11:20 Nasal Cannula 3.0 09/08/17 11:15 99 90/57 09/08/17 11:00 99 98/61 09/08/17 10:45 100 94/60 09/08/17 10:30 107 89/52 09/08/17 10:15 107 95/50 09/08/17 10:00 103 102/51 09/08/17 09:51 105 21 93/61 (72) 97 09/08/17 09:50 100 32 97 09/08/17 09:46 102 22 103/59 (74) 96 09/08/17 09:45 103 93/49 09/08/17 09:45 94 23 96 09/08/17 09:41 99 29 97/59 (72) 96 09/08/17 09:40 98 23 94 09/08/17 09:36 100 28 91/50 (64) 98 09/08/17 09:35 101 29 96 09/08/17 09:31 100 16 89/48 (62) 95 09/08/17 09:30 101 34 93 09/08/17 09:30 98 96/55 09/08/17 09:26 102 18 95/54 (68) 96 09/08/17 09:25 102 20 93 09/08/17 09:21 104 20 97/54 (68) 93 09/08/17 09:20 102 34 93 09/08/17 09:16 102 26 93/62 (72) 95 09/08/17 09:15 36.7 102 96/59 (71) 09/08/17 09:15 104 23 94 09/08/17 09:15 100 104/54 09/08/17 09:10 104 22 93 09/08/17 09:06 107 13 105/60 (75) 94 09/08/17 09:05 105 88 09/08/17 09:00 Nasal Cannula 3.0 Physical Exam: General-[id number] Eyes-no scleral icterus ENT-mmm Neck-supple Lungs-cta Heart-tachy Abdomen-bs+ s/nt/nd Extremities-right upper arm bandaged Neuro-nonfocal Current Inpatient Medications Medications (Trade) Dose Ordered Sig/Otilia Route Start Time Stop Time Status Last Admin Dose Admin Acetaminophen (Tylenol Tab) 650 mg Q4H PRN PO 09/04/17 14:30 10/04/17 14:29 09/05/17 21:07 650 MG Calcium Acetate (Phoslo Cap) 1,334 mg TIDM PO 09/04/17 17:45 10/04/17 17:59 09/08/17 17:42 1,334 MG Calcium Carbonate (Tums Chew Tab) 2,625 mg QID PO 09/04/17 17:00 10/04/17 16:59 09/08/17 20:44 2,625 MG Patiromer (Veltassa) 25.2 gm QPM PO 09/04/17 21:00 10/04/17 20:59 09/08/17 21:54 25.2 GM Sevelamer HCl (Renagel Tab) 2,400 mg BID PRN PO 09/04/17 15:00 10/04/17 14:59 Sevelamer HCl (Renagel Tab) 4,000 mg TIDM PO 09/04/17 17:45 10/04/17 17:59 09/08/17 17:42 4,000 MG Vitamin B Complex/ Vit C/Folic Acid (Nephrocaps) 1 cap HS PO 09/05/17 21:00 10/05/17 08:59 09/08/17 20:43 1 CAP Tramadol HCl (Ultram Tab) `50-100MG (1-2 TABS) ... Q6H PRN PO 09/06/17 16:45 10/06/17 16:44 Morphine Sulfate (MoRPHine SULFATE INJ) 1 mg Q2H PRN IV 09/06/17 16:45 09/20/17 16:44 Morphine Sulfate (MoRPHine SULFATE INJ) 2 mg Q2H PRN IV 09/06/17 17:00 09/20/17 16:59 Morphine Sulfate (MoRPHine SULFATE INJ) 3 mg Q2H PRN IV 09/06/17 17:00 09/20/17 16:59 Morphine Sulfate (MoRPHine SULFATE INJ) 4 mg Q2H PRN IV 09/06/17 17:00 09/20/17 16:59 Heparin Sodium (Porcine) (Heparin Iv Bolus) 1,000 unit TODAY@0800 IV 09/09/17 08:00 09/09/17 18:00 Heparin Sodium (Porcine) (Heparin Iv Bolus) 400 unit TODAY@0800,0900,1000 IV 09/09/17 08:00 09/09/17 18:00 Albumin Human (Albumin 25%) 12.5 gm TODAY@0800 IV 09/09/17 08:00 09/09/17 18:00 Ceftriaxone Sodium 2000 mg/ Dextrose 70 ml @ 140 mls/hr Q24H IV 09/08/17 20:00 09/18/17 19:59 09/08/17 20:43 140 MLS/HR Last 24 Hours Test 09/08/17 10:58 09/09/17 07:36 Bedside Glucose 134 mg/dl White Blood Count 8.14 K/uL Red Blood Count 3.40 M/uL Hemoglobin 10.6 g/dL Hematocrit 34.1 % Mean Corpuscular Volume 100.3 fL Mean Corpuscular Hemoglobin 31.2 pg Mean Corpuscular Hemoglobin Concent 31.1 g/dl RDW Standard Deviation 62.6 fL RDW Coefficient of Variation 17.1 % Platelet Count 350 K/uL Mean Platelet Volume 9.8 fL Prothrombin Time 11.2 SECONDS Prothromb Time International Ratio 1.1 Assessment & Plan ESRD-for dialysis again today and ok from renal perspective to go home today once we determine antibiotic choice and duration of antibiotic which I will notify the [facility] of prior to discharge. would like to do another 2 hour treatment today.
[2017-09-09 08:49] LABS: CALCIUM 10.3 mg/dl (8.5-10.1); CREATININE 7.71 mg/dl (0.60-1.40)
[2017-09-09] MEDS: HEPARIN SOD (PORCINE) 1000 UNIT/ML 10 ML VIAL IV SCH ×3 (09:00→10:00)
[2017-09-09] MEDS: CALCIUM CARBONATE 500 MG CHEWABLE PO SCH ×4 (09:00→21:00)
--- NOTE | 2017-09-09 19:02 | Progress Note ---
Medicine Progress Note Date & Time of Visit: Sep 09, 2017 at 18:46. Subjective patient seen resting in bedside chair his parents are at the bedside, visiting states he feels fine overall states right arm pain is better had HD today, tolerated well denies fever/chills no chest pain, dyspnea, palpitations, dizziness denies other symptoms Objective Last 8 Hrs Date Time Temp Pulse Resp B/P (MAP) Pulse Ox O2 Delivery O2 Flow Rate FiO2 09/09/17 15:30 36.8 111 20 98/67 (77) 95 Room Air 09/09/17 11:45 Room Air 09/09/17 11:44 37.3 104 107/54 (71) Physical Exam: General-oriented 3 not in distress speaking in sentences no accessory muscle use Eyes- anicteric Neck- no JVD Lungs- clear breath sounds bilaterally, no rales/wheezes Heart- regular rhythm; no murmur, normal rate Abdomen- normal bowel sounds, soft, nontender, no masses Extremities- Right upper extremity: surgical wound open: mild erythema on the borders, no active drainage/bleeding no edema of the right hand and forearm no pretibial edema, no calf tenderness; peripheral pulses intact Neuro- alert, oriented x 3; no gross focal neurologic deficit Skin- warm & dry Laboratory Results: Last 24 Hours Test 09/09/17 07:36 White Blood Count 8.14 K/uL Red Blood Count 3.40 M/uL Hemoglobin 10.6 g/dL Hematocrit 34.1 % Mean Corpuscular Volume 100.3 fL Mean Corpuscular Hemoglobin 31.2 pg Mean Corpuscular Hemoglobin Concent 31.1 g/dl RDW Standard Deviation 62.6 fL RDW Coefficient of Variation 17.1 % Platelet Count 350 K/uL Mean Platelet Volume 9.8 fL Prothrombin Time 11.2 SECONDS Prothromb Time International Ratio 1.1 Sodium Level 135 mmol/L Potassium Level 4.0 mmol/L Chloride Level 101 mmol/L Carbon Dioxide Level 24 mmol/L Anion Gap 11.0 mmol/L Blood Urea Nitrogen 34 mg/dl Creatinine 7.71 mg/dl Est Creatinine Clear Calc Drug Dose 18.9 ml/min Estimated GFR () 9.4 Estimated GFR (Non- 8.1 BUN/Creatinine Ratio 4.4 Random Glucose 104 mg/dl Calcium Level 10.3 mg/dl Assessment & Plan RIGHT UPPER EXTREMITY CELLULITIS AT THE AREA OF THE AV GRAFT Present with Right upper arm erythema/tenderness/swelling Meet SIRS criteria with elevated WBC and Tachycardia U/S showed complex fluid collection surrounding an occluded right upper arm dialysis graft. The fluid collection extends over craniocaudad distance of 11.5 cm.Lateral to the occluded graft is a second hemodialysis graft, which is patent. Blood cultures: Negative Vascular consulted, Dr. Jefferson 09/05/17: s/p temporary HD cath placement 09/06/17: s/p removal of AV graft Culture of Drainage: (+) Staph, MSSA 09/07/17: s/p placement of Permcath afebrile, right arm edema improving further weaned off pressors ID consulted, recommend at least 2 weeks of IV Vanco, consulted with Pharmacy, since patient has MSSA, recommending Ceftriaxone will clarify with Dr. Espinosa will request post op eval with Vascular Surgery prior to discharge will need to ff up with Dr. Jefferson for Vascular and Dr. Espinosa for ID ESRD ON HD ON MWF 09/05/17: s/p temporary HD cath placement 09/06/17: s/p removal of AV graft 09/07/17: s/p placement of Permcath HD per nephrology RECENT CLOT IN THE AV GRAFT Occured in Dec after undergoing parathyroidectomy surgery INR is 1.[address] Jefferson, recommend to stop anticoagulation Tobacco abuse Counseling smoking cessation declined nicotine patch HTN BP not elevated DVT Coumadin stopped per vascular surgery service Heparin stopped for his planned procedures ambulates CODE STATUS FULL CODE DISPOSITION Anticipate return home will clarify with Dr. Espinosa re: IV antibiotics Current Inpatient Medications: Current Inpatient Medications Medications (Trade) Dose Ordered Sig/Otilia Route Start Time Stop Time Status Last Admin Dose Admin Acetaminophen (Tylenol Tab) 650 mg Q4H PRN PO 09/04/17 14:30 10/04/17 14:29 09/05/17 21:07 650 MG Calcium Acetate (Phoslo Cap) 1,334 mg TIDM PO 09/04/17 17:45 10/04/17 17:59 09/09/17 17:35 1,334 MG Calcium Carbonate (Tums Chew Tab) 2,625 mg QID PO 09/04/17 17:00 10/04/17 16:59 09/09/17 17:35 2,625 MG Patiromer (Veltassa) 25.2 gm QPM PO 09/04/17 21:00 10/04/17 20:59 09/08/17 21:54 25.2 GM Sevelamer HCl (Renagel Tab) 2,400 mg BID PRN PO 09/04/17 15:00 10/04/17 14:59 Sevelamer HCl (Renagel Tab) 4,000 mg TIDM PO 09/04/17 17:45 10/04/17 17:59 09/09/17 17:34 4,000 MG Vitamin B Complex/ Vit C/Folic Acid (Nephrocaps) 1 cap HS PO 09/05/17 21:00 10/05/17 08:59 09/08/17 20:43 1 CAP Tramadol HCl (Ultram Tab) `50-100MG (1-2 TABS) ... Q6H PRN PO 09/06/17 16:45 10/06/17 16:44 Morphine Sulfate (MoRPHine SULFATE INJ) 1 mg Q2H PRN IV 09/06/17 16:45 09/20/17 16:44 Morphine Sulfate (MoRPHine SULFATE INJ) 2 mg Q2H PRN IV 09/06/17 17:00 09/20/17 16:59 Morphine Sulfate (MoRPHine SULFATE INJ) 3 mg Q2H PRN IV 09/06/17 17:00 09/20/17 16:59 Morphine Sulfate (MoRPHine SULFATE INJ) 4 mg Q2H PRN IV 09/06/17 17:00 09/20/17 16:59 Ceftriaxone Sodium 2000 mg/ Dextrose 70 ml @ 140 mls/hr Q24H IV 09/08/17 20:00 09/18/17 19:59 09/08/17 20:43 140 MLS/HR
[2017-09-09] MEDS: NEPHROCAPS PO SCH (20:59)
[2017-09-09] MEDS: CEFTRIAXONE SOD INJ 2000 MG in DEXTROSE 5% 50ML IV SCH (20:59)
[2017-09-09] MEDS: PATIROMER SORBITEX CALCIUM PO SCH (23:47)
[2017-09-10 07:16] VITALS: BP 107/66; PULSE 98; TEMP 36.6; O2SAT 95
[2017-09-10] MEDS: CALCIUM CARBONATE 500 MG CHEWABLE PO SCH ×4 (08:59→20:30)
[2017-09-10] MEDS: CALCIUM ACETATE 667MG GELCAP PO SCH ×3 (09:00→17:03)
[2017-09-10] MEDS: SEVELAMER HYDROCH 800 MG TAB PO SCH ×3 (09:00→17:04)
--- NOTE | 2017-09-10 09:38 | Progress Note ---
Medicine Progress Note Date & Time of Visit: Sep 10, 2017 at 09:30. Subjective seen resting in bed, comfortable states he feels fine overall pain on the left arm is much better can move arm well denies chest pain, dyspnea, dizziness, nausea no fever/chills denies other symptoms Objective Last 8 Hrs Date Time Temp Pulse Resp B/P (MAP) Pulse Ox O2 Delivery O2 Flow Rate FiO2 09/10/17 08:30 Room Air 09/10/17 07:16 36.6 98 16 107/66 (80) 95 Room Air Physical Exam: General-oriented 3 not in distress speaking in sentences no accessory muscle use Eyes- anicteric Neck- no JVD Lungs- clear breath sounds bilaterally Heart- regular rhythm; no murmur, normal rate Abdomen- normal bowel sounds, soft, nontender, no masses Extremities- Right upper extremity: surgical wound open: mild erythema on the borders- improved, no tenderness, (+) scant yellow, non foul smelling drainage no edema of the right hand and forearm no pretibial edema, no calf tenderness; peripheral pulses intact Right groin- wound healing well Thigh- wound healing well, zak intact Neuro- alert, oriented x 3; no gross focal neurologic deficit Skin- warm & dry Laboratory Results: Last 24 Hours Test 09/10/17 06:08 Prothrombin Time 10.5 SECONDS Prothromb Time International Ratio 1.0 Assessment & Plan RIGHT UPPER EXTREMITY CELLULITIS AT THE AREA OF THE AV GRAFT Present with Right upper arm erythema/tenderness/swelling Meet SIRS criteria with elevated WBC and Tachycardia U/S showed complex fluid collection surrounding an occluded right upper arm dialysis graft. The fluid collection extends over craniocaudad distance of 11.5 cm.Lateral to the occluded graft is a second hemodialysis graft, which is patent. Blood cultures: Negative Vascular consulted, Dr. Jefferson 09/05/17: s/p temporary HD cath placement 09/06/17: s/p removal of AV graft Culture of Drainage: (+) Staph, MSSA 09/07/17: s/p placement of Permcath afebrile, right arm edema improving further having yellow discharge on the surgical wound- discussed with Dr. Jefferson, will need Wound Vac, will discuss with [facility] [place] Jefferson to re-evaluate wound, also relayed that patient's parents would like to speak with him will get cultures from the drainage ID consulted, recommend at least 2 weeks of IV Vanco, consulted with Pharmacy, since patient has MSSA, recommending Ceftriaxone will clarify with Dr. Espinosa ff up with Dr. Jefferson for Vascular and Dr. Espinosa for ID ESRD ON HD ON MWF 09/05/17: s/p temporary HD cath placement 09/06/17: s/p removal of AV graft 09/07/17: s/p placement of Permcath HD per nephrology RECENT CLOT IN THE AV GRAFT Occured in Dec after undergoing parathyroidectomy surgery DisCussed with Dr. Jefferson, recommend to stop anticoagulation Tobacco abuse Counseling smoking cessation declined nicotine patch HTN BP not elevated DVT Coumadin stopped per vascular surgery service Heparin stopped for his planned procedures, also has an open surgical wound with drainage encourage to ambulate CODE STATUS FULL CODE DISPOSITION Anticipate return home when cleared by Vascular Surgery will clarify with Dr. Espinosa re: IV antibiotics Current Inpatient Medications: Current Inpatient Medications Medications (Trade) Dose Ordered Sig/Otilia Route Start Time Stop Time Status Last Admin Dose Admin Acetaminophen (Tylenol Tab) 650 mg Q4H PRN PO 09/04/17 14:30 10/04/17 14:29 09/05/17 21:07 650 MG Calcium Acetate (Phoslo Cap) 1,334 mg TIDM PO 09/04/17 17:45 10/04/17 17:59 09/10/17 09:00 1,334 MG Calcium Carbonate (Tums Chew Tab) 2,625 mg QID PO 09/04/17 17:00 10/04/17 16:59 09/10/17 08:59 2,625 MG Sevelamer HCl (Renagel Tab) 2,400 mg BID PRN PO 09/04/17 15:00 10/04/17 14:59 Sevelamer HCl (Renagel Tab) 4,000 mg TIDM PO 09/04/17 17:45 10/04/17 17:59 09/10/17 09:00 4,000 MG Vitamin B Complex/ Vit C/Folic Acid (Nephrocaps) 1 cap HS PO 09/05/17 21:00 10/05/17 08:59 09/09/17 20:59 1 CAP Tramadol HCl (Ultram Tab) `50-100MG (1-2 TABS) ... Q6H PRN PO 09/06/17 16:45 10/06/17 16:44 Morphine Sulfate (MoRPHine SULFATE INJ) 1 mg Q2H PRN IV 09/06/17 16:45 09/20/17 16:44 Morphine Sulfate (MoRPHine SULFATE INJ) 2 mg Q2H PRN IV 09/06/17 17:00 09/20/17 16:59 Morphine Sulfate (MoRPHine SULFATE INJ) 3 mg Q2H PRN IV 09/06/17 17:00 09/20/17 16:59 Morphine Sulfate (MoRPHine SULFATE INJ) 4 mg Q2H PRN IV 09/06/17 17:00 09/20/17 16:59 Ceftriaxone Sodium 2000 mg/ Dextrose 70 ml @ 140 mls/hr Q24H IV 09/08/17 20:00 09/18/17 19:59 09/09/17 20:59 140 MLS/HR Patiromer (Veltassa) 25.2 gm DAILY@2300 PO 09/10/17 23:00 10/10/17 22:59
[2017-09-10 10:50] LABS: CALCIUM 10.6 mg/dl (8.5-10.1); CREATININE 8.01 mg/dl (0.60-1.40)
--- NOTE | 2017-09-10 12:46 | DIAGNOSTIC IMAGING REPORT ---
ULTRASOUND VENOUS MAPPING LEFT UPPER EXTREMITY CLINICAL HISTORY: possible fistula placement COMPARISON STUDY: No previous studies for comparison. FINDINGS: No thrombus is visualized in the left internal jugular, subclavian, or basilic veins. There is a left cephalic vein thrombus in the level of the wrist at the site of the intravenous catheter. Size and depth measurements of the cephalic and basilic vein were recorded and scanned into the PACS system. IMPRESSION: Cephalic vein thrombus at the wrist at the level of the intravenous catheter. Electronically signed by: Aakash Chiu M.D. 09/10/2017 12:45 PM Dictated Date/Time: 09/10/2017 12:42 PM
[2017-09-10 14:50] VITALS: BP 102/63; PULSE 108; TEMP 36.4; O2SAT 93
[2017-09-10] MEDS: CEFTRIAXONE SOD INJ 2000 MG in DEXTROSE 5% 50ML IV SCH (19:46)
[2017-09-10] MEDS: NEPHROCAPS PO SCH (20:30)
[2017-09-10] MEDS ORDERED: PATIROMER SORBITEX CALCIUM PO SCH (23:00)
[2017-09-10 23:25] VITALS: BP 95/58; PULSE 108; TEMP 36.5; O2SAT 95
[2017-09-11] VITALS (16 sets, daily range): BP systolic 75–104; BP diastolic 36–62; PULSE 90–111; TEMP 36.5–36.9; O2SAT 96–97
[2017-09-11 06:00] LABS: BASO % 0.5 %; BASO ABS # 0.06 K/uL (0-0.2); EOS % 2.9 %; EOS ABS # 0.32 K/uL (0-0.5); HEMATOCRIT 32.5 % (42-52); HEMOGLOBIN 10.1 g/dL (14.0-18.0); IG# 0.22 K/uL (0.00-0.02); LYMPH % 21.5 %; LYMPH ABS # 2.38 K/uL (1.2-3.4); MEAN CELL VOLUME 97.9 fL (80-100); MEAN CORPUSCULAR HEMOGLOBIN 30.4 pg (25-34); MEAN CORPUSCULAR HGB CONC 31.1 g/dl (32-36); MEAN PLATELET VOLUME 9.8 fL (7.4-10.4); MONO % 5.6 %; MONO ABS # 0.62 K/uL (0.11-0.59); NEUT % 67.5 %; NEUT ABS # 7.46 K/uL (1.4-6.5); PLATELET COUNT 390 K/uL (130-400); RED CELL DISTRIBUTION WIDTH CV 17.1 % (11.5-14.5); RED CELL DISTRIBUTION WIDTH SD 61.3 fL (36.4-46.3); WHITE BLOOD COUNT 11.06 K/uL (4.8-10.8)
[2017-09-11 06:41] LABS: CALCIUM 11.2 mg/dl (8.5-10.1); CREATININE 10.9 mg/dl (0.60-1.40); POTASSIUM 4.2 mmol/L (3.5-5.1)
[2017-09-11] MEDS ORDERED: CONSULT PHARMACY STA (07:13)
[2017-09-11 07:24] LABS: HEMOGLOBIN A1C 5.9 % (4.5-5.6)
[2017-09-11] MEDS ORDERED: VANCOMYCIN CONSULT ACTIVE PRN (07:30)
--- NOTE | 2017-09-11 08:06 | Anesthesiology Progress Note ---
Anesthesia Post Op Note Date & Time Sep 11, 2017 at 08:06 Vital Signs Pain Intensity: 0.0 Vital Signs Past 12 Hours Date Time Temp Pulse Resp B/P (MAP) Pulse Ox O2 Delivery O2 Flow Rate FiO2 09/11/17 08:01 36.5 111 20 95/62 (73) 97 Room Air 09/11/17 07:57 Room Air 09/11/17 00:10 Room Air 09/10/17 23:25 36.5 108 18 95/58 (70) 95 Room Air Notes Mental Status: alert / awake / arousable, participated in evaluation Pt Amnestic to Procedure: Yes Nausea / Vomiting: adequately controlled Pain: adequately controlled Airway Patency, RR, SpO2: stable & adequate BP & HR: stable & adequate Hydration State: stable & adequate Anesthetic Complications: no major complications apparent
[2017-09-11] MEDS: SEVELAMER HYDROCH 800 MG TAB PO SCH ×2 (08:30→12:30)
--- NOTE | 2017-09-11 08:58 | Nephrology Progress Note ---
Nephrology Progress Note Date of Service: Sep 11, 2017. Subjective 37 yo male with esrd with an infected av graft and now with tunneled dialysis catheter. pt comfortable. pt feels great. minimal drainage from the exit site. Objective Date Time Temp Pulse Resp B/P (MAP) Pulse Ox O2 Delivery O2 Flow Rate FiO2 09/11/17 08:40 97 Room Air 09/11/17 08:01 36.5 111 20 95/62 (73) 97 Room Air 09/11/17 07:57 Room Air 09/11/17 00:10 Room Air 09/10/17 23:25 36.5 108 18 95/58 (70) 95 Room Air 09/10/17 15:50 Room Air 09/10/17 14:50 36.4 108 20 102/63 (76) 93 Room Air Physical Exam: General-aaox3 Eyes-no scleral icterus ENT-mmm Neck-supple Lungs-clear Heart-tachycardia Abdomen-bs+ s/nt/nd Extremities-right upper arm bandaged Neuro-nonfocal Current Inpatient Medications Medications (Trade) Dose Ordered Sig/Otilia Route Start Time Stop Time Status Last Admin Dose Admin Acetaminophen (Tylenol Tab) 650 mg Q4H PRN PO 09/04/17 14:30 10/04/17 14:29 09/05/17 21:07 650 MG Sevelamer HCl (Renagel Tab) 2,400 mg BID PRN PO 09/04/17 15:00 10/04/17 14:59 Sevelamer HCl (Renagel Tab) 4,000 mg TIDM PO 09/04/17 17:45 10/04/17 17:59 09/10/17 17:04 4,000 MG Vitamin B Complex/ Vit C/Folic Acid (Nephrocaps) 1 cap HS PO 09/05/17 21:00 10/05/17 08:59 09/10/17 20:30 1 CAP Tramadol HCl (Ultram Tab) `50-100MG (1-2 TABS) ... Q6H PRN PO 09/06/17 16:45 10/06/17 16:44 Morphine Sulfate (MoRPHine SULFATE INJ) 1 mg Q2H PRN IV 09/06/17 16:45 09/20/17 16:44 Morphine Sulfate (MoRPHine SULFATE INJ) 2 mg Q2H PRN IV 09/06/17 17:00 09/20/17 16:59 Morphine Sulfate (MoRPHine SULFATE INJ) 3 mg Q2H PRN IV 09/06/17 17:00 09/20/17 16:59 Morphine Sulfate (MoRPHine SULFATE INJ) 4 mg Q2H PRN IV 09/06/17 17:00 09/20/17 16:59 Patiromer (Hina) 25.2 gm DAILY@2300 PO 09/10/17 23:00 10/10/17 22:59 09/11/17 00:18 25.2 GM Miscellaneous Information (Consult) 1 ea UD PRN N/A 09/11/17 07:30 10/11/17 07:29 Last 24 Hours Test 09/11/17 05:42 White Blood Count 11.06 K/uL Red Blood Count 3.32 M/uL Hemoglobin 10.1 g/dL Hematocrit 32.5 % Mean Corpuscular Volume 97.9 fL Mean Corpuscular Hemoglobin 30.4 pg Mean Corpuscular Hemoglobin Concent 31.1 g/dl Platelet Count 390 K/uL Mean Platelet Volume 9.8 fL Neutrophils (%) (Auto) 67.5 % Lymphocytes (%) (Auto) 21.5 % Monocytes (%) (Auto) 5.6 % Eosinophils (%) (Auto) 2.9 % Basophils (%) (Auto) 0.5 % Neutrophils # (Auto) 7.46 K/uL Lymphocytes # (Auto) 2.38 K/uL Monocytes # (Auto) 0.62 K/uL Eosinophils # (Auto) 0.32 K/uL Basophils # (Auto) 0.06 K/uL RDW Standard Deviation 61.3 fL RDW Coefficient of Variation 17.1 % Immature Granulocyte % (Auto) 2.0 % Immature Granulocyte # (Auto) 0.22 K/uL Sodium Level 136 mmol/L Potassium Level 4.2 mmol/L Chloride Level 100 mmol/L Carbon Dioxide Level 23 mmol/L Anion Gap 13.0 mmol/L Blood Urea Nitrogen 66 mg/dl Creatinine 10.90 mg/dl Est Creatinine Clear Calc Drug Dose 13.4 ml/min Estimated GFR () 6.2 Estimated GFR (Non- 5.3 BUN/Creatinine Ratio 5.9 Random Glucose 98 mg/dl Estimated Average Glucose 123 mg/dl Hemoglobin A1c 5.9 % Calcium Level 11.2 mg/dl Date/Time Source Procedure Growth Status 2/25/18 09:30 Drainage - Surface Arm , Right Upper Gram Stain - Final Resulted 09/10/17 09:30 Wound Culture - Preliminary Coag Neg Staphylococcus Resulted Assessment & Plan ESRD-for dialysis today. volume status is acceptable. will plan on 2 liters off as bp tolerates. hypercalcemia-calcium levels are elevated and perhaps pt is not as compliant at home. holding the phoslo and tums for now but pt needs them as an outpt. would resume the home doses of medications and follow the calcium levels at the dialysis unit. ID: will clarify what antibiotic is needed to be given at the dialysis unit.
--- NOTE | 2017-09-11 10:42 | Progress Note ---
Progress Note Date of Service: Sep 11, 2017. Subjective 37 yo m with ESRD on HD, s/p removal of RUE AV graft d/t infection, seen in f/u today. Pt currently without AV access for HD, running through [employer]. Pt admits some discomfort RUE, but states significantly improved. Denies any new complaints. Looking forward to discharge. Problem List Medical Problems: (1) Cellulitis of right upper extremity Status: Acute (2) Diabetes Status: Chronic (3) Dialysis AV fistula infection Status: Acute (4) ESRD (end stage renal disease) on dialysis Permanent Comment: s/p traumatic injury to kidneys as a child Status: Chronic (5) ESRD (end stage renal disease) on dialysis Status: Chronic (6) Hyperparathyroidism, Unspecified Status: Chronic (7) Hypertension Nos Status: Chronic (8) Morbid Obesity Status: Chronic Objective Vital Signs Vital Signs Past 12 Hours Date Time Temp Pulse Resp B/P (MAP) Pulse Ox O2 Delivery O2 Flow Rate FiO2 09/11/17 08:40 97 Room Air 09/11/17 08:01 36.5 111 20 95/62 (73) 97 Room Air 09/11/17 07:57 Room Air 09/11/17 00:10 Room Air 09/10/17 23:25 36.5 108 18 95/58 (70) 95 Room Air Exam COSNT: A&O x3, NAD, obese, mildly chronically ill appearing male EXT: RUE incisions C/D/I with zak/sutures. Open wound with excellent granulation, mild serosan drainage. No significant erythema. Edema improved. +1 radial/ulnar pulses. Laboratory and Microbiology Results Past 24 Hours Test 09/11/17 05:42 09/11/17 09:23 Range/Units White Blood Count 11.06 4.8-10.8 K/uL Red Blood Count 3.32 4.7-6.1 M/uL Hemoglobin 10.1 14.0-18.0 g/dL Hematocrit 32.5 42-52 % Mean Corpuscular Volume 97.9 80-100 fL Mean Corpuscular Hemoglobin 30.4 25-34 pg Mean Corpuscular Hemoglobin Concent 31.1 32-36 g/dl Platelet Count 390 130-400 K/uL Mean Platelet Volume 9.8 7.4-10.4 fL Neutrophils (%) (Auto) 67.5 % Lymphocytes (%) (Auto) 21.5 % Monocytes (%) (Auto) 5.6 % Eosinophils (%) (Auto) 2.9 % Basophils (%) (Auto) 0.5 % Neutrophils # (Auto) 7.46 1.4-6.5 K/uL Lymphocytes # (Auto) 2.38 1.2-3.4 K/uL Monocytes # (Auto) 0.62 0.11-0.59 K/uL Eosinophils # (Auto) 0.32 0-0.5 K/uL Basophils # (Auto) 0.06 0-0.2 K/uL RDW Standard Deviation 61.3 36.4-46.3 fL RDW Coefficient of Variation 17.1 11.5-14.5 % Immature Granulocyte % (Auto) 2.0 % Immature Granulocyte # (Auto) 0.22 0.00-0.02 K/uL Sodium Level 136 136-145 mmol/L Potassium Level 4.2 3.5-5.1 mmol/L Chloride Level 100 98-107 mmol/L Carbon Dioxide Level 23 21-32 mmol/L Anion Gap 13.0 3-11 mmol/L Blood Urea Nitrogen 66 7-18 mg/dl Creatinine 10.90 0.60-1.40 mg/dl Est Creatinine Clear Calc Drug Dose 13.4 ml/min Estimated GFR () 6.2 Estimated GFR (Non- 5.3 BUN/Creatinine Ratio 5.9 10-20 Random Glucose 98 70-99 mg/dl Estimated Average Glucose 123 mg/dl Hemoglobin A1c 5.9 4.5-5.6 % Calcium Level 11.2 8.5-10.1 mg/dl Random Vancomycin Level 12.0 mcg/ml ASSESSMENT and PLAN: s/p removal infected RUE AV graft RUE AV graft infection Pt doing well post op. OK for wound vac placement. Pt ok for d/c to home with wound vac changes M/W/F, as well as abx at HD per medicine.
[2017-09-11] MEDS ORDERED: EPOETIN ALFA 10,000 UNITS/ML VIAL IV. ONE (11:00)
--- NOTE | 2017-09-11 13:51 | Pharmacy Progress Note ---
Pharmacy Abx Dose Short Note Date of Service Sep 11, 2017. Assessment & Plan Assessment 37 year old male dialysis patient receiving vancomycin for treatment of rt. arm cellulitis, s/p graft removal. Day # 8 of antimicrobial therapy. Vancomycin was initiated on 09/04 & dc'd on as drainage cx was methacillin sensitive. Vanc is restarted today as ID recommends 2 weeks of abx therapy and recommends vanco for ease of admin on discharge. Plan Vancomycin * Random vanc level drawn today = 12 mcg/mL, still therapeutic. * Will dose with 750mg mg IV x 1 dose post dialysis pending pt discharge today. * Goal trough level : 15 to 20 mcg/mL * Should pt remain at [facility], will continue to follow. Pharmacy will continue to follow and will adjust dose/frequency as necessary. Thank you.
[2017-09-11] MEDS ORDERED: VANCOMYCIN INJ 750 MG in SODIUM CHLORIDE 0.9% 250ML 250 ML IV SCH (14:00)
--- NOTE | 2017-09-11 17:05 | Progress Note ---
Medicine Progress Note Date & Time of Visit: Sep 11, 2017 at 16:54. Subjective seen resting in bed, comfortable father visiting states he feels fine overall denies dizziness, headache, nausea, shortness of breath, chest pain, palpitations pain on the right arm continues to improve states he is ready and would like to be discharged today Objective Last 8 Hrs Date Time Temp Pulse Resp B/P (MAP) Pulse Ox O2 Delivery O2 Flow Rate FiO2 09/11/17 15:49 36.5 105 20 92/58 (69) 96 Room Air 09/11/17 14:10 36.9 110 89/52 (64) 09/11/17 13:15 100 81/36 09/11/17 13:00 108 82/46 09/11/17 12:45 100 75/44 09/11/17 12:30 100 88/49 09/11/17 12:15 110 78/37 09/11/17 12:00 100 104/51 09/11/17 11:45 101 81/37 09/11/17 11:30 90 86/38 09/11/17 11:15 93 82/40 09/11/17 10:55 95 95/53 09/11/17 10:45 36.6 101 93/49 (64) Physical Exam: General-oriented 3 not in distress speaking in sentences no accessory muscle use Eyes- anicteric Neck- no JVD Lungs- clear breath sounds bilaterally, no rales/wheezes Heart- regular rhythm; no murmur, normal rate Abdomen- normal bowel sounds, soft, nontender, no masses Extremities- Right upper extremity: surgical wound (+) wound vac in place, no surrounding erythema, discharge, tenderness no edema of the right hand and forearm no pretibial edema, no calf tenderness; peripheral pulses intact Neuro- alert, oriented x 3; no gross focal neurologic deficit Skin- warm & dry Laboratory Results: Last 24 Hours Test 09/11/17 05:42 09/11/17 09:23 White Blood Count 11.06 K/uL Red Blood Count 3.32 M/uL Hemoglobin 10.1 g/dL Hematocrit 32.5 % Mean Corpuscular Volume 97.9 fL Mean Corpuscular Hemoglobin 30.4 pg Mean Corpuscular Hemoglobin Concent 31.1 g/dl Platelet Count 390 K/uL Mean Platelet Volume 9.8 fL Neutrophils (%) (Auto) 67.5 % Lymphocytes (%) (Auto) 21.5 % Monocytes (%) (Auto) 5.6 % Eosinophils (%) (Auto) 2.9 % Basophils (%) (Auto) 0.5 % Neutrophils # (Auto) 7.46 K/uL Lymphocytes # (Auto) 2.38 K/uL Monocytes # (Auto) 0.62 K/uL Eosinophils # (Auto) 0.32 K/uL Basophils # (Auto) 0.06 K/uL RDW Standard Deviation 61.3 fL RDW Coefficient of Variation 17.1 % Immature Granulocyte % (Auto) 2.0 % Immature Granulocyte # (Auto) 0.22 K/uL Sodium Level 136 mmol/L Potassium Level 4.2 mmol/L Chloride Level 100 mmol/L Carbon Dioxide Level 23 mmol/L Anion Gap 13.0 mmol/L Blood Urea Nitrogen 66 mg/dl Creatinine 10.90 mg/dl Est Creatinine Clear Calc Drug Dose 13.4 ml/min Estimated GFR () 6.2 Estimated GFR (Non- 5.3 BUN/Creatinine Ratio 5.9 Random Glucose 98 mg/dl Estimated Average Glucose 123 mg/dl Hemoglobin A1c 5.9 % Calcium Level 11.2 mg/dl Random Vancomycin Level 12.0 mcg/ml Assessment & Plan RIGHT UPPER EXTREMITY CELLULITIS AT THE AREA OF THE AV GRAFT Present with Right upper arm erythema/tenderness/swelling Meet SIRS criteria with elevated WBC and Tachycardia U/S showed complex fluid collection surrounding an occluded right upper arm dialysis graft. The fluid collection extends over craniocaudad distance of 11.5 cm. Lateral to the occluded graft is a second hemodialysis graft, which is patent. Blood cultures: Negative Vascular consulted, Dr. Jefferson 09/05/17: s/p temporary HD cath placement 09/06/17: s/p removal of AV graft Culture of Drainage: (+) Staph, MSSA 09/07/17: s/p placement of Permcath afebrile, right arm edema resolved Wound Vac placed on the surgical wound, patient to ff up with wound care center in [place], arrangements made Discussed with Dr. Espinosa, recommends 2 weeks of IV Vanco during dialysis days, ff up with Dr. Espinosa in 1-2 weeks ff up with Vascular Surgeon in 1-2 weeks. ESRD ON HD ON MWF 09/05/17: s/p temporary HD cath placement 09/06/17: s/p removal of AV graft 09/07/17: s/p placement of Permcath continue HD in [facility] c/o Dr. Stoddard RECENT CLOT IN THE AV GRAFT Occured in Dec after undergoing parathyroidectomy surgery Discussed with Dr. Jefferson, recommend to stop anticoagulation Tobacco Use Counseling smoking cessation declined nicotine patch HTN monitor DVT Prophylaxis Coumadin stopped per vascular surgery service Heparin stopped for his planned procedures, also has an open surgical wound with drainage encourage to ambulate CODE STATUS FULL CODE DISPOSITION d/c home continue HD at [place] IV Vanco with HD x 2 weeks minimum ff up with Wound Care Center in [place] tomorrow then regularly ff up with PCP in 1 week ff up with Vascular Surgeon in 1-2 weeks. Current Inpatient Medications: Current Inpatient Medications Medications (Trade) Dose Ordered Sig/Otilia Route Start Time Stop Time Status Last Admin Dose Admin Acetaminophen (Tylenol Tab) 650 mg Q4H PRN PO 09/04/17 14:30 10/04/17 14:29 09/05/17 21:07 650 MG Sevelamer HCl (Renagel Tab) 2,400 mg BID PRN PO 09/04/17 15:00 10/04/17 14:59 Sevelamer HCl (Renagel Tab) 4,000 mg TIDM PO 09/04/17 17:45 10/04/17 17:59 09/10/17 17:04 4,000 MG Vitamin B Complex/ Vit C/Folic Acid (Nephrocaps) 1 cap HS PO 09/05/17 21:00 10/05/17 08:59 09/10/17 20:30 1 CAP Tramadol HCl (Ultram Tab) `50-100MG (1-2 TABS) ... Q6H PRN PO 09/06/17 16:45 10/06/17 16:44 Morphine Sulfate (MoRPHine SULFATE INJ) 1 mg Q2H PRN IV 09/06/17 16:45 09/20/17 16:44 Morphine Sulfate (MoRPHine SULFATE INJ) 2 mg Q2H PRN IV 09/06/17 17:00 09/20/17 16:59 Morphine Sulfate (MoRPHine SULFATE INJ) 3 mg Q2H PRN IV 09/06/17 17:00 09/20/17 16:59 Morphine Sulfate (MoRPHine SULFATE INJ) 4 mg Q2H PRN IV 09/06/17 17:00 09/20/17 16:59 Patiromer ([place]) 25.2 gm DAILY@2300 PO 09/10/17 23:00 10/10/17 22:59 09/11/17 00:18 25.2 GM Miscellaneous Information (Consult) 1 ea UD PRN N/A 09/11/17 07:30 10/11/17 07:29 Vancomycin HCl 750 mg/Sodium Chloride 265 ml @ 125 mls/hr TODAY@1400 IV 09/11/17 14:00 09/11/17 18:08 09/11/17 15:51 125 MLS/HR
[2017-09-11] MEDS ORDERED: VANC1INJ94 IV (17:11)
--- NOTE | 2017-09-11 17:20 | Discharge Instructions ---
Discharge Instructions Date of Service Sep 11, 2017. Admission Reason for Admission: Cellulitis Of Right Upper Extremity Discharge Discharge Diagnosis / Problem: INFECTED RIGHT AV GRAFT, RIGHT ARM CELLULITIS Discharge Goals Goal(s): Diagnostic testing, Therapeutic intervention Activity Recommendations Activity Limitations: as noted below (INCREASE ACTIVITY GRADUALLY TOLERATED , NO HEAVY EXERTION) Lifting Limitations: until after follow-up appointment Exercise/Sports Limitations: until after follow-up appointment Driving or Machine Use: NO DRIVING UNTIL CLEARED BY WOUND CARE CENTER, PRIMARY CARE PROVIDER . Instructions / Follow-Up Instructions / Follow-Up PLEASE REVIEW YOUR NEW MEDICATION LIST AND FOLLOW INSTRUCTIONS CAREFULLY. PLEASE CALL YOUR PRIMARY CARE PHYSICIAN, DR. PRETTY, OR RETURN TO THE ER IMMEDIATELY IF WITH: INCREASING PAIN, REDNESS, TENDERNESS, DISCHARGE ON THE RIGHT ARM OR WOUND SITE, FEVER/CHILLS, NAUSEA/VOMITING, WEAKNESS. FOLLOW UP WITH WOUND CARE CENTER IN [place] TOMORROW WITH DR. HERRING. CONTINUE DIALYSIS SCHEDULE C/O DR. PRETTY. PLEASE FOLLOW UP WITH PRIMARY CARE PROVIDER CHANO ALVAREZ ON Monday09/19/17 AT 2:45 PM. FOLLOW UP WITH INFECTIOUS DISEASE CLINIC DR. ALEJANDRO SOARES IN 1-2 WEEKS. TEL NO. FOLLOW UP WITH VASCULAR SURGEON IN 1-2 WEEKS. Current Hospital Diet Patient's current hospital diet: Renal Diet Discharge Diet Recommended Diet: Renal Diet Procedures Procedures Performed: Insertion of Perm Catheter, Right Internal Jugular Approach, Ultrasound Localization Of Right Internal Jugular Vein, Fluoroscopy for Positioning. Venacavagram. Removal of Temporary Dialysis Catheter. Right arm dressing change Pending Studies Studies pending at discharge: no Laboratory Results Hemoglobin A1c Test 09/11/17 05:42 Range/Units Estimated Average Glucose 123 mg/dl Hemoglobin A1c 5.9 H 4.5-5.6 % Medical Emergencies . Who to Call and When: Medical Emergencies: If at any time you feel your situation is an emergency, please call 911 immediately. . Non-Emergent Contact Non-Emergency issues call your: Primary Care Provider, Catalog Specialist, Surgeon Call Non-Emergent contact if: you have a fever, your pain is not controlled, your pain is worsening, wound has increased drainage, wound has increased redness, wound has increased pain, you have any medication questions . . "Provider Documentation" section prepared by Suleiman Lombardi. . VTE Core Measure Inpt VTE Proph given/why not?: Unfractionated heparin SQ, Warfarin (Coumadin)
--- NOTE | 2017-09-11 17:25 | Discharge Summary ---
Discharge Summary Date of Service Sep 11, 2017. Discharge Summary Admission Date: Sep 04, 2017 at 14:34 Discharge Date: Sep 11, 2017 Discharge Disposition: Home with services Principal Diagnosis: RIGHT UPPER EXTREMITY CELLULITIS, INFECTED AV GRAFT Secondary Diagnoses/Problems: Please refer to hospital course below. Procedures: HEMODIALYSIS ACCESS RIGHT UPPER EXTREMITY DUPLEX ULTRASOUND CLINICAL HISTORY: EVAL RUE PAIN/REDNESS/SWELLING COMPARISON STUDY: No previous studies for comparison. FINDINGS: There is an old occluded dialysis graft extending from the antecubital fossa to the proximal upper arm. Surrounding this occluded graft is fluid collection. The fluid collection measures 11.5 cm in craniocaudad distance and measures approximately 4.5 cm cross-sectionally. Adjacent to the occluded graft is a patent dialysis graft. The brachial and basilic veins appear patent. IMPRESSION: 1. Complex fluid collection surrounding an occluded right upper arm dialysis graft. The fluid collection extends over craniocaudad distance of 11.5 cm. 2. Lateral to the occluded graft is a second hemodialysis graft, which is patent. ULTRASOUND VENOUS MAPPING LEFT UPPER EXTREMITY CLINICAL HISTORY: possible fistula placement COMPARISON STUDY: No previous studies for comparison. FINDINGS: No thrombus is visualized in the left internal jugular, subclavian, or basilic veins. There is a left cephalic vein thrombus in the level of the wrist at the site of the intravenous catheter. Size and depth measurements of the cephalic and basilic vein were recorded and scanned into the PACS system. IMPRESSION: Cephalic vein thrombus at the wrist at the level of the intravenous catheter. Consultations: NEPHROLOGY, VASCULAR SURGERY, INFECTIOUS DISEASE Pending Studies/Follow-Up: Please refer to hospital course below. Medication Reconciliation New Medications: Vancomycin HCl in Sodium Chlor (VANCOMYCIN in NSS) 1 Inj Inj 750 MG IV MWF for 6 Days, BAG To be given during Hemodialysis days m// (two week period), Dosing per Pharmacist, Further duration of treatment per Infectious Disease Clinic- Dr. Espinosa Continued Medications: B-Complex W/ C & Folic Acid (Triphrocaps) 1 Cap Cap 1 CAP PO QAM Calcium Acetate (Phosphate Bin (Phoslo 667 Mg) 667 Mg Cap 2 TABS PO TIDM Calcium Carbonate (Antacid) (Tums E-X 750) 750 Mg Chw 3.5 TABS PO QID Doxercalciferol (Hectorol) 4 Mcg/2 Ml Inj 1 ML 3XWK MWF, at dialysis Ergocalciferol (Vitamin D 31451 Unit) 50,000 Unit Cap 1 TAB PO MONTHLY, CAP takes in the pm on Monday Patiromer Sorbitex Calcium (Veltassa) 25.2 Gm Pow 1 DOSE PO QPM Sevelamer Carbonate (Renvela) 800 Mg Tab 5 TABS PO TIDM Sevelamer Carbonate (Renvela) 800 Mg Tab 3 TABS PO WITH SNACKS, TAB Sodium Polystyrene Sulfonate (Kayexalate Susp) 30 Gm/120 Ml Susp 30 ML PO DAILY uses on , , mon and sun - uses on non - dialysis days Discontinued Medications: Warfarin Sod (Jantoven) 5 Mg Tab 2.5 MG PO 4XWK, TAB monday and Warfarin Sodium (Coumadin) 5 Mg Tab 5 MG PO 3XWK, TAB monday Admission Information HPI (per Admitting provider): 37-year-old white male with past medical history significant for end-stage renal disease on hemodialysis on MWF, clot in the renal dialysis AV graft back in June on coumadin after he had parathyroidectomy surgery performed in [place], present to the ED with his father for pain and erythema of right upper arm. Pt said that on Monday night, he developed pain in the Right upper arm. He said that the next day the pain got worst associated with swelling. She said that she took tylenol and tramadol and applied a heating pad on the area yesterday. He said that today the pain and swelling got worst associated with erythema. He said that he went to work this morning and he was sent home because he was not able to work due to the pain. He went to his HD center and they contacted dr. Jefferson and was advised to go to the ER for eval. Pt did not have any dialysis today. Denies any chest pain, palpitation, dizziness, chills, fever, nausea and SOB. Physical Exam (per Admitting): General Appearance: WD/WN, no apparent distress Head: normocephalic, atraumatic Eyes: normal inspection, PERRL, EOMI ENT: normal ENT inspection, hearing grossly normal Neck: supple, no JVD Respiratory/Chest: lungs clear, normal breath sounds, no accessory muscle use Cardiovascular: regular rate, rhythm, no JVD Abdomen/GI: normal bowel sounds, non tender Back: normal inspection, no CVA tenderness Extremities/Musculoskelatal: no calf tenderness, + pertinent finding (RUE redness/tenderness/ warm and swelling) Neurologic/Psych: no motor/sensory deficits, alert, normal mood/affect, oriented x 3 Skin: normal color, warm/dry Hospital Course RIGHT UPPER EXTREMITY CELLULITIS AT THE AREA OF THE AV GRAFT Presented with Right upper arm erythema/tenderness/swelling Meet SIRS criteria with elevated WBC and Tachycardia U/S showed complex fluid collection surrounding an occluded right upper arm dialysis graft. The fluid collection extends over craniocaudad distance of 11.5 cm. Lateral to the occluded graft is a second hemodialysis graft, which is patent. Blood cultures: Negative Vascular consulted, Dr. Jefferson 09/05/17: s/p temporary HD cath placement 09/06/17: s/p removal of AV graft Culture of Drainage: (+) Staph, MSSA 09/07/17: s/p placement of Permcath afebrile, right arm edema resolved Discussed with Dr. Espinosa, recommends 2 weeks of IV Vanco during dialysis days, ff up with Dr. Espinosa in 1-2 weeks Wound Vac placed on the surgical wound, patient to ff up with wound care center in [place], arrangements made ff up with Vascular Surgeon in 1-2 weeks. ESRD ON HD ON MWF 09/05/17: s/p temporary HD cath placement 09/06/17: s/p removal of AV graft 09/07/17: s/p placement of Permcath continue HD in [facility] c[facility]o Dr. Pretty RECENT CLOT IN THE AV GRAFT Occured in Dec after undergoing parathyroidectomy surgery Discussed with Dr. Jefferson, recommend to stop anticoagulation as the affected graft was removed Tobacco Use Counseling smoking cessation declined nicotine patch HTN monitor DISPOSITION d/c home continue HD at [place] IV Vanco with HD x 2 weeks minimum ff up with Wound Care Center in [place] tomorrow then regularly ff up with PCP in 1 week ff up with Vascular Surgeon in 1-2 weeks. Total time spent on discharge = 55 minutes This includes examination of the patient, discharge planning, medication reconciliation, and communication with other providers. Discharge Instructions Discharge Instructions Date of Service Sep 11, 2017. Admission Reason for Admission: Cellulitis Of Right Upper Extremity Discharge Discharge Diagnosis / Problem: INFECTED RIGHT AV GRAFT, RIGHT ARM CELLULITIS Discharge Goals Goal(s): Diagnostic testing, Therapeutic intervention Activity Recommendations Activity Limitations: as noted below (INCREASE ACTIVITY GRADUALLY TOLERATED , NO HEAVY EXERTION) Lifting Limitations: until after follow-up appointment Exercise/Sports Limitations: until after follow-up appointment Driving or Machine Use: NO DRIVING UNTIL CLEARED BY WOUND CARE CENTER, PRIMARY CARE PROVIDER . Instructions / Follow-Up Instructions / Follow-Up PLEASE REVIEW YOUR NEW MEDICATION LIST AND FOLLOW INSTRUCTIONS CAREFULLY. PLEASE CALL YOUR PRIMARY CARE PHYSICIAN, DR. PRETTY, OR RETURN TO THE ER IMMEDIATELY IF WITH: INCREASING PAIN, REDNESS, TENDERNESS, DISCHARGE ON THE RIGHT ARM OR WOUND SITE, FEVER/CHILLS, NAUSEA/VOMITING, WEAKNESS. FOLLOW UP WITH WOUND CARE CENTER IN [place] TOMORROW WITH DR. HERRING. CONTINUE DIALYSIS SCHEDULE C/O DR. PRETTY. PLEASE FOLLOW UP WITH PRIMARY CARE PROVIDER CHANO ALVAREZ ON Monday09/19/17 AT 2:45 PM. FOLLOW UP WITH INFECTIOUS DISEASE CLINIC DR. ALEJANDRO ESPINOSA IN 1-2 WEEKS. TEL NO. FOLLOW UP WITH VASCULAR SURGEON IN 1-2 WEEKS. Current Hospital Diet Patient's current hospital diet: Renal Diet Discharge Diet Recommended Diet: Renal Diet Procedures Procedures Performed: Insertion of Perm Catheter, Right Internal Jugular Approach, Ultrasound Localization Of Right Internal Jugular Vein, Fluoroscopy for Positioning. Venacavagram. Removal of Temporary Dialysis Catheter. Right arm dressing change Pending Studies Studies pending at discharge: no Laboratory Results Hemoglobin A1c Test 09/11/17 05:42 Range/Units Estimated Average Glucose 123 mg/dl Hemoglobin A1c 5.9 H 4.5-5.6 % Medical Emergencies . Who to Call and When: Medical Emergencies: If at any time you feel your situation is an emergency, please call 911 immediately. . Non-Emergent Contact Non-Emergency issues call your: Primary Care Provider, Customer Success Specialist, Surgeon Call Non-Emergent contact if: you have a fever, your pain is not controlled, your pain is worsening, wound has increased drainage, wound has increased redness, wound has increased pain, you have any medication questions . . "Provider Documentation" section prepared by Suleiman Lombardi. . VTE Core Measure Inpt VTE Proph given/why not?: Unfractionated heparin SQ, Warfarin (Coumadin)
--- NOTE | 2017-09-14 08:47 | DIAGNOSTIC IMAGING REPORT ---
DATE OF PROCEDURE: 09/05/2017 PREOPERATIVE DIAGNOSIS: End-stage renal disease on hemodialysis with infected right arm arteriovenous graft. POSTOPERATIVE DIAGNOSIS: End-stage renal disease on hemodialysis with infected right arm arteriovenous graft. PROCEDURE: Ultrasound guided placement of temporary hemodialysis catheter and right femoral vein with fluoroscopy for positioning. SURGEON: Dr. Antwan Jefferson. CHARGE HISTOTECHNOLOGIST: Dr. Renee Bruce. ANESTHESIA: Local. COMPLICATIONS: None. ESTIMATED BLOOD LOSS: 50 mL. INDICATIONS: Mr. Edouard Morrison is a 37-year-old gentleman with end-stage renal disease, on hemodialysis. He has multiple grafts in his right upper arm. He underwent a duplex, which showed fluid accumulation around one of his previously placed AV graft. He additionally has overlying cellulitis and concerned for infection. As the graft no longer usable, he was recommended to undergo placement of a temporary hemodialysis catheter to continue dialysis. Risks, benefits and alternatives were discussed with the patient and he consented to the procedure. DESCRIPTION OF PROCEDURE: The patient was taken to the endovascular suite and placed in the supine position. His right femoral vein was assessed with ultrasound and appeared to be patent. The right groin was prepped and draped in the usual sterile fashion. A safety timeout was performed and the patient, procedure, and sidedness were correctly identified. Ultrasound was again used to identify the right common femoral vein. Local anesthesia was used to anesthetize the skin overlying the vein. An 18-gauge access needle was used to access the common femoral vein under ultrasound guidance. A guidewire easily passed through the access needle. A wire was confirmed with fluoroscopy to be in the femoral vein. A dilator was passed over the wire and used to dilate a tract to the catheter. The dilator was removed and a 24-cm hemodialysis catheter was passed over the wire into the right common femoral and iliac system. Wire was removed and both ports easily aspirated of dark venous blood. Both ports were flushed. Heparin was instilled into each port. The catheter was sutured to the skin. A sterile dressing was applied. Final confirmation image of the catheter was obtained to ensure that it was appropriately positioned. The patient was transferred to the recovery area in stable condition. He tolerated the procedure well and there were no immediate complications. Dr. Antwan Jefferson was present for the entire procedure.
== END 2017-09-11 18:28 | disposition home or self-care (01) | DRG 252 ==
LOC: C.EDB 09:19 → C.MSN 14:34 → ENRESERV 15:21 → CANRESERV 09-06 17:52 → ENRESERV 09-06 17:52 → C.MSICU 09-06 18:14 → CANBEDREQ 09-06 19:01 → ENRESERV 09-08 11:54 → C.MSN 09-08 13:59
PROVIDERS: ADMIT Internal Medicine; ATTEND Internal Medicine
PROC: 06HM33Z Insertion of Infusion Device into Right Femoral Vein, Percutaneous Approach (ICD-10-PCS; principal; 2017-09-05 10:30)
PROC: 0317090 Bypass Right Brachial Artery to Right Upper Arm Artery with Autologous Venous Tissue, Open Approach (ICD-10-PCS; 2017-09-06)
PROC: 03PY0KZ Removal of Nonautologous Tissue Substitute from Upper Artery, Open Approach (ICD-10-PCS; 2017-09-06)
PROC: 05PY0KZ Removal of Nonautologous Tissue Substitute from Upper Vein, Open Approach (ICD-10-PCS; 2017-09-06)
PROC: 06BP0ZZ Excision of Right Saphenous Vein, Open Approach (ICD-10-PCS; 2017-09-06)
PROC: 02HV33Z Insertion of Infusion Device into Superior Vena Cava, Percutaneous Approach (ICD-10-PCS; 2017-09-08)
PROC: 0JH63XZ Insertion of Tunneled Vascular Access Device into Chest Subcutaneous Tissue and Fascia, Percutaneous Approach (ICD-10-PCS; 2017-09-08)
DX: T82.898A Other specified complication of vascular prosthetic devices, implants and grafts, initial encounter (principal); N18.6 End stage renal disease; I12.0 Hypertensive chronic kidney disease with stage 5 chronic kidney disease or end stage renal disease; L03.113 Cellulitis of right upper limb; Z68.42 Body mass index [BMI] 45.0-49.9, adult; R65.10 Systemic inflammatory response syndrome (SIRS) of non-infectious origin without acute organ dysfunction; B95.61 Methicillin susceptible Staphylococcus aureus infection as the cause of diseases classified elsewhere; E21.3 Hyperparathyroidism, unspecified; E11.22 Type 2 diabetes mellitus with diabetic chronic kidney disease; E66.01 Morbid (severe) obesity due to excess calories; F17.200 Nicotine dependence, unspecified, uncomplicated; Z79.01 Long term (current) use of anticoagulants; Z79.899 Other long term (current) drug therapy; Z99.2 Dependence on renal dialysis; Y84.1 Kidney dialysis as the cause of abnormal reaction of the patient, or of later complication, without mention of misadventure at the time of the procedure